=== PATIENT | female | born 1940 | race Caucasian/White ===

== ENCOUNTER → 2018-05-08 07:11 | Outpatient (REF) | payer OTHER, SELFPAY ==
[2018-05-08 08:31] LABS: Add Manual Diff / Slide Review NO; Basophils Percent Auto 0.1 % (0-2); Eosinophils Percent Auto 1.7 % (2-4); Hematocrit 35.4 % (36-46); Hemoglobin 11.7 g/dL (12.0-16.0); Lymphocytes Percent Auto 8.6 % (25-40); Mean Corpuscular HGB Conc 32.9 % (30-36); Mean Corpuscular Hemoglobin 29.4 PG (26-34); Mean Corpuscular Volume 89.3 fL (80-100); Monocytes Percent Auto 15.6 % (3-14); Neutrophils Absolute Auto 1500 /uL (1500-7000); Platelet Count 52 X10^3/uL (150-400); Red Blood Cell Count 3.97 X10^6/uL (4.0-5.2); Red Cell Distribution Width 18.2 % (11.6-14.8)
[2018-05-08 08:46] LABS: B Type Natriuretic Peptide < 100.0 (<100)
[2018-05-08 08:53] LABS: Alanine Aminotransferase 31 IU/L (9-52); Albumin 3.8 g/dL (3.5-5.0); Albumin Globulin Ratio 1.5 (1.0-2.8); Alkaline Phosphatase 87 U/L (38-126); Aspartate Aminotransferase 51 IU/L (14-36); Bilirubin Total 0.8 mg/dL (0.2-1.3); Blood Urea Nitrogen 18 mg/dL (7-17); Calcium 9.1 mg/dL (8.4-10.2); Carbon Dioxide 29 mmol/L (22-32); Chloride 103 mmol/L (98-107); Estimated Glomerular Filt Rate > 60.0 mL/min (>60); Globulin 2.6 g/dL (1.7-4.1); Glucose 85 mg/dL (80-110); HEMOLYSIS < 15 (0-50); Potassium 4.3 mmol/L (3.4-5.1); Sodium 143 mmol/L (137-145); Total Protein 6.4 g/dL (6.3-8.2)
[2018-05-08 09:42] LABS: Vitamin B12 492 pg/mL (239-931)
[2018-05-08 10:22] LABS: Thyroid Stimulating Hormone 2.03 uIU/mL (0.47-4.68)
== END ==
LOC: LAB 07:11
PROVIDERS: PCP Internal Medicine; Visit Provider Nurse Practitioner Family
DX: D64.9 Anemia, unspecified (principal); E03.9 Hypothyroidism, unspecified; I50.9 Heart failure, unspecified
CPT/HCPCS: 36415; 80053; 82607; 83880; 84443; 85025

== ENCOUNTER → 2018-05-24 07:15 | Outpatient (REF) | payer OTHER, SELFPAY ==
[2018-05-24 07:58] LABS: Add Manual Diff / Slide Review NO; Basophils Percent Auto 0.1 % (0-2); Eosinophils Percent Auto 2.3 % (2-4); Hematocrit 34.9 % (36-46); Hemoglobin 11.6 g/dL (12.0-16.0); Lymphocytes Percent Auto 7.4 % (25-40); Mean Corpuscular HGB Conc 33.2 % (30-36); Mean Corpuscular Hemoglobin 29.8 PG (26-34); Mean Corpuscular Volume 89.8 fL (80-100); Monocytes Percent Auto 14.6 % (3-14); Neutrophils Absolute Auto 2300 /uL (1500-7000); Neutrophils Percent Auto 75.6 % (50-75); Platelet Count 53 X10^3/uL (150-400); Red Blood Cell Count 3.88 X10^6/uL (4.0-5.2); Red Cell Distribution Width 17.9 % (11.6-14.8); White Blood Cell Count 3.1 X10^3/uL (4.5-11.0)
== END ==
LOC: LAB 07:15
PROVIDERS: PCP Internal Medicine; Visit Provider Internal Medicine
DX: D72.819 Decreased white blood cell count, unspecified (principal)
CPT/HCPCS: 36415; 85025

== ENCOUNTER 2018-06-01 15:15 | Inpatient (IN) | payer MEDICARE, MEDICAID, SELFPAY ==
[2018-06-01] VITALS (8 sets, daily range): BP systolic 104–132; BP diastolic 57–79; PULSE 64–86; RESP 13–22; TEMP 36.6–37; O2SAT 92–99; BMI 27.5
--- NOTE | 2018-06-01 15:22 | DI.RAD.S_ITS ---
PROCEDURE: XR CHEST 1V INDICATIONS: fever confusion TECHNIQUE: One view of the chest was acquired. COMPARISON: [facility] [place], [place], ABD W/ERECT +/OR DECB, 03/04/2011, 15:10. FINDINGS: Surgical changes and devices: Monitoring wires project over the chest. Cholecystectomy clips are present in the right upper abdomen. Lungs and pleura: There is mild diffuse interstitial prominence without focal consolidation. No pleural effusions or pneumothorax. Minimal streaky opacities involving the medial left lung base likely related to atelectasis. Mediastinum: Mediastinal contours appear normal. Heart size is at the upper limits for normal and may be related to patient positioning Bones and chest wall: No suspicious bony lesions. Overlying soft tissues appear unremarkable. IMPRESSION: Diffuse interstitial prominence without focal consolidation. Findings may be seen with interstitial pneumonia versus chronic interstitial lung disease. Dictated by: Christiano Sullivan M.D. on 06/01/2018 at 16:20 Approved by: Christiano Sullivan M.D. on 06/01/2018 at 16:26
--- NOTE | 2018-06-01 15:24 | ED.FEVER ---
HPI - Fever General Chief Complaint: Fever Stated Complaint: Fever Time Seen by Provider: 06/01/18 15:20 Source: patient, family, EMS and old records reviewed Limitations: no limitations History of Present Illness HPI Narrative: Patient is a 77-year-old female presenting with increased confusion and fever. She has had upper respiratory like symptoms for about a week or 2 weeks. She has had cough. No shortness of breath, no chest pain, no abdominal pain, nausea or vomiting. Her son is at bedside. He states that she has had a headache encephalopathy in the past. She also gets confused with bladder infections. She does take Keflex on a daily basis to help prevent all UTIs. Related Data Home Medications Medication Instructions Recorded Confirmed acetaminophen 650 mg PO Q6H PRN MDD 36 06/01/18 06/01/18 acetaminophen-codeine 1 tab PO Q12H PRN 06/01/18 06/01/18 ascorbic acid (vitamin C) 500 mg PO DAILY 06/01/18 06/01/18 cephalexin 500 mg PO QPM 06/01/18 06/01/18 diclofenac sodium 1 applic TOPICAL Q6H PRN 06/01/18 06/01/18 fingolimod 0.5 mg PO DAILY 06/01/18 06/01/18 furosemide 40 mg PO DAILY 06/01/18 06/01/18 gabapentin 300 mg PO QPM 06/01/18 06/01/18 levothyroxine 50 mcg PO DAILY 06/01/18 06/01/18 lidocaine 1 applic TOPICAL Q12H PRN 06/01/18 06/01/18 loperamide 2 mg PO DAILY PRN 06/01/18 06/01/18 lorazepam 0.5 mg PO DAILY PRN 06/01/18 06/01/18 multivitamin with minerals 1 tab PO DAILY 06/01/18 06/01/18 nystatin [Nyamyc] 1 applic TOPICAL TID PRN 06/01/18 06/01/18 omeprazole 20 mg PO DAILY 06/01/18 06/01/18 ondansetron HCl 4 mg PO Q6H PRN 06/01/18 06/01/18 potassium chloride 10 meq PO DAILY 06/01/18 06/01/18 sertraline 75 mg PO DAILY 06/01/18 06/01/18 Allergies Allergy/AdvReac Type Severity Reaction Status Date / Time Sulfa (Sulfonamide Allergy Verified 06/01/18 18:18 Antibiotics) Review of Systems Review of Systems ROS Unobtainable: All systems reviewed & are unremarkable except as noted in HPI and below Constitutional Reports fever(s) Cardiovascular Denies chest pain, Denies irregular heart rhythm, Denies lightheadedness, Denies palpitations, Denies dyspnea and Denies orthopnea Respiratory Reports as per HPI, Reports cough, Denies dyspnea and Denies wheezing Gastrointestinal Gastrointestinal: Denies abdominal pain, Denies change in bowel habits, Denies diarrhea, Denies nausea and Denies vomiting Genitourinary Denies hematuria, Denies flank pain, Denies urinary incontinence and Denies urinary urgency Musculoskeletal Denies back pain, Denies muscle weakness, Denies numbness and Denies tingling Integumentary/Breasts Denies pruritus, Denies erythema, Denies rash and Denies wounds Neurologic Reports confusion, Reports memory loss, Denies numbness and Denies tingling Psychiatric Reports confusion and Reports memory loss Endocrine Denies palpitations Allergic/Immunologic Denies wheezing PFSH Medical History CVA (cerebral vascular accident) (Acute) Depression (Acute) Hepatic encephalopathy (Acute) Pancytopenia (Acute) TIA (transient ischemic attack) (Acute) Social History Smoking Status: Never smoker Exam Initial Vital Signs Initial Vital Signs: Vital Signs Temperature 98.6 F 06/01/18 15:15 Pulse Rate 80 06/01/18 15:15 Respiratory Rate 18 06/01/18 15:15 Blood Pressure 125/57 L 06/01/18 15:15 Pulse Oximetry 97 06/01/18 15:15 GENERAL: Alert pleasant elderly female has trouble remembering and is a poor historian HEENT: Head atraumatic,EOMI, pupils reactive, face symmetric CARDIOVASCULAR: Regular rate and rhythm without murmurs, rubs or gallops. RESPIRATORY: Breath sounds equal bilaterally, no wheezes rales or rhonchi. ABDOMEN: Soft, nontender. Normoactive bowel sounds all 4 quadrants. No guarding or rebound. : No CVA tenderness EXTREMITIES: Normal range of motion, no clubbing or edema. Neurovascularly intact NEUROLOGICAL: Moving all extremities clear speech no gross deficits SKIN: Warm, dry, no laceration, no petechiae, no rashes or lesions. Scores CURB-65 Confusion: Yes BUN >19mg/dL (>7mmol/L): No Respiratory rate greater or equal to 30: No SBP <90mmHg or DBP less or equal to 60mmHg: No Age 65 or Older: Yes CURB-65 Total: 2 Score 0-1 Outpatient care, Score 2 Inpt vs. Obs, Score 3 or over Inpt admit with ICU for score of 4-5 GCS [place] coma scale eye opening: Spontaneous [place] coma scale verbal response: Confused [place] coma scale motor response: Obey commands [place] coma scale total score: 14 Course Orders Ordered: ED Orders 06/01/18 15:22 XR chest 1V Stat 06/01/18 16:10 Blood Culture Stat Complete Blood Count AUTO DIFF Stat Comprehensive Metabolic Panel Stat Lactate (Lactic Acid) Stat Procalcitonin Stat UA Complete [Urinalysis and Microscopic] Stat Urine Culture Stat 06/01/18 17:26 Ammonia (NH3) Stat Sodium Chloride (Normal Saline 0.9%) 1,000 mls @ 200 mls/hr IV CONT PRUDENCE Last Admin: 06/01/18 16:28 Dose: 200 mls/hr Levofloxacin (Levaquin) 750 mg in 150 mls @ 100 mls/hr IV NOW ONE Stop: 06/01/18 19:31 Vital Signs - 8 hr 06/01/18 15:15 06/01/18 16:30 06/01/18 16:32 Temperature 98.6 F Pulse Rate 80 74 76 Respiratory Rate 18 18 18 Blood Pressure 125/57 L Blood Pressure [Left Arm] 104/76 127/78 Pulse Oximetry 97 98 98 06/01/18 17:25 Temperature Pulse Rate 76 Respiratory Rate 13 Blood Pressure Blood Pressure [Left Arm] 119/75 Pulse Oximetry 98 MDM - Fever Lab Data Attestation: I reviewed the patient's lab results. Result diagrams: 06/01/18 16:10 06/01/18 16:10 Lab Results 06/01/18 06/01/18 06/01/18 Range/Units 16:10 16:10 16:10 WBC 3.8 L (4.5-11.0) X10^3/uL RBC 4.15 (4.0-5.2) X10^6/uL Hgb 12.3 (12.0-16.0) g/dL Hct 36.6 (36-46) % MCV 88.2 (80-100) fL MCH 29.6 (26-34) PG MCHC 33.6 (30-36) % RDW 17.7 H (11.6-14.8) % Plt Count 75 L (150-400) X10^3/uL Neut % (Auto) 75.3 H (50-75) % Lymph % (Auto) 7.1 L (25-40) % [place] % (Auto) 16.3 H (3-14) % Eos % (Auto) 0.7 L (2-4) % Baso % (Auto) 0.6 (0-2) % Neut # (Auto) 2900 (3893-3327) /uL Lymph # (Auto) 300 L (8228-8562) /uL [place] # (Auto) 600 (0-900) /uL Eos # (Auto) 0 (0-450) /uL Baso # (Auto) 0 (0-100) /uL Sodium 139 (137-145) mmol/L Potassium 3.8 (3.4-5.1) mmol/L Chloride 99 (98-107) mmol/L Carbon Dioxide 30 (22-32) mmol/L BUN 13 (7-17) mg/dL Creatinine 0.60 (0.52-1.04) mg/dL Estimated GFR > 60.0 (>60) mL/min BUN/Creatinine Ratio 21.7 (6-22) Glucose 91 (80-110) mg/dL Lactate (0.7-2.1) mmol/L Calcium 9.4 (8.4-10.2) mg/dL Total Bilirubin 1.1 (0.2-1.3) mg/dL AST 54 H (14-36) IU/L ALT 31 (9-52) IU/L Alkaline Phosphatase 84 (38-126) U/L Ammonia (9-30) umol/L Total Protein 7.4 (6.3-8.2) g/dL Albumin 4.2 (3.5-5.0) g/dL Globulin 3.2 (1.7-4.1) g/dL Albumin/Globulin Ratio 1.3 (1.0-2.8) Procalcitonin < 0.05 (<0.5) ng/mL Urine Color Urine Appearance Urine pH (4.5-8.0) Ur Specific [place] (1.000-1.035) Urine Protein (Negative) Urine Glucose (UA) (Negative) g/dL Urine Ketones (NEGATIVE) Urine Occult Blood (Negative) Urine Nitrate (Negative) Urine Bilirubin (NEGATIVE) Urine Urobilinogen (0.2) E.U./dL Ur Leukocyte Esterase (NEGATIVE) Urine RBC (0-5/HPF) Urine WBC (0-5/HPF) Amorphous Sediment Urine Bacteria (None) Urine Mucus (Negative) Ur Culture Indicated? 06/01/18 06/01/18 06/01/18 Range/Units 16:10 16:10 17:26 WBC (4.5-11.0) X10^3/uL RBC (4.0-5.2) X10^6/uL Hgb (12.0-16.0) g/dL Hct (36-46) % MCV (80-100) fL MCH (26-34) PG MCHC (30-36) % RDW (11.6-14.8) % Plt Count (150-400) X10^3/uL Neut % (Auto) (50-75) % Lymph % (Auto) (25-40) % [place] % (Auto) (3-14) % Eos % (Auto) (2-4) % Baso % (Auto) (0-2) % Neut # (Auto) (2344-8959) /uL Lymph # (Auto) (7010-0568) /uL [place] # (Auto) (0-900) /uL Eos # (Auto) (0-450) /uL Baso # (Auto) (0-100) /uL Sodium (137-145) mmol/L Potassium (3.4-5.1) mmol/L Chloride (98-107) mmol/L Carbon Dioxide (22-32) mmol/L BUN (7-17) mg/dL Creatinine (0.52-1.04) mg/dL Estimated GFR (>60) mL/min BUN/Creatinine Ratio (6-22) Glucose (80-110) mg/dL Lactate 1.3 (0.7-2.1) mmol/L Calcium (8.4-10.2) mg/dL Total Bilirubin (0.2-1.3) mg/dL AST (14-36) IU/L ALT (9-52) IU/L Alkaline Phosphatase (38-126) U/L Ammonia 21.0 (9-30) umol/L Total Protein (6.3-8.2) g/dL Albumin (3.5-5.0) g/dL Globulin (1.7-4.1) g/dL Albumin/Globulin Ratio (1.0-2.8) Procalcitonin (<0.5) ng/mL Urine Color Yellow Urine Appearance Clear Urine pH 6.5 (4.5-8.0) Ur Specific [place] 1.020 (1.000-1.035) Urine Protein Trace H (Negative) Urine Glucose (UA) Negative (Negative) g/dL Urine Ketones Negative (NEGATIVE) Urine Occult Blood Trace-lysed (Negative) Urine Nitrate Negative (Negative) Urine Bilirubin Negative (NEGATIVE) Urine Urobilinogen 0.2 (0.2) E.U./dL Ur Leukocyte Esterase Trace H (NEGATIVE) Urine RBC 1-5/hpf (0-5/HPF) Urine WBC 5-10/hpf H (0-5/HPF) Amorphous Sediment 2+ Urine Bacteria None seen (None) Urine Mucus 2+ H (Negative) Ur Culture Indicated? Specimen cultured Imaging Data Chest x-ray: Radiologist's impression: PROCEDURE: XR CHEST 1V INDICATIONS: fever confusion TECHNIQUE: One view of the chest was acquired. COMPARISON: [facility], CR, ABD W/ERECT +/OR DECB, 03/04/2011, 15:10. FINDINGS: Surgical changes and devices: Monitoring wires project over the chest. Cholecystectomy clips are present in the right upper abdomen. Lungs and pleura: There is mild diffuse interstitial prominence without focal consolidation. No pleural effusions or pneumothorax. Minimal streaky opacities involving the medial left lung base likely related to atelectasis. Mediastinum: Mediastinal contours appear normal. Heart size is at the upper limits for normal and may be related to patient positioning Bones and chest wall: No suspicious bony lesions. Overlying soft tissues appear unremarkable. IMPRESSION: Diffuse interstitial prominence without focal consolidation. Findings may be seen with interstitial pneumonia versus chronic interstitial lung disease. Dictated by: Christiano Sullivan M.D. on 06/01/2018 at 16:20 MDM Narrative Medical decision making narrative: Patient was started on Augmentin May 26. She has failed outpatient treatment and has progressively gotten more confused. She is leukopenic but WBC count has actually improved. Normal lactic acid. X-ray does show diffuse interstitial pneumonia. She does have symptoms of cough consistent with pneumonia. Dr. Garrido, has been updated patient's symptoms test results and happily accepts patient Discharge Plan Departure Patient Disposition: Admitted As Inpatient Clinical Impression: Pneumonia, Acute metabolic encephalopathy Admit Date/Time: 06/01/18 18:24 Admit Provider: Andrez Garrido
[2018-06-01 16:18] LABS: Bacteria Urine None Seen
[2018-06-01 16:19] LABS: Appearance Urine UA CLEAR; Bilirubin Urine UA NEGATIVE (NEGATIVE); Color Urine UA YELLOW; Glucose Urine UA NEGATIVE (Negative); Ketones Urine UA NEGATIVE (NEGATIVE); Leukocyte Esterase Urine UA TRACE (NEGATIVE); Nitrite Urine UA NEGATIVE (Negative); Occult Blood Urine UA TRACE-LYSED (Negative); Protein Urine UA TRACE (Negative); Urobilinogen Urine UA 0.2 E.U./dL (0.2); pH Urine UA 6.5 (4.5-8.0)
[2018-06-01 16:20] LABS: Add Manual Diff / Slide Review NO; Basophils Absolute Auto 0 /uL (0-100); Basophils Percent Auto 0.6 % (0-2); Eosinophils Absolute Auto 0 /uL (0-450); Eosinophils Percent Auto 0.7 % (2-4); Hematocrit 36.6 % (36-46); Hemoglobin 12.3 g/dL (12.0-16.0); Lymphocytes Absolute Auto 300 /uL (1100-4500); Lymphocytes Percent Auto 7.1 % (25-40); Mean Corpuscular HGB Conc 33.6 % (30-36); Mean Corpuscular Hemoglobin 29.6 PG (26-34); Mean Corpuscular Volume 88.2 fL (80-100); Monocytes Absolute Auto 600 /uL (0-900); Monocytes Percent Auto 16.3 % (3-14); Neutrophils Absolute Auto 2900 /uL (1500-7000); Neutrophils Percent Auto 75.3 % (50-75); Red Blood Cell Count 4.15 X10^6/uL (4.0-5.2); Red Cell Distribution Width 17.7 % (11.6-14.8); White Blood Cell Count 3.8 X10^3/uL (4.5-11.0)
[2018-06-01 16:21] LABS: Platelet Count 75 X10^3/uL (150-400)
[2018-06-01] MEDS: SODIUM CHLORIDE 0.9% 1,000 ML 200 ML IV (16:28)
[2018-06-01 16:36] LABS: Amorphous Sediment Urine 2+; Mucus Urine 2+ (Negative); RBC Urine 1-5/HPF (0-5/HPF); WBC Urine 5-10/HPF (0-5/HPF)
[2018-06-01 16:37] LABS: Alanine Aminotransferase 31 IU/L (9-52); Albumin 4.2 g/dL (3.5-5.0); Albumin Globulin Ratio 1.3 (1.0-2.8); Alkaline Phosphatase 84 U/L (38-126); Aspartate Aminotransferase 54 IU/L (14-36); BUN Creatinine Ratio 21.7 (6-22); Bilirubin Total 1.1 mg/dL (0.2-1.3); Blood Urea Nitrogen 13 mg/dL (7-17); Calcium 9.4 mg/dL (8.4-10.2); Carbon Dioxide 30 mmol/L (22-32); Chloride 99 mmol/L (98-107); Culture Indicated Urine Specimen Cultured; Estimated Glomerular Filt Rate > 60.0 mL/min (>60); Globulin 3.2 g/dL (1.7-4.1); Glucose 91 mg/dL (80-110); HEMOLYSIS < 15 (0-50); Potassium 3.8 mmol/L (3.4-5.1); Sodium 139 mmol/L (137-145); Total Protein 7.4 g/dL (6.3-8.2)
[2018-06-01 16:39] LABS: Lactate (Lactic Acid) 1.3 mmol/L (0.7-2.1)
[2018-06-01 17:04] LABS: Procalcitonin < 0.05 ng/mL (<0.5)
[2018-06-01] MEDS: levoFLOXacin 750 MG/150 ML PIGGYBACK 100 MG IV (18:17)
--- NOTE | 2018-06-01 18:50 | PC.NURSE ---
Dr. Garrido requested to stop Levaquin infusion until they figure out her allergies. 44 cc infused without difficulty. no adverse reactions noted.
--- NOTE | 2018-06-01 19:07 | P.HP_ITS ---
History of Present Illness Date Patient Seen: 06/01/18 Time Patient Seen: 19:06 Chief complaint: Fever Narrative: This is a 77-year-old female presenting from the assisted living facility with altered mental status going on for approximately 1 week plus. She gives a substantially different history than her son and it is challenging to tease out the timing of the symptoms. Over the last few weeks her multiple sclerosis symptoms and altered mental status along with dysuria seemed to be progressing. She was treated with Augmentin at the facility. I do not have the full details. She has had a cough productive of yellow sputum and increased urinary frequency/incontinence above her chronic incontinence. She has had multiple sclerosis for 10 years, most recently hospitalized at [facility] in [place] and moving here within the last year or 2. There has also been mention of back pain, neck pain, instability. She has a history of recurrent urinary tract infections treated with prophylactic Keflex. The chest x-ray today is read as showing diffuse bilateral interstitial infiltrates. I am unable to obtain a personal view of the chest x-ray on the PACS system for unknown reasons. Her answers to questions are slow and tangential, also apparently not factual in comparison to her son's report. There is some question of a fluoroquinolone allergy. As this was being discussed and clarified she did receive several mL of a fluoroquinolone infusion before it was stopped. She has had no signs of reaction at this point. Patient History Medical History CVA (cerebral vascular accident) (Acute) Depression (Acute) Hepatic encephalopathy (Acute) Pancytopenia (Acute) TIA (transient ischemic attack) (Acute) Family & Social History Safety & Behavioral: Feels Safe in Current Yes Environment Been Physically Hurt or No Threatened By a Person Tobacco & Substance use: Smoking Status Never smoker alcohol intake frequency 0-2 drinks per day Substance Use Type does not use Meds Home Medications Medication Instructions Recorded Confirmed Type acetaminophen 650 mg PO Q6H PRN MDD 36 06/01/18 06/01/18 History acetaminophen-codeine 1 tab PO Q12H PRN 06/01/18 06/01/18 History ascorbic acid (vitamin C) 500 mg PO DAILY 06/01/18 06/01/18 History cephalexin 500 mg PO QPM 06/01/18 06/01/18 History diclofenac sodium 1 applic TOPICAL Q6H PRN 06/01/18 06/01/18 History fingolimod 0.5 mg PO DAILY 06/01/18 06/01/18 History furosemide 40 mg PO DAILY 06/01/18 06/01/18 History gabapentin 300 mg PO QPM 06/01/18 06/01/18 History levothyroxine 50 mcg PO DAILY 06/01/18 06/01/18 History lidocaine 1 applic TOPICAL Q12H PRN 06/01/18 06/01/18 History loperamide 2 mg PO DAILY PRN 06/01/18 06/01/18 History lorazepam 0.5 mg PO DAILY PRN 06/01/18 06/01/18 History multivitamin with minerals 1 tab PO DAILY 06/01/18 06/01/18 History nystatin [Nyamyc] 1 applic TOPICAL TID PRN 06/01/18 06/01/18 History omeprazole 20 mg PO DAILY 06/01/18 06/01/18 History ondansetron HCl 4 mg PO Q6H PRN 06/01/18 06/01/18 History potassium chloride 10 meq PO DAILY 06/01/18 06/01/18 History sertraline 75 mg PO DAILY 06/01/18 06/01/18 History Allergies Allergy/AdvReac Type Severity Reaction Status Date / Time adhesive Allergy Verified 06/01/18 18:55 crab Allergy Verified 06/01/18 18:55 epinephrine Allergy Verified 06/01/18 18:55 latex Allergy Verified 06/01/18 18:55 Quinolones Allergy Verified 06/01/18 18:55 Sulfa (Sulfonamide Allergy Verified 06/01/18 18:18 Antibiotics) Exam Vital Signs (past 8 hours): - 06/01/18 15:15 06/01/18 16:30 06/01/18 16:32 Temperature 98.6 F Pulse Rate 80 74 76 Respiratory Rate 18 18 18 Blood Pressure 125/57 L Blood Pressure [Left Arm] 104/76 127/78 Pulse Oximetry 97 98 98 06/01/18 17:25 06/01/18 18:00 06/01/18 19:00 Temperature Pulse Rate 76 79 79 Respiratory Rate 13 22 20 Blood Pressure Blood Pressure [Left Arm] 119/75 114/65 109/59 L Pulse Oximetry 98 98 92 Oxygen Delivery Method Room Air Objective Labs Result Diagrams: 06/01/18 16:10 06/01/18 16:10 Labs: Laboratory Results - last 24 hr 06/01/18 06/01/18 06/01/18 16:10 16:10 16:10 WBC 3.8 L RBC 4.15 Hgb 12.3 Hct 36.6 MCV 88.2 MCH 29.6 MCHC 33.6 RDW 17.7 H Plt Count 75 L Neut % (Auto) 75.3 H Lymph % (Auto) 7.1 L [place] % (Auto) 16.3 H Eos % (Auto) 0.7 L Baso % (Auto) 0.6 Neut # (Auto) 2900 Lymph # (Auto) 300 L [place] # (Auto) 600 Eos # (Auto) 0 Baso # (Auto) 0 Sodium 139 Potassium 3.8 Chloride 99 Carbon Dioxide 30 BUN 13 Creatinine 0.60 Estimated GFR > 60.0 BUN/Creatinine Ratio 21.7 Glucose 91 Lactate Calcium 9.4 Total Bilirubin 1.1 AST 54 H ALT 31 Alkaline Phosphatase 84 Ammonia Total Protein 7.4 Albumin 4.2 Globulin 3.2 Albumin/Globulin Ratio 1.3 Procalcitonin < 0.05 Urine Color Urine Appearance Urine pH Ur Specific [place] Urine Protein Urine Glucose (UA) Urine Ketones Urine Occult Blood Urine Nitrate Urine Bilirubin Urine Urobilinogen Ur Leukocyte Esterase Urine RBC Urine WBC Amorphous Sediment Urine Bacteria Urine Mucus Ur Culture Indicated? 06/01/18 06/01/18 06/01/18 16:10 16:10 17:26 WBC RBC Hgb Hct MCV MCH MCHC RDW Plt Count Neut % (Auto) Lymph % (Auto) [place] % (Auto) Eos % (Auto) Baso % (Auto) Neut # (Auto) Lymph # (Auto) [place] # (Auto) Eos # (Auto) Baso # (Auto) Sodium Potassium Chloride Carbon Dioxide BUN Creatinine Estimated GFR BUN/Creatinine Ratio Glucose Lactate 1.3 Calcium Total Bilirubin AST ALT Alkaline Phosphatase Ammonia 21.0 Total Protein Albumin Globulin Albumin/Globulin Ratio Procalcitonin Urine Color Yellow Urine Appearance Clear Urine pH 6.5 Ur Specific [place] 1.020 Urine Protein Trace H Urine Glucose (UA) Negative Urine Ketones Negative Urine Occult Blood Trace-lysed Urine Nitrate Negative Urine Bilirubin Negative Urine Urobilinogen 0.2 Ur Leukocyte Esterase Trace H Urine RBC 1-5/hpf Urine WBC 5-10/hpf H Amorphous Sediment 2+ Urine Bacteria None seen Urine Mucus 2+ H Ur Culture Indicated? Specimen cultured
--- NOTE | 2018-06-01 19:15 | PM.HP.1 ---
History of Present Illness Chief complaint: Fever Narrative: This is a 77-year-old female presenting from the assisted living facility with altered mental status going on for approximately 1 week plus. She gives a substantially different history than her son and it is challenging to tease out the timing of the symptoms. Over the last few weeks her multiple sclerosis symptoms and altered mental status along with dysuria seemed to be progressing. She was treated with Augmentin at the facility. I do not have the full details. She has had a cough productive of yellow sputum and increased urinary frequency/incontinence above her chronic incontinence. She has had multiple sclerosis for 10 years, most recently hospitalized at [facility] in [place] and moving here within the last year or 2. There has also been mention of back pain, neck pain, instability. She has a history of recurrent urinary tract infections treated with prophylactic Keflex. The chest x-ray today is read as showing diffuse bilateral interstitial infiltrates. I am unable to obtain a personal view of the chest x-ray on the PACS system for unknown reasons. Her answers to questions are slow and tangential, also apparently not factual in comparison to her son's report. There is some question of a fluoroquinolone allergy. As this was being discussed and clarified she did receive several mL of a fluoroquinolone infusion before it was stopped. She has had no signs of reaction at this point. Patient History Medical History CVA (cerebral vascular accident) (Acute) Depression (Acute) Hepatic encephalopathy (Acute) Multiple sclerosis (Acute) Pancytopenia (Acute) TIA (transient ischemic attack) (Acute) Comment: Pilonidal cyst excision L3-5 lumbar spine surgery Appendectomy UPJ surgery Family & Social History Family history unavailable: Yes (Unreliable, confabulating historical presentation) Safety & Behavioral: Feels Safe in Current Yes Environment Been Physically Hurt or No Threatened By a Person Tobacco & Substance use: Smoking Status Never smoker alcohol intake frequency 0-2 drinks per day Substance Use Type does not use Meds Home Medications Medication Instructions Recorded Confirmed Type acetaminophen 650 mg PO Q6H PRN MDD 36 06/01/18 06/01/18 History acetaminophen-codeine 1 tab PO Q12H PRN 06/01/18 06/01/18 History ascorbic acid (vitamin C) 500 mg PO DAILY 06/01/18 06/01/18 History cephalexin 500 mg PO QPM 06/01/18 06/01/18 History diclofenac sodium 1 applic TOPICAL Q6H PRN 06/01/18 06/01/18 History fingolimod 0.5 mg PO DAILY 06/01/18 06/01/18 History furosemide 40 mg PO DAILY 06/01/18 06/01/18 History gabapentin 300 mg PO QPM 06/01/18 06/01/18 History levothyroxine 50 mcg PO DAILY 06/01/18 06/01/18 History lidocaine 1 applic TOPICAL Q12H PRN 06/01/18 06/01/18 History loperamide 2 mg PO DAILY PRN 06/01/18 06/01/18 History lorazepam 0.5 mg PO DAILY PRN 06/01/18 06/01/18 History multivitamin with minerals 1 tab PO DAILY 06/01/18 06/01/18 History nystatin [Nyamyc] 1 applic TOPICAL TID PRN 06/01/18 06/01/18 History omeprazole 20 mg PO DAILY 06/01/18 06/01/18 History ondansetron HCl 4 mg PO Q6H PRN 06/01/18 06/01/18 History potassium chloride 10 meq PO DAILY 06/01/18 06/01/18 History sertraline 75 mg PO DAILY 06/01/18 06/01/18 History Allergies Allergy/AdvReac Type Severity Reaction Status Date / Time adhesive Allergy Verified 06/01/18 18:55 crab Allergy Verified 06/01/18 18:55 epinephrine Allergy Verified 06/01/18 18:55 latex Allergy Verified 06/01/18 18:55 Quinolones Allergy Verified 06/01/18 18:55 Sulfa (Sulfonamide Allergy Verified 06/01/18 18:18 Antibiotics) Review of Systems Review of Systems Positive for confusion, dysuria, coughing, productive sputum, urinary frequency, urinary incontinence, weakness, pancytopenia. Denies chest pain, nausea, vomiting, dysuria, hematuria, seizures, shortness of breath, rashes, difficulty talking, new allergies. All systems reviewed & are unremarkable except as noted in HPI and below Exam Vital Signs (past 8 hours): - 06/01/18 15:15 06/01/18 16:30 06/01/18 16:32 Temperature 98.6 F Pulse Rate 80 74 76 Respiratory Rate 18 18 18 Blood Pressure 125/57 L Blood Pressure [Left Arm] 104/76 127/78 Pulse Oximetry 97 98 98 06/01/18 17:25 06/01/18 18:00 06/01/18 19:00 Temperature Pulse Rate 76 79 79 Respiratory Rate 13 22 20 Blood Pressure Blood Pressure [Left Arm] 119/75 114/65 109/59 L Pulse Oximetry 98 98 92 Oxygen Delivery Method Room Air Narrative Exam Narrative: She is alert and oriented x3 but is very tangential, unreliable, and apparently confabulating in her answers to historical questions. Her son is able to clarify much of the history. Pupils are equally round and reactive to light and accommodation. Sclerae are pink and nonicteric. Throat looks normal. No lymph nodes are felt head, neck, supraclavicular area. No carotid bruits are heard. JVD is less than 6 cm. Heart is regular rate and rhythm with a 1/6 systolic ejection murmur. Lungs have wheezes bilaterally. Extremities have no ankle edema. Neurologic exam positive for photophobia and weakness. Cranial nerves 2-12 appeared test intact. There is no tremor. She is diffusely weak typical for multiple sclerosis. Skin no rash or jaundice. Objective Labs Result Diagrams: 06/02/18 04:51 06/02/18 04:51 Labs: Laboratory Results - last 24 hr 06/01/18 06/01/18 06/01/18 16:10 16:10 16:10 WBC 3.8 L RBC 4.15 Hgb 12.3 Hct 36.6 MCV 88.2 MCH 29.6 MCHC 33.6 RDW 17.7 H Plt Count 75 L Neut % (Auto) 75.3 H Lymph % (Auto) 7.1 L [place] % (Auto) 16.3 H Eos % (Auto) 0.7 L Baso % (Auto) 0.6 Neut # (Auto) 2900 Lymph # (Auto) 300 L [place] # (Auto) 600 Eos # (Auto) 0 Baso # (Auto) 0 Sodium 139 Potassium 3.8 Chloride 99 Carbon Dioxide 30 BUN 13 Creatinine 0.60 Estimated GFR > 60.0 BUN/Creatinine Ratio 21.7 Glucose 91 Lactate Calcium 9.4 Total Bilirubin 1.1 AST 54 H ALT 31 Alkaline Phosphatase 84 Ammonia Total Protein 7.4 Albumin 4.2 Globulin 3.2 Albumin/Globulin Ratio 1.3 Procalcitonin < 0.05 Urine Color Urine Appearance Urine pH Ur Specific [place] Urine Protein Urine Glucose (UA) Urine Ketones Urine Occult Blood Urine Nitrate Urine Bilirubin Urine Urobilinogen Ur Leukocyte Esterase Urine RBC Urine WBC Amorphous Sediment Urine Bacteria Urine Mucus Ur Culture Indicated? 06/01/18 06/01/18 06/01/18 16:10 16:10 17:26 WBC RBC Hgb Hct MCV MCH MCHC RDW Plt Count Neut % (Auto) Lymph % (Auto) [place] % (Auto) Eos % (Auto) Baso % (Auto) Neut # (Auto) Lymph # (Auto) [place] # (Auto) Eos # (Auto) Baso # (Auto) Sodium Potassium Chloride Carbon Dioxide BUN Creatinine Estimated GFR BUN/Creatinine Ratio Glucose Lactate 1.3 Calcium Total Bilirubin AST ALT Alkaline Phosphatase Ammonia 21.0 Total Protein Albumin Globulin Albumin/Globulin Ratio Procalcitonin Urine Color Yellow Urine Appearance Clear Urine pH 6.5 Ur Specific [place] 1.020 Urine Protein Trace H Urine Glucose (UA) Negative Urine Ketones Negative Urine Occult Blood Trace-lysed Urine Nitrate Negative Urine Bilirubin Negative Urine Urobilinogen 0.2 Ur Leukocyte Esterase Trace H Urine RBC 1-5/hpf Urine WBC 5-10/hpf H Amorphous Sediment 2+ Urine Bacteria None seen Urine Mucus 2+ H Ur Culture Indicated? Specimen cultured Assessment & Plan Plan: Assessment/Plan Narrative: 1 - Pneumonia - Begin on Cefepime IV for for coverage of the usual gram negatives and possible Pseudomonas causing CAP and UTI. - Will continue to look for the CXR films on PACS to confirm/clarify the pneumonia location/severity 2 - UTI - Urine Culture pending - Begin on Cefepime IV. Avoid Fluoroquinolones. 3 - Multiple Sclerosis - Continue Fingolimod (Gilenya) 4 - Non Alcoholic Liver Disease/Diffuse Pancytopenia - This is apparently stable with low WBC and low Platelets. - Repeat CBC tomorrow. 5 - CHF - Gentle hydration IV tonight. Stop when documented PO intake is adequate. 6 - Fluoroquinolone Allergy - Her son is unable to clarify with his sister what her reaction had been - The Levaquin infusion was stopped well before half the bag was infused. Will observe closely for any reaction tonight.
[2018-06-01] MEDS: DEXTROSE 5%-0.9% NS 1,000 ML 100 ML IV (19:24)
[2018-06-01] MEDS: CEFEPIME 1 GM in SODIUM CHLORIDE 0.9% 100 ML 200 ML IV (20:01)
[2018-06-01] MEDS: CODEINE/ACETAMINOPHEN 30/300 TABLET 1 TAB PO (20:01)
[2018-06-01] MEDS: HEPARIN 5,000 UNIT/ML VIAL 5000 UNIT SUBCUT (20:02)
[2018-06-01] MEDS: ACETAMINOPHEN 325 MG TABLET 650 MG PO (22:11)
[2018-06-01] MEDS: LORazepam 0.5 MG TABLET PO (22:11)
[2018-06-02] VITALS (12 sets, daily range): BP systolic 91–133; BP diastolic 51–77; PULSE 67–71; RESP 16–24; TEMP 36.6–37; O2SAT 90–99
[2018-06-02 05:09] LABS: Add Manual Diff / Slide Review NO; Basophils Absolute Auto 0 /uL (0-100); Basophils Percent Auto 0.2 % (0-2); Eosinophils Absolute Auto 0 /uL (0-450); Eosinophils Percent Auto 1.4 % (2-4); Hematocrit 33.4 % (36-46); Hemoglobin 11.2 g/dL (12.0-16.0); Lymphocytes Absolute Auto 100 /uL (1100-4500); Lymphocytes Percent Auto 7.1 % (25-40); Mean Corpuscular HGB Conc 33.6 % (30-36); Mean Corpuscular Hemoglobin 30.3 PG (26-34); Monocytes Absolute Auto 300 /uL (0-900); Neutrophils Absolute Auto 1500 /uL (1500-7000); Neutrophils Percent Auto 76.3 % (50-75); Platelet Count 48 X10^3/uL (150-400); Red Blood Cell Count 3.71 X10^6/uL (4.0-5.2); Red Cell Distribution Width 17.5 % (11.6-14.8)
[2018-06-02 05:18] LABS: Alanine Aminotransferase 30 IU/L (9-52); Albumin 3.3 g/dL (3.5-5.0); Albumin Globulin Ratio 1.2 (1.0-2.8); Alkaline Phosphatase 64 U/L (38-126); Aspartate Aminotransferase 41 IU/L (14-36); BUN Creatinine Ratio 18.3 (6-22); Bilirubin Total 0.8 mg/dL (0.2-1.3); Blood Urea Nitrogen 11 mg/dL (7-17); Calcium 8.3 mg/dL (8.4-10.2); Carbon Dioxide 28 mmol/L (22-32); Chloride 104 mmol/L (98-107); Estimated Glomerular Filt Rate > 60.0 mL/min (>60); Globulin 2.7 g/dL (1.7-4.1); Glucose 105 mg/dL (80-110); HEMOLYSIS < 15 (0-50); Potassium 3.5 mmol/L (3.4-5.1); Sodium 139 mmol/L (137-145)
[2018-06-02] MEDS: DEXTROSE 5%-0.9% NS 1,000 ML 100 ML IV ×2 (06:30→17:21)
[2018-06-02] MEDS: CEFEPIME 1 GM in SODIUM CHLORIDE 0.9% 100 ML 200 ML IV ×2 (06:30→18:59)
[2018-06-02] MEDS: PANTOPRAZOLE 20 MG TABLET PO (07:56)
[2018-06-02] MEDS: ACETAMINOPHEN 325 MG TABLET 650 MG PO ×2 (08:13→19:01)
[2018-06-02] MEDS: ASCORBIC ACID 500 MG TABLET PO (08:14)
[2018-06-02] MEDS: SERTRALINE 25 MG TABLET 75 MG PO (08:14)
[2018-06-02] MEDS: LEVOTHYROXINE 50 MCG TABLET PO (08:14)
[2018-06-02] MEDS: FUROSEMIDE 40 MG TABLET PO (08:14)
[2018-06-02] MEDS: POTASSIUM CHLORIDE 10 MEQ TAB PO (08:15)
[2018-06-02] MEDS: ONDANSETRON 4 MG ODT PO (08:15)
[2018-06-02] MEDS: HEPARIN 5,000 UNIT/ML VIAL 5000 UNIT SUBCUT (08:15)
[2018-06-02] MEDS: MULTIVIT,CALC,MINS/IRON/FOLIC 1 TABLET 1 TAB PO (08:15)
--- NOTE | 2018-06-02 11:05 | PT.IIE ---
Current Diagnoses Pneumonia, unspecified organism (06/01/18) Medical History (Last Updated 06/02/18 @ 03:46 by Sandy Quiroz RN) CVA (cerebral vascular accident) (Acute) Depression (Acute) Hepatic encephalopathy (Acute) Multiple sclerosis (Acute) Pancytopenia (Acute) TIA (transient ischemic attack) (Acute) Physical Therapy Inpatient Evaluation/Re-Eval M1 PT/OT-IP Prior Functional Status Start: 06/02/18 11:17 Freq: NEEDED Status: Active Protocol: Document 06/02/18 11:05 [facility] (Rec: 06/02/18 11:27 [facility] [id number]) Medical Review Prior Functional Status Medical History Reviewed Yes Mobility and Gait per son Petros- pt able to ambulate short distances (to bathroom and sink) with walker @ [facility], but not mobile the past 1-2 weeks d/t AMS. Activities of Daily Living and IADL's worsening over the past 1-2 weeks d/t AMS, but prior able to dress modified indep. and feed self (does not like the food @ [facility], son thinks she is not eating much and may be losing weight). Social History Living Arrangements Assisted Living Number of Floors (Floors) One Floor Home Equipment Four Wheel Walker Additional Social History Comment Pt resides @ [facility], she moved there ~6 weeks ago (living with son prior to [facility] in [place]). M2 PT-IP Current Condition Start: 06/02/18 11:17 Freq: NEEDED Status: Active Protocol: Document 06/02/18 11:05 [facility] (Rec: 06/02/18 11:27 [facility] [id number]) Physical Therapy Current Condition Current Condition Evaluation Date 06/02/18 Treatment Diagnosis AMS, fever, pneumonia, impaired activity tolerance and gait Precautions Other Precautions pt with MS M3 PT-IP Subjective Start: 06/02/18 11:17 Freq: NEEDED Status: Active Protocol: Document 06/02/18 11:05 [facility] (Rec: 06/02/18 11:27 [facility] [id number]) Subjective Physical Therapy Visit Type Type Initial Evaluation Visit Start Time 10:40 Visit Stop Time 11:05 Total Visit Minutes 25 Number of OTHER WOOD PROCESSING MACHINE OPERATOR Visits 0 Physical Therapy Visit Comments Patient Comments pt states that she feels like she is more confused this time of day. Patient Goals to get moving and stronger on her feet. Therapy Pain Assessment Pain Present Pain Present Denied Pain M4 PT-IP Mobility and Gait Start: 06/02/18 11:17 Freq: NEEDED Status: Active Protocol: Document 06/02/18 11:05 [facility] (Rec: 06/02/18 11:27 [facility] [id number]) PT-Transfer Assessment Sit to and From Stand Sit to and from Stand Contact Guard Assistance Equipment Transfer Assistive Device Gait Belt Front Wheeled Walker Transfers Transfer Destination Chair Transfer Technique Stand Step Pivot Transfer Ability Level of Assist Contact Guard Assistance Comments Mobility Comments 2 attempts to stand Gait Assessment Gait Gait Assistance Required: Contact Guard Assist Distance (Feet) 60 Assistive Devices Assistive Device Gait Belt Front Wheeled Walker Gait Deviations General Gait Pattern Ataxic Decreased Stride Length Decreased Feet Clearance Narrow Based Gait Factors Limiting Gait Function Factors Limiting Gait Function Decreased Activity Tolerance Decreased Strength Incoordination Poor Balance Poor Safety Awareness PT-Balance Assessment Sitting Balance and Reactions Static Sitting Balance Ability Good Dynamic Sitting Balance Ability Fair Standing Balance and Reactions Static Standing Balance Ability Fair Dynamic Standing Balance Ability Poor Device Used FWW M5 PT-IP Objective Assessments Start: 06/02/18 11:17 Freq: NEEDED Status: Active Protocol: Document 06/02/18 11:05 [facility] (Rec: 06/02/18 11:27 [facility] [id number]) Orientation Orientation/Cognition Level of Alertness Confusional State Gross Range of Motion Lower Extremity ROM Assessment Within Functional Limits Strength Lower Extremity Strength Hip flexion 3/5 R and 3+/5 L Knee flexion 3/5 B, extension 3+/5 B Coordination Assessment Gross Coordination Gross Coordination Impaired Sensation Assessment Comments Sensation Comments pt denied numbness/tingling, testing difficult d/t pt mentation M6 PT-IP Treatment Start: 06/02/18 11:17 Freq: NEEDED Status: Active Protocol: Document 06/02/18 11:05 [facility] (Rec: 06/02/18 11:27 [facility] [id number]) Physical Therapy Treatment Education Education Provided Safety Other Treatments Other Treatment Performed dynamic standing at sink to brush teeth- required assistance with placing toothpaste on brush and UE support at all times on sink M7 PT-IP Assessment and Plan Start: 06/02/18 11:17 Freq: NEEDED Status: Active Protocol: Document 06/02/18 11:05 [facility] (Rec: 06/02/18 11:27 [facility] [id number]) PT Summary Assessment and Plan Potential Rehabilitation Potential Good Status of Condition at Evaluation Evolving Summary Impairments Strength Balance Coordination Cognition Gait Activity Tolerance Assessment Summary Pt able to ambulate 60 ft with CGA, demonstrating imbalances and inconsistent foot placement along with narrow BAL. Pt with imbalances with static standing, tending to lean posteriorly, likely due to rigidity. Pt at this time is not safe to ambulate without assistance, which is below her prior level of function. Given that pt requires assistance with safety during mobility, she likely will require increased support and assistance than she was 3+ weeks ago, but likely be able to return to [facility] when medically stable provided that she has increased care with ADLs and all mobility. Goals Bed Mobility Goal Standby Assistance Transfer Goal Standby Assistance Gait Goal Standby Assistance Front Wheel Walker Gait Distance 150 Days to Meet Goals 5 Frequency of Treatment Frequency Of Treatment Once a Day Treatment Plan Physical Therapy Treatment Plan Bed Mobility Training Transfer Training Gait Training Therapeutic Exercise Balance Retraining Discharge Planning Neuromuscular Re-ed Other Recommendations and Next Treatment gait training- progress Focus distance, static and dynamic standing balance Recommendations To Nursing Amount of Assist Needed 1 Person Assist Discharge Recommendations PT Discharge Recommendations Home with 12/12 Assist
[2018-06-02] MEDS: FINGOLIMOD 0.5 MG 0.5 EACH PO (11:09)
[2018-06-02] MEDS: CODEINE/ACETAMINOPHEN 30/300 TABLET 1 TAB PO (12:13)
--- NOTE | 2018-06-02 12:41 | CM.DANOTE ---
Patient is a 77 year old female who was admitted on 06/01/18 for Fever. Pt has [facility] and [facility] for insurance and her PCP is Dr. Khalil. EMR was reviewed. Per MD, pt with possible pneumonia and UTI and MS at baseline and not medically stable for d/c yet. Per RN, pt somewhat confused but seems mostly alert and oriented and able to provide some hx. Per PT, currently recommending d/c back to [facility] with assist. SW met bedside with pt and family members and explained role and they confirm that the pt had been living with her son in [facility] until recently when [facility]. Pt is mostly Independent with ADL's at baseline and does not require much assist at [facility]. Pt's DPOA is her son Sebastián. SW called LARRY Miltno at [facility], and confirmed that the pt is a resident there and is mostly Independent and has not required any assist with ambulation. Pt has been [facility] and also [facility] for [facility] and relies on facility transport. Karine stated that she does not need any clinicals faxed yet to review and they will be following to confirm that they can accept pt back at d/c and will likely do a bedside assessment in the next couple days. Plan: SW to follow closely for further PT towards coordination with [facility] to confirm that they can accept the pt back at d/c vs SNF. SW to coordinate with pt's sons on d/c needs and plan. TAL Ruano Discharge Planning/Care Management Advanced directive, confirm from FAMILY Start: 06/01/18 19:50 Freq: Q24H Status: Active Protocol: Document 06/01/18 19:50 [facility] (Rec: 06/01/18 22:57 [facility] [id number]) Advance Directive, confirm on record Time 20:30 Person contacted calderon Copy received No CM Discharge Assessment Start: 06/02/18 12:30 Freq: Status: Active Protocol: Document 06/02/18 12:31 [facility] (Rec: 06/02/18 12:41 [facility] [id number]) Discharge Planning Assessment Assigned Rim Roller Operator TAL Hernandez DPOA/Assigned Designee Name son Sebastián Advance Directives? Yes Advance Directives on File No History Provided By Patient Family Member Medical Record Has Patient been admitted in last 30 No days? Prior Living Arrangements Assisted Living Comment [facility] Type of transporation used prior to Relies on Others admit Comment Family and/or [facility] provide transport Facility Name Admitted From: [facility] Willing to Return to Facility? Yes Independent with ADL's Yes: Mostly Independent at baseline Is patient alert and oriented? No: Somewhat confused, but easily redirected Needs Assistance With Managing Medications Home Chores / Shopping Caregiver for Another No Comment Likely return to [facility] if back to baseline at d/c. Barriers to Discharge No Discharge Plan Assisted Living Facility Transportation Arrangement Likely family or [facility] to provide transport at d/c. Referrals Initiated None needed Additional Comment Per PT, safe for return home to Assisted Living with assist . Review Status In Process Please Provide Date Initial DC 06/02/18 Assessment Was Performed Next Review Type Continued Stay Review
--- NOTE | 2018-06-02 13:25 | PM.PN.1 ---
Subjective Date Patient Seen: 06/02/18 Interval history: She is seen today to follow up her multiple sclerosis, pneumonia, urine tract infection. For unclear reasons her actual chest x-ray films are not visible in the PACS system. Her CMP is negative except for an AST of 41. The ammonia level is 21. The white blood count is 2.0 with a hemoglobin of 11.2 and platelets of 48. Exam Vital Signs (past 8 hours): - 06/02/18 05:45 06/02/18 06:30 06/02/18 07:30 Temperature 98.1 F Pulse Rate 67 Respiratory Rate 16 Blood Pressure 133/77 Pulse Oximetry 99 96 95 06/02/18 07:35 06/02/18 08:00 06/02/18 08:15 Temperature 97.8 F Pulse Rate 68 Respiratory Rate 16 Blood Pressure 130/75 Pulse Oximetry 97 96 95 Fraction of Inspired Oxygen 21 Oxygen Delivery Method Room Air Oxygen Flow Rate 0 Narrative Exam Narrative: She is alert and oriented to her name. Lungs are clear to auscultation bilaterally. Heart is regular rate and rhythm with a 1/6 systolic ejection murmurs heard best in the 2nd right intercostal space. Extremities have no ankle edema. Objective Labs Result Diagrams: 06/02/18 04:51 06/02/18 04:51 Labs: Laboratory Results - last 24 hr 06/01/18 06/01/18 06/01/18 16:10 16:10 16:10 WBC 3.8 L RBC 4.15 Hgb 12.3 Hct 36.6 MCV 88.2 MCH 29.6 MCHC 33.6 RDW 17.7 H Plt Count 75 L Neut % (Auto) 75.3 H Lymph % (Auto) 7.1 L [place] % (Auto) 16.3 H Eos % (Auto) 0.7 L Baso % (Auto) 0.6 Neut # (Auto) 2900 Lymph # (Auto) 300 L [place] # (Auto) 600 Eos # (Auto) 0 Baso # (Auto) 0 Sodium 139 Potassium 3.8 Chloride 99 Carbon Dioxide 30 BUN 13 Creatinine 0.60 Estimated GFR > 60.0 BUN/Creatinine Ratio 21.7 Glucose 91 Lactate Calcium 9.4 Total Bilirubin 1.1 AST 54 H ALT 31 Alkaline Phosphatase 84 Ammonia Total Protein 7.4 Albumin 4.2 Globulin 3.2 Albumin/Globulin Ratio 1.3 Procalcitonin < 0.05 Urine Color Urine Appearance Urine pH Ur Specific [place] Urine Protein Urine Glucose (UA) Urine Ketones Urine Occult Blood Urine Nitrate Urine Bilirubin Urine Urobilinogen Ur Leukocyte Esterase Urine RBC Urine WBC Amorphous Sediment Urine Bacteria Urine Mucus Ur Culture Indicated? 06/01/18 06/01/18 06/01/18 16:10 16:10 17:26 WBC RBC Hgb Hct MCV MCH MCHC RDW Plt Count Neut % (Auto) Lymph % (Auto) [place] % (Auto) Eos % (Auto) Baso % (Auto) Neut # (Auto) Lymph # (Auto) [place] # (Auto) Eos # (Auto) Baso # (Auto) Sodium Potassium Chloride Carbon Dioxide BUN Creatinine Estimated GFR BUN/Creatinine Ratio Glucose Lactate 1.3 Calcium Total Bilirubin AST ALT Alkaline Phosphatase Ammonia 21.0 Total Protein Albumin Globulin Albumin/Globulin Ratio Procalcitonin Urine Color Yellow Urine Appearance Clear Urine pH 6.5 Ur Specific [place] 1.020 Urine Protein Trace H Urine Glucose (UA) Negative Urine Ketones Negative Urine Occult Blood Trace-lysed Urine Nitrate Negative Urine Bilirubin Negative Urine Urobilinogen 0.2 Ur Leukocyte Esterase Trace H Urine RBC 1-5/hpf Urine WBC 5-10/hpf H Amorphous Sediment 2+ Urine Bacteria None seen Urine Mucus 2+ H Ur Culture Indicated? Specimen cultured 06/02/18 06/02/18 04:51 04:51 WBC 2.0 L RBC 3.71 L Hgb 11.2 L Hct 33.4 L MCV 90.0 MCH 30.3 MCHC 33.6 RDW 17.5 H Plt Count 48 L Neut % (Auto) 76.3 H Lymph % (Auto) 7.1 L [place] % (Auto) 15.0 H Eos % (Auto) 1.4 L Baso % (Auto) 0.2 Neut # (Auto) 1500 Lymph # (Auto) 100 L [place] # (Auto) 300 Eos # (Auto) 0 Baso # (Auto) 0 Sodium 139 Potassium 3.5 Chloride 104 Carbon Dioxide 28 BUN 11 Creatinine 0.60 Estimated GFR > 60.0 BUN/Creatinine Ratio 18.3 Glucose 105 Lactate Calcium 8.3 L Total Bilirubin 0.8 AST 41 H ALT 30 Alkaline Phosphatase 64 Ammonia Total Protein 6.0 L Albumin 3.3 L Globulin 2.7 Albumin/Globulin Ratio 1.2 Procalcitonin Urine Color Urine Appearance Urine pH Ur Specific [place] Urine Protein Urine Glucose (UA) Urine Ketones Urine Occult Blood Urine Nitrate Urine Bilirubin Urine Urobilinogen Ur Leukocyte Esterase Urine RBC Urine WBC Amorphous Sediment Urine Bacteria Urine Mucus Ur Culture Indicated? Assessment & Plan Plan: Assessment/Plan Narrative: 1 - Pneumonia - Improving symptoms on Cefepime IV for for coverage of the usual gram negatives and possible Pseudomonas causing pneumonia. Doubt aspiration pneumonia. 2 - UTI - Urine Culture pending - Continue Cefepime IV. Avoid Fluoroquinolones. 3 - Multiple Sclerosis - Continue Fingolimod (Gilenya) 4 - Non Alcoholic Liver Disease 5 - CHF - Continue gentle hydration IV. Stop when documented PO intake is adequate Quality VTE Deep Vein Thrombosis/Pulmonary Embolism Present on Admission: No
--- NOTE | 2018-06-02 14:52 | OT.IP.TRT ---
Current Diagnoses Pneumonia, unspecified organism (06/01/18) Occupational Therapy Treatment Note M3 OT- IP Subjective and Pain Start: 06/02/18 14:49 Freq: Status: Active Protocol: Document 06/02/18 14:50 [facility] (Rec: 06/02/18 14:52 [facility] [id number]) OT- Subjective Occupational Therapy Visit Type Type Patient Refusal Notes Pt just getting in bed per ARTISTS' BOOKING REPRESENTATIVE and wanting to sleep. Pt states at this time would rather hold for OT eval, in addition, nursing states to let pt rest.
[2018-06-02] MEDS: GABAPENTIN 300 MG CAPSULE PO (17:20)
[2018-06-03] VITALS (12 sets, daily range): BP systolic 96–133; BP diastolic 56–68; PULSE 62–72; RESP 15–22; TEMP 36.6–38.1; O2SAT 91–97
[2018-06-03] MEDS: CODEINE/ACETAMINOPHEN 30/300 TABLET 1 TAB PO (00:26)
[2018-06-03] MEDS: DEXTROSE 5%-0.9% NS 1,000 ML 100 ML IV ×2 (03:56→12:47)
--- NOTE | 2018-06-03 05:46 | PC.NURSE ---
Pt is A and O to self this shift. C/o [place] given one APAP with codeine which was helpful, pt able to sleep. Denies nausea. Appears to have tremors, restricted mobility in UE. LS diminished in bases with inspiratory wheezes. S1, S2, + BTs.
--- NOTE | 2018-06-03 06:53 | PC.NURSE ---
Pt did not void all noc shift. Brief dry. Bladder scan = 306 mL. MD aware.
[2018-06-03] MEDS: PANTOPRAZOLE 20 MG TABLET PO (07:28)
[2018-06-03] MEDS: CEFEPIME 1 GM in SODIUM CHLORIDE 0.9% 100 ML 200 ML IV ×2 (07:31→18:45)
[2018-06-03 08:08] LABS: Add Manual Diff / Slide Review NO; Basophils Absolute Auto 0 /uL (0-100); Basophils Percent Auto 0.4 % (0-2); Eosinophils Absolute Auto 0 /uL (0-450); Eosinophils Percent Auto 1.2 % (2-4); Hematocrit 33.4 % (36-46); Hemoglobin 11.1 g/dL (12.0-16.0); Lymphocytes Absolute Auto 200 /uL (1100-4500); Lymphocytes Percent Auto 8.4 % (25-40); Mean Corpuscular HGB Conc 33.3 % (30-36); Mean Corpuscular Hemoglobin 30.1 PG (26-34); Mean Corpuscular Volume 90.3 fL (80-100); Monocytes Absolute Auto 300 /uL (0-900); Monocytes Percent Auto 11.5 % (3-14); Neutrophils Absolute Auto 2300 /uL (1500-7000); Neutrophils Percent Auto 78.5 % (50-75); Platelet Count 59 X10^3/uL (150-400); Red Cell Distribution Width 17.5 % (11.6-14.8); White Blood Cell Count 2.9 X10^3/uL (4.5-11.0)
[2018-06-03 08:18] LABS: Alanine Aminotransferase 36 IU/L (9-52); Albumin 3.5 g/dL (3.5-5.0); Albumin Globulin Ratio 1.3 (1.0-2.8); Alkaline Phosphatase 65 U/L (38-126); Aspartate Aminotransferase 41 IU/L (14-36); BUN Creatinine Ratio 13.3 (6-22); Bilirubin Total 0.8 mg/dL (0.2-1.3); Blood Urea Nitrogen 8 mg/dL (7-17); Calcium 8.2 mg/dL (8.4-10.2); Carbon Dioxide 29 mmol/L (22-32); Chloride 103 mmol/L (98-107); Estimated Glomerular Filt Rate > 60.0 mL/min (>60); Globulin 2.7 g/dL (1.7-4.1); Glucose 88 mg/dL (80-110); HEMOLYSIS < 15 (0-50); Sodium 139 mmol/L (137-145); Total Protein 6.2 g/dL (6.3-8.2)
[2018-06-03] MEDS: FINGOLIMOD 0.5 MG 0.5 EACH PO (09:03)
[2018-06-03] MEDS: POTASSIUM CHLORIDE 10 MEQ TAB PO (09:04)
[2018-06-03] MEDS: ACETAMINOPHEN 325 MG TABLET 650 MG PO ×2 (09:04→15:29)
[2018-06-03] MEDS: LEVOTHYROXINE 50 MCG TABLET PO (09:04)
[2018-06-03] MEDS: FUROSEMIDE 40 MG TABLET PO (09:04)
[2018-06-03] MEDS: SERTRALINE 25 MG TABLET 75 MG PO (09:04)
[2018-06-03] MEDS: ASCORBIC ACID 500 MG TABLET PO (09:04)
[2018-06-03] MEDS: MULTIVIT,CALC,MINS/IRON/FOLIC 1 TABLET 1 TAB PO (09:04)
[2018-06-03 12:05] LABS: Adenovirus Not Detected (Not Detect); Bordetella pertussis Not Detected (Not Detect); Chlamydophila pneumoniae Not Detected (Not Detect); Coronavirus 229E Not Detected (Not Detect); Coronavirus HKU1 Not Detected (Not Detect); Coronavirus NL 63 Not Detected (Not Detect); Coronavirus OC43 Not Detected (Not Detect); Human Metapneumovirus Not Detected (Not Detect); Human Rhinovirus/Enterovirus Not Detected (Not Detect); Influenza A Not Detected (Not Detect); Influenza B Not Detected (Not Detect); Mycoplasma pneumoniae Not Detected (Not Detect); Parainfluenza Virus 1 Not Detected (Not Detect); Parainfluenza Virus 2 Not Detected (Not Detect); Parainfluenza Virus 3 Not Detected (Not Detect); Parainfluenza Virus 4 Not Detected (Not Detect); Respiratory Syncytial Virus Not Detected (Not Detect)
--- NOTE | 2018-06-03 13:11 | P.PN_ITS ---
Subjective Date Patient Seen: 06/03/18 Interval history: She is seen today to follow-up her pneumonia, fever, bladder distention, possible urinary tract infection and multiple sclerosis. This morning her bladder scan shows more than 300 mL retain. She is reluctant to have another catheter placed or drained. She is spiking a fever of 100.6 despite being on cefepime since the day before yesterday. The urine culture is negative as is the blood culture. The respiratory viral panel is negative, including being negative for influenza a. Exam Vital Signs (past 8 hours): - 06/03/18 07:00 06/03/18 08:00 06/03/18 10:35 Temperature 100.6 F H 99.2 F Pulse Rate 67 Respiratory Rate 16 Blood Pressure 125/60 Pulse Oximetry 96 94 06/03/18 11:20 Temperature 99.2 F Pulse Rate Respiratory Rate Blood Pressure Pulse Oximetry Fraction of Inspired Oxygen 21 Oxygen Delivery Method Room Air Oxygen Flow Rate 0 Narrative Exam Narrative: She is alert, oriented x3, no apparent distress. Heart is regular rate and rhythm without murmur. Lungs have bibasilar crackles. Extremities have no ankle edema. Objective Labs Result Diagrams: 06/03/18 08:00 06/03/18 08:00 Labs: Laboratory Results - last 24 hr 06/03/18 06/03/18 06/03/18 08:00 08:00 10:15 WBC 2.9 L RBC 3.70 L Hgb 11.1 L Hct 33.4 L MCV 90.3 MCH 30.1 MCHC 33.3 RDW 17.5 H Plt Count 59 L Neut % (Auto) 78.5 H Lymph % (Auto) 8.4 L Overton % (Auto) 11.5 Eos % (Auto) 1.2 L Baso % (Auto) 0.4 Neut # (Auto) 2300 Lymph # (Auto) 200 L Overton # (Auto) 300 Eos # (Auto) 0 Baso # (Auto) 0 Sodium 139 Potassium 4.0 Chloride 103 Carbon Dioxide 29 BUN 8 Creatinine 0.60 Estimated GFR > 60.0 BUN/Creatinine Ratio 13.3 Glucose 88 Calcium 8.2 L Total Bilirubin 0.8 AST 41 H ALT 36 Alkaline Phosphatase 65 Total Protein 6.2 L Albumin 3.5 Globulin 2.7 Albumin/Globulin Ratio 1.3 Chlamy pneumoniae PCR Not detected Adenovirus (PCR) Not detected B.parapertussis DNA PCR Not detected Coronavirus OC43 (PCR) Not detected Coronavirus HKU1 (PCR) Not detected Coronavirus 229E (PCR) Not detected Coronavirus NL63 (PCR) Not detected Human Metapneumovir PCR Not detected Influenza Type A (PCR) Not detected Influenza Type B (PCR) Not detected M. pneumoniae (PCR) Not detected Parainfluenza 1 (PCR) Not detected Parainfluenza 2 (PCR) Not detected Parainfluenza 3 (PCR) Not detected Parainfluenza 4 (PCR) Not detected RSV (PCR) Not detected Entero/Rhino (PCR) Not detected Assessment & Plan Plan: Assessment/Plan Narrative: Assessment & Plan Plan: Assessment/Plan Narrative: 1 - Pneumonia - Begin on Cefepime IV for for coverage of the usual gram negatives and possible Pseudomonas causing CAP and UTI. Add Azithromycin today. - Will continue to look for the CXR films on PACS to confirm/clarify the pneumonia location/severity - Respiratory Viral panel is negative. 2 - UTI ruled out - Urine Culture is negative. 3 - Multiple Sclerosis - Continue Fingolimod (Gilenya) 4 - Non Alcoholic Liver Disease/Diffuse Pancytopenia - This is apparently stable with low WBC and low Platelets. Both numbers have rebounded today, the white blood count back up to 2.9, the platelets back up to 89. - Repeat CBC as indicated 5 - CHF - Holding IVF 6 - Fluoroquinolone Allergy - Her son is unable to clarify with his sister what her reaction had been - The ED Levaquin infusion was stopped well before half the bag was infused. No reaction seen. She may be stable for discharge tomorrow. Continue PT and OT. Quality VTE Deep Vein Thrombosis/Pulmonary Embolism Present on Admission: No
[2018-06-03] MEDS: AZITHROMYCIN 500 MG in DEXTROSE 5% IN WATER 250 ML IV (14:12)
--- NOTE | 2018-06-03 14:47 | PT.IPTN ---
Current Diagnoses Pneumonia, unspecified organism (06/01/18) Physical Therapy Treatment Note M2 PT-IP Current Condition Start: 06/02/18 11:17 Freq: NEEDED Status: Active Protocol: Document 06/02/18 11:05 [facility] (Rec: 06/02/18 11:27 [facility] [id number]) Physical Therapy Current Condition Current Condition Evaluation Date 06/02/18 Treatment Diagnosis AMS, fever, pneumonia, impaired activity tolerance and gait Precautions Other Precautions pt with MS M3 PT-IP Subjective Start: 06/02/18 11:17 Freq: NEEDED Status: Active Protocol: Document 06/03/18 14:47 [facility] (Rec: 06/03/18 14:54 [facility] [id number]) Subjective Physical Therapy Visit Type Type Treatment Note Visit Start Time 14:36 Visit Stop Time 14:47 Total Visit Minutes 11 Number of PLANT PROTECTION OFFICER Visits 0 Physical Therapy Visit Comments Patient Comments Pt states she is having a difficult time remembering things. She does not recall walking with this PT yesterday . Therapy Pain Assessment Pain Present Pain Present Denied Pain M4 PT-IP Mobility and Gait Start: 06/02/18 11:17 Freq: NEEDED Status: Active Protocol: Document 06/03/18 14:47 [facility] (Rec: 06/03/18 14:54 [facility] [id number]) PT-Transfer Assessment Sit to and From Stand Sit to and from Stand Contact Guard Assistance Equipment Transfer Assistive Device Gait Belt Front Wheeled Walker Transfers Transfer Destination Chair Transfer Technique Stand Step Pivot Transfer Ability Level of Assist Contact Guard Assistance Gait Assessment Gait Gait Assistance Required: Contact Guard Assist Distance (Feet) 75 Assistive Devices Assistive Device Gait Belt Front Wheeled Walker Gait Deviations General Gait Pattern Ataxic Decreased Stride Length Decreased Feet Clearance Narrow Based Gait Factors Limiting Gait Function Factors Limiting Gait Function Decreased Activity Tolerance Decreased Strength Incoordination Poor Balance Poor Safety Awareness Comments Gait Comments improved gait speed once out of the room in more open space ; 1 standing rest break after ~50 ft of gait x30 sec then continued on M5 PT-IP Objective Assessments Start: 06/02/18 11:17 Freq: NEEDED Status: Active Protocol: Document 06/02/18 11:05 [facility] (Rec: 06/02/18 11:27 [facility] [id number]) Orientation Orientation/Cognition Level of Alertness Confusional State Gross Range of Motion Lower Extremity ROM Assessment Within Functional Limits Strength Lower Extremity Strength Hip flexion 3/5 R and 3+/5 L Knee flexion 3/5 B, extension 3+/5 B Coordination Assessment Gross Coordination Gross Coordination Impaired Sensation Assessment Comments Sensation Comments pt denied numbness/tingling, testing difficult d/t pt mentation M6 PT-IP Treatment Start: 06/02/18 11:17 Freq: NEEDED Status: Active Protocol: Document 06/02/18 11:05 [facility] (Rec: 06/02/18 11:27 [facility] [id number]) Physical Therapy Treatment Education Education Provided Safety Other Treatments Other Treatment Performed dynamic standing at sink to brush teeth- required assistance with placing toothpaste on brush and UE support at all times on sink M7 PT-IP Assessment and Plan Start: 06/02/18 11:17 Freq: NEEDED Status: Active Protocol: Document 06/03/18 14:47 [facility] (Rec: 06/03/18 14:54 [facility] [id number]) PT Summary Assessment and Plan Summary Assessment Summary Pt required CGA for ambulation and sit<->stand, but demonstrates unsteadiness throughout this session. Her gait speed is slow, which increases her fall risk, as well as impaired cognition which she does require occasional cuing for safety with mobility. If assisted living is able to assist with assistance when OOB, she likely would be able to return when medically stable. Goals Bed Mobility Goal Standby Assistance Transfer Goal Standby Assistance Gait Goal Standby Assistance Front Wheel Walker Gait Distance 150 Days to Meet Goals 5 Frequency of Treatment Frequency Of Treatment Once a Day Treatment Plan Other Recommendations and Next Treatment advance gait and sit<->stand, Focus standing balance Recommendations To Nursing Amount of Assist Needed 1 Person Assist Discharge Recommendations PT Discharge Recommendations Home with 12/12 Assist
[2018-06-03] MEDS: GABAPENTIN 300 MG CAPSULE PO (17:23)
--- NOTE | 2018-06-03 17:36 | PC.NURSE ---
Patient is A&O to self, place and president. Is unable to tell time by looking at clock and states these new round clocks are much different then I know clocks to be. Patient is sitting up to chair, alarm attached. Appetite has greatly improved this evening from evening prior. Patient c/o [place] pain 12/29 w/ sensitivity to light. Medication given and lights dimmed. Will cont. to encourage getting up to use BSC for urination. Patient was noted to have essential tremors and squinting of eyes and face during assessment, tremors may likely be r/t MS dx and facial expression due to [place] pain. Patient is able to make needs known to staff, is calm and cooperative at this time. Call light w/ in reach, chair alarm active. Curtain and door left open for close observations.
[2018-06-04] VITALS (11 sets, daily range): BP systolic 98–122; BP diastolic 41–70; PULSE 62–77; RESP 16–18; TEMP 36.6–37.5; O2SAT 93–99
[2018-06-04] MEDS: ACETAMINOPHEN 325 MG TABLET 650 MG PO ×3 (00:15→16:55)
[2018-06-04] MEDS: DEXTROSE 5%-0.9% NS 1,000 ML 100 ML IV (01:20)
[2018-06-04 05:18] LABS: Alanine Aminotransferase 30 IU/L (9-52); Albumin 3.1 g/dL (3.5-5.0); Albumin Globulin Ratio 1.2 (1.0-2.8); Alkaline Phosphatase 59 U/L (38-126); Aspartate Aminotransferase 38 IU/L (14-36); BUN Creatinine Ratio 8.3 (6-22); Bilirubin Total 0.7 mg/dL (0.2-1.3); Blood Urea Nitrogen 5 mg/dL (7-17); Calcium 8.2 mg/dL (8.4-10.2); Carbon Dioxide 32 mmol/L (22-32); Chloride 102 mmol/L (98-107); Estimated Glomerular Filt Rate > 60.0 mL/min (>60); Globulin 2.6 g/dL (1.7-4.1); Glucose 110 mg/dL (80-110); HEMOLYSIS < 15 (0-50); Magnesium 1.9 mg/dL (1.6-2.3); Potassium 3.5 mmol/L (3.4-5.1); Sodium 140 mmol/L (137-145); Total Protein 5.7 g/dL (6.3-8.2)
[2018-06-04 05:20] LABS: Hematocrit 32.2 % (36-46); Hemoglobin 10.7 g/dL (12.0-16.0); Mean Corpuscular HGB Conc 33.1 % (30-36); Mean Corpuscular Hemoglobin 29.9 PG (26-34); Mean Corpuscular Volume 90.3 fL (80-100); Platelet Count 43 X10^3/uL (150-400); Red Blood Cell Count 3.56 X10^6/uL (4.0-5.2); Red Cell Distribution Width 17.1 % (11.6-14.8)
[2018-06-04 05:23] LABS: Add Manual Diff / Slide Review YES; White Blood Cell Count 1.8 X10^3/uL (4.5-11.0)
--- NOTE | 2018-06-04 05:32 | PC.NURSE ---
Critical lab value: WBC = 1.8. Advised DOMINIC Hernandez.
[2018-06-04 05:49] LABS: Procalcitonin < 0.05 ng/mL (<0.5)
[2018-06-04 05:56] LABS: Neutrophils Absolute Manual 1386 /uL (3000-5900); RBC Morphology Normal Morphology; Total Cells Counted 100
[2018-06-04 05:57] LABS: Platelet Estimate Decreased on smear
[2018-06-04] MEDS: PANTOPRAZOLE 20 MG TABLET PO (06:03)
[2018-06-04] MEDS: CEFEPIME 1 GM in SODIUM CHLORIDE 0.9% 100 ML 200 ML IV (06:03)
--- NOTE | 2018-06-04 06:51 | PC.NURSE ---
Pt is A and O to self, somewhat to situation. She c/o on chronic [place], poor relief from 650 mg po APAP, did not give APAP with codeine as may increase confusion. Slight fever of 99.8F resolved with dose of APAP. Voiding qs clear yellow. LS = decreased in bases, S1, S2. + BTs. WBC = 1.8, MD aware.
--- NOTE | 2018-06-04 07:03 | PC.NURSE ---
Pt desats in noc to mid to high 80s. 2L NC given to stay > 92%.
[2018-06-04] MEDS: LEVOTHYROXINE 50 MCG TABLET PO (08:45)
[2018-06-04] MEDS: FINGOLIMOD 0.5 MG 0.5 EACH PO (08:45)
[2018-06-04] MEDS: MULTIVIT,CALC,MINS/IRON/FOLIC 1 TABLET 1 TAB PO (08:45)
[2018-06-04] MEDS: ASCORBIC ACID 500 MG TABLET PO (08:45)
[2018-06-04] MEDS: POTASSIUM CHLORIDE 10 MEQ TAB PO (08:45)
[2018-06-04] MEDS: SERTRALINE 25 MG TABLET 75 MG PO (08:46)
[2018-06-04] MEDS: FUROSEMIDE 40 MG TABLET PO (08:46)
--- NOTE | 2018-06-04 11:51 | OT.IP.EVAL ---
Current Diagnoses Pneumonia, unspecified organism (06/01/18) Past Medical History (Last Updated 06/02/18 @ 03:46 by Sandy Quiroz RN) CVA (cerebral vascular accident) (Acute) Depression (Acute) Hepatic encephalopathy (Acute) Multiple sclerosis (Acute) Pancytopenia (Acute) TIA (transient ischemic attack) (Acute) Occupational Therapy Inpatient Evaluation/Re-Eval M1 PT/OT-IP Prior Functional Status Start: 06/02/18 11:17 Freq: NEEDED Status: Active Protocol: Document 06/02/18 11:05 [facility] (Rec: 06/02/18 11:27 [facility] [id number]) Medical Review Prior Functional Status Medical History Reviewed Yes Mobility and Gait per son Petros- pt able to ambulate short distances (to bathroom and sink) with walker @ [facility], but not mobile the past 1-2 weeks d/t AMS. Activities of Daily Living and IADL's worsening over the past 1-2 weeks d/t AMS, but prior able to dress modified indep. and feed self (does not like the food @ [facility], son thinks she is not eating much and may be losing weight). Social History Living Arrangements Assisted Living Number of Floors (Floors) One Floor Home Equipment Four Wheel Walker Additional Social History Comment Pt resides @ [facility] [place], she moved there ~6 weeks ago (living with son prior to [facility] in [place]). M1 PT/OT-IP Prior Functional Status Start: 06/02/18 14:49 Freq: NEEDED Status: Active Protocol: Document 06/04/18 11:30 [facility] (Rec: 06/04/18 11:51 [facility] [id number]) Medical Review Prior Functional Status Medical History Reviewed Yes Mobility and Gait per son Petros- pt able to ambulate short distances (to bathroom and sink) with walker @ [facility], but not mobile the past 1-2 weeks d/t AMS. Activities of Daily Living and IADL's worsening over the past 1-2 weeks d/t AMS, but prior able to dress modified indep. and feed self (does not like the food @ [facility], son thinks she is not eating much and may be losing weight). Prior Functional Level (Other details) Pt satets staff at [facility] assists her with ADL needs. Social History Living Arrangements Assisted Living Number of Floors (Floors) One Floor Home Equipment Four Wheel Walker Additional Social History Comment Pt resides @ [facility] [place], she moved there ~6 weeks ago (living with son prior to [facility] in [place]). M3 OT- IP Subjective and Pain Start: 06/02/18 14:49 Freq: Status: Active Protocol: Document 06/04/18 11:30 [facility] (Rec: 06/04/18 11:51 [facility] [id number]) OT- Subjective Occupational Therapy Visit Type Type Initial Evaluation Visit Start Time 10:20 Visit Stop Time 11:20 Total Visit Minutes 60 Occupational Therapy Visit Comments Patient Comments Pt agreeable to shower. OT Pain Assessment Pain When Pain Assessed At Rest Pain Present Pain Present Denied Pain M4 OT- IP ADL's Start: 06/02/18 14:49 Freq: Status: Active Protocol: Document 06/04/18 11:30 [facility] (Rec: 06/04/18 11:51 [facility] [id number]) OT ADL-Grooming General Evaluation Grooming Ability Standby Assistance Areas Needing Assistance Retrieving/Set-up of Grooming Items Comments OT Grooming Comments SBA with FWW at sink to be able to do all grooming needs. VC for completeness and set- up. OT ADL-Dressing General Eval Upper Body Dressing Ability Moderate Assistance Lower Body Dressing Ability Maximum Assistance Areas Needing Assistance Pull-Over Shirt Pants/Shorts Socks Support Stockings Comments OT Dressing Comments Pt needing assist to pull down shirt over her chest, assist to roseanne stocking, socks, and brief initially over her feet. OT ADL-Toileting General Evaluation Toileting Ability Minimal Assistance Areas Needing Assistance Manage Clothing Perform Perineal Hygiene Comments OT Toileting Comments vc to wipe from front to back, assist for completeness. OT ADL-Bathing Bathing Type Bathing Type Shower General Evaluation Bathing Ability Moderate Assistance Areas Needing Assistance Retrieving/Setting Up Items Wash/Dry Back Wash/Dry Lower Extremities Devices Bathing Equipment Hand Held Shower Sprayer Shower Chair with Arms Grab Bars Comments OT Bathing Comments Pt needng vc to sequence through task, assist for back, BLE and GAGE to stand while pt able to do pericare needs. M5 OT- IP IADL's Start: 06/02/18 14:49 Freq: Status: Active Protocol: Document 06/04/18 11:30 [facility] (Rec: 06/04/18 11:51 [facility] [id number]) OT-Instrumental Activities of Daily Living Deficits IADL Deficits Identified Deficits Medication Management Medication Management Caregiver Administers Money Management Money Management Caregiver Provides Assistance Meal Preparation Meal Preparation Caregiver Provides Assist Manager Wind Manager Wind Caregiver Provides Assist M6 OT- IP Functional Cognition Start: 06/02/18 14:49 Freq: Status: Active Protocol: Document 06/04/18 11:30 [facility] (Rec: 06/04/18 11:51 [facility] [id number]) Cognitive Factors Limiting Selfcare Function Cognitive Ability Level of Alertness Alert Patient Orientation Name Situation Attention Span Ability Capable of Focused Attention Capable of Sustained Attention Unable to Sustain Attention Ability to Follow Commands Able to Follow One Step Commands with Increased Time Able to Follow One Step Commands with Repetition Memory Description Short Term Impaired Working Impaired Safety Awareness Underestimates Need for Assistance Problem Solving Ability Unable to Identify Errors Needs Assist to Identify Solutions Executive Function Ability Unable to Filter Distractions Unable to Make Plans Unable to Organize Plans Unable to Remember Details Cognitive Comments Cognitive Assessment Comments Pt gets anxious and needing step by step instructions in order to complete ADl tasks. OT- Vision and Hearing OT- Hearing Assessment OT- Hearing Assessment WFL M8 OT- IP Objective Assessments Start: 06/02/18 14:49 Freq: Status: Active Protocol: Document 06/04/18 11:30 [facility] (Rec: 06/04/18 11:51 [facility] [id number]) OT Gross Range of Motion Upper Extremity Range of Motion Assessment Left Impaired ROM Impairments RUE grossly WFL for ADLS needs . OT- Coordination Assessment Comments Coordination Comments Assist for set-up. M9 OT- IP Assessment and Plan Start: 06/02/18 14:49 Pt needing vc to hand placement and to push up form armrests before stnding, vc to help handles of FWW, vc to keep FWW in front of her. Pt CGA while walking with FWW , GAGE to step over threshold of shower as pt tends to lean backwards on her heel and has a poor sense of balance. Freq: Status: Active Protocol: Document 06/04/18 11:30 [facility] (Rec: 06/04/18 11:51 [facility] [id number]) OT Summary Assessment and Plan Potential Rehabilitation Potential Good Analytic Complexity at Evaluation Low Summary OT Impairments Range of Motion Strength Balance Coordination Functional Cognition Functional Mobility Grooming Dressing Toileting Bathing Toilet Transfers Shower Transfers Progress Towards Goals Progressing Toward Goals Slow Progress due to Cognition Assessment Summary Pt low complexity and main barrier is decreased functional cognition, balance, and endurance and needing one person assist for all needs. Pt states has difficulty with sensation in her feet and therefore tends to stand without placing weight throughout her foot and unsteady on her feet. Pt would benefit from to help improve her balance and independence with ADL's. Goals Grooming Goal Standby Assistance Dressing Goal Minimal Assistance Toileting Goal Standby Assistance Bathing Goal Minimal Assistance Toilet Transfer Goal Standby Assistance Shower Transfer Goal Standby Assistance Days to Meet Goals 5 Frequency of Treatment Frequency Of Treatment Once a Day Treatment Plan OT Treatment Plan ADL Training Functional Cognition Training Functional Mobility Patient/Family Education Discharge Planning Other Treatment Recommendations and Next Sit to stands from recliner to Treatment Focus help improve transfer function, ADL function for standing during grooming, up from toilet, and sense of weight through her feet when standing. Discharge Recommendations OT Discharge Recommendations Home with 12/12 Assist Home Health
--- NOTE | 2018-06-04 12:04 | CM.DPC ---
DCP Cont: Called Karine, admissions for [facility]. Stated that she would follow up with Karen, for she is unsure if she evaluated her yesterday. She stated, otherwise, can be here tomorrow to see patient. P: DCP to continue to follow closely. Antonina Guerrero RN/Group Fitness Instructor
--- NOTE | 2018-06-04 12:16 | PT.IPTN ---
Current Diagnoses Pneumonia, unspecified organism (06/01/18) Physical Therapy Treatment Note M2 PT-IP Current Condition Start: 06/02/18 11:17 Freq: NEEDED Status: Active Protocol: Document 06/02/18 11:05 [facility] (Rec: 06/02/18 11:27 [facility] [id number]) Physical Therapy Current Condition Current Condition Evaluation Date 06/02/18 Treatment Diagnosis AMS, fever, pneumonia, impaired activity tolerance and gait Precautions Other Precautions pt with MS M3 PT-IP Subjective Start: 06/02/18 11:17 Freq: NEEDED Status: Active Protocol: Document 06/04/18 12:00 [facility] (Rec: 06/04/18 12:16 [id number]) Subjective Physical Therapy Visit Type Type Patient Refusal Visit Start Time 12:00 Notes Pt requested to do PT this pm. Pt's son at bedside. M4 PT-IP Mobility and Gait Start: 06/02/18 11:17 Freq: NEEDED Status: Active Protocol: Document 06/03/18 14:47 [facility] (Rec: 06/03/18 14:54 [facility] [id number]) PT-Transfer Assessment Sit to and From Stand Sit to and from Stand Contact Guard Assistance Equipment Transfer Assistive Device Gait Belt Front Wheeled Walker Transfers Transfer Destination Chair Transfer Technique Stand Step Pivot Transfer Ability Level of Assist Contact Guard Assistance Gait Assessment Gait Gait Assistance Required: Contact Guard Assist Distance (Feet) 75 Assistive Devices Assistive Device Gait Belt Front Wheeled Walker Gait Deviations General Gait Pattern Ataxic Decreased Stride Length Decreased Feet Clearance Narrow Based Gait Factors Limiting Gait Function Factors Limiting Gait Function Decreased Activity Tolerance Decreased Strength Incoordination Poor Balance Poor Safety Awareness Comments Gait Comments improved gait speed once out of the room in more open space ; 1 standing rest break after ~50 ft of gait x30 sec then continued on M5 PT-IP Objective Assessments Start: 06/02/18 11:17 Freq: NEEDED Status: Active Protocol: Document 06/02/18 11:05 [facility] (Rec: 06/02/18 11:27 [facility] [id number]) Orientation Orientation/Cognition Level of Alertness Confusional State Gross Range of Motion Lower Extremity ROM Assessment Within Functional Limits Strength Lower Extremity Strength Hip flexion 3/5 R and 3+/5 L Knee flexion 3/5 B, extension 3+/5 B Coordination Assessment Gross Coordination Gross Coordination Impaired Sensation Assessment Comments Sensation Comments pt denied numbness/tingling, testing difficult d/t pt mentation M6 PT-IP Treatment Start: 06/02/18 11:17 Freq: NEEDED Status: Active Protocol: Document 06/02/18 11:05 [facility] (Rec: 06/02/18 11:27 [facility] [id number]) Physical Therapy Treatment Education Education Provided Safety Other Treatments Other Treatment Performed dynamic standing at sink to brush teeth- required assistance with placing toothpaste on brush and UE support at all times on sink M7 PT-IP Assessment and Plan Start: 06/02/18 11:17 Freq: NEEDED Status: Active Protocol: Document 06/03/18 14:47 [facility] (Rec: 06/03/18 14:54 [facility] [id number]) PT Summary Assessment and Plan Summary Assessment Summary Pt required CGA for ambulation and sit<->stand, but demonstrates unsteadiness throughout this session. Her gait speed is slow, which increases her fall risk, as well as impaired cognition which she does require occasional cuing for safety with mobility. If assisted living is able to assist with assistance when OOB, she likely would be able to return when medically stable. Goals Bed Mobility Goal Standby Assistance Transfer Goal Standby Assistance Gait Goal Standby Assistance Front Wheel Walker Gait Distance 150 Days to Meet Goals 5 Frequency of Treatment Frequency Of Treatment Once a Day Treatment Plan Other Recommendations and Next Treatment advance gait and sit<->stand, Focus standing balance Recommendations To Nursing Amount of Assist Needed 1 Person Assist Discharge Recommendations PT Discharge Recommendations Home with 12/12 Assist
--- NOTE | 2018-06-04 16:49 | PT.IPTN ---
Current Diagnoses Pneumonia, unspecified organism (06/01/18) Physical Therapy Treatment Note M2 PT-IP Current Condition Start: 06/02/18 11:17 Freq: NEEDED Status: Active Protocol: Document 06/02/18 11:05 RCC (Rec: 06/02/18 11:27 RCC [id number]) Physical Therapy Current Condition Current Condition Evaluation Date 06/02/18 Treatment Diagnosis AMS, fever, pneumonia, impaired activity tolerance and gait Precautions Other Precautions pt with MS M3 PT-IP Subjective Start: 06/02/18 11:17 Freq: NEEDED Status: Active Protocol: Document 06/04/18 14:30 HH (Rec: 06/04/18 16:49 HH [id number]) Subjective Physical Therapy Visit Type Type Treatment Note Visit Start Time 14:30 Visit Stop Time 15:00 Notes Agreeable to mobilize with PT Number of LATHING SUPERVISOR Visits 0 Physical Therapy Visit Comments Patient Comments Pt states she is going to be d /c back to [facility] tomorrow. Therapy Pain Assessment Pain Present Pain Present Denied Pain M4 PT-IP Mobility and Gait Start: 06/02/18 11:17 Freq: NEEDED Status: Active Protocol: Document 06/04/18 14:30 HH (Rec: 06/04/18 16:49 HH [id number]) PT-Transfer Assessment Sit to and From Stand Sit to and from Stand Standby Assistance Equipment Transfer Assistive Device Gait Belt 4 Wheeled Walker Transfers Transfer Destination Chair Transfer Technique Stand Step Pivot Transfer Ability Level of Assist Standby Assistance 1 Person Assistance Use of Upper Extremities Comments Mobility Comments Pt is able to perform sit to stand x 5 without assistance today and able to safely transfer back to chair with proper hand placements at armrest and walker after gait training. Gait Assessment Gait Gait Assistance Required: Standby Assistance Distance (Feet) 300 Assistive Devices Assistive Device Gait Belt 4 Wheeled Walker Gait Deviations General Gait Pattern Ataxic Decreased Stride Length Decreased Feet Clearance Factors Limiting Gait Function Factors Limiting Gait Function Decreased Activity Tolerance Decreased Strength Incoordination Poor Balance Poor Safety Awareness Comments Gait Comments Pt amb >300 feet with SBA x 1 pa today. Pt did not show signs of LOB and acute distress. Pt also did not request to rest during session and able to demonstrates increase in gait speed and feet clearance. RN reports pt is most likely going to be D/C back to [facility] by tomorrow. M5 PT-IP Objective Assessments Start: 06/02/18 11:17 Freq: NEEDED Status: Active Protocol: Document 06/02/18 11:05 RCC (Rec: 06/02/18 11:27 RCC [id number]) Orientation Orientation/Cognition Level of Alertness Confusional State Gross Range of Motion Lower Extremity ROM Assessment Within Functional Limits Strength Lower Extremity Strength Hip flexion 3/5 R and 3+/5 L Knee flexion 3/5 B, extension 3+/5 B Coordination Assessment Gross Coordination Gross Coordination Impaired Sensation Assessment Comments Sensation Comments pt denied numbness/tingling, testing difficult d/t pt mentation M6 PT-IP Treatment Start: 06/02/18 11:17 Freq: NEEDED Status: Active Protocol: Document 06/04/18 14:30 HH (Rec: 06/04/18 16:49 HH [id number]) Physical Therapy Treatment Education Education Provided Safety M7 PT-IP Assessment and Plan Start: 06/02/18 11:17 Freq: NEEDED Status: Active Protocol: Document 06/04/18 14:30 HH (Rec: 06/04/18 16:49 HH [email or web address]) PT Summary Assessment and Plan Potential Rehabilitation Potential Good Status of Condition at Evaluation Stable Summary Assessment Summary Pt amb >300 feet with SBA x 1 pa today. Pt did not show signs of LOB and acute distress. Pt also did not request to rest during session and able to demonstrates increase in gait speed and feet clearance. Pt is now safe for d/c back to [facility] due to PLOF has reached Goals Bed Mobility Goal Standby Assistance Transfer Goal Standby Assistance Four Wheeled Walker Gait Goal Standby Assistance Four Wheel Walker Frequency of Treatment Frequency Of Treatment Discharge Recommendations To Nursing Amount of Assist Needed 1 Person Assist Discharge Recommendations PT Discharge Recommendations Home with 12/12 Assist
[2018-06-04] MEDS: AZITHROMYCIN 500 MG in DEXTROSE 5% IN WATER 250 ML IV (16:54)
[2018-06-04] MEDS: GABAPENTIN 300 MG CAPSULE PO (16:55)
--- NOTE | 2018-06-04 17:54 | P.PN_ITS ---
Subjective Date Patient Seen: 06/04/18 Interval history: Nikkie Che is a 77-year-old female with a past medical history significant for multiple sclerosis, unspecified type of congestive heart failure, and PIEDRA who presented for altered mental status, cough, and urinary tract symptoms. Overnight: There were no acute events. Today the patient is lying in bed and in no acute distress. She continues to be mildly confused which per her son is close to baseline. She does endorse mild cough which is improving. She denies chest pain, shortness of breath, abdominal pain, nausea, vomiting, fever, chills, dysuria, diarrhea constipation. She is voiding and eliminating without difficulty. She is up ambulating with assistance/physical therapy. Exam Vital Signs (past 8 hours): - 06/04/18 12:00 06/04/18 15:54 06/04/18 17:22 Temperature 97.8 F 98.7 F Pulse Rate 64 66 Respiratory Rate 18 18 Blood Pressure 122/70 104/62 Pulse Oximetry 99 94 Fraction of Inspired Oxygen 21 Oxygen Delivery Method Room Air Oxygen Flow Rate 98 Narrative Exam Narrative: General: Elderly female lying in bed and in no acute distress, well-developed, well-nourished, appropriately interactive. HEENT: Normocephalic, atraumatic. External ears without defect. Pupils equal, round, and reactive to light. Anicteric sclerae, moist conjunctivae, and no lid lag. Oropharynx free of erythema and cobble stoning with moist mucosa. Neck: Supple with full range of motion. No lymphadenopathy or thyromegaly. Cardiovascular: Regular rate and rhythm without murmurs, rubs, or gallops appreciated Pulmonary: Clear to auscultation bilaterally without crackles, wheezes, or rhonchi. Normal respiratory effort with no use of accessory muscles. Abdomen: Bowel tones present. Soft, nontender, nondistended. No hepatosplenomegaly or masses appreciated. Extremities: No clubbing, cyanosis, or edema. Skin: Normal temperature, turgor, and texture; no rash, ulcers, or subcutaneous nodules appreciated. Neurological: Cranial nerves grossly intact. Generalized weakness. Psychiatric: Normal mood and affect. Alert and oriented to person, place, and time. Mild confusion which per son is close to baseline. Objective Labs Result Diagrams: 06/04/18 04:42 06/04/18 04:42 Labs: Laboratory Results - last 24 hr 06/04/18 06/04/18 06/04/18 04:42 04:42 04:42 WBC 1.8 L* RBC 3.56 L Hgb 10.7 L Hct 32.2 L MCV 90.3 MCH 29.9 MCHC 33.1 RDW 17.1 H Plt Count 43 L Neut % (Auto) Not Reportable Lymph % (Auto) Not Reportable [place] % (Auto) Not Reportable Eos % (Auto) Not Reportable Baso % (Auto) Not Reportable Lymph # (Auto) Not Reportable [place] # (Auto) Not Reportable Baso # (Auto) Not Reportable Total Counted 100 Seg Neutrophils % 77.0 H Lymphocytes % (Manual) 8.0 L Monocytes % (Manual) 13.0 H Eosinophils % (Manual) 2.0 Neutrophils # (Manual) 1386 L Platelet Estimate Decreased on smear RBC Morphology Normal morphology Sodium 140 Potassium 3.5 Chloride 102 Carbon Dioxide 32 BUN 5 L Creatinine 0.60 Estimated GFR > 60.0 BUN/Creatinine Ratio 8.3 Glucose 110 Calcium 8.2 L Magnesium 1.9 Total Bilirubin 0.7 AST 38 H ALT 30 Alkaline Phosphatase 59 Total Protein 5.7 L Albumin 3.1 L Globulin 2.6 Albumin/Globulin Ratio 1.2 Procalcitonin < 0.05 Assessment & Plan Plan: Assessment/Plan Narrative: Nikkie Che is a 77-year-old female with a past medical history significant for multiple sclerosis, unspecified type of congestive heart failure, and PIEDRA who presented for altered mental status, cough, and urinary tract symptoms. 1. Acute metabolic encephalopathy, present on admission. Resolving. -Likely secondary to community-acquired pneumonia. 2. Acute community-acquired pneumonia, present on admission. Active. -Switched cefepime to oral cefuroxime 500 mg twice daily to finish 5 day course. Continue azithromycin 500 mg daily x3 days. -Chest x-ray demonstrated interstitial pneumonia. -Respiratory viral PCR is negative. 3. Acute UTI ruled out. -Urine Culture is negative. 4. Multiple Sclerosis, present on admission. Presumed stable. -Continue Fingolimod (Gilenya). 5. Non Alcoholic Liver Disease with pancytopenia, present on admission. Presumed stable. -This is apparently stable with low WBC and low Platelets. -Apparently the patient is seen by curing finisher in [place], Dr. Simpson, who has recommended monthly iron infusions and has worked up her pancytopenia in the past. Will try to obtain records. Ordered SPEP and pathology smear, pending. -Repeat CBC as indicated. 6. CHF, unspecified type, present on admission. -Continue furosemide 40 mg and potassium chloride daily. IVF held. 7. Possible fluoroquinolone allergy. -Her son is unable to clarify with his sister what her reaction had been. -The ED Levaquin infusion was stopped well before half the bag was infused. No reaction seen. 8. GERD, chronic, present on admission. Stable. -Continue home PPI. 9. Depression, chronic, present on admission. -Continue sertraline. 10. Hypothyroidism, chronic, present on admission. Stable. -Continue home levothyroxine. Disposition: Likely to discharge back to assisted living facility. Continue PT and OT. Quality VTE Deep Vein Thrombosis/Pulmonary Embolism Present on Admission: No
[2018-06-04] MEDS: CODEINE/ACETAMINOPHEN 30/300 TABLET 1 TAB PO (22:11)
[2018-06-04] MEDS: cefUROXime 250 MG TABLET 500 MG PO (22:11)
[2018-06-05] VITALS: O2SAT 94; O2SAT 97
[2018-06-05] MEDS: ACETAMINOPHEN 325 MG TABLET 650 MG PO (01:17)
--- NOTE | 2018-06-05 02:32 | PC.NURSE ---
shift coordinator: 0000 Pt states that she is calm and does not want to move because she is feeling well at this time. Denies pain. 0100 Pt calls, is anxious and nearly crying. Pt reports having a headache that is made worse by the light, medicated with prn Tylenol and ice pack to forehead. pt also reports back discomfort, warm blanket applied.
[2018-06-05 05:30] VITALS: BP 113/64; PULSE 64; RESP 16; TEMP 36.8; O2SAT 94
[2018-06-05] MEDS: PANTOPRAZOLE 20 MG TABLET PO (05:31)
[2018-06-05 06:09] LABS: Alanine Aminotransferase 32 IU/L (9-52); Albumin 3.3 g/dL (3.5-5.0); Albumin Globulin Ratio 1.2 (1.0-2.8); Alkaline Phosphatase 68 U/L (38-126); Aspartate Aminotransferase 39 IU/L (14-36); Bilirubin Total 0.9 mg/dL (0.2-1.3); Blood Urea Nitrogen 8 mg/dL (7-17); Calcium 8.7 mg/dL (8.4-10.2); Carbon Dioxide 32 mmol/L (22-32); Chloride 101 mmol/L (98-107); Estimated Glomerular Filt Rate > 60.0 mL/min (>60); Globulin 2.7 g/dL (1.7-4.1); Glucose 95 mg/dL (80-110); HEMOLYSIS < 15 (0-50); Magnesium 1.9 mg/dL (1.6-2.3); Potassium 3.3 mmol/L (3.4-5.1); Sodium 139 mmol/L (137-145)
[2018-06-05 06:12] LABS: Mean Corpuscular HGB Conc 33.3 % (30-36); Platelet Count 48 X10^3/uL (150-400); Red Blood Cell Count 3.67 X10^6/uL (4.0-5.2); Red Cell Distribution Width 16.8 % (11.6-14.8)
[2018-06-05 06:22] LABS: Add Manual Diff / Slide Review YES; White Blood Cell Count 1.8 X10^3/uL (4.5-11.0)
[2018-06-05 07:01] LABS: Neutrophils Absolute Manual 1494 /uL (3000-5900); RBC Morphology Normal Morphology; Total Cells Counted 100
[2018-06-05 08:00] VITALS: BP 125/64; PULSE 61; RESP 18; TEMP 36.6; O2SAT 98
--- NOTE | 2018-06-05 09:23 | PM.DS.1 ---
History of Present Illness Date Patient Seen: 06/01/18 Chief complaint: Fever Narrative: Written by Dr. Wallace Garrido: This is a 77-year-old female presenting from the assisted living facility with altered mental status going on for approximately 1 week plus. She gives a substantially different history than her son and it is challenging to tease out the timing of the symptoms. Over the last few weeks her multiple sclerosis symptoms and altered mental status along with dysuria seemed to be progressing. She was treated with Augmentin at the facility. I do not have the full details. She has had a cough productive of yellow sputum and increased urinary frequency/incontinence above her chronic incontinence. She has had multiple sclerosis for 10 years, most recently hospitalized at [facility] in [place] and moving here within the last year or 2. There has also been mention of back pain, neck pain, instability. She has a history of recurrent urinary tract infections treated with prophylactic Keflex. The chest x-ray today is read as showing diffuse bilateral interstitial infiltrates. I am unable to obtain a personal view of the chest x-ray on the PACS system for unknown reasons. Her answers to questions are slow and tangential, also apparently not factual in comparison to her son's report. There is some question of a fluoroquinolone allergy. As this was being discussed and clarified she did receive several mL of a fluoroquinolone infusion before it was stopped. She has had no signs of reaction at this point. Discharge Providers Date of admission: 06/01/18 18:24 Primary care physician: Sonam Khalil MD Consults: 06/01/18 18:56 Consult to Occupational Therapy Evaluate & Treat Comment: Physician Instructions: Evaluate and treat Consult to Physical Therapy Evaluate & Treat Comment: Physician Instructions: Evaluate and Treat Discharge provider: Christiana Waters DO Discharge Date: 06/05/18 Summary Discharge Diagnosis: 1. Acute metabolic encephalopathy, present on admission. Resolved. 2. Acute community-acquired pneumonia, present on admission. Resolving. 3. Acute UTI ruled out. 4. Multiple Sclerosis, present on admission. Presumed stable. 5. Non Alcoholic Liver Disease with pancytopenia, present on admission. Presumed stable. 6. CHF, unspecified type, present on admission. Stable. 7. Possible fluoroquinolone allergy. 8. GERD, chronic, present on admission. Stable. 9. Depression, chronic, present on admission. Stable. 10. Hypothyroidism, chronic, present on admission. Stable. Hospital Course: Nikkie Chinedu is a 77-year-old female with a past medical history significant for multiple sclerosis, unspecified type of congestive heart failure, and PIEDRA who presented for altered mental status, cough, and urinary tract symptoms. 1. Acute metabolic encephalopathy, present on admission. Resolved. -Likely secondary to community-acquired pneumonia. 2. Acute community-acquired pneumonia, present on admission. Resolving. -Switched cefepime to oral cefuroxime 500 mg twice daily to finish 7 day course. Completed azithromycin 500 mg daily x3 days. -Chest x-ray demonstrated interstitial pneumonia. -Respiratory viral PCR is negative. 3. Acute UTI ruled out. -Urine culture is negative. -Instructed patient to resume prophylactic Keflex once she completes course of cefuroxime for pneumonia. 4. Multiple Sclerosis, present on admission. Presumed stable. -Continued Fingolimod (Gilenya). 5. Non Alcoholic Liver Disease with pancytopenia, present on admission. Presumed stable. -This is apparently stable with low WBC and low Platelets. -Apparently the patient is seen by director of digital platforms in [place], Dr. Simpson, who has recommended monthly iron infusions and has worked up her pancytopenia in the past. Unable to obtain records. Ordered SPEP and pathology smear, pending. -Monitored CBC daily. -The patient should follow up with her director of digital platforms oncologist Dr. Simpson as soon as available. 6. CHF, unspecified type, present on admission. -Continued furosemide 40 mg and potassium chloride daily. IVF held. 7. Possible fluoroquinolone allergy. -Her son is unable to clarify with his sister what her reaction had been. -The ED Levaquin infusion was stopped well before half the bag was infused. No reaction seen. 8. GERD, chronic, present on admission. Stable. -Continued home PPI. 9. Depression, chronic, present on admission. -Continued home sertraline. 10. Hypothyroidism, chronic, present on admission. Stable. -Continued home levothyroxine. Status at Discharge Functional status at discharge: uses cane/walker Overall status at discharge: patient is back to baseline Exam Vital Signs (past 8 hours): - 06/05/18 05:30 06/05/18 08:00 Temperature 98.2 F 97.9 F Pulse Rate 64 61 Respiratory Rate 16 18 Blood Pressure 113/64 125/64 Pulse Oximetry 94 98 Fraction of Inspired Oxygen 21 Oxygen Delivery Method Room Air Oxygen Flow Rate 0 Objective Labs Result Diagrams: 06/05/18 05:36 06/05/18 05:36 Labs: Laboratory Results - last 24 hr 06/05/18 06/05/18 05:36 05:36 WBC 1.8 L* RBC 3.67 L Hgb 11.0 L Hct 33.0 L MCV 90.0 MCH 30.0 MCHC 33.3 RDW 16.8 H Plt Count 48 L Neut % (Auto) Not Reportable Lymph % (Auto) Not Reportable [place] % (Auto) Not Reportable Eos % (Auto) Not Reportable Baso % (Auto) Not Reportable Lymph # (Auto) Not Reportable [place] # (Auto) Not Reportable Baso # (Auto) Not Reportable Total Counted 100 Seg Neutrophils % 81.0 H Band Neutrophils % 2.0 L Lymphocytes % (Manual) 8.0 L Monocytes % (Manual) 9.0 Neutrophils # (Manual) 1494 L RBC Morphology Normal morphology Sodium 139 Potassium 3.3 L Chloride 101 Carbon Dioxide 32 BUN 8 Creatinine 0.50 L Estimated GFR > 60.0 BUN/Creatinine Ratio 16.0 Glucose 95 Calcium 8.7 Magnesium 1.9 Total Bilirubin 0.9 AST 39 H ALT 32 Alkaline Phosphatase 68 Total Protein 6.0 L Albumin 3.3 L Globulin 2.7 Albumin/Globulin Ratio 1.2 Discharge Plan Discharge Plan Patient Disposition: Assisted Living Transfer to: [facility] Under care of provider: Dr. Khalil Transportation: Private vehicle Discharge comment: You are being discharged back to your assisted living facility. Finish course of cefuroxime 500 mg twice a day for 3 days. You may then restart your normal Keflex to prevent UTIs. Please follow-up with your PCP in 1 week and your director of digital platforms/oncologist as soon as available. The receiving facility has agreed to accept transfer and provide medical treatment.: Yes Discharge Med Rec/Prescriptions Prescriptions: New cefuroxime axetil 500 mg tablet 500 mg PO Q12H 3 Days Qty: 6 RF: 0 Continue furosemide 40 mg Tablet 40 mg PO DAILY RF: 0 acetaminophen 325 mg Tablet 650 mg PO Q6H MDD 36 PRN (Reason: pain) RF: 0 loperamide 2 mg capsule 2 mg PO DAILY PRN (Reason: Diarrhea) RF: 0 cephalexin 250 mg Capsule 500 mg PO QPM RF: 0 ondansetron HCl 4 mg tablet 4 mg PO Q6H PRN (Reason: Nausea) RF: 0 potassium chloride 10 mEq tablet extended release 10 meq PO DAILY RF: 0 acetaminophen-codeine 300-30 mg tablet 1 tab PO Q12H PRN (Reason: pain) RF: 0 lorazepam 0.5 mg tablet 0.5 mg PO DAILY PRN (Reason: Anxiety) RF: 0 levothyroxine 50 mcg Tablet 50 mcg PO DAILY RF: 0 ascorbic acid (vitamin C) 500 mg Tablet,Chewable 500 mg PO DAILY RF: 0 gabapentin 300 mg Capsule 300 mg PO QPM RF: 0 omeprazole 20 mg Capsule,Delayed Release(Dr/Ec) 20 mg PO DAILY RF: 0 nystatin 100,000 unit/gram powder 1 applic Topical TID PRN (Reason: yeast) RF: 0 multivitamin with minerals Tablet 1 tab PO DAILY RF: 0 sertraline 50 mg tablet 75 mg PO DAILY RF: 0 diclofenac sodium 1 % gel 1 applic Topical Q6H PRN (Reason: hand pain) RF: 0 fingolimod 0.5 mg Capsule 0.5 mg PO DAILY RF: 0 lidocaine 5 % ointment 1 applic Topical Q12H PRN (Reason: pain) RF: 0 Follow up/Referrals: Sonam Khalil MD [Primary Care Provider] - (follow up in 1-2 weeks or as needed) Discharge Orders: Discharge (Order); Ordered 06/05/18 Ordered By: Christiana Waters Discharge Health Status Brief summary of current health status: Patient is back to baseline mentation and motor function. Continue outpatient PT/OT. Multidrug resistant organism: No MDRO Precautions: [place] Provider Discharge Instructions Diet: Diet as Tolerated and Low-sodium Activity: Activity as tolerated with FWW and PT. Skin/Wound/Dressing Care Report to your healthcare provider any signs of infection, such as:: chills, fever, night sweats and increased pain Special Rehabilitation Services Rehab type: Outpatient therapists Visit Report/Discharge Packet Instructions: DI for Pneumonia -- Adult, How to Prevent Falls Discharge Data Primary Care Provider: Sonam Khalil Attending Provider: Andrez Garrido Admit Date/Time: 06/01/18 18:24 Quality VTE Deep Vein Thrombosis/Pulmonary Embolism Present on Admission: No
[2018-06-05 09:30] VITALS: O2SAT 97
[2018-06-05] MEDS: SERTRALINE 25 MG TABLET 75 MG PO (09:45)
[2018-06-05] MEDS: FINGOLIMOD 0.5 MG 0.5 EACH PO (09:45)
[2018-06-05] MEDS: CODEINE/ACETAMINOPHEN 30/300 TABLET 1 TAB PO (09:45)
[2018-06-05] MEDS: cefUROXime 250 MG TABLET 500 MG PO (09:45)
[2018-06-05] MEDS: LEVOTHYROXINE 50 MCG TABLET PO (09:46)
[2018-06-05] MEDS: POTASSIUM CHLORIDE 20 MEQ TAB PO (09:46)
[2018-06-05] MEDS: ASCORBIC ACID 500 MG TABLET PO (09:46)
[2018-06-05] MEDS: MULTIVIT,CALC,MINS/IRON/FOLIC 1 TABLET 1 TAB PO (09:46)
[2018-06-05] MEDS: FUROSEMIDE 40 MG TABLET PO (09:46)
--- NOTE | 2018-06-05 10:37 | CM.DPC ---
DCP Cont: Dr. Waters, hospitalist, is planning on discharging patient to [facility] today. At times, patient reluctant to go, wants to stay here. Called and updated Karine, admissions at [facility] and [place]. Stated, she was upset that she has had to share a private room there, and likes having her own room. Stated that she would send Karen over to assess patient, but still will plan on picking machine operator helper at 3:00 today. P: Patient will be returning to [facility] today. They have van available at approximately 3:00pm today. Antonina Guerrero RN/Clinical Education Specialist
[2018-06-05] MEDS: AZITHROMYCIN 250 MG TABLET 500 MG PO (12:22)
--- NOTE | 2018-06-05 16:36 | PC.NURSE ---
Day Shift- Report given to Karen, Director of administration at [facility] at 1150 on unit. Plan is for pt's son to drive pt to [facility] upon discharge, this fha underwriter updated CM with this plan. Discharge instructions given to pt and her son at bedside. Follow up with PCP in [address] Simpson-hematology in 1 week or PEDRO. Brief review of discharge summary. Pt left unit via wheelchair in no distress with her son and all belongings including POM bottle and walker.
[2018-06-06 22:09] LABS: Albumin 3.4 g/dL (3.8-4.8); Alpha 1 Globulin 0.3 g/dL (0.2-0.3); Alpha 2 Globulin 0.7 g/dL (0.5-0.9); Beta 1 Globulin 0.4 g/dL (0.4-0.6); Gamma Globulin 0.8 g/dL (0.8-1.7); Protein, Total 5.9 g/dL (6.1-8.1)
== END 2018-06-05 15:20 | DRG 196 ==
LOC: ED 18:03 → AC 18:25
PROVIDERS: Internal Medicine; Admitting Provider Family Medicine; Emergency Provider Emergency Medicine; PCP Internal Medicine; Visit Provider Family Medicine
DX: J84.114 Acute interstitial pneumonitis (principal); G93.41 Metabolic encephalopathy; D61.818 Other pancytopenia; I50.9 Heart failure, unspecified; G35 Multiple sclerosis; F32.9 Major depressive disorder, single episode, unspecified; E03.9 Hypothyroidism, unspecified
CPT/HCPCS: 36415; 71045; 80053; 81001; 82140; 83605; 83735; 84145; 84155; 84165; 85025; 87040; 87086; 87633; 94760; 94762; 96361; 96365; 97116; 97162; 97165; 97530; 97535; 99284; J0692; J1644; J1956

== ENCOUNTER → 2018-06-07 07:29 | Outpatient (REF) | payer MEDICARE, MEDICAID, SELFPAY ==
[2018-06-01 19:19] VITALS: BMI 27.5
[2018-06-07 08:06] LABS: Add Manual Diff / Slide Review NO; Basophils Absolute Auto 0 /uL (0-100); Basophils Percent Auto 0.1 % (0-2); Eosinophils Absolute Auto 100 /uL (0-450); Eosinophils Percent Auto 2.4 % (2-4); Hematocrit 35.7 % (36-46); Hemoglobin 11.7 g/dL (12.0-16.0); Lymphocytes Absolute Auto 200 /uL (1100-4500); Lymphocytes Percent Auto 6.9 % (25-40); Mean Corpuscular HGB Conc 32.8 % (30-36); Mean Corpuscular Hemoglobin 29.6 PG (26-34); Monocytes Absolute Auto 300 /uL (0-900); Neutrophils Absolute Auto 1800 /uL (1500-7000); Neutrophils Percent Auto 77.6 % (50-75); Platelet Count 67 X10^3/uL (150-400); Red Blood Cell Count 3.96 X10^6/uL (4.0-5.2); Red Cell Distribution Width 17.2 % (11.6-14.8); White Blood Cell Count 2.3 X10^3/uL (4.5-11.0)
[2018-06-07 08:08] LABS: Blood Urea Nitrogen 15 mg/dL (7-17); Calcium 9.1 mg/dL (8.4-10.2); Carbon Dioxide 31 mmol/L (22-32); Chloride 100 mmol/L (98-107); Estimated Glomerular Filt Rate > 60.0 mL/min (>60); Glucose 101 mg/dL (80-110); HEMOLYSIS < 15 (0-50); Lipase 93 U/L (23-300); Potassium 3.4 mmol/L (3.4-5.1); Sodium 140 mmol/L (137-145)
== END ==
LOC: LAB 07:29
PROVIDERS: PCP Internal Medicine; Visit Provider Internal Medicine
DX: R10.9 Unspecified abdominal pain (principal)
CPT/HCPCS: 36415; 80048; 83690; 85025

== ENCOUNTER → 2018-06-14 07:22 | Outpatient (REF) | payer MEDICARE, MEDICAID, SELFPAY ==
[2018-06-01 19:19] VITALS: BMI 27.5
[2018-06-14 08:06] LABS: Add Manual Diff / Slide Review NO; Basophils Absolute Auto 0 /uL (0-100); Basophils Percent Auto 0.1 % (0-2); Eosinophils Absolute Auto 100 /uL (0-450); Eosinophils Percent Auto 2.8 % (2-4); Hematocrit 34.7 % (36-46); Hemoglobin 11.7 g/dL (12.0-16.0); Lymphocytes Absolute Auto 200 /uL (1100-4500); Mean Corpuscular HGB Conc 33.7 % (30-36); Mean Corpuscular Hemoglobin 30.3 PG (26-34); Mean Corpuscular Volume 89.7 fL (80-100); Monocytes Absolute Auto 300 /uL (0-900); Neutrophils Absolute Auto 1700 /uL (1500-7000); Neutrophils Percent Auto 73.1 % (50-75); Platelet Count 68 X10^3/uL (150-400); Red Blood Cell Count 3.87 X10^6/uL (4.0-5.2); Red Cell Distribution Width 17.2 % (11.6-14.8); White Blood Cell Count 2.3 X10^3/uL (4.5-11.0)
[2018-06-14 08:15] LABS: BUN Creatinine Ratio 28.3 (6-22); Blood Urea Nitrogen 17 mg/dL (7-17); Calcium 9.2 mg/dL (8.4-10.2); Carbon Dioxide 32 mmol/L (22-32); Chloride 100 mmol/L (98-107); Estimated Glomerular Filt Rate > 60.0 mL/min (>60); Glucose 98 mg/dL (80-110); HEMOLYSIS < 15 (0-50); Potassium 3.9 mmol/L (3.4-5.1); Sodium 141 mmol/L (137-145)
== END ==
LOC: LAB 07:22
PROVIDERS: PCP Internal Medicine; Visit Provider Nurse Practitioner Family
DX: D64.9 Anemia, unspecified (principal); E87.6 Hypokalemia; D72.819 Decreased white blood cell count, unspecified
CPT/HCPCS: 36415; 80048; 85025

== ENCOUNTER → 2018-06-19 07:33 | Outpatient (REF) | payer MEDICARE, MEDICAID, SELFPAY ==
[2018-06-01 19:19] VITALS: BMI 27.5
[2018-06-19 08:53] LABS: HEMOLYSIS < 15 (0-50); Iron 70 ug/dL (37-170)
[2018-06-19 09:04] LABS: Percent Iron Saturation 20 % (15-50); Total Iron Binding Capacity 350 ug/dL (265-497); Transferrin 255 mg/dL (206-381)
[2018-06-19 09:28] LABS: Ferritin 59.1 ng/mL (11.1-264)
== END ==
LOC: LAB 07:33
PROVIDERS: PCP Internal Medicine; Visit Provider Nurse Practitioner Family
DX: D64.9 Anemia, unspecified (principal)
CPT/HCPCS: 36415; 82728; 83540; 83550

== ENCOUNTER → 2018-06-21 06:46 | Outpatient (REF) | payer MEDICARE, MEDICAID, SELFPAY ==
[2018-06-01 19:19] VITALS: BMI 27.5
[2018-06-21 08:18] LABS: Add Manual Diff / Slide Review NO; Basophils Absolute Auto 0 /uL (0-100); Basophils Percent Auto 0.1 % (0-2); Eosinophils Absolute Auto 100 /uL (0-450); Eosinophils Percent Auto 2.5 % (2-4); Hematocrit 33.8 % (36-46); Hemoglobin 11.2 g/dL (12.0-16.0); Lymphocytes Absolute Auto 200 /uL (1100-4500); Lymphocytes Percent Auto 9.7 % (25-40); Mean Corpuscular HGB Conc 33.1 % (30-36); Mean Corpuscular Volume 90.6 fL (80-100); Monocytes Absolute Auto 400 /uL (0-900); Monocytes Percent Auto 18.1 % (3-14); Neutrophils Absolute Auto 1500 /uL (1500-7000); Neutrophils Percent Auto 69.6 % (50-75); Platelet Count 44 X10^3/uL (150-400); Red Blood Cell Count 3.73 X10^6/uL (4.0-5.2); Red Cell Distribution Width 16.7 % (11.6-14.8); White Blood Cell Count 2.1 X10^3/uL (4.5-11.0)
[2018-06-21 08:58] LABS: Blood Urea Nitrogen 13 mg/dL (7-17); Calcium 8.9 mg/dL (8.4-10.2); Carbon Dioxide 30 mmol/L (22-32); Chloride 98 mmol/L (98-107); Estimated Glomerular Filt Rate > 60.0 mL/min (>60); Glucose 89 mg/dL (80-110); HEMOLYSIS < 15 (0-50); Potassium 3.6 mmol/L (3.4-5.1); Sodium 138 mmol/L (137-145)
== END ==
LOC: LAB 06:46
PROVIDERS: PCP Internal Medicine; Visit Provider Nurse Practitioner Family
DX: D64.9 Anemia, unspecified (principal)
CPT/HCPCS: 36415; 80048; 85025

== ENCOUNTER → 2018-06-23 18:41 | Outpatient (REF) | payer MEDICARE, MEDICAID, SELFPAY ==
[2018-06-01 19:19] VITALS: BMI 27.5
[2018-06-23 18:43] LABS: Bacteria Urine None Seen
[2018-06-23 18:56] LABS: Appearance Urine UA CLOUDY; Bilirubin Urine UA NEGATIVE (NEGATIVE); Color Urine UA YELLOW; Glucose Urine UA NEGATIVE (Negative); Ketones Urine UA NEGATIVE (NEGATIVE); Leukocyte Esterase Urine UA 3+ (NEGATIVE); Nitrite Urine UA POSITIVE (Negative); Occult Blood Urine UA 3+ (Negative); Protein Urine UA 2+ (Negative); Urobilinogen Urine UA 0.2 E.U./dL (0.2)
[2018-06-23 19:12] LABS: Culture Indicated Urine Specimen Cultured; RBC Urine 10-30/HPF (0-5/HPF); WBC Urine 30-100/HPF (0-5/HPF)
== END ==
LOC: LAB 18:41
PROVIDERS: PCP Internal Medicine; Visit Provider Internal Medicine
DX: N39.0 Urinary tract infection, site not specified (principal)
CPT/HCPCS: 81001; 87077; 87086; 87186

== ENCOUNTER → 2018-07-26 07:50 | Outpatient (REF) | payer OTHER, MEDICAID, SELFPAY ==
[2018-07-11 13:41] VITALS: BMI 27.5
[2018-07-26 08:28] LABS: Add Manual Diff / Slide Review NO; Basophils Absolute Auto 0 /uL (0-100); Eosinophils Absolute Auto 100 /uL (0-450); Eosinophils Percent Auto 2.6 % (2-4); Hematocrit 33.1 % (36-46); Hemoglobin 10.9 g/dL (12.0-16.0); Lymphocytes Absolute Auto 200 /uL (1100-4500); Lymphocytes Percent Auto 8.3 % (25-40); Mean Corpuscular Hemoglobin 30.1 PG (26-34); Mean Corpuscular Volume 91.3 fL (80-100); Monocytes Absolute Auto 400 /uL (0-900); Monocytes Percent Auto 17.6 % (3-14); Neutrophils Absolute Auto 1600 /uL (1500-7000); Neutrophils Percent Auto 71.5 % (50-75); Platelet Count 52 X10^3/uL (150-400); Red Blood Cell Count 3.63 X10^6/uL (4.0-5.2); Red Cell Distribution Width 16.6 % (11.6-14.8); White Blood Cell Count 2.3 X10^3/uL (4.5-11.0)
[2018-07-26 08:47] LABS: Blood Urea Nitrogen 16 mg/dL (7-17); Calcium 8.9 mg/dL (8.4-10.2); Carbon Dioxide 32 mmol/L (22-32); Chloride 100 mmol/L (98-107); Estimated Glomerular Filt Rate > 60.0 mL/min (>60); Glucose 87 mg/dL (80-110); HEMOLYSIS < 15 (0-50); Potassium 3.4 mmol/L (3.4-5.1); Sodium 138 mmol/L (137-145)
== END ==
LOC: LAB 07:50
PROVIDERS: PCP Internal Medicine; Visit Provider Nurse Practitioner Family
DX: D64.9 Anemia, unspecified (principal); Z79.899 Other long term (current) drug therapy
CPT/HCPCS: 36415; 80048; 85025

== ENCOUNTER → 2018-08-23 06:42 | Outpatient (REF) | payer MEDICARE, MEDICAID, SELFPAY ==
[2018-07-11 13:41] VITALS: BMI 27.5
[2018-08-23 07:47] LABS: Add Manual Diff / Slide Review NO; Basophils Absolute Auto 0 /uL (0-100); Basophils Percent Auto 0.3 % (0-2); Eosinophils Absolute Auto 100 /uL (0-450); Eosinophils Percent Auto 2.5 % (2-4); Hematocrit 33.4 % (36-46); Hemoglobin 11.1 g/dL (12.0-16.0); Lymphocytes Absolute Auto 200 /uL (1100-4500); Lymphocytes Percent Auto 6.6 % (25-40); Mean Corpuscular Hemoglobin 29.6 PG (26-34); Mean Corpuscular Volume 89.4 fL (80-100); Monocytes Absolute Auto 400 /uL (0-900); Monocytes Percent Auto 12.8 % (3-14); Neutrophils Absolute Auto 2200 /uL (1500-7000); Neutrophils Percent Auto 77.8 % (50-75); Platelet Count 60 X10^3/uL (150-400); Red Blood Cell Count 3.74 X10^6/uL (4.0-5.2); White Blood Cell Count 2.8 X10^3/uL (4.5-11.0)
== END ==
LOC: LAB 06:42
PROVIDERS: PCP Internal Medicine; Visit Provider Internal Medicine
DX: D64.9 Anemia, unspecified (principal); D61.818 Other pancytopenia
CPT/HCPCS: 36415; 85025

== ENCOUNTER → 2018-08-30 07:04 | Outpatient (REF) | payer OTHER, MEDICAID, SELFPAY ==
[2018-08-23 14:17] VITALS: BMI 27.5
[2018-08-30 07:29] LABS: INR 1.3 (0.9-1.3); Prothrombin Time 15.1 SECONDS (10.1-12.7)
== END ==
LOC: LAB 07:04
PROVIDERS: PCP Internal Medicine; Visit Provider Nurse Practitioner Family
DX: K74.5 Biliary cirrhosis, unspecified (principal); R41.0 Disorientation, unspecified
CPT/HCPCS: 36415; 82140; 85610

== ENCOUNTER 2018-09-01 15:48 | Emergency (ER) | payer MEDICARE, MEDICAID, SELFPAY ==
[2018-08-23 14:17] VITALS: BMI 27.5
[2018-09-01 15:53] VITALS: BP 125/71; PULSE 73; RESP 17; O2SAT 99; BMI 28.9
--- NOTE | 2018-09-01 16:20 | DI.RAD.S_ITS ---
PROCEDURE: XR WRIST RT MIN 3V INDICATIONS: right wrist pain, swelling, hx of frequent falls TECHNIQUE: 4 views of the wrist were acquired. COMPARISON: LAKIA Cueva, XR HAND 3+ VIEWS RIGHT, 01/10/2018, 17:12. FINDINGS: Bones: No fractures or dislocations. No suspicious bony lesions. Old ulna styloid fracture. First CMC degenerative narrowing is present. Scaphoid view: No fracture Soft tissues: No suspicious soft tissue calcifications. 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 Dictated by: Abimbola Luong M.D. on 09/01/2018 at 16:46 Approved by: Abimbola Luong M.D. on 09/01/2018 at 16:47
--- NOTE | 2018-09-01 16:34 | ED.EXTPRO ---
HPI - Extremity Problem <Yolanda Hernandez PA-C - Last Filed: 09/01/18 21:57> General Chief complaint: Extremity Problem,Nontraumatic Stated complaint: right wrist pain Time Seen by Provider: 09/01/18 15:56 Source: patient and family Mode of arrival: wheelchair Limitations: physical limitation History of Present Illness HPI Narrative: This 78-year-old female comes to ED with her son due to the worsening right wrist pain. she has had chronic wrist pain for about a year and a half. She states that she fell with her wrist twisted under her body and has had pain since. She states that she does not remember any diagnosis of fracture at this time. Her son states that she has been reluctant to use the wrist or hand since then secondary to pain, has developed atrophy and contractures. For about a week and a half, therapy started working with her and trying to stretch the hand and she has been using a wrist brace. They have her wearing this at night as well for the last 2 nights, and she states that last night it was so painful she had have someone remove it. She states that pain has been worse for the last few days, even more today. She denies any new trauma aside from therapy. She denies any fever. She denies any new swelling. she has not noted any bites or wounds or redness, but states that her wrist felt warm last night. She denies any new symptoms such as chest pain or dyspnea or other complaints on systems review. Related Data Home Medications Medication Instructions Recorded Confirmed acetaminophen 650 mg PO Q6H PRN MDD 36 06/01/18 07/10/18 acetaminophen-codeine 1 tab PO Q12H PRN 06/01/18 07/10/18 ascorbic acid (vitamin C) 500 mg PO DAILY 06/01/18 07/10/18 cephalexin 500 mg PO QPM 06/01/18 07/10/18 diclofenac sodium 1 applic TOPICAL Q6H PRN 06/01/18 07/10/18 fingolimod 0.5 mg PO DAILY 06/01/18 07/10/18 furosemide 40 mg PO DAILY 06/01/18 07/10/18 gabapentin 300 mg PO QPM 06/01/18 07/10/18 levothyroxine 50 mcg PO DAILY 06/01/18 07/10/18 lidocaine 1 applic TOPICAL Q12H PRN 06/01/18 07/10/18 loperamide 2 mg PO DAILY PRN 06/01/18 07/10/18 lorazepam 0.5 mg PO DAILY PRN 06/01/18 07/10/18 multivitamin with minerals 1 tab PO DAILY 06/01/18 07/10/18 nystatin 1 applic TOPICAL TID PRN 06/01/18 07/10/18 omeprazole 20 mg PO DAILY 06/01/18 07/10/18 ondansetron HCl 4 mg PO Q6H PRN 06/01/18 07/10/18 potassium chloride 10 meq PO DAILY 06/01/18 07/10/18 sertraline 75 mg PO DAILY 06/01/18 07/10/18 Allergies Allergy/AdvReac Type Severity Reaction Status Date / Time adhesive Allergy Verified 07/10/18 13:28 crab Allergy Verified 07/10/18 13:28 epinephrine Allergy Verified 07/10/18 13:28 latex Allergy Verified 07/10/18 13:28 Quinolones Allergy Verified 07/10/18 13:28 Sulfa (Sulfonamide Allergy Verified 07/10/18 13:28 Antibiotics) Review of Systems <Yolanda Hernandez PA-C - Last Filed: 09/01/18 21:57> Review of Systems ROS Unobtainable: All systems reviewed & are unremarkable except as noted in HPI and below PFSH <Yolanda Hernandez PA-C - Last Filed: 09/01/18 21:57> Medical History (Updated 09/01/18 @ 18:18 by Yolanda Hernandez PA-C) Obstructive sleep apnea of adult (Chronic) Periodic limb movement disorder (PLMD) (Chronic) CAP (community acquired pneumonia) (Acute) CHF (congestive heart failure) (Acute) Hepatic encephalopathy (Acute) Chronic wrist pain (Chronic) Depression (Chronic) Hypothyroidism (acquired) (Chronic) Multiple sclerosis (Chronic) PIEDRA (nonalcoholic steatohepatitis) (Chronic) Pancytopenia (Chronic) Status post CVA (Chronic) CVA (cerebral vascular accident) (Inactive) TIA (transient ischemic attack) (Inactive) Surgical History (Updated 09/01/18 @ 17:03 by Yolanda Hernandez PA-C) Status post appendectomy (Resolved) Status post lumbar surgery (Resolved) Social History Smoking Status: Never smoker alcohol intake: never Social History Smoking Status: Never smoker alcohol intake: never Exam <Yolanda Hernandez PA-C - Last Filed: 09/01/18 21:57> Narrative Exam Narrative: GENERAL APPEARANCE: Patient sitting comfortably, in no distress. LUNGS: Clear to auscultation bilaterally. HEART: Rate and rhythm regular without murmur, normal S1 and S2, no S3 or S4. MUSCULOSKELETAL: Patient holds right wrist extended with the elbow flexed, fingers are contracted into a artificial limb fitter. She will not attempt movement of the hand or wrist. The wrist is exquisitely tender, a bit more on the radial side. She also has some tenderness over the hand especially proximal medial side. Unable to attempt any passive range of motion. NEUROVASCULAR: The right radial and ulnar pulses 2+, right hand is warm, sensation grossly intact DERMATOLOGIC: There is some faint erythema on the radial side of the right wrist, mildly warm to touch, no erythema up the hand or fingers Initial Vital Signs Initial Vital Signs: Vital Signs Pulse Rate 73 09/01/18 15:53 Respiratory Rate 17 09/01/18 15:53 Blood Pressure 125/71 09/01/18 15:53 Pulse Oximetry 99 09/01/18 15:53 <Gomez Jang DO - Last Filed: 09/11/18 02:06> Initial Vital Signs Initial Vital Signs: Vital Signs Pulse Rate 73 09/01/18 15:53 Respiratory Rate 17 09/01/18 15:53 Blood Pressure 125/71 09/01/18 15:53 Pulse Oximetry 99 09/01/18 15:53 Course <Yolanda Hernandez PA-C - Last Filed: 09/01/18 21:57> Course Narrative: Per patient and her son her pain and immobility in the right hand and wrist are chronic. She has contractures. Symptoms correlate with the onset of therapy and wearing the brace, however we discussed this could also be gout. She has history of old fracture and significant arthritis and this may be an exacerbation of that. Less likely cellulitis. She has some faint erythema, no skin breaks. Margins were inked. She was given prednisone to start over the weekend, and advised recheck with PCP on Monday. She is on cephalexin already for urinary infection prophylaxis so will increase the dose of that over the weekend as well. Advised return if any acutely worsening symptoms and she and her son are agreeable Orders Ordered: Discontinued Medications Cefazolin Sodium (Keflex) 1 bottle MISC SEEINSTR ONE Stop: 09/01/18 18:21 Last Admin: 09/01/18 18:26 Dose: 500 mg Prednisone (Deltasone 20 Mg Prepack) 1 bottle MISC SEEINSTR ONE Stop: 09/01/18 18:21 Last Admin: 09/01/18 18:27 Dose: 1 bottle Vital Signs - 8 hr 09/01/18 15:53 09/01/18 18:32 Pulse Rate 73 82 Respiratory Rate 17 16 Blood Pressure 125/71 Blood Pressure [Left Arm] 145/70 H Pulse Oximetry 99 99 <Gomez Jang DO - Last Filed: 09/11/18 02:06> Orders Ordered: Discontinued Medications Cefazolin Sodium (Keflex) 1 bottle MISC SEEINSTR ONE Stop: 09/01/18 18:21 Last Admin: 09/01/18 18:26 Dose: 500 mg Prednisone (Deltasone 20 Mg Prepack) 1 bottle MISC SEEINSTR ONE Stop: 09/01/18 18:21 Last Admin: 09/01/18 18:27 Dose: 1 bottle Vital Signs - 8 hr 09/01/18 15:53 09/01/18 18:32 Pulse Rate 73 82 Respiratory Rate 17 16 Blood Pressure 125/71 Blood Pressure [Left Arm] 145/70 H Pulse Oximetry 99 99 MDM - Extremity (Nontraumatic) <Yolanda Hernandez PA-C - Last Filed: 09/01/18 21:57> Lab Data Result diagrams: 09/01/18 17:05 09/01/18 17:05 Lab Results 09/01/18 09/01/18 Range/Units 17:05 17:05 WBC 4.4 L (4.5-11.0) X10^3/uL RBC 4.13 (4.0-5.2) X10^6/uL Hgb 12.2 (12.0-16.0) g/dL Hct 37.0 (36-46) % MCV 89.6 (80-100) fL MCH 29.5 (26-34) PG MCHC 32.9 (30-36) % RDW 15.8 H (11.6-14.8) % Plt Count 53 L (150-400) X10^3/uL Neut % (Auto) 76.5 H (50-75) % Lymph % (Auto) 6.2 L (25-40) % [place] % (Auto) 16.0 H (3-14) % Eos % (Auto) 1.1 L (2-4) % Baso % (Auto) 0.2 (0-2) % Neut # (Auto) 3400 (8521-4762) /uL Lymph # (Auto) 300 L (0331-3398) /uL [place] # (Auto) 700 (0-900) /uL Eos # (Auto) 0 (0-450) /uL Baso # (Auto) 0 (0-100) /uL ESR 37 H (0-20) MM/HR Sodium 139 (137-145) mmol/L Potassium 4.5 (3.4-5.1) mmol/L Chloride 99 (98-107) mmol/L Carbon Dioxide 32 (22-32) mmol/L BUN 13 (7-17) mg/dL Creatinine 0.60 (0.52-1.04) mg/dL Estimated GFR > 60.0 (>60) mL/min BUN/Creatinine Ratio 21.7 (6-22) Glucose 98 (80-110) mg/dL Uric Acid 4.3 (2.5-6.2) mg/dL Calcium 9.0 (8.4-10.2) mg/dL C-Reactive Protein 2.1 H (<1.0) mg/dL Imaging Data wrist: Radiologist's impression: Chart Viewer Diagnostics DATE TYPE STATUS AUTHOR Hx 09/01/18 16:20 Abimbola Luong 06/01/18 15:22 LaurieChristianoNikkie Maldonado 78, F0 1940 [facility] ER, ED.LOC - Main ED: R02 152.4cm 67.26kg BMI: 29.0kg/m? Extremity Problem,Nontraumatic Search Chart ONSET Today 15:53 Nikkie Che F [address] [address] XRay Report Signed Patient: Nikkie Che SMR#: [id number] : 2Acct:[id number] Age/Sex: 78 / FDate of Service: 09/01/18 Loc: ED Accession Number: [id number] Procedure: XR wrist RT min 3V Ordering Provider: Gomez Jang D.O. PROCEDURE: XR WRIST RT MIN 3V INDICATIONS: right wrist pain, swelling, hx of frequent falls TECHNIQUE: 4 views of the wrist were acquired. COMPARISON: [facility], XR HAND 3+ VIEWS RIGHT, 01/10/2018, 17:12. FINDINGS: Bones: No fractures or dislocations. No suspicious bony lesions. Old ulna styloid fracture. First CMC degenerative narrowing is present. Scaphoid view: No fracture Soft tissues: No suspicious soft tissue calcifications. 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 Dictated by: Abimbola Luong M.D. on 09/01/2018 at 16:46 Approved by: Abimbola Luong M.D. on 09/01/2018 at 16:47 <Gomez Jang DO - Last Filed: 09/11/18 02:06> Lab Data Lab Results 09/01/18 09/01/18 Range/Units 17:05 17:05 WBC 4.4 L (4.5-11.0) X10^3/uL RBC 4.13 (4.0-5.2) X10^6/uL Hgb 12.2 (12.0-16.0) g/dL Hct 37.0 (36-46) % MCV 89.6 (80-100) fL MCH 29.5 (26-34) PG MCHC 32.9 (30-36) % RDW 15.8 H (11.6-14.8) % Plt Count 53 L (150-400) X10^3/uL Neut % (Auto) 76.5 H (50-75) % Lymph % (Auto) 6.2 L (25-40) % [place] % (Auto) 16.0 H (3-14) % Eos % (Auto) 1.1 L (2-4) % Baso % (Auto) 0.2 (0-2) % Neut # (Auto) 3400 (5640-0251) /uL Lymph # (Auto) 300 L (6653-5457) /uL [place] # (Auto) 700 (0-900) /uL Eos # (Auto) 0 (0-450) /uL Baso # (Auto) 0 (0-100) /uL ESR 37 H (0-20) MM/HR Sodium 139 (137-145) mmol/L Potassium 4.5 (3.4-5.1) mmol/L Chloride 99 (98-107) mmol/L Carbon Dioxide 32 (22-32) mmol/L BUN 13 (7-17) mg/dL Creatinine 0.60 (0.52-1.04) mg/dL Estimated GFR > 60.0 (>60) mL/min BUN/Creatinine Ratio 21.7 (6-22) Glucose 98 (80-110) mg/dL Uric Acid 4.3 (2.5-6.2) mg/dL Calcium 9.0 (8.4-10.2) mg/dL C-Reactive Protein 2.1 H (<1.0) mg/dL Discharge Plan Departure Patient Disposition: Home Clinical Impression: Localized osteoarthritis of wrist Cellulitis Qualifiers: Site of cellulitis: extremity Site of cellulitis of extremity: upper extremity Laterality: right Qualified Code(s): L03.113 - Cellulitis of right upper limb Discharge Date/Time: 09/01/18 18:44 Interventions: ED Discharge Assessment Last Done: 09/01/18 18:43 Instructions: DI for Cellulitis -- Adult, DI for Arthritis Activity Restrictions/Additional Instructions: The source of your worsening pain is not clear today, but it may be an exacerbation of the arthritis and near your thumb caused by trying to use the wrist more recently. It is also possible that this is gout. I have given you prednisone to take once daily for the next few days as this would be a helpful treatment for both problems. Please take 20 mg once daily starting today. Please see Rebeca there at [place] on Monday or Monday to have her recheck this. I have also given cephalexin since you have a tiny bit of pink discoloration around the wrist, but no clear source of infection. This is a good antibiotic for skin infection, but needs to be taken more frequently than for your urinary symptoms. please take that 4 times daily for the next few days until you follow up with Geovanna. I have given you a prescription in case you need to have extra filled, and also given you some extra tablets to take for this evening if needed. Cephalexin--take 500mg 4x daily Prednisone--take 20mg once daily Prescriptions: No Action furosemide 40 mg Tablet 40 mg PO DAILY RF: 0 acetaminophen 325 mg Tablet 650 mg PO Q6H MDD 36 PRN (Reason: pain) RF: 0 loperamide 2 mg capsule 2 mg PO DAILY PRN (Reason: Diarrhea) RF: 0 cephalexin 250 mg Capsule 500 mg PO QPM RF: 0 ondansetron HCl 4 mg tablet 4 mg PO Q6H PRN (Reason: Nausea) RF: 0 potassium chloride 10 mEq tablet extended release 10 meq PO DAILY RF: 0 acetaminophen-codeine 300-30 mg tablet 1 tab PO Q12H PRN (Reason: pain) RF: 0 lorazepam 0.5 mg tablet 0.5 mg PO DAILY PRN (Reason: Anxiety) RF: 0 levothyroxine 50 mcg Tablet 50 mcg PO DAILY RF: 0 ascorbic acid (vitamin C) 500 mg Tablet,Chewable 500 mg PO DAILY RF: 0 gabapentin 300 mg Capsule 300 mg PO QPM RF: 0 omeprazole 20 mg Capsule,Delayed Release(Dr/Ec) 20 mg PO DAILY RF: 0 nystatin 100,000 unit/gram powder 1 applic Topical TID PRN (Reason: yeast) RF: 0 multivitamin with minerals Tablet 1 tab PO DAILY RF: 0 sertraline 50 mg tablet 75 mg PO DAILY RF: 0 diclofenac sodium 1 % gel 1 applic Topical Q6H PRN (Reason: hand pain) RF: 0 fingolimod 0.5 mg Capsule 0.5 mg PO DAILY RF: 0 lidocaine 5 % ointment 1 applic Topical Q12H PRN (Reason: pain) RF: 0 Referrals: Sonam Khalil MD [Primary Care Provider] - <Gomez Jang DO - Last Filed: 09/11/18 02:06> [facility] Att[facility]: I was immediately available in the department for consultation. Documentation has been reviewed. I agree with assessment and plan.
[2018-09-01 17:15] LABS: Add Manual Diff / Slide Review NO; Basophils Absolute Auto 0 /uL (0-100); Basophils Percent Auto 0.2 % (0-2); Eosinophils Absolute Auto 0 /uL (0-450); Eosinophils Percent Auto 1.1 % (2-4); Hemoglobin 12.2 g/dL (12.0-16.0); Lymphocytes Absolute Auto 300 /uL (1100-4500); Lymphocytes Percent Auto 6.2 % (25-40); Mean Corpuscular HGB Conc 32.9 % (30-36); Mean Corpuscular Hemoglobin 29.5 PG (26-34); Mean Corpuscular Volume 89.6 fL (80-100); Monocytes Absolute Auto 700 /uL (0-900); Neutrophils Absolute Auto 3400 /uL (1500-7000); Neutrophils Percent Auto 76.5 % (50-75); Platelet Count 53 X10^3/uL (150-400); Red Blood Cell Count 4.13 X10^6/uL (4.0-5.2); Red Cell Distribution Width 15.8 % (11.6-14.8); White Blood Cell Count 4.4 X10^3/uL (4.5-11.0)
[2018-09-01 17:26] LABS: BUN Creatinine Ratio 21.7 (6-22); Blood Urea Nitrogen 13 mg/dL (7-17); C-Reactive Protein Quant 2.1 mg/dL (<1.0); Carbon Dioxide 32 mmol/L (22-32); Chloride 99 mmol/L (98-107); Estimated Glomerular Filt Rate > 60.0 mL/min (>60); Glucose 98 mg/dL (80-110); HEMOLYSIS < 15 (0-50); Potassium 4.5 mmol/L (3.4-5.1); Sodium 139 mmol/L (137-145); Uric Acid 4.3 mg/dL (2.5-6.2)
[2018-09-01 17:59] LABS: Erythrocyte Sedimentation Rate 37 MM/HR (0-20)
[2018-09-01] MEDS: cephALEXin 250 MG PREPACK 1 BOTTLE MISC (18:26)
[2018-09-01] MEDS: predniSONE 20 MG PREPACK 1 BOTTLE MISC (18:27)
[2018-09-01 18:32] VITALS: BP 145/70; PULSE 82; RESP 16; O2SAT 99
== END 2018-09-01 18:44 | disposition home or self-care (01) ==
PROVIDERS: Emergency Provider Internal Medicine; PCP Internal Medicine
DX: M19.039 Primary osteoarthritis, unspecified wrist (principal); L03.113 Cellulitis of right upper limb; W19.XXXA Unspecified fall, initial encounter
CPT/HCPCS: 36415; 73110; 80048; 84550; 85025; 85651; 86140; 99282; 99284

== ENCOUNTER → 2018-09-05 18:42 | Outpatient (REF) | payer MEDICARE, MEDICAID, SELFPAY ==
[2018-08-23 14:17] VITALS: BMI 27.5
[2018-09-05 19:13] LABS: Appearance Urine UA CLOUDY; Bilirubin Urine UA NEGATIVE (NEGATIVE); Color Urine UA YELLOW; Glucose Urine UA NEGATIVE (Negative); Ketones Urine UA TRACE (NEGATIVE); Leukocyte Esterase Urine UA 1+ (NEGATIVE); Nitrite Urine UA POSITIVE (Negative); Occult Blood Urine UA 3+ (Negative); Protein Urine UA TRACE (Negative); Urobilinogen Urine UA 0.2 E.U./dL (0.2)
[2018-09-05 19:16] LABS: Bacteria Urine Few (2-10); Calcium Oxalate Crystals Urine Few; Culture Indicated Urine Specimen Cultured; RBC Urine 30-100/HPF (0-5/HPF); Squamous Epithelial Cell Urine 0-1 /HPF (0-5/HPF); WBC Urine 30-100/HPF (0-5/HPF)
== END ==
LOC: LAB 18:42
PROVIDERS: PCP Internal Medicine; Visit Provider Registered Nurse
DX: R39.81 Functional urinary incontinence (principal)
CPT/HCPCS: 81001; 87077; 87086; 87186

== ENCOUNTER → 2018-09-06 07:24 | Outpatient (REF) | payer MEDICARE, MEDICAID, SELFPAY ==
[2018-08-23 14:17] VITALS: BMI 27.5
== END ==
LOC: LAB 07:24
PROVIDERS: PCP Internal Medicine; Visit Provider Nurse Practitioner Family
DX: E72.20 Disorder of urea cycle metabolism, unspecified (principal)
CPT/HCPCS: 36415; 82140

== ENCOUNTER → 2018-09-28 15:41 | Outpatient (ROUT) | payer MEDICARE, MEDICAID, SELFPAY ==
[2018-08-23 14:17] VITALS: BMI 27.5
[2018-09-28 15:51] LABS: Add Manual Diff / Slide Review NO; Basophils Absolute Auto 0 /uL (0-100); Basophils Percent Auto 0.2 % (0-2); Eosinophils Absolute Auto 100 /uL (0-450); Eosinophils Percent Auto 2.7 % (2-4); Hematocrit 34.7 % (36-46); Lymphocytes Absolute Auto 100 /uL (1100-4500); Lymphocytes Percent Auto 6.3 % (25-40); Mean Corpuscular HGB Conc 31.8 % (30-36); Mean Corpuscular Hemoglobin 28.7 PG (26-34); Mean Corpuscular Volume 90.4 fL (80-100); Monocytes Absolute Auto 300 /uL (0-900); Monocytes Percent Auto 15.5 % (3-14); Neutrophils Absolute Auto 1700 /uL (1500-7000); Neutrophils Percent Auto 75.3 % (50-75); Platelet Count 59 X10^3/uL (150-400); Red Blood Cell Count 3.84 X10^6/uL (4.0-5.2); Red Cell Distribution Width 16.6 % (11.6-14.8); White Blood Cell Count 2.2 X10^3/uL (4.5-11.0)
[2018-09-28 15:58] LABS: BUN Creatinine Ratio 23.3 (6-22); Blood Urea Nitrogen 14 mg/dL (7-17); Calcium 8.8 mg/dL (8.4-10.2); Carbon Dioxide 31 mmol/L (22-32); Chloride 101 mmol/L (98-107); Estimated Glomerular Filt Rate > 60.0 mL/min (>60); Glucose 107 mg/dL (80-110); HEMOLYSIS 50 (0-50); Potassium 3.9 mmol/L (3.4-5.1); Sodium 140 mmol/L (137-145)
[2018-09-28 16:29] LABS: Thyroid Stimulating Hormone 2.26 uIU/mL (0.47-4.68)
== END ==
PROVIDERS: PCP Internal Medicine; Visit Provider Registered Nurse
DX: R19.7 Diarrhea, unspecified (principal); R42 Dizziness and giddiness
CPT/HCPCS: 80048; 82140; 84443; 85025

== ENCOUNTER → 2018-09-30 12:13 | Day surgery (SDC) | payer MEDICARE, MEDICAID, SELFPAY ==
[2018-08-23 14:17] VITALS: BMI 27.5
[2018-09-30 13:37] LABS: Adenovirus F 40/41 Not Detected (Not Detect); Astrovirus Not Detected (Not Detect); Campylobacter Not Detected (Not Detect); Clostridium difficile toxin AB Not Detected (Not Detect); Cryptosporidium Not Detected (Not Detect); Cyclospora cayetanensis Not Detected (Not Detect); Entamoeba histolytica Not Detected (Not Detect); Enteroaggregative E.coli Not Detected (Not Detect); Enteropathogenic E.coli Not Detected (Not Detect); Enterotoxigenic E.coli It/st Not Detected (Not Detect); Giardia lamblia Not Detected (Not Detect); Norovirus GI/GII Not Detected (Not Detect); Plesiomonsa shigelloides Not Detected (Not Detect); Rotavirus A Not Detected (Not Detect); Salmonella Not Detected (Not Detect); Sapovirus Not Detected (Not Detect); Shiga-like toxin-prod E.coli Not Detected (Not Detect); Shigella/Enteroinvasive E.coli Not Detected (Not Detect); Vibrio Not Detected (Not Detect); Vibrio cholerae Not Detected (Not Detect); Yersinia enterocolitica Not Detected (Not Detect)
== END | disposition home or self-care (01) ==
PROVIDERS: PCP Internal Medicine; Visit Provider Nurse Practitioner Family
DX: D83.8 Other common variable immunodeficiencies (principal)
CPT/HCPCS: 87507

== ENCOUNTER 2018-09-30 15:24 | Emergency (ER) | payer MEDICARE, MEDICAID, SELFPAY ==
[2018-08-23 14:17] VITALS: BMI 27.5
[2018-09-30 15:26] VITALS: BP 144/81; PULSE 79; RESP 16; TEMP 36.4; O2SAT 96; BMI 26.4
[2018-09-30 15:37] LABS: Appearance Urine UA CLEAR; Bilirubin Urine UA NEGATIVE (NEGATIVE); Color Urine UA YELLOW; Glucose Urine UA NEGATIVE (Negative); Ketones Urine UA NEGATIVE (NEGATIVE); Leukocyte Esterase Urine UA 2+ (NEGATIVE); Nitrite Urine UA NEGATIVE (Negative); Occult Blood Urine UA TRACE-LYSED (Negative); Protein Urine UA NEGATIVE (Negative); Specific Gravity Urine UA 1.015 (1.000-1.035); Urobilinogen Urine UA 0.2 E.U./dL (0.2)
--- NOTE | 2018-09-30 15:42 | PC.NURSE ---
Redness and swelling noted to Rt ankle. Son at bedside. Provider exam
[2018-09-30 15:45] LABS: Bacteria Urine Few (2-10); Culture Indicated Urine Specimen Cultured; RBC Urine 1-5/HPF (0-5/HPF); WBC Urine 1-5/HPF (0-5/HPF)
--- NOTE | 2018-09-30 15:46 | DI.CT.S_ITS ---
PROCEDURE: CT HEAD/BRAIN WO CON INDICATIONS: glf TECHNIQUE: Noncontrast 4.5 mm thick angled axial sections acquired from the foramen magnum to the vertex, with coronal and sagittal reformats. For radiation dose reduction, the following was used: automated exposure control, adjustment of mA and/or kV according to patient size. COMPARISON: [facility], CT, CT HEAD WITHOUT CONTRAST, 07/11/2017, 14:29. [facility], CT, BRAIN W/O CONTRAST, 02/20/2011, 17:17. [facility] , MR, BRAIN W&W/O CONTRAST, 04/28/2009, 11:10. FINDINGS: Image quality: Excellent. CSF spaces: Basal cisterns are patent. Brain: There is a high density subdural hemorrhage seen on the right, that measures 5.5 x 2 cm in greatest axial dimension, with a craniocaudal extent of 6 cm. There is associated mass effect upon the underlying brain, with narrowing of the right lateral ventricle. There is no significant midline shift seen. There is cerebral volume loss for age, with resultant ventricular and sulcal prominence. There are periventricular and deep white matter chronic small vessel ischemic changes. There is intracranial internal carotid artery atherosclerosis. Skull and face: There is a right parietal scalp hematoma seen. No underlying calvarial fractures are seen. Calvarium and visualized facial bones appear intact, without suspicious lesions. Sinuses: Visualized sinuses and mastoids are clear. IMPRESSION: Moderately sized, acute subdural hematoma, with associated mass effect on the underlying brain, with narrowing of the right lateral ventricle. No significant midline shift can be seen. Prominent right parietal scalp hematoma. Dictated by: Khoa Baptiste M.D. on 09/30/2018 at 15:57 Approved by: Khoa Baptiste M.D. on 09/30/2018 at 16:02
--- NOTE | 2018-09-30 15:53 | DI.US.S_ITS ---
PROCEDURE: US PERIPH VENOUS LOW EXTREM RT INDICATIONS: EDEMA, ERYTHEMA TECHNIQUE: Real-time imaging, as well as color and pulse Doppler interrogation, were performed of the lower extremity deep veins from the inguinal ligament to the popliteal fossa. COMPARISON: None. FINDINGS: The common femoral, femoral and popliteal veins are normally compressible, and free of intraluminal thrombus. Color and pulse Doppler demonstrate normal phasic intraluminal flow. There is normal augmentation response to distal compression maneuver. IMPRESSION: Negative for deep venous thrombosis. Dictated by: Khoa Baptiste M.D. on 09/30/2018 at 16:21 Approved by: Khoa Baptiste M.D. on 09/30/2018 at 16:21
--- NOTE | 2018-09-30 16:00 | ED.FALL ---
HPI - Fall <Isabell Thomason [employer] - Last Filed: 09/30/18 18:28> General Chief Complaint: Fall Stated Complaint: Ground Level Fall Time Seen by Provider: 09/30/18 15:34 Source: patient, family and EMS Mode of arrival: EMS Limitations: no limitations History of Present Illness HPI Narrative: The patient is a 78-year-old female nonsmoker with history of multiple sclerosis who had a ground level fall. She states she slipped. She is adamant this is a mechanical fall. She said her slipper slipped on the wet floor and she fell back and hit her head. She denies loss of consciousness. She denies any abnormal dizziness lightheadedness nausea or vomiting. She complains of head pain. She denies any fevers nausea vomiting or diarrhea. She states her foot and ankle have been red and swollen on the right side. She is not sure how long it has been this way. She denies any chest pain shortness of breath. She denies any neck pain or back pain. She presents to the emergency department by EMS, without a collar and without a backboard. Related Data Home Medications Medication Instructions Recorded Confirmed acetaminophen 650 mg PO Q6H PRN MDD 36 06/01/18 07/10/18 acetaminophen-codeine 1 tab PO Q12H PRN 06/01/18 07/10/18 ascorbic acid (vitamin C) 500 mg PO DAILY 06/01/18 07/10/18 cephalexin 500 mg PO QPM 06/01/18 07/10/18 diclofenac sodium 1 applic TOPICAL Q6H PRN 06/01/18 07/10/18 fingolimod 0.5 mg PO DAILY 06/01/18 07/10/18 furosemide 40 mg PO DAILY 06/01/18 07/10/18 gabapentin 300 mg PO QPM 06/01/18 07/10/18 levothyroxine 50 mcg PO DAILY 06/01/18 07/10/18 lidocaine 1 applic TOPICAL Q12H PRN 06/01/18 07/10/18 loperamide 2 mg PO DAILY PRN 06/01/18 07/10/18 lorazepam 0.5 mg PO DAILY PRN 06/01/18 07/10/18 multivitamin with minerals 1 tab PO DAILY 06/01/18 07/10/18 nystatin 1 applic TOPICAL TID PRN 06/01/18 07/10/18 omeprazole 20 mg PO DAILY 06/01/18 07/10/18 ondansetron HCl 4 mg PO Q6H PRN 06/01/18 07/10/18 potassium chloride 10 meq PO DAILY 06/01/18 07/10/18 sertraline 75 mg PO DAILY 06/01/18 07/10/18 Allergies Allergy/AdvReac Type Severity Reaction Status Date / Time adhesive Allergy Verified 09/30/18 15:26 crab Allergy Verified 09/30/18 15:26 epinephrine Allergy Verified 09/30/18 15:26 latex Allergy Verified 09/30/18 15:26 Quinolones Allergy Verified 09/30/18 15:26 Sulfa (Sulfonamide Allergy Verified 09/30/18 15:26 Antibiotics) Review of Systems <MELIZA Regan - Last Filed: 09/30/18 18:28> Review of Systems GENERAL: Denies chills, fatigue, malaise, fever, sweats. HEENT: See HPI RESPIRATORY: Denies dyspnea, cough, wheezing, hemoptysis, sputum. CARDIOVASCULAR: Denies chest pain, palpitations, orthopnea, edema, GASTROINTESTINAL: Denies nausea, vomiting, abdominal pain, diarrhea, constipation, melena. : Denies dysuria, frequency, incontinence, hematuria, urinary retention. MUSCULOSKELETAL: denies weakness, joint pain, or bony pain SKIN: Denies rash, skin lesions, or other NEUROLOGIC: Denies weakness, headache, numbness, change in speech, confusion, seizures, incoordination. PSYCHIATRIC: No concerning psychosocial issues. 12 point review of systems is negative except for those stated above Exam <MELIZA Regan - Last Filed: 09/30/18 18:28> Narrative Exam Narrative: GENERAL: Elderly female lying on stretcher no acute distress HEAD: Pain to palpation also bit of head. EYES: Pupils equal round and reactive. Extraocular motions intact. No scleral icterus. No injection or drainage. No nystagmus. ENT: Nose without bleeding, purulent drainage or septal hematoma. Throat without erythema, tonsillar hypertrophy or exudate. Uvula midline. Airway patent. NECK: Trachea midline. No JVD or lymphadenopathy. Supple, nontender, no meningeal signs. CARDIOVASCULAR: Regular rate and rhythm RESPIRATORY: Clear to auscultation. Breath sounds equal bilaterally. No wheezes, rales, or rhonchi. GASTROINTESTINAL: Abdomen soft, non-tender, nondistended. No hepato-splenomegaly, or palpable masses. No guarding. EXTREMITIES: No clubbing, cyanosis, or edema. No joint tenderness, effusion, or edema noted. BACK: Nontender without deformity or crepitance. No flank tenderness. No pain to C-spine palpation. NEURO: AOx3. Using all extremities equally. No gross cranial nerve deficit. Clear speech. Strength is equal and lower extremities bilaterally SKIN: No rash or erythema. Initial Vital Signs Initial Vital Signs: Vital Signs Temperature 97.6 F 09/30/18 15:26 Pulse Rate 79 09/30/18 15: Respiratory Rate 16 09/30/18 15: Blood Pressure 144/81 H 09/30/18 15:26 Pulse Oximetry 96 09/30/18 15:26 <Isabell Sanchez DO - Last Filed: 10/08/18 18:41> Narrative Exam Narrative: GENERAL: Alert and oriented x three, well-nourished, well-appearing elderly female in no acute distress. HEENT: Head normocephalic, atraumatic, EOMI, pupils reactive, face symmetric, moist mucous membranes NECK: Supple, full range of motion, C-collar placed in department. Patient nontender to palpation. CARDIOVASCULAR: Regular rate and rhythm without murmurs, rubs or gallops. RESPIRATORY: Breath sounds equal bilaterally, no wheezes rales or rhonchi. ABDOMEN: Soft, nontender. Normoactive bowel sounds all 4 quadrants. No guarding or rebound, rigidity, no mass EXTREMITIES: Normal range of motion, no clubbing or edema. Neurovascularly intact NEUROLOGICAL: Cranial nerves II through XII grossly intact. Moving all extremities SKIN: Warm, dry, no petechiae, no rashes or lesions. Initial Vital Signs Initial Vital Signs: Vital Signs Temperature 97.6 F 09/30/18 15:26 Pulse Rate 79 09/30/18 15: Respiratory Rate 16 09/30/18 15:26 Blood Pressure 144/81 H 09/30/18 15:26 Pulse Oximetry 96 09/30/18 15:26 [facility] <MELIZA ReganBC - Last Filed: 09/30/18 18:28> Medical History Obstructive sleep apnea of adult (Chronic) Periodic limb movement disorder (PLMD) (Chronic) CAP (community acquired pneumonia) (Acute) CHF (congestive heart failure) (Acute) Hepatic encephalopathy (Acute) Chronic wrist pain (Chronic) Depression (Chronic) Hypothyroidism (acquired) (Chronic) Multiple sclerosis (Chronic) PIEDRA (nonalcoholic steatohepatitis) (Chronic) Pancytopenia (Chronic) Status post CVA (Chronic) CVA (cerebral vascular accident) (Inactive) TIA (transient ischemic attack) (Inactive) Surgical History Status post appendectomy (Resolved) Status post lumbar surgery (Resolved) Social History Smoking Status: Never smoker alcohol intake: never Social History Smoking Status: Never smoker alcohol intake: never Scores <FREDDY Regan - Last Filed: 09/30/18 18:28> GCS [place] coma scale eye opening: Spontaneous [place] coma scale verbal response: Orientated [place] coma scale motor response: Obey commands Karina coma scale total score: 15 Nexus Score for C-Spine Focal Neurologic deficit present: No Midline spinal tenderness present: No Altered level of conciousness present: No Intoxication present: No Distracting Injury Present: No Nexus Criteria for C-spine: 0 Course <FREDDY Regan - Last Filed: 09/30/18 18:28> Orders Ordered: ED Orders 09/30/18 15:30 UA Complete [Urinalysis and Microscopic] Stat Urine Culture Stat 09/30/18 15:46 CT head/brain wo con Stat 09/30/18 15:53 US periph venous low extrem rt Stat 09/30/18 16:20 Complete Blood Count AUTO DIFF Stat Comprehensive Metabolic Panel Stat Partial Thromboplastin Time Stat Prothrombin Time INR Stat 09/30/18 16:49 CT cervical spine wo con Stat Vital Signs - 8 hr 09/30/18 15:26 09/30/18 17:15 09/30/18 17:35 Temperature 97.6 F Pulse Rate 79 85 89 Respiratory Rate 16 13 16 Blood Pressure 144/81 H Blood Pressure [Right Arm] 160/77 H 160/72 H Pulse Oximetry 96 95 98 09/30/18 17:55 Temperature Pulse Rate 87 Respiratory Rate 16 Blood Pressure 160/72 H Blood Pressure [Right Arm] Pulse Oximetry 95 <Isabell Sanchez DO - Last Filed: 10/08/18 18:41> Orders Ordered: ED Orders 09/30/18 15:30 UA Complete [Urinalysis and Microscopic] Stat Urine Culture Stat 09/30/18 15:46 CT head/brain wo con Stat 09/30/18 15:53 US periph venous low extrem rt Stat 09/30/18 16:20 Complete Blood Count AUTO DIFF Stat Comprehensive Metabolic Panel Stat Partial Thromboplastin Time Stat Prothrombin Time INR Stat 09/30/18 16:49 CT cervical spine wo con Stat Vital Signs - 8 hr 09/30/18 15:26 09/30/18 17:15 09/30/18 17:35 Temperature 97.6 F Pulse Rate 79 85 89 Respiratory Rate 16 13 16 Blood Pressure 144/81 H Blood Pressure [Right Arm] 160/77 H 160/72 H Pulse Oximetry 96 95 98 09/30/18 17:55 Temperature Pulse Rate 87 Respiratory Rate 16 Blood Pressure 160/72 H Blood Pressure [Right Arm] Pulse Oximetry 95 MDM - Fall <MELIZA ReganBC - Last Filed: 09/30/18 18:28> Lab Data Result diagrams: 09/30/18 16:20 09/30/18 16:20 Lab Results 09/30/18 09/30/18 09/30/18 Range/Units 15:30 16:20 16:20 WBC 2.4 L (4.5-11.0) X10^3/uL RBC 4.02 (4.0-5.2) X10^6/uL Hgb 11.6 L (12.0-16.0) g/dL Hct 36.0 (36-46) % MCV 89.6 (80-100) fL MCH 29.0 (26-34) PG MCHC 32.3 (30-36) % RDW 16.2 H (11.6-14.8) % Plt Count 55 L (150-400) X10^3/uL Neut % (Auto) 78.3 H (50-75) % Lymph % (Auto) 4.7 L (25-40) % [place] % (Auto) 14.3 H (3-14) % Eos % (Auto) 2.0 (2-4) % Baso % (Auto) 0.7 (0-2) % Neut # (Auto) 1900 (7994-1652) /uL Lymph # (Auto) 100 L (0696-5555) /uL [place] # (Auto) 300 (0-900) /uL Eos # (Auto) 0 (0-450) /uL Baso # (Auto) 0 (0-100) /uL PT 14.8 H (10.1-12.7) SECONDS INR 1.3 (0.9-1.3) APTT (26.4-36.2) SECONDS Sodium (137-145) mmol/L Potassium (3.4-5.1) mmol/L Chloride (98-107) mmol/L Carbon Dioxide (22-32) mmol/L BUN (7-17) mg/dL Creatinine (0.52-1.04) mg/dL Estimated GFR (>60) mL/min BUN/Creatinine Ratio (6-22) Glucose (80-110) mg/dL Calcium (8.4-10.2) mg/dL Total Bilirubin (0.2-1.3) mg/dL AST (14-36) IU/L ALT (9-52) IU/L Alkaline Phosphatase (38-126) U/L Total Protein (6.3-8.2) g/dL Albumin (3.5-5.0) g/dL Globulin (1.7-4.1) g/dL Albumin/Globulin Ratio (1.0-2.8) Urine Color Yellow Urine Appearance Clear Urine pH 7.0 (4.5-8.0) Ur Specific [place] 1.015 (1.000-1.035) Urine Protein Negative (Negative) Urine Glucose (UA) Negative (Negative) g/dL Urine Ketones Negative (NEGATIVE) Urine Occult Blood Trace-lysed (Negative) Urine Nitrate Negative (Negative) Urine Bilirubin Negative (NEGATIVE) Urine Urobilinogen 0.2 (0.2) E.U./dL Ur Leukocyte Esterase 2+ H (NEGATIVE) Urine RBC 1-5/hpf D (0-5/HPF) Urine WBC 1-5/hpf (0-5/HPF) Urine Bacteria Few (2-10) H (None) Ur Culture Indicated? Specimen cultured 09/30/18 09/30/18 Range/Units 16:20 16:20 WBC (4.5-11.0) X10^3/uL RBC (4.0-5.2) X10^6/uL Hgb (12.0-16.0) g/dL Hct (36-46) % MCV (80-100) fL MCH (26-34) PG MCHC (30-36) % RDW (11.6-14.8) % Plt Count (150-400) X10^3/uL Neut % (Auto) (50-75) % Lymph % (Auto) (25-40) % [place] % (Auto) (3-14) % Eos % (Auto) (2-4) % Baso % (Auto) (0-2) % Neut # (Auto) (1621-3276) /uL Lymph # (Auto) (2500-2007) /uL [place] # (Auto) (0-900) /uL Eos # (Auto) (0-450) /uL Baso # (Auto) (0-100) /uL PT Cancelled (10.1-12.7) SECONDS INR Cancelled (0.9-1.3) APTT 38 H (26.4-36.2) SECONDS Sodium 141 (137-145) mmol/L Potassium 4.2 (3.4-5.1) mmol/L Chloride 101 (98-107) mmol/L Carbon Dioxide 32 (22-32) mmol/L BUN 15 (7-17) mg/dL Creatinine 0.60 (0.52-1.04) mg/dL Estimated GFR > 60.0 (>60) mL/min BUN/Creatinine Ratio 25.0 H (6-22) Glucose 109 (80-110) mg/dL Calcium 9.1 (8.4-10.2) mg/dL Total Bilirubin 0.8 (0.2-1.3) mg/dL AST 48 H (14-36) IU/L ALT 24 (9-52) IU/L Alkaline Phosphatase 119 (38-126) U/L Total Protein 6.9 (6.3-8.2) g/dL Albumin 3.9 (3.5-5.0) g/dL Globulin 3.0 (1.7-4.1) g/dL Albumin/Globulin Ratio 1.3 (1.0-2.8) Urine Color Urine Appearance Urine pH (4.5-8.0) Ur Specific [place] (1.000-1.035) Urine Protein (Negative) Urine Glucose (UA) (Negative) g/dL Urine Ketones (NEGATIVE) Urine Occult Blood (Negative) Urine Nitrate (Negative) Urine Bilirubin (NEGATIVE) Urine Urobilinogen (0.2) E.U./dL Ur Leukocyte Esterase (NEGATIVE) Urine RBC (0-5/HPF) Urine WBC (0-5/HPF) Urine Bacteria (None) Ur Culture Indicated? Imaging Data C-spine CT: Radiologist's impression: Nikkie Che 78 F [address] [place] [address] CT Scan Report Signed Patient: Nikkie Che [facility]#: [id number] : 1940cct:[id number] Age/Sex: 78 / FDate of Service: 09/30/18 Loc: ED Accession Number: [id number] Procedure: CT cervical spine wo con Ordering [facility] PROCEDURE: CT CERVICAL SPINE WO CON INDICATIONS: glf TECHNIQUE: Noncontrast 3 mm thick sections acquired from the skull base to the T4 level. Sagittal and coronal reformats were then constructed. For radiation dose reduction, the following was used: automated exposure control, adjustment of mA and/or kV according to patient size. COMPARISON: [facility], CT, CT HEAD/BRAIN WO CON, 09/30/2018, 16:23. [facility] [place] , MR, CERVICAL SPINE W/O CONTRAST, 07/09/2009, 17:47. FINDINGS: Image quality: Excellent. Bones: No fractures or dislocations. Visualized superior ribs are intact. Relatively prominent cervical spine degenerative changes are seen, with moderate to severe disc space narrowing at C3-C4, C4-C5, C5-C6, and C6-C7. There is reversal of the normal cervical lordosis, with the apex at C3-C4. Soft tissues: Prevertebral soft tissues are normal in thickness. No paravertebral hematomas. No apical pneumothoraces. IMPRESSION: No acute fractures are seen. Relatively prominent cervical spine degenerative changes are seen. Dictated by: Khoa Baptiste M.D. on 09/30/2018 at 16:04 Approved by: Khoa Baptiste M.D. on 09/30/2018 at 16:06 CT scan - head: Radiologist's impression: [address] [address] [address] Scan Report Signed Patient: Nikkie Che [facility]#: [id number] : 2Acct:[id number] Age/Sex: 78 / FDate of Service: 09/30/18 Loc: ED Accession Number: [id number] Procedure: CT head/brain wo con Ordering Provider: Isabell Thomason PROCEDURE: CT HEAD/BRAIN WO CON INDICATIONS: glf TECHNIQUE: Noncontrast 4.5 mm thick angled axial sections acquired from the foramen magnum to the vertex, with coronal and sagittal reformats. For radiation dose reduction, the following was used: automated exposure control, adjustment of mA and/or kV according to patient size. COMPARISON: [facility], CT, CT HEAD WITHOUT CONTRAST, 07/11/2017, 14:29. [facility], CT, BRAIN W/O CONTRAST, 02/20/2011, 17:17. [facility] , MR, BRAIN W&W/O CONTRAST, 04/28/2009, 11:10. FINDINGS: Image quality: Excellent. CSF spaces: Basal cisterns are patent. Brain: There is a high density subdural hemorrhage seen on the right, that measures 5.5 x 2 cm in greatest axial dimension, with a craniocaudal extent of 6 cm. There is associated mass effect upon the underlying brain, with narrowing of the right lateral ventricle. There is no significant midline shift seen. There is cerebral volume loss for age, with resultant ventricular and sulcal prominence. There are periventricular and deep white matter chronic small vessel ischemic changes. There is intracranial internal carotid artery atherosclerosis. Skull and face: There is a right parietal scalp hematoma seen. No underlying calvarial fractures are seen. Calvarium and visualized facial bones appear intact, without suspicious lesions. Sinuses: Visualized sinuses and mastoids are clear. IMPRESSION: Moderately sized, acute subdural hematoma, with associated mass effect on the underlying brain, with narrowing of the right lateral ventricle. No significant midline shift can be seen. Prominent right parietal scalp hematoma. Dictated by: Khoa Baptiste M.D. on 09/30/2018 at 15:57 Approved by: Khoa Baptiste M.D. on 09/30/2018 at 16:02 vascular US: Radiologist's impression: [address] [address] Ultrasound Report Signed Patient: Nikkie Che [facility]#: [id number] : 2Acct:[id number] Age/Sex: 78 / FDate of Service: 09/30/18 Loc: ED Accession Number: [id number] Procedure: US periph venous low extrem rt Ordering Provider: Isabell Thomason PROCEDURE: US PERIPH VENOUS LOW EXTREM RT INDICATIONS: EDEMA, ERYTHEMA TECHNIQUE: Real-time imaging, as well as color and pulse Doppler interrogation, were performed of the lower extremity deep veins from the inguinal ligament to the popliteal fossa. COMPARISON: None. FINDINGS: The common femoral, femoral and popliteal veins are normally compressible, and free of intraluminal thrombus. Color and pulse Doppler demonstrate normal phasic intraluminal flow. There is normal augmentation response to distal compression maneuver. IMPRESSION: Negative for deep venous thrombosis. Dictated by: Khoa Baptiste M.D. on 09/30/2018 at 16:21 Approved by: Khoa Baptiste M.D. on 09/30/2018 at 16:21 [facility] Narrative Medical decision making narrative: The patient is a 78-year-old female who presents after a ground level fall with no blood thinners. She did not lose conscious and was alert and oriented and neurologically intact on exam. She an erythematous swollen foot, so an ultrasound was obtained to rule out DVT. She had no focal weakness. A CT was ordered, Which was unfortunately delayed due to a full trauma activation of another patient. She was found to have a large subdural hematoma. The transfer initiated to [facility]. Modified trauma activation after CT. A c spine CT was completed after the patient was placed in a C-collar. Patient remained GCS 15 and neurologically intact prior to transfer. Dr. Belle accepted the patient for transfer. Given the acute etiology of her subdural, airlift transportation was initiated. The patient expressed that she would like to have everything done at this point time if needed, but did not want to be kept alive in a prolonged state of deterioration. Patient was transferred to [facility] at 18:00. <Isabell Sanchez, - Last Filed: 10/08/18 18:41> Lab Data Lab Results 09/30/18 09/30/18 09/30/18 Range/Units 15:30 16:20 16:20 WBC 2.4 L (4.5-11.0) X10^3/uL RBC 4.02 (4.0-5.2) X10^6/uL Hgb 11.6 L (12.0-16.0) g/dL Hct 36.0 (36-46) % MCV 89.6 (80-100) fL MCH 29.0 (26-34) PG MCHC 32.3 (30-36) % RDW 16.2 H (11.6-14.8) % Plt Count 55 L (150-400) X10^3/uL Neut % (Auto) 78.3 H (50-75) % Lymph % (Auto) 4.7 L (25-40) % [place] % (Auto) 14.3 H (3-14) % Eos % (Auto) 2.0 (2-4) % Baso % (Auto) 0.7 (0-2) % Neut # (Auto) 1900 (3928-3396) /uL Lymph # (Auto) 100 L (4554-0165) /uL [place] # (Auto) 300 (0-900) /uL Eos # (Auto) 0 (0-450) /uL Baso # (Auto) 0 (0-100) /uL PT 14.8 H (10.1-12.7) SECONDS INR 1.3 (0.9-1.3) APTT (26.4-36.2) SECONDS Sodium (137-145) mmol/L Potassium (3.4-5.1) mmol/L Chloride (98-107) mmol/L Carbon Dioxide (22-32) mmol/L BUN (7-17) mg/dL Creatinine (0.52-1.04) mg/dL Estimated GFR (>60) mL/min BUN/Creatinine Ratio (6-22) Glucose (80-110) mg/dL Calcium (8.4-10.2) mg/dL Total Bilirubin (0.2-1.3) mg/dL AST (14-36) IU/L ALT (9-52) IU/L Alkaline Phosphatase (38-126) U/L Total Protein (6.3-8.2) g/dL Albumin (3.5-5.0) g/dL Globulin (1.7-4.1) g/dL Albumin/Globulin Ratio (1.0-2.8) Urine Color Yellow Urine Appearance Clear Urine pH 7.0 (4.5-8.0) Ur Specific [place] 1.015 (1.000-1.035) Urine Protein Negative (Negative) Urine Glucose (UA) Negative (Negative) g/dL Urine Ketones Negative (NEGATIVE) Urine Occult Blood Trace-lysed (Negative) Urine Nitrate Negative (Negative) Urine Bilirubin Negative (NEGATIVE) Urine Urobilinogen 0.2 (0.2) E.U./dL Ur Leukocyte Esterase 2+ H (NEGATIVE) Urine RBC 1-5/hpf D (0-5/HPF) Urine WBC 1-5/hpf (0-5/HPF) Urine Bacteria Few (2-10) H (None) Ur Culture Indicated? Specimen cultured 09/30/18 09/30/18 Range/Units 16:20 16:20 WBC (4.5-11.0) X10^3/uL RBC (4.0-5.2) X10^6/uL Hgb (12.0-16.0) g/dL Hct (36-46) % MCV (80-100) fL MCH (26-34) PG MCHC (30-36) % RDW (11.6-14.8) % Plt Count (150-400) X10^3/uL Neut % (Auto) (50-75) % Lymph % (Auto) (25-40) % [place] % (Auto) (3-14) % Eos % (Auto) (2-4) % Baso % (Auto) (0-2) % Neut # (Auto) (8195-0856) /uL Lymph # (Auto) (9508-5073) /uL [place] # (Auto) (0-900) /uL Eos # (Auto) (0-450) /uL Baso # (Auto) (0-100) /uL PT Cancelled (10.1-12.7) SECONDS INR Cancelled (0.9-1.3) APTT 38 H (26.4-36.2) SECONDS Sodium 141 (137-145) mmol/L Potassium 4.2 (3.4-5.1) mmol/L Chloride 101 (98-107) mmol/L Carbon Dioxide 32 (22-32) mmol/L BUN 15 (7-17) mg/dL Creatinine 0.60 (0.52-1.04) mg/dL Estimated GFR > 60.0 (>60) mL/min BUN/Creatinine Ratio 25.0 H (6-22) Glucose 109 (80-110) mg/dL Calcium 9.1 (8.4-10.2) mg/dL Total Bilirubin 0.8 (0.2-1.3) mg/dL AST 48 H (14-36) IU/L ALT 24 (9-52) IU/L Alkaline Phosphatase 119 (38-126) U/L Total Protein 6.9 (6.3-8.2) g/dL Albumin 3.9 (3.5-5.0) g/dL Globulin 3.0 (1.7-4.1) g/dL Albumin/Globulin Ratio 1.3 (1.0-2.8) Urine Color Urine Appearance Urine pH (4.5-8.0) Ur Specific [place] (1.000-1.035) Urine Protein (Negative) Urine Glucose (UA) (Negative) g/dL Urine Ketones (NEGATIVE) Urine Occult Blood (Negative) Urine Nitrate (Negative) Urine Bilirubin (NEGATIVE) Urine Urobilinogen (0.2) E.U./dL Ur Leukocyte Esterase (NEGATIVE) Urine RBC (0-5/HPF) Urine WBC (0-5/HPF) Urine Bacteria (None) Ur Culture Indicated? Critical Care Time <DOREEN Regan-BC - Last Filed: 09/30/18 18:28> Critical Care Time: Yes Total Critical Care Time: 40 Attestation: I spent 40 minutes with direct patient care and arranging for patient transfer to trauma center Discharge Plan Departure Patient Disposition: [facility] Clinical Impression: Subdural bleeding, Fall from ground level Discharge Date/Time: 09/30/18 17:55 Interventions: ED Discharge Assessment Last Done: 09/30/18 17:55 Prescriptions: No Action furosemide 40 mg Tablet 40 mg PO DAILY RF: 0 acetaminophen 325 mg Tablet 650 mg PO Q6H MDD 36 PRN (Reason: pain) RF: 0 loperamide 2 mg capsule 2 mg PO DAILY PRN (Reason: Diarrhea) RF: 0 cephalexin 250 mg Capsule 500 mg PO QPM RF: 0 ondansetron HCl 4 mg tablet 4 mg PO Q6H PRN (Reason: Nausea) RF: 0 potassium chloride 10 mEq tablet extended release 10 meq PO DAILY RF: 0 acetaminophen-codeine 300-30 mg tablet 1 tab PO Q12H PRN (Reason: pain) RF: 0 lorazepam 0.5 mg tablet 0.5 mg PO DAILY PRN (Reason: Anxiety) RF: 0 levothyroxine 50 mcg Tablet 50 mcg PO DAILY RF: 0 ascorbic acid (vitamin C) 500 mg Tablet,Chewable 500 mg PO DAILY RF: 0 gabapentin 300 mg Capsule 300 mg PO QPM RF: 0 omeprazole 20 mg Capsule,Delayed Release(Dr/Ec) 20 mg PO DAILY RF: 0 nystatin 100,000 unit/gram powder 1 applic Topical TID PRN (Reason: yeast) RF: 0 multivitamin with minerals Tablet 1 tab PO DAILY RF: 0 sertraline 50 mg tablet 75 mg PO DAILY RF: 0 diclofenac sodium 1 % gel 1 applic Topical Q6H PRN (Reason: hand pain) RF: 0 fingolimod 0.5 mg Capsule 0.5 mg PO DAILY RF: 0 lidocaine 5 % ointment 1 applic Topical Q12H PRN (Reason: pain) RF: 0 Referrals: Sonam Khalil MD [Primary Care Provider] - <Isabell Sanchez DO - Last Filed: 10/08/18 18:41> Cosign ED Attending Cosignature Attestation: I was immediately available in the department for consultation, patient's head CT shows subdural. Patient was evaluated and seen by myself, HPI was reviewed as well as ROS, patient transferred to [facility]. We discuss goals of care as well as DNR/POLST status and at this time patient is interested in potential intervention, patient's son is at bedside. This documentation has been reviewed and I agree with assessment and plan. Supervised by Isabell Sanchez DO
[2018-09-30 16:32] LABS: Add Manual Diff / Slide Review NO; Basophils Absolute Auto 0 /uL (0-100); Basophils Percent Auto 0.7 % (0-2); Eosinophils Absolute Auto 0 /uL (0-450); Hemoglobin 11.6 g/dL (12.0-16.0); Lymphocytes Absolute Auto 100 /uL (1100-4500); Lymphocytes Percent Auto 4.7 % (25-40); Mean Corpuscular HGB Conc 32.3 % (30-36); Mean Corpuscular Volume 89.6 fL (80-100); Monocytes Absolute Auto 300 /uL (0-900); Monocytes Percent Auto 14.3 % (3-14); Neutrophils Absolute Auto 1900 /uL (1500-7000); Neutrophils Percent Auto 78.3 % (50-75); Platelet Count 55 X10^3/uL (150-400); Red Blood Cell Count 4.02 X10^6/uL (4.0-5.2); Red Cell Distribution Width 16.2 % (11.6-14.8); White Blood Cell Count 2.4 X10^3/uL (4.5-11.0)
[2018-09-30 16:33] LABS: INR 1.3 (0.9-1.3); Prothrombin Time 14.8 SECONDS (10.1-12.7)
[2018-09-30 16:38] LABS: Alanine Aminotransferase 24 IU/L (9-52); Albumin 3.9 g/dL (3.5-5.0); Albumin Globulin Ratio 1.3 (1.0-2.8); Alkaline Phosphatase 119 U/L (38-126); Aspartate Aminotransferase 48 IU/L (14-36); Bilirubin Total 0.8 mg/dL (0.2-1.3); Blood Urea Nitrogen 15 mg/dL (7-17); Calcium 9.1 mg/dL (8.4-10.2); Carbon Dioxide 32 mmol/L (22-32); Chloride 101 mmol/L (98-107); Estimated Glomerular Filt Rate > 60.0 mL/min (>60); Glucose 109 mg/dL (80-110); HEMOLYSIS < 15 (0-50); Potassium 4.2 mmol/L (3.4-5.1); Sodium 141 mmol/L (137-145); Total Protein 6.9 g/dL (6.3-8.2)
--- NOTE | 2018-09-30 16:49 | DI.CT.S_ITS ---
PROCEDURE: CT CERVICAL SPINE WO CON INDICATIONS: glf TECHNIQUE: Noncontrast 3 mm thick sections acquired from the skull base to the T4 level. Sagittal and coronal reformats were then constructed. For radiation dose reduction, the following was used: automated exposure control, adjustment of mA and/or kV according to patient size. COMPARISON: [facility], CT, CT HEAD/BRAIN WO CON, 09/30/2018, 16:23. [facility] , MR, CERVICAL SPINE W/O CONTRAST, 07/09/2009, 17:47. FINDINGS: Image quality: Excellent. Bones: No fractures or dislocations. Visualized superior ribs are intact. Relatively prominent cervical spine degenerative changes are seen, with moderate to severe disc space narrowing at C3-C4, C4-C5, C5-C6, and C6-C7. There is reversal of the normal cervical lordosis, with the apex at C3-C4. Soft tissues: Prevertebral soft tissues are normal in thickness. No paravertebral hematomas. No apical pneumothoraces. IMPRESSION: No acute fractures are seen. Relatively prominent cervical spine degenerative changes are seen. Dictated by: Khoa Baptiste M.D. on 09/30/2018 at 16:04 Approved by: Khoa Baptiste M.D. on 09/30/2018 at 16:06
[2018-09-30 17:15] VITALS: BP 160/77; PULSE 85; RESP 13; O2SAT 95
[2018-09-30 17:19] LABS: PTT Partial Thromboplastin Tim 38 SECONDS (26.4-36.2)
--- NOTE | 2018-09-30 17:21 | PC.NURSE ---
Pt states felt faint with attempt to use commode at 1635. Provider notified and use of bedpan
[2018-09-30 17:35] VITALS: BP 160/72; PULSE 89; RESP 16; O2SAT 98
[2018-09-30 17:55] VITALS: BP 160/72; PULSE 87; RESP 16; O2SAT 95
== END 2018-09-30 17:55 | disposition short-term general hospital (02) ==
PROVIDERS: Emergency Provider Nurse Practitioner Family; PCP Internal Medicine
DX: I62.01 Nontraumatic acute subdural hemorrhage (principal); S00.03XA Contusion of scalp, initial encounter; W01.0XXA Fall on same level from slipping, tripping and stumbling without subsequent striking against object, initial encounter
CPT/HCPCS: 36415; 70450; 72125; 80053; 81001; 85025; 85610; 85730; 87077; 87086; 87186; 93971; 99284; 99291

== ENCOUNTER → 2018-11-09 15:14 | Outpatient (ROUT) | payer MEDICARE, MEDICAID, SELFPAY ==
[2018-08-23 14:17] VITALS: BMI 27.5
[2018-11-09 15:24] LABS: Add Manual Diff / Slide Review NO; Basophils Absolute Auto 0 /uL (0-100); Basophils Percent Auto 0.1 % (0-2); Eosinophils Absolute Auto 0 /uL (0-450); Eosinophils Percent Auto 1.7 % (2-4); Hematocrit 29.3 % (36-46); Hemoglobin 9.4 g/dL (12.0-16.0); Lymphocytes Absolute Auto 200 /uL (1100-4500); Lymphocytes Percent Auto 6.6 % (25-40); Mean Corpuscular HGB Conc 31.9 % (30-36); Mean Corpuscular Hemoglobin 27.9 PG (26-34); Mean Corpuscular Volume 87.5 fL (80-100); Monocytes Absolute Auto 300 /uL (0-900); Monocytes Percent Auto 10.1 % (3-14); Neutrophils Absolute Auto 2300 /uL (1500-7000); Neutrophils Percent Auto 81.5 % (50-75); Platelet Count 66 X10^3/uL (150-400); Red Blood Cell Count 3.35 X10^6/uL (4.0-5.2); Red Cell Distribution Width 18.6 % (11.6-14.8); White Blood Cell Count 2.8 X10^3/uL (4.5-11.0)
[2018-11-09 15:42] LABS: Alanine Aminotransferase 10 IU/L (9-52); Albumin 3.8 g/dL (3.5-5.0); Albumin Globulin Ratio 1.5 (1.0-2.8); Alkaline Phosphatase 112 U/L (38-126); Aspartate Aminotransferase 32 IU/L (14-36); BUN Creatinine Ratio 23.3 (6-22); Bilirubin Total 0.6 mg/dL (0.2-1.3); Blood Urea Nitrogen 14 mg/dL (7-17); Calcium 8.9 mg/dL (8.4-10.2); Carbon Dioxide 31 mmol/L (22-32); Chloride 103 mmol/L (98-107); Estimated Glomerular Filt Rate > 60.0 mL/min (>60); Globulin 2.5 g/dL (1.7-4.1); Glucose 138 mg/dL (80-110); HEMOLYSIS < 15 (0-50); Potassium 3.5 mmol/L (3.4-5.1); Sodium 142 mmol/L (137-145); Total Protein 6.3 g/dL (6.3-8.2)
== END ==
PROVIDERS: PCP Internal Medicine; Visit Provider Internal Medicine
DX: K74.60 Unspecified cirrhosis of liver (principal); R41.0 Disorientation, unspecified
CPT/HCPCS: 80053; 82140; 85025

== ENCOUNTER → 2018-11-20 08:29 | Outpatient (ROUT) | payer MEDICARE, MEDICAID, SELFPAY ==
[2018-08-23 14:17] VITALS: BMI 27.5
[2018-11-20 10:23] LABS: Hematocrit 30.5 % (36-46); Hemoglobin 9.7 g/dL (12.0-16.0); Mean Corpuscular HGB Conc 31.9 % (30-36); Mean Corpuscular Hemoglobin 28.3 PG (26-34); Mean Corpuscular Volume 88.7 fL (80-100); Platelet Count 59 X10^3/uL (150-400); Red Blood Cell Count 3.44 X10^6/uL (4.0-5.2); Red Cell Distribution Width 19.1 % (11.6-14.8)
[2018-11-20 10:30] LABS: Add Manual Diff / Slide Review YES; Blood Urea Nitrogen 12 mg/dL (7-17); Calcium 8.7 mg/dL (8.4-10.2); Carbon Dioxide 30 mmol/L (22-32); Chloride 104 mmol/L (98-107); Estimated Glomerular Filt Rate > 60.0 mL/min (>60); Glucose 88 mg/dL (80-110); HEMOLYSIS < 15 (0-50); Potassium 3.8 mmol/L (3.4-5.1); Sodium 142 mmol/L (137-145); White Blood Cell Count 1.8 X10^3/uL (4.5-11.0)
[2018-11-20 12:14] LABS: Neutrophils Absolute Manual 1332 /uL (3000-5900); Total Cells Counted 50
[2018-11-20 12:15] LABS: Anisocytosis 2+; Hypochromasia 1+; Tear Drop Cells 1+
== END ==
PROVIDERS: PCP Internal Medicine; Visit Provider Nurse Practitioner Family
DX: D64.9 Anemia, unspecified (principal); Z79.899 Other long term (current) drug therapy
CPT/HCPCS: 36415; 80048; 85025

== ENCOUNTER → 2018-11-27 07:20 | Outpatient (ROUT) | payer MEDICARE, MEDICAID, SELFPAY ==
[2018-08-23 14:17] VITALS: BMI 27.5
[2018-11-27 07:59] LABS: Hematocrit 27.7 % (36-46); Mean Corpuscular HGB Conc 32.5 % (30-36); Mean Corpuscular Hemoglobin 28.3 PG (26-34); Mean Corpuscular Volume 87.1 fL (80-100); Red Blood Cell Count 3.18 X10^6/uL (4.0-5.2); Red Cell Distribution Width 19.3 % (11.6-14.8)
[2018-11-27 08:40] LABS: Add Manual Diff / Slide Review YES
[2018-11-27 09:14] LABS: White Blood Cell Count 1.3 X10^3/uL (4.5-11.0)
[2018-11-27 09:15] LABS: Platelet Count 44 X10^3/uL (150-400)
[2018-11-27 09:54] LABS: Anisocytosis 1+; Neutrophils Absolute Manual 949 /uL (3000-5900); Polychromasia 1+; Total Cells Counted 100
== END ==
PROVIDERS: PCP Internal Medicine; Visit Provider Internal Medicine
DX: D72.819 Decreased white blood cell count, unspecified (principal); D64.9 Anemia, unspecified; D70.9 Neutropenia, unspecified; R19.7 Diarrhea, unspecified
CPT/HCPCS: 36415; 85025

== ENCOUNTER → 2018-11-29 06:53 | Outpatient (ROUT) | payer MEDICARE, MEDICAID, SELFPAY ==
[2018-08-23 14:17] VITALS: BMI 27.5
[2018-11-29 07:50] LABS: Hematocrit 27.8 % (36-46); Mean Corpuscular HGB Conc 32.4 % (30-36); Mean Corpuscular Hemoglobin 28.3 PG (26-34); Mean Corpuscular Volume 87.4 fL (80-100); Platelet Count 45 X10^3/uL (150-400); Red Blood Cell Count 3.18 X10^6/uL (4.0-5.2); Red Cell Distribution Width 19.1 % (11.6-14.8)
[2018-11-29 08:29] LABS: Add Manual Diff / Slide Review YES; White Blood Cell Count 1.1 X10^3/uL (4.5-11.0)
[2018-11-29 09:14] LABS: Anisocytosis 2+
[2018-11-29 09:15] LABS: Hypochromasia 1+; Poikilocytosis 1+; Tear Drop Cells 1+
== END ==
PROVIDERS: PCP Internal Medicine; Visit Provider Internal Medicine
DX: D70.9 Neutropenia, unspecified (principal); D69.6 Thrombocytopenia, unspecified
CPT/HCPCS: 36415; 82140; 85025

== ENCOUNTER → 2018-12-04 07:25 | Outpatient (ROUT) | payer MEDICARE, MEDICAID, SELFPAY ==
[2018-08-23 14:17] VITALS: BMI 27.5
[2018-12-04 08:29] LABS: Hematocrit 31.9 % (36-46); Hemoglobin 10.2 g/dL (12.0-16.0); Mean Corpuscular HGB Conc 31.9 % (30-36); Mean Corpuscular Hemoglobin 28.2 PG (26-34); Mean Corpuscular Volume 88.4 fL (80-100); Platelet Count 52 X10^3/uL (150-400); Red Blood Cell Count 3.61 X10^6/uL (4.0-5.2); Red Cell Distribution Width 19.3 % (11.6-14.8)
[2018-12-04 08:35] LABS: Add Manual Diff / Slide Review YES; White Blood Cell Count 1.8 X10^3/uL (4.5-11.0)
[2018-12-04 09:18] LABS: Hypochromasia 1+; Neutrophils Absolute Manual 1440 /uL (3000-5900); Total Cells Counted 50
== END ==
PROVIDERS: PCP Internal Medicine; Visit Provider Nurse Practitioner Family
DX: D70.9 Neutropenia, unspecified (principal); K74.60 Unspecified cirrhosis of liver
CPT/HCPCS: 36415; 82140; 85025

== ENCOUNTER → 2018-12-06 06:59 | Outpatient (ROUT) | payer MEDICARE, MEDICAID, SELFPAY ==
[2018-08-23 14:17] VITALS: BMI 27.5
[2018-12-06 08:09] LABS: Hemoglobin 9.6 g/dL (12.0-16.0); Mean Corpuscular HGB Conc 31.9 % (30-36); Mean Corpuscular Hemoglobin 28.3 PG (26-34); Mean Corpuscular Volume 88.5 fL (80-100); Platelet Count 48 X10^3/uL (150-400); Red Blood Cell Count 3.39 X10^6/uL (4.0-5.2); Red Cell Distribution Width 19.3 % (11.6-14.8)
[2018-12-06 08:24] LABS: Add Manual Diff / Slide Review YES; White Blood Cell Count 1.9 X10^3/uL (4.5-11.0)
[2018-12-06 09:15] LABS: Neutrophils Absolute Manual 1501 /uL (3000-5900); Platelet Estimate Decreased on smear; Total Cells Counted 100
[2018-12-06 09:16] LABS: Anisocytosis 1+; Poikilocytosis 1+
== END ==
PROVIDERS: PCP Internal Medicine
DX: D70.9 Neutropenia, unspecified (principal)
CPT/HCPCS: 36415; 85025

== ENCOUNTER → 2018-12-12 15:44 | Outpatient (ROUT) | payer MEDICARE, MEDICAID, SELFPAY ==
[2018-08-23 14:17] VITALS: BMI 27.5
[2018-12-12 16:20] LABS: Appearance Urine UA CLOUDY; Bilirubin Urine UA NEGATIVE (NEGATIVE); Color Urine UA YELLOW; Glucose Urine UA NEGATIVE (Negative); Ketones Urine UA NEGATIVE (NEGATIVE); Leukocyte Esterase Urine UA 3+ (NEGATIVE); Nitrite Urine UA POSITIVE (Negative); Occult Blood Urine UA 3+ (Negative); Protein Urine UA 1+ (Negative)
[2018-12-12 16:40] LABS: RBC Urine 30-100/HPF (0-5/HPF); Squamous Epithelial Cell Urine 1-5 /HPF (0-5/HPF); Transitional Epi Cells Urine 5-10/HPF (0-5/HPF); WBC Urine >100/HPF (0-5/HPF)
[2018-12-12 16:41] LABS: Bacteria Urine Many (>30); Calcium Oxalate Crystals Urine Few; Culture Indicated Urine Specimen Cultured
== END ==
PROVIDERS: PCP Internal Medicine
DX: R41.0 Disorientation, unspecified (principal)
CPT/HCPCS: 81001; 87077; 87086; 87186

== ENCOUNTER → 2018-12-18 07:44 | Outpatient (ROUT) | payer MEDICARE, MEDICAID, SELFPAY ==
[2018-08-23 14:17] VITALS: BMI 27.5
[2018-12-18 09:02] LABS: Hematocrit 31.9 % (36-46); Hemoglobin 10.3 g/dL (12.0-16.0); Mean Corpuscular HGB Conc 32.3 % (30-36); Mean Corpuscular Hemoglobin 28.1 PG (26-34); Mean Corpuscular Volume 86.8 fL (80-100); Platelet Count 46 X10^3/uL (150-400); Red Blood Cell Count 3.67 X10^6/uL (4.0-5.2)
[2018-12-18 09:10] LABS: BUN Creatinine Ratio 21.7 (6-22); Blood Urea Nitrogen 13 mg/dL (7-17); Carbon Dioxide 32 mmol/L (22-32); Chloride 104 mmol/L (98-107); Estimated Glomerular Filt Rate > 60.0 mL/min (>60); Glucose 85 mg/dL (80-110); HEMOLYSIS < 15 (0-50); Potassium 3.4 mmol/L (3.4-5.1); Sodium 143 mmol/L (137-145)
[2018-12-18 09:22] LABS: White Blood Cell Count 1.6 X10^3/uL (4.5-11.0)
[2018-12-18 09:23] LABS: Add Manual Diff / Slide Review YES
[2018-12-18 09:37] LABS: Thyroid Stimulating Hormone 2.93 uIU/mL (0.47-4.68)
[2018-12-18 09:54] LABS: Neutrophils Absolute Manual 1280 /uL (3000-5900); Total Cells Counted 50
[2018-12-18 09:56] LABS: Anisocytosis 1+; Platelet Estimate Decreased on smear
[2018-12-18 09:58] LABS: Vitamin B12 515 pg/mL (239-931)
== END ==
PROVIDERS: PCP Internal Medicine; Visit Provider Nurse Practitioner Family
DX: R41.0 Disorientation, unspecified (principal); E03.9 Hypothyroidism, unspecified
CPT/HCPCS: 36415; 80048; 82140; 82607; 84443; 85025

== ENCOUNTER → 2018-12-21 07:50 | Outpatient (CLI) | payer MEDICARE, MEDICAID, SELFPAY ==
[2018-08-23 14:17] VITALS: BMI 27.5
--- NOTE | 2018-12-21 | DI.US.S_ITS ---
PROCEDURE: US ABDOMEN LIMITED INDICATIONS: CIRRHOSIS TECHNIQUE: Real-time focused scanning was performed of the abdomen, with image documentation. COMPARISON: None. FINDINGS: The liver demonstrates a heterogeneous appearance, with a nodular border. 2 hypoechoic areas are seen within the liver, with the most defined measuring 7 x 6 x 4 mm. Calcification can be seen within the right lobe of the liver. The gallbladder is absent. There is no biliary dilatation, the common bile duct measures 6 mm. The visualized pancreas is within normal limits. The right kidney demonstrates a 3 cm cyst seen. IMPRESSION: Heterogeneous liver with a nodular contour, which is consistent with the given history of cirrhosis. 2 hypoechoic nodules are seen. Differential diagnosis includes regenerating nodules or early neoplasm. If clinically appropriate, please consider a dedicated liver protocol MRI (without and with contrast) for further evaluation (assuming that there is no contraindication). Dictated by: Khoa Baptiste M.D. on 12/21/2018 at 10:12 Approved by: Khoa Baptiste M.D. on 12/21/2018 at 10:15
== END ==
PROVIDERS: PCP Internal Medicine; Visit Provider Internal Medicine Gastroenterology
DX: K74.60 Unspecified cirrhosis of liver (principal); Z90.49 Acquired absence of other specified parts of digestive tract
CPT/HCPCS: 76705

== ENCOUNTER → 2018-12-31 10:45 | Outpatient (CLI) | payer MEDICARE, MEDICAID, SELFPAY ==
[2018-08-23 14:17] VITALS: BMI 27.5
--- NOTE | 2018-12-31 | DI.RAD.S_ITS ---
PROCEDURE: XR SHOULDER LT MIN 2V INDICATIONS: Recent fall, decreased range of motion TECHNIQUE: 3 views of the shoulder were acquired. COMPARISON: [facility], CR, XR CHEST 1V, 06/01/2018, 15:50. FINDINGS: Bones: No dislocations. No suspicious bony lesions. Visualized ribs appear intact. There is what appears to be a fracture fragment at the inferior aspect of the left acromium, in an area normal in appearance on comparison plain film from earlier this year. Superimposed mild to moderate a.c. joint osteoarthritis is present. Soft tissues: No suspicious soft tissue calcifications. IMPRESSION: Acute fracture fragment, minimally displaced, is present along the undersurface of the acromium and likely from impaction fracture at the a.c. joint. No additional trauma found. Moderate a.c. joint osteoarthritis superimposed. Dictated by: David Moran M.D. on 12/31/2018 at 12:05 Approved by: David Moran M.D. on 12/31/2018 at 12:06
== END ==
PROVIDERS: PCP Internal Medicine; Visit Provider Internal Medicine
DX: M25.512 Pain in left shoulder (principal); M19.012 Primary osteoarthritis, left shoulder; S42.122A Displaced fracture of acromial process, left shoulder, initial encounter for closed fracture; W19.XXXA Unspecified fall, initial encounter
CPT/HCPCS: 73030

== ENCOUNTER → 2019-01-02 10:29 | Outpatient (CLI) | payer MEDICARE, MEDICAID, SELFPAY ==
[2018-08-23 14:17] VITALS: BMI 27.5
--- NOTE | 2019-01-02 | DI.CT.S_ITS ---
PROCEDURE: CT HEAD/BRAIN WO CON INDICATIONS: Traumatic subdural hemorrhage with loss of conscious TECHNIQUE: Noncontrast 4.5 mm thick angled axial sections acquired from the foramen magnum to the vertex, with coronal and sagittal reformats. For radiation dose reduction, the following was used: automated exposure control, adjustment of mA and/or kV according to patient size. COMPARISON: [facility], CT, CT HEAD WITHOUT CONTRAST, 07/11/2017, 14:29. [facility], CT, CT HEAD/BRAIN WO CON, 09/30/2018, 16:23. FINDINGS: Image quality: Excellent. CSF spaces: Basal cisterns are patent. No extra-axial fluid collections. The ventricles are symmetric in size and shape. Brain: Previously noted right parietal subdural hemorrhage has decreased significantly in size with slip of residual hyperdense material in the subdural space measuring up to 5 mm. There are postoperative changes from interval right sided craniotomy with expected overlying soft tissue changes. There are a few small very dense foci posteriorly along the dura at the surgical site likely representing early calcification. No evidence for mass effect or midline shift of structures. There is cerebral volume loss for age, with resultant ventricular and sulcal prominence. There are periventricular and deep white matter chronic small vessel ischemic changes. There is intracranial internal carotid artery atherosclerosis. Dense dural calcifications are unchanged. Skull and face: No acute calvarial fractures. Osseous structures are without suspicious lesions. Sinuses: Visualized sinuses and mastoids are clear. IMPRESSION: 1. Status post interval right-sided craniotomy with expected soft tissue changes and significant interval decrease in size of subdural hemorrhagic products measuring approximately 5 mm in maximum thickness. No associated mass effect or midline shift of structures. Additional hyperdense foci of the adjacent dura favored to represent early soft tissue calcifications. 2. Otherwise, stable age-related senescent changes and sequela of chronic small vessel ischemic disease. Dictated by: Christiano Sullivan M.D. on 01/02/2019 at 18:22 Approved by: Christiano Sullivan M.D. on 01/02/2019 at 18:35
== END ==
PROVIDERS: PCP Internal Medicine; Visit Provider Physician Assistant
DX: S06.5X9A Traumatic subdural hemorrhage with loss of consciousness of unspecified duration, initial encounter (principal)
CPT/HCPCS: 70450

== ENCOUNTER → 2019-01-03 06:57 | Outpatient (ROUT) | payer MEDICARE, MEDICAID, SELFPAY ==
[2018-08-23 14:17] VITALS: BMI 27.5
[2019-01-03 08:22] LABS: Hematocrit 29.3 % (36-46); Hemoglobin 9.6 g/dL (12.0-16.0); Mean Corpuscular HGB Conc 32.8 % (30-36); Mean Corpuscular Hemoglobin 28.4 PG (26-34); Mean Corpuscular Volume 86.6 fL (80-100); Platelet Count 43 X10^3/uL (150-400); Red Blood Cell Count 3.39 X10^6/uL (4.0-5.2); Red Cell Distribution Width 19.3 % (11.6-14.8)
[2019-01-03 08:31] LABS: Add Manual Diff / Slide Review YES; White Blood Cell Count 1.8 X10^3/uL (4.5-11.0)
[2019-01-03 08:57] LABS: Neutrophils Absolute Manual 1188 /uL (3000-5900); Total Cells Counted 50
[2019-01-03 08:58] LABS: RBC Morphology Normal Morphology
== END ==
PROVIDERS: PCP Internal Medicine; Visit Provider Nurse Practitioner Family
DX: D61.818 Other pancytopenia (principal); K74.60 Unspecified cirrhosis of liver
CPT/HCPCS: 36415; 82140; 85025

== ENCOUNTER → 2019-01-04 11:29 | Outpatient (CLI) | payer MEDICARE, MEDICAID, SELFPAY ==
[2018-08-23 14:17] VITALS: BMI 27.5
--- NOTE | 2019-01-04 | DI.RAD.S_ITS ---
PROCEDURE: XR HIP W PEL IF DONE LT 2V INDICATIONS: HIP PAIN TECHNIQUE: A set of 2 views of the hip were acquired. COMPARISON: None. FINDINGS: Bones: No fractures or dislocations. No suspicious bony lesions. The visualized pelvic ring appears intact. Soft tissues: No suspicious soft tissue calcifications or masses. IMPRESSION: Minimal degenerative hip joint osteoarthritis, no trauma found. Dictated by: David Moran M.D. on 01/04/2019 at 12:21 Approved by: David Moran M.D. on 01/04/2019 at 12:21
== END ==
PROVIDERS: Family Provider Internal Medicine; PCP Internal Medicine; Visit Provider Nurse Practitioner Family
DX: M25.552 Pain in left hip (principal); R32 Unspecified urinary incontinence; R35.0 Frequency of micturition
CPT/HCPCS: 73502; 81001; 87077; 87086; 87186

== ENCOUNTER → 2019-01-04 22:39 | Outpatient (ROUT) | payer MEDICARE, MEDICAID, SELFPAY ==
[2018-08-23 14:17] VITALS: BMI 27.5
[2019-01-04 22:44] LABS: Appearance Urine UA CLEAR; Bilirubin Urine UA NEGATIVE (NEGATIVE); Color Urine UA YELLOW; Glucose Urine UA NEGATIVE (Negative); Ketones Urine UA NEGATIVE (NEGATIVE); Leukocyte Esterase Urine UA 1+ (NEGATIVE); Nitrite Urine UA POSITIVE (Negative); Occult Blood Urine UA 3+ (Negative); Protein Urine UA 1+ (Negative); Specific Gravity Urine UA 1.025 (1.000-1.035); Urobilinogen Urine UA 0.2 E.U./dL (0.2)
[2019-01-04 22:55] LABS: Amorphous Sediment Urine 1+; Bacteria Urine Many (>30); Calcium Oxalate Crystals Urine Moderate; Culture Indicated Urine Specimen Cultured; RBC Urine >100/HPF (0-5/HPF); Squamous Epithelial Cell Urine 0-1 /HPF (0-5/HPF); Transitional Epi Cells Urine 0-1/HPF (0-5/HPF); WBC Urine 30-100/HPF (0-5/HPF)
== END ==
PROVIDERS: Family Provider Internal Medicine; PCP Internal Medicine; Visit Provider Nurse Practitioner Family
DX: R32 Unspecified urinary incontinence (principal); R35.0 Frequency of micturition
CPT/HCPCS: 81001; 87077; 87086

== ENCOUNTER → 2019-01-17 07:36 | Outpatient (ROUT) | payer MEDICARE, MEDICAID, SELFPAY ==
[2018-08-23 14:17] VITALS: BMI 27.5
[2019-01-17 10:51] LABS: Add Manual Diff / Slide Review NO; Basophils Absolute Auto 0 /uL (0-100); Basophils Percent Auto 0.6 % (0-2); Eosinophils Absolute Auto 0 /uL (0-450); Eosinophils Percent Auto 1.7 % (2-4); Hematocrit 33.7 % (36-46); Hemoglobin 11.1 g/dL (12.0-16.0); Lymphocytes Absolute Auto 500 /uL (1100-4500); Mean Corpuscular HGB Conc 32.9 % (30-36); Mean Corpuscular Hemoglobin 28.6 PG (26-34); Mean Corpuscular Volume 86.8 fL (80-100); Monocytes Absolute Auto 300 /uL (0-900); Neutrophils Absolute Auto 1400 /uL (1500-7000); Neutrophils Percent Auto 62.7 % (50-75); Red Blood Cell Count 3.88 X10^6/uL (4.0-5.2); Red Cell Distribution Width 19.1 % (11.6-14.8); White Blood Cell Count 2.2 X10^3/uL (4.5-11.0)
[2019-01-17 10:53] LABS: Platelet Count 49 X10^3/uL (150-400)
[2019-01-17 11:02] LABS: Alanine Aminotransferase 17 IU/L (9-52); Albumin 3.8 g/dL (3.5-5.0); Albumin Globulin Ratio 1.4 (1.0-2.8); Alkaline Phosphatase 124 U/L (38-126); Aspartate Aminotransferase 38 IU/L (14-36); Bilirubin Total 0.9 mg/dL (0.2-1.3); Blood Urea Nitrogen 16 mg/dL (7-17); Calcium 9.2 mg/dL (8.4-10.2); Carbon Dioxide 29 mmol/L (22-32); Chloride 103 mmol/L (98-107); Estimated Glomerular Filt Rate > 60.0 mL/min (>60); Globulin 2.7 g/dL (1.7-4.1); Glucose 81 mg/dL (80-110); HEMOLYSIS < 15 (0-50); Sodium 140 mmol/L (137-145); Total Protein 6.5 g/dL (6.3-8.2)
[2019-01-17 11:22] LABS: Anisocytosis 1+
[2019-01-17 11:23] LABS: Tear Drop Cells 1+
[2019-01-17 11:25] LABS: Platelet Estimate Decreased on smear
== END ==
PROVIDERS: Family Provider Internal Medicine; PCP Internal Medicine; Visit Provider Nurse Practitioner Family
DX: D64.9 Anemia, unspecified (principal)
CPT/HCPCS: 36415; 80053; 82140; 85025

== ENCOUNTER → 2019-01-24 07:23 | Outpatient (ROUT) | payer MEDICARE, MEDICAID, SELFPAY ==
[2018-08-23 14:17] VITALS: BMI 27.5
== END ==
PROVIDERS: Family Provider Internal Medicine; PCP Internal Medicine; Visit Provider Nurse Practitioner Family
DX: R79.89 Other specified abnormal findings of blood chemistry (principal)
CPT/HCPCS: 36415; 82140

== ENCOUNTER 2019-02-23 01:15 | Inpatient (IN) | payer MEDICARE, MEDICAID, SELFPAY ==
[2018-08-23 14:17] VITALS: BMI 27.5
[2019-02-23] VITALS (31 sets, daily range): BP systolic 69–124; BP diastolic 34–77; PULSE 66–108; RESP 12–24; TEMP 36.4–38.8; O2SAT 90–97; BMI 26.4
--- NOTE | 2019-02-23 01:30 | DI.RAD.S_ITS ---
PROCEDURE: XR CHEST 1V INDICATIONS: SEPSIS TECHNIQUE: One view of the chest was acquired. COMPARISON: [facility], CR, XR CHEST 1V, 06/01/2018, 15:50. FINDINGS: Surgical changes and devices: None. Lungs and pleura: Prominent perihilar interstitial markings have increased in the interim. No large area of pulmonary consolidation is evident. A definite pneumothorax or large effusion is appreciated. Mediastinum: Prominence of the cardiomediastinal silhouette probably is exaggerated by portable technique and oblique positioning. Bones and chest wall: No suspicious bony lesions. Overlying soft tissues appear unremarkable. IMPRESSION: Prominent interstitial markings may represent pulmonary edema. Interstitial pneumonia is difficult to exclude. Dictated by: Pavan Chris M.D. on 02/23/2019 at 8:10 Approved by: Pavan Chris M.D. on 02/23/2019 at 8:10
--- NOTE | 2019-02-23 01:35 | ED_ITS ---
HPI - Fever General Chief Complaint: Fever Stated Complaint: Shaking with a fever Time Seen by Provider: 02/23/19 01:32 Source: patient Mode of arrival: EMS Limitations: altered mental status History of Present Illness HPI Narrative: 78-year-old female. Brought in by EMS. They were called by the patient's nursing facility when it was noticed that the patient had full body shaking and decreased level of consciousness. Patient is a full code however is a DNI. She is not on anticoagulation. When EMS arrived they found the patient with a fever. IV was started. She is brought in the emergency department for evaluation. Patient has limited input to her presenting symptoms. Overall she states she does not feel well. She has pain in her left shoulder which her son who is at bedside states is not new. She sustained a fall in the past with a broken shoulder. Patient denies any chest pain or shortness of breath or headache. Denies any abdominal pain however when you push on her abdomen she seems to grimace especially on the right side. Patient's son who is at bedside states that he feels she is at her baseline mental status for being this early in the morning and not being in her familiar areas. Related Data Home Medications Medication Instructions Recorded Confirmed acetaminophen 650 mg PO Q6H PRN MDD 36 06/01/18 02/23/19 acetaminophen-codeine 1 tab PO Q12H PRN 06/01/18 07/10/18 ascorbic acid (vitamin C) 500 mg PO DAILY 06/01/18 07/10/18 cephalexin 500 mg PO QPM 06/01/18 07/10/18 diclofenac sodium 1 applic TOPICAL Q6H PRN 06/01/18 07/10/18 fingolimod 0.5 mg PO DAILY 06/01/18 07/10/18 furosemide 40 mg PO DAILY 06/01/18 07/10/18 gabapentin 300 mg PO QPM 06/01/18 02/23/19 levothyroxine 50 mcg PO DAILY 06/01/18 02/23/19 lidocaine 1 applic TOPICAL Q12H PRN 06/01/18 07/10/18 loperamide 2 mg PO DAILY PRN 06/01/18 07/10/18 lorazepam 0.5 mg PO DAILY PRN 06/01/18 07/10/18 multivitamin with minerals 1 tab PO DAILY 06/01/18 07/10/18 nystatin 1 applic TOPICAL TID PRN 06/01/18 02/23/19 omeprazole 20 mg PO DAILY 06/01/18 02/23/19 ondansetron HCl 4 mg PO Q6H PRN 06/01/18 07/10/18 potassium chloride 10 meq PO DAILY 06/01/18 07/10/18 sertraline 75 mg PO DAILY 06/01/18 02/23/19 Allergies Allergy/AdvReac Type Severity Reaction Status Date / Time adhesive Allergy Verified 02/23/19:26 crab Allergy Verified 02/23/19:26 epinephrine Allergy Verified 02/23/19: latex Allergy Verified 02/23/19:26 Quinolones Allergy Verified 02/23/19: Sulfa (Sulfonamide Allergy Verified 02/23/19: Antibiotics) Review of Systems Constitutional Constitutional: Denies headache(s) ENT Ears, Nose, Mouth, and Throat: Denies vertigo, Denies dizziness and Denies headache(s) Cardiovascular Cardiovascular: Denies chest pain and Denies dyspnea Respiratory Respiratory: Denies dyspnea Gastrointestinal Gastrointestinal: Denies abdominal pain, Denies nausea and Denies vomiting Genitourinary Genitourinary: Denies dysuria Musculoskeletal Comments: Left shoulder pain Integumentary/Breasts Skin/Breast: Denies lesions and Denies rash Neurologic Neurologic: Denies vertigo, Denies dizziness and Denies headache(s) Psychiatric Comments: More altered than normal according to the nursing staff at her care facility however son thinks that she is at baseline Hematologic/Lymphatic Hematologic/Lymphatic: Denies easy bleeding and Denies easy bruising [facility] Medical History CAP (community acquired pneumonia) (Acute) CHF (congestive heart failure) (Acute) Chronic wrist pain (Chronic) CVA (cerebral vascular accident) (Inactive) Depression (Chronic) Hepatic encephalopathy (Acute) Hypothyroidism (acquired) (Chronic) Multiple sclerosis (Chronic) PIEDRA (nonalcoholic steatohepatitis) (Chronic) Obstructive sleep apnea of adult (Chronic) Pancytopenia (Chronic) Periodic limb movement disorder (PLMD) (Chronic) Status post CVA (Chronic) TIA (transient ischemic attack) (Inactive) Surgical History Status post appendectomy (Resolved) Status post lumbar surgery (Resolved) Social History Smoking Status: Never smoker alcohol intake: never Social History Smoking Status: Never smoker alcohol intake: never Exam Initial Vital Signs Initial Vital Signs: Vital Signs Temperature 101.2 F H 02/23/19 01:26 Pulse Rate 108 H 02/23/19 01:26 Respiratory Rate 19 02/23/19 01:26 Blood Pressure 122/62 02/23/19 01:26 Pulse Oximetry 93 02/23/19 01:26 Const General: comfortable and well groomed Orientation: alert, awake, oriented to person, not oriented to place, not oriented to time and confused HENMT Head: normal to inspection, normocephalic and atraumatic Resp Effort & Inspection: normal respiratory effort Auscultation: clear to auscultation bilaterally Cardio Rate: tachycardic Rhythm: regular rhythm Heart Sounds: murmur GI Inspection: non-distended Palpation: soft, No firm and tender (Seems to be tender with right-sided palpation) Skin Other: Bruising over the left hip Neuro General: alert and awake Speech: speech normal Extrem General: normal to inspection, capillary refill normal and No edema Psych Appearance: grossly normal and well kempt Scores GCS [place] coma scale eye opening: Spontaneous Karina coma scale verbal response: Confused [place] coma scale motor response: Obey commands [place] coma scale total score: 14 Course Orders Ordered: ED Orders 02/23/19 01:22 EKG-12 Lead Stat 02/23/19 01:30 XR chest 1V Stat RT Consult Eval and Treat Now 02/23/19 01:37 Complete Blood Count AUTO DIFF Stat Comprehensive Metabolic Panel Stat Lactate (Lactic Acid) Stat Lipase Stat Partial Thromboplastin Time Stat Procalcitonin Stat Prothrombin Time INR Stat 02/23/19 01:40 CT head/brain wo con Stat 02/23/19 01:42 Blood Culture Stat 02/23/19 02:00 CT abdomen pelvis w con Stat 02/23/19 03:50 Urine Culture Stat 02/23/19 03:53 UA Complete [Urinalysis and Microscopic] Stat 02/23/19 04:36 Ammonia (NH3) Stat Sodium Chloride (Normal Saline 0.9%) 1,000 mls @ 1,000 mls/hr IV BOLUS ONE Stop: 02/23/19 05:18 Last Admin: 02/23/19 04:26 Dose: 1,000 mls/hr Documented by: GLENNY Discontinued Medications Acetaminophen (Tylenol) 650 mg AK NOW ONE Stop: 02/23/19 01:37 Last Admin: 02/23/19 01:51 Dose: 650 mg Documented by: GLENNY Sodium Chloride (Normal Saline 0.9%) 1,000 mls @ 1,000 mls/hr IV BOLUS ONE Stop: 02/23/19 02:29 Last Infusion: 02/23/19 04:26 Dose: 0 mls/hr Documented by: Admin: 02/23/19 01:51 Dose: 1,000 mls/hr Documented by: GLENNY Ceftriaxone Sodium/Dextrose (Rocephin) 1 gm in 50 mls @ 100 mls/hr IV NOW ONE Stop: 02/23/19 02:18 Last Infusion: 02/23/19 03:03 Dose: 0 mls/hr Documented by: Admin: 02/23/19 02:16 Dose: 100 mls/hr Documented by: GLENNY Lidocaine (Lidoderm) 1 each TOP NOW ONE Stop: 02/23/19 04:15 Last Admin: 02/23/19 04:26 Dose: 1 each Documented by: GLENNY Vital Signs Vital signs: Vital Signs - 8 hr 02/23/19 01:26 02/23/19 01:51 02/23/19 02:54 Temperature 101.2 F H 101.8 F H Pulse Rate 108 H 102 H Respiratory Rate 19 24 Blood Pressure 122/62 Blood Pressure [Left Arm] 92/41 L Pulse Oximetry 93 91 02/23/19 03:01 02/23/19 03:54 02/23/19 04:35 Temperature 101.7 F H Pulse Rate 102 H 97 H Respiratory Rate Blood Pressure Blood Pressure [Left Arm] 92/40 L 83/43 L Pulse Oximetry 90 L MDM - Fever Lab Data Attestation: I reviewed the patient's lab results. Result diagrams: 02/23/19 01:37 02/23/19 01:37 Labs: Lab Results 02/23/19 02/23/19 02/23/19 Range/Units 01:37 01:37 01:37 WBC 4.0 L (4.5-11.0) X10^3/uL RBC 4.19 (4.0-5.2) X10^6/uL Hgb 12.3 (12.0-16.0) g/dL Hct 36.6 (36-46) % MCV 87.2 (80-100) fL MCH 29.3 (26-34) PG MCHC 33.6 (30-36) % RDW 17.0 H (11.6-14.8) % Plt Count 39 L (150-400) X10^3/uL Neut % (Auto) Not Reportable Lymph % (Auto) Not Reportable [place] % (Auto) Not Reportable Eos % (Auto) Not Reportable Baso % (Auto) Not Reportable Lymph # (Auto) Not Reportable [place] # (Auto) Not Reportable Baso # (Auto) Not Reportable Total Counted 100 Seg Neutrophils % 87.0 H (38-70) % Band Neutrophils % 5.0 (3-7) % Lymphocytes % (Manual) 5.0 L (25-45) % Monocytes % (Manual) 2.0 (2-11) % Eosinophils % (Manual) 1.0 L (2-4) % Neutrophils # (Manual) 3680 (7559-1052) /uL Platelet Estimate Decreased on smear RBC Morphology See below Anisocytosis 1+ H PT 15.1 H (10.1-12.7) SECONDS INR 1.3 (0.9-1.3) APTT 33 D (26.4-36.2) SECONDS Sodium (137-145) mmol/L Potassium (3.4-5.1) mmol/L Chloride (98-107) mmol/L Carbon Dioxide (22-32) mmol/L BUN (7-17) mg/dL Creatinine (0.52-1.04) mg/dL Estimated GFR (>60) mL/min BUN/Creatinine Ratio (6-22) Glucose (80-110) mg/dL Lactate (0.7-2.1) mmol/L Calcium (8.4-10.2) mg/dL Total Bilirubin (0.2-1.3) mg/dL AST (14-36) IU/L ALT (9-52) IU/L Alkaline Phosphatase (38-126) U/L Ammonia (9-30) umol/L Total Protein (6.3-8.2) g/dL Albumin (3.5-5.0) g/dL Globulin (1.7-4.1) g/dL Albumin/Globulin Ratio (1.0-2.8) Lipase (23-300) U/L Procalcitonin 0.05 (<0.5) ng/mL Urine Color Urine Appearance Urine pH (4.5-8.0) Ur Specific [place] (1.000-1.035) Urine Protein (Negative) Urine Glucose (UA) (Negative) g/dL Urine Ketones (NEGATIVE) Urine Occult Blood (Negative) Urine Nitrate (Negative) Urine Bilirubin (NEGATIVE) Urine Urobilinogen (0.2) E.U./dL Ur Leukocyte Esterase (NEGATIVE) Urine RBC (0-5/HPF) Urine WBC (0-5/HPF) Urine Bacteria (None) 02/23/19 02/23/19 02/23/19 Range/Units 01:37 01:37 03:53 WBC (4.5-11.0) X10^3/uL RBC (4.0-5.2) X10^6/uL Hgb (12.0-16.0) g/dL Hct (36-46) % MCV (80-100) fL MCH (26-34) PG MCHC (30-36) % RDW (11.6-14.8) % Plt Count (150-400) X10^3/uL Neut % (Auto) Lymph % (Auto) [place] % (Auto) Eos % (Auto) Baso % (Auto) Lymph # (Auto) [place] # (Auto) Baso # (Auto) Total Counted Seg Neutrophils % (38-70) % Band Neutrophils % (3-7) % Lymphocytes % (Manual) (25-45) % Monocytes % (Manual) (2-11) % Eosinophils % (Manual) (2-4) % Neutrophils # (Manual) (8546-0997) /uL Platelet Estimate RBC Morphology Anisocytosis PT (10.1-12.7) SECONDS INR (0.9-1.3) APTT (26.4-36.2) SECONDS Sodium 141 (137-145) mmol/L Potassium 3.8 (3.4-5.1) mmol/L Chloride 101 (98-107) mmol/L Carbon Dioxide 29 (22-32) mmol/L BUN 15 (7-17) mg/dL Creatinine 0.60 (0.52-1.04) mg/dL Estimated GFR > 60.0 (>60) mL/min BUN/Creatinine Ratio 25.0 H (6-22) Glucose 95 (80-110) mg/dL Lactate 1.1 (0.7-2.1) mmol/L Calcium 9.7 (8.4-10.2) mg/dL Total Bilirubin 1.4 H (0.2-1.3) mg/dL AST 40 H (14-36) IU/L ALT 17 (9-52) IU/L Alkaline Phosphatase 114 (38-126) U/L Ammonia (9-30) umol/L Total Protein 7.0 (6.3-8.2) g/dL Albumin 4.1 (3.5-5.0) g/dL Globulin 2.9 (1.7-4.1) g/dL Albumin/Globulin Ratio 1.4 (1.0-2.8) Lipase 68 (23-300) U/L Procalcitonin (<0.5) ng/mL Urine Color Yellow Urine Appearance Clear Urine pH 7.5 (4.5-8.0) Ur Specific [place] 1.010 (1.000-1.035) Urine Protein 1+ H (Negative) Urine Glucose (UA) Negative (Negative) g/dL Urine Ketones Negative (NEGATIVE) Urine Occult Blood 1+ H (Negative) Urine Nitrate Positive (Negative) Urine Bilirubin Negative (NEGATIVE) Urine Urobilinogen 1.0 (0.2) E.U./dL Ur Leukocyte Esterase Trace H (NEGATIVE) Urine RBC 10-30/hpf H (0-5/HPF) Urine WBC 10-30/hpf H (0-5/HPF) Urine Bacteria Many (>30) H (None) 02/23/19 Range/Units 04:36 WBC (4.5-11.0) X10^3/uL RBC (4.0-5.2) X10^6/uL Hgb (12.0-16.0) g/dL Hct (36-46) % MCV (80-100) fL MCH (26-34) PG MCHC (30-36) % RDW (11.6-14.8) % Plt Count (150-400) X10^3/uL Neut % (Auto) Lymph % (Auto) [place] % (Auto) Eos % (Auto) Baso % (Auto) Lymph # (Auto) [place] # (Auto) Baso # (Auto) Total Counted Seg Neutrophils % (38-70) % Band Neutrophils % (3-7) % Lymphocytes % (Manual) (25-45) % Monocytes % (Manual) (2-11) % Eosinophils % (Manual) (2-4) % Neutrophils # (Manual) (2061-6909) /uL Platelet Estimate RBC Morphology Anisocytosis PT (10.1-12.7) SECONDS INR (0.9-1.3) APTT (26.4-36.2) SECONDS Sodium (137-145) mmol/L Potassium (3.4-5.1) mmol/L Chloride (98-107) mmol/L Carbon Dioxide (22-32) mmol/L BUN (7-17) mg/dL Creatinine (0.52-1.04) mg/dL Estimated GFR (>60) mL/min BUN/Creatinine Ratio (6-22) Glucose (80-110) mg/dL Lactate (0.7-2.1) mmol/L Calcium (8.4-10.2) mg/dL Total Bilirubin (0.2-1.3) mg/dL AST (14-36) IU/L ALT (9-52) IU/L Alkaline Phosphatase (38-126) U/L Ammonia 12.0 (9-30) umol/L Total Protein (6.3-8.2) g/dL Albumin (3.5-5.0) g/dL Globulin (1.7-4.1) g/dL Albumin/Globulin Ratio (1.0-2.8) Lipase (23-300) U/L Procalcitonin (<0.5) ng/mL Urine Color Urine Appearance Urine pH (4.5-8.0) Ur Specific [place] (1.000-1.035) Urine Protein (Negative) Urine Glucose (UA) (Negative) g/dL Urine Ketones (NEGATIVE) Urine Occult Blood (Negative) Urine Nitrate (Negative) Urine Bilirubin (NEGATIVE) Urine Urobilinogen (0.2) E.U./dL Ur Leukocyte Esterase (NEGATIVE) Urine RBC (0-5/HPF) Urine WBC (0-5/HPF) Urine Bacteria (None) Imaging Data CT scan - abdomen: Radiologist's impression: Few small bowel loops in distension upper normal diameter were few air-fluid levels nonspecific without margaret distention CT scan - head: Radiologist's impression: Negative for acute intracranial CT abnormality. Chest x-ray: Attestation: I personally reviewed and interpreted this imaging study as follows: My impression: Enlarged heart No focal consolidations ECG Data Attestation: I personally reviewed and interpreted this ECG as follows: Prior ECG tracings: not available for review Interpretation: Sinus tachycardia Ventricular rate of 109 Left axis deviation Normal QRS Normal QTC MDM Narrative Medical decision making narrative: Patient arrived febrile and tachycardic. Was given Tylenol and fluids. Her lactate and procalcitonin unremarkable. Urinalysis is nitrite positive. Review of her prior urinalysis does show a Rocephin sensitive bacteria. She was given Rocephin here in the ER. CT scan ordered secondary to what appeared to be abdominal pain with palpation. This showed no acute pathology. Her head CT was ordered secondary to the reported altered mental status and this was unremarkable for acute pathology as well. The patient's son reports that she is at her baseline mental status. Patient's left shoulder pain is not new. She was given a lidocaine patch for this per her son's request. Apparently she uses this as needed. Patient given fluids here in the ER. Continued to have blood pressures that were trending down. I do feel that this is secondary to lack of fluid resuscitation. Will hold on blood pressure medications for now. Patient does have a PLOST form which states that she is a full code however does have a do not intubate box checked on this form. I did discuss the case with night CRAYON SAWYER who accepts the patient. Was sent to the ICU secondary to the labile blood pressures. Did discuss the admission with both the patient and her son. They both expressed understanding. Discharge Plan Departure Patient Disposition: Admitted As Inpatient Clinical Impression: Sepsis Qualifiers: Sepsis type: sepsis due to unspecified organism Sepsis acute organ dysfunction status: unspecified Qualified Code(s): A41.9 - Sepsis, unspecified organism Urinary tract infection Qualifiers: Urinary tract infection type: acute cystitis Hematuria presence: without hematuria Qualified Code(s): N30.00 - Acute cystitis without hematuria Admit Date/Time: 02/23/19 04:39 Admit Provider: Moncho Bolton
--- NOTE | 2019-02-23 01:40 | DI.CT.S_ITS ---
PROCEDURE: CT HEAD/BRAIN WO CON INDICATIONS: ALTERED MENTAL STATUS TECHNIQUE: Noncontrast 4.5 mm thick angled axial sections acquired from the foramen magnum to the vertex, with coronal and sagittal reformats. For radiation dose reduction, the following was used: automated exposure control, adjustment of mA and/or kV according to patient size. COMPARISON: [facility], CT, CT HEAD/BRAIN WO CON, 01/02/2019, 10:43. FINDINGS: Image quality: Diagnostic. CSF spaces: Basal cisterns are patent. Linear areas of increased density overlying the right frontal region are less conspicuous on the current examination and likely represents a small chronic hemorrhage or thickening of the dura mater. This appearance has not significantly increased in the interim and is smaller on the current study. The ventricles are symmetric in size and shape. Prominent calcifications along the midline falx are present. Brain: Subtle areas of low attenuation are seen within the periventricular and deep white matter of the supratentorial brain. No parenchymal masses or intraparenchymal hemorrhage is appreciated. Skull and face: Postoperative changes are again evident related to a right frontotemporal craniotomy. The bone flap is in appropriate position. Sinuses: Visualized sinuses and mastoids are clear. IMPRESSION: 1. No acute intracranial hemorrhage. 2. Postsurgical changes related to a right sided craniotomy. 3. Linear areas of increased density overlying the right frontal region probably represents postoperative thickening of the dura and/or an associated chronic subdural hematoma. This is less pronounced on the current study compared to the exam from 01/02/19. Note: The preliminary report provided by [employer] [facility] is concordant with the final report. Dictated by: Pavan Chris M.D. on 02/23/2019 at 8:15 Approved by: Pavan Chris M.D. on 02/23/2019 at 8:19
[2019-02-23] MEDS: ACETAMINOPHEN 650 MG SUPP PR (01:51)
[2019-02-23] MEDS: SODIUM CHLORIDE 0.9% 1,000 ML 1000 ML IV ×3 (01:51→10:05)
[2019-02-23 01:56] LABS: Hematocrit 36.6 % (36-46); Hemoglobin 12.3 g/dL (12.0-16.0); Mean Corpuscular HGB Conc 33.6 % (30-36); Mean Corpuscular Hemoglobin 29.3 PG (26-34); Mean Corpuscular Volume 87.2 fL (80-100); Red Blood Cell Count 4.19 X10^6/uL (4.0-5.2)
[2019-02-23 01:57] LABS: INR 1.3 (0.9-1.3); Prothrombin Time 15.1 SECONDS (10.1-12.7)
[2019-02-23 01:58] LABS: Add Manual Diff / Slide Review YES; Platelet Count 39 X10^3/uL (150-400)
[2019-02-23 02:00] LABS: PTT Partial Thromboplastin Tim 33 SECONDS (26.4-36.2)
--- NOTE | 2019-02-23 02:00 | DI.CT.S_ITS ---
PROCEDURE: CT ABDOMEN PELVIS W CON INDICATIONS: GENERALIZED ABDOMINAL PAIN TECHNIQUE: After the administration of oral and intravenous contrast, 5 mm thick sections acquired from the diaphragms to the symphysis. 5 mm thick coronal and sagittal reformats were performed. For radiation dose reduction, the following was used: automated exposure control, adjustment of mA and/or kV according to patient size. COMPARISON: [facility], CT, ABD/PELVIS W/CON (PNL), 06/06/2008, 15:27. FINDINGS: Image quality: Diagnostic. ABDOMEN: Lung bases: Interstitial thickening is identified within the subpleural regions of the bilateral lung bases, which may represent chronic interstitial changes. No large area of pulmonary consolidation within the lung bases is evident. Coronary artery atherosclerosis is noted. Heart size is normal. Solid organs: Calcifications are scattered throughout the liver, similar to the previous examination. There also are scattered splenic calcifications. No cystic or solid lesions of the liver or spleen are evident. The spleen is noted to be enlarged and measures up to 15.3 cm in craniocaudal dimension. The liver does not appear to be significantly enlarged. Mild nodular appearance to the surface of the liver is present. There is mild periportal edema. The portal vein appears to be grossly patent. The gallbladder is surgically absent. No intrahepatic or definite extrahepatic biliary dilatation is evident. There continues to be a hypodense lesion involving the left adrenal gland, which measures up to 2.5 cm in length (previously measuring 2.1 cm in length). The density of this nodule is approximately 90 Hounsfield units, suggesting a adrenal adenoma. Both kidneys are normal in size. There is a moderate-sized 8 mm calculus evident involving the inferior aspect of the right kidney. No hydronephrosis is evident. Next renal pelvis on the right is similar to the previous exam. Surgical clips are seen at the ureteropelvic junction on the right. Bilateral renal cysts are noted. No definite hydroureter or ureteral calculi are appreciated. Peritoneum and bowel: There is a small hiatal hernia. Multiple enlarged varicose veins about the distal esophagus are present. Otherwise, the stomach is unremarkable. Small bowel loops are nondilated. The colon appears to be within normal limits. No free fluid, loculated fluid collection or free air is identified. Nodes and vessels: No retroperitoneal or mesenteric adenopathy. Aorta and inferior vena cava are normal in caliber. There is aortic atherosclerosis. Bones: No acute fracture or suspicious osseous lesions identified. Postsurgical changes are evident related to an L4-5 fusion. Moderate to severe degenerative changes of the lumbar spine are present. PELVIS: Genitourinary: Bladder wall thickness is normal. The uterus and ovaries are not enlarged. Miscellaneous: No inguinal hernias or adenopathy. No free fluid or loculated fluid collection is identified. There is no free air. Bones: No suspicious bony lesions. No acute pelvic fractures are identified. Mild to moderate degenerative changes of the pelvic joints are evident. IMPRESSION: 1. No definite acute abnormality within the abdomen or pelvis. 2. Nonobstructing inferior right renal calculus. No definite hydronephrosis or ureteral calculi. 3. No bowel obstruction. 4. Granulomas changes to the liver and spleen. 5. Nodular appearance to the liver is concerning for hepatic cirrhosis, particularly given multiple enlarged esophageal varices and splenomegaly. Clinical correlation is recommended. 6. Apparent mild chronic interstitial changes of the lungs. Note: The preliminary report provided by [email or web address] is concordant with the final report. Dictated by: Pavan Chris M.D. on 02/23/2019 at 8:27 Approved by: Pavan Chris M.D. on 02/23/2019 at 8:33
[2019-02-23 02:02] LABS: Lactate (Lactic Acid) 1.1 mmol/L (0.7-2.1)
[2019-02-23 02:03] LABS: Alanine Aminotransferase 17 IU/L (9-52); Albumin 4.1 g/dL (3.5-5.0); Albumin Globulin Ratio 1.4 (1.0-2.8); Alkaline Phosphatase 114 U/L (38-126); Aspartate Aminotransferase 40 IU/L (14-36); Bilirubin Total 1.4 mg/dL (0.2-1.3); Blood Urea Nitrogen 15 mg/dL (7-17); Calcium 9.7 mg/dL (8.4-10.2); Carbon Dioxide 29 mmol/L (22-32); Chloride 101 mmol/L (98-107); Estimated Glomerular Filt Rate > 60.0 mL/min (>60); Globulin 2.9 g/dL (1.7-4.1); Glucose 95 mg/dL (80-110); HEMOLYSIS < 15 (0-50); Lipase 68 U/L (23-300); Potassium 3.8 mmol/L (3.4-5.1); Sodium 141 mmol/L (137-145)
[2019-02-23 02:15] LABS: Anisocytosis 1+; Neutrophils Absolute Manual 3680 /uL (3000-5900); Total Cells Counted 100
[2019-02-23 02:16] LABS: Platelet Estimate Decreased on smear
[2019-02-23] MEDS: CEFTRIAXONE 1 GM/50 ML FROZ.PIGGY IV (02:16)
[2019-02-23 02:19] LABS: Procalcitonin 0.05 ng/mL (<0.5)
--- NOTE | 2019-02-23 03:04 | PC.NURSE ---
Provider aware of trending down vital signs. Fluids wide open.
[2019-02-23 04:01] LABS: Appearance Urine UA CLEAR; Bilirubin Urine UA NEGATIVE (NEGATIVE); Color Urine UA YELLOW; Glucose Urine UA NEGATIVE (Negative); Ketones Urine UA NEGATIVE (NEGATIVE); Leukocyte Esterase Urine UA TRACE (NEGATIVE); Nitrite Urine UA POSITIVE (Negative); Occult Blood Urine UA 1+ (Negative); Protein Urine UA 1+ (Negative)
[2019-02-23 04:02] LABS: pH Urine UA 7.5 (4.5-8.0)
[2019-02-23 04:03] LABS: Bacteria Urine Many (>30); RBC Urine 10-30/HPF (0-5/HPF); WBC Urine 10-30/HPF (0-5/HPF)
[2019-02-23] MEDS: LIDOCAINE PATCH 1 EACH ADH..PATCH TOP (04:26)
--- NOTE | 2019-02-23 04:36 | PC.NURSE ---
provider aware of low BP
[2019-02-23] MEDS: SODIUM CHLORIDE 0.9% 1,000 ML 150 ML IV (05:18)
--- NOTE | 2019-02-23 05:37 | PC.NURSE ---
normal saline continued in ICU
[2019-02-23] MEDS: SODIUM CHLORIDE 0.9% 250 ML IV (06:00)
[2019-02-23] MEDS: NOREPINEPHRINE 4 MG in DEXTROSE 5% IN WATER 250 ML 7.62 ML IV (06:50)
[2019-02-23 07:03] LABS: Magnesium 1.7 mg/dL (1.6-2.3)
--- NOTE | 2019-02-23 07:08 | P.HP_ITS ---
History of Present Illness History of Present Illness Date Patient Seen: 02/23/19 Time Patient Seen: 07:10 Chief complaint: Shaking with a fever Narrative: The patient is 78-year-old female with PMH of subdural hemorrhage, PIEDRA, chronic pancytopenia, SUSANNE, limb movement disorder, chronic wrist pain. Patient presents to the ED via EMS after being found by care staff at her residence facility ([facility]) in a state of regard. At that time dario castaneda was noted to be afebrile. Patient herself has no recollection of the events. She reports a two-day history of diarrhea. Also reports intermittent GI distress. Does not endorse abdominal. Reports urinary incontinence. Denies recent illness, chest pain, palpitations, dizziness, lightheadedness, and syncopal events. Reports pain in the left shoulder. Denies palpitations, chest pain, and shortness of breath. Patient has some underlying degree of cognitive impairment. According to the ED physician, after communication with the patient's son, the patient has not exhibited overt mental status changes from her baseline. ED presentation & work-up On arrival to ED patient slow to respond. GCS 14, per ED documentation VS, 02/23 @ 0126 T 101.2 BP 122/62 HR 108 RR 19 SpO2 93% on room air. Another Temp of 104 documented at 0132. Labs, 02/23 @ 0137 WBC 4.0 RBC 4.19 HGB 12.3 PLT 39 PT 15.1 INR 1.3 aPTT 33 Lactate 1.1 Na 141 K 3.8 Cl 101 Ca 9.7 CO2 29 BUN 15 Cr 0.6 BUN:Cr 25 Glu 95 T.BILI 1.7 AST 40 ALT 17 Alk Phos 117 Lipase 68 Ammonia 12 UA. + protein, + occult blood, + LE, + RBC (10-30), + WBC (10-30), bacteria (many) Patient History Medical History CAP (community acquired pneumonia) (Acute) CHF (congestive heart failure) (Acute) Chronic wrist pain (Chronic) CVA (cerebral vascular accident) (Inactive) Depression (Chronic) Hepatic encephalopathy (Acute) Hypothyroidism (acquired) (Chronic) Multiple sclerosis (Chronic) PIEDRA (nonalcoholic steatohepatitis) (Chronic) Obstructive sleep apnea of adult (Chronic) Pancytopenia (Chronic) Periodic limb movement disorder (PLMD) (Chronic) Status post CVA (Chronic) TIA (transient ischemic attack) (Inactive) Surgical History Status post appendectomy (Resolved) Status post lumbar surgery (Resolved) Social History Smoking Status: Never smoker alcohol intake: never Family & Social History Social History: Prior Living Arrangements Skilled Nurse Facility Safety & Behavioral: Feels Safe in Current Yes Environment Been Physically Hurt or No Threatened By a Person Suicidal Ideation Description None Tobacco & Substance use: Smoking Status Never smoker alcohol intake never alcohol intake frequency other Substance Use Type does not use Meds Home Medications and Allergies Home Medications Medication Instructions Recorded Confirmed Type acetaminophen 650 mg PO Q6H PRN MDD 36 06/01/18 02/23/19 History acetaminophen-codeine 1 tab PO Q12H PRN 06/01/18 07/10/18 History ascorbic acid (vitamin C) 500 mg PO DAILY 06/01/18 07/10/18 History cephalexin 500 mg PO QPM 06/01/18 07/10/18 History diclofenac sodium 1 applic TOPICAL Q6H PRN 06/01/18 07/10/18 History fingolimod 0.5 mg PO DAILY 06/01/18 07/10/18 History furosemide 40 mg PO DAILY 06/01/18 07/10/18 History gabapentin 300 mg PO QPM 06/01/18 02/23/19 History levothyroxine 50 mcg PO DAILY 06/01/18 02/23/19 History lidocaine 1 applic TOPICAL Q12H PRN 06/01/18 07/10/18 History loperamide 2 mg PO DAILY PRN 06/01/18 07/10/18 History lorazepam 0.5 mg PO DAILY PRN 06/01/18 07/10/18 History multivitamin with minerals 1 tab PO DAILY 06/01/18 07/10/18 History nystatin 1 applic TOPICAL TID PRN 06/01/18 02/23/19 History omeprazole 20 mg PO DAILY 06/01/18 02/23/19 History ondansetron HCl 4 mg PO Q6H PRN 06/01/18 07/10/18 History potassium chloride 10 meq PO DAILY 06/01/18 07/10/18 History sertraline 75 mg PO DAILY 06/01/18 02/23/19 History Allergies Allergy/AdvReac Type Severity Reaction Status Date / Time adhesive Allergy Verified 02/23/19 01:26 crab Allergy Verified 02/23/19 01:26 epinephrine Allergy Verified 02/23/19 01:26 latex Allergy Verified 02/23/19 01:26 Quinolones Allergy Verified 02/23/19 01:26 Sulfa (Sulfonamide Allergy Verified 02/23/19 01:26 Antibiotics) Review of Systems Review of Systems ROS Unobtainable: All systems reviewed & are unremarkable except as noted in HPI and below Exam Vital Signs (past 8 hours): - 02/23/19 01:26 02/23/19 01:51 02/23/19 02:54 Temperature 101.2 F H 101.8 F H Pulse Rate 108 H 102 H Respiratory Rate 19 24 Blood Pressure 122/62 Blood Pressure [Left Arm] 92/41 L Pulse Oximetry 93 91 02/23/19 03:01 02/23/19 03:54 02/23/19 04:35 Temperature 101.7 F H Pulse Rate 102 H 97 H Respiratory Rate Blood Pressure Blood Pressure [Left Arm] 92/40 L 83/43 L Pulse Oximetry 90 L 02/23/19 05:36 02/23/19 05:42 02/23/19 06:08 Temperature 99.4 F Pulse Rate 92 H 93 H 101 H Respiratory Rate 22 19 20 Blood Pressure 87/57 L 74/40 L 69/34 L Blood Pressure [Left Arm] Pulse Oximetry 96 96 95 02/23/19 06:18 Temperature Pulse Rate 94 H Respiratory Rate 18 Blood Pressure 82/48 L Blood Pressure [Left Arm] Pulse Oximetry 96 Oxygen Delivery Method Room Air Oxygen Flow Rate 2 Narrative Exam Narrative: Constitutional: NAD Neurologic: AOx3, no focal neurological deficits Head: NC, AT Eyes: PERRL, EOMI, no scleral icterus, gaze conjugate Ears: external ears normal, no otorrhea Nose: external nose normal, no rhinorrhea or epistaxis Throat: MMM, oropharynx w/o exudate Neck: no masses, lymphadenopathy, or JVD Chest / Respiratory: equal chest rise, unlabored respiratory effort no dyspnea or tachypnea, CTAB Heart / CV: S1S2, no murmur Abdomen / GI: round, RLQ tenderness > LLQ tenderness, mildly distended, + BS : no suprapubic tenderness, right CVA Peripheral / Vascular: warm to touch, DP and PT pulses palpable, no edema Musc: full ROM of upper and lower extremities, adequate muscle tone and bulk Skin: Left hip ecchymosis in different stages of healing Objective Labs Result Diagrams: 02/23/19 01:37 02/23/19 01:37 Labs: Laboratory Results - last 24 hr 02/23/19 02/23/19 02/23/19 01:37 01:37 01:37 WBC 4.0 L RBC 4.19 Hgb 12.3 Hct 36.6 MCV 87.2 MCH 29.3 MCHC 33.6 RDW 17.0 H Plt Count 39 L Neut % (Auto) Not Reportable Lymph % (Auto) Not Reportable Garden % (Auto) Not Reportable Eos % (Auto) Not Reportable Baso % (Auto) Not Reportable Lymph # (Auto) Not Reportable Garden # (Auto) Not Reportable Baso # (Auto) Not Reportable Total Counted 100 Seg Neutrophils % 87.0 H Band Neutrophils % 5.0 Lymphocytes % (Manual) 5.0 L Monocytes % (Manual) 2.0 Eosinophils % (Manual) 1.0 L Neutrophils # (Manual) 3680 Platelet Estimate Decreased on smear RBC Morphology See below Anisocytosis 1+ H PT 15.1 H INR 1.3 APTT 33 D Sodium Potassium Chloride Carbon Dioxide BUN Creatinine Estimated GFR BUN/Creatinine Ratio Glucose Lactate Calcium Magnesium Total Bilirubin AST ALT Alkaline Phosphatase Ammonia Total Protein Albumin Globulin Albumin/Globulin Ratio Lipase Procalcitonin 0.05 Urine Color Urine Appearance Urine pH Ur Specific [place] Urine Protein Urine Glucose (UA) Urine Ketones Urine Occult Blood Urine Nitrate Urine Bilirubin Urine Urobilinogen Ur Leukocyte Esterase Urine RBC Urine WBC Urine Bacteria 02/23/19 02/23/19 02/23/19 01:37 01:37 01:37 WBC RBC Hgb Hct MCV MCH MCHC RDW Plt Count Neut % (Auto) Lymph % (Auto) Garden % (Auto) Eos % (Auto) Baso % (Auto) Lymph # (Auto) Garden # (Auto) Baso # (Auto) Total Counted Seg Neutrophils % Band Neutrophils % Lymphocytes % (Manual) Monocytes % (Manual) Eosinophils % (Manual) Neutrophils # (Manual) Platelet Estimate RBC Morphology Anisocytosis PT INR APTT Sodium 141 Potassium 3.8 Chloride 101 Carbon Dioxide 29 BUN 15 Creatinine 0.60 Estimated GFR > 60.0 BUN/Creatinine Ratio 25.0 H Glucose 95 Lactate 1.1 Calcium 9.7 Magnesium 1.7 Total Bilirubin 1.4 H AST 40 H ALT 17 Alkaline Phosphatase 114 Ammonia Total Protein 7.0 Albumin 4.1 Globulin 2.9 Albumin/Globulin Ratio 1.4 Lipase 68 Procalcitonin Urine Color Urine Appearance Urine pH Ur Specific [place] Urine Protein Urine Glucose (UA) Urine Ketones Urine Occult Blood Urine Nitrate Urine Bilirubin Urine Urobilinogen Ur Leukocyte Esterase Urine RBC Urine WBC Urine Bacteria 02/23/19 02/23/19 03:53 04:36 WBC RBC Hgb Hct MCV MCH MCHC RDW Plt Count Neut % (Auto) Lymph % (Auto) Garden % (Auto) Eos % (Auto) Baso % (Auto) Lymph # (Auto) Garden # (Auto) Baso # (Auto) Total Counted Seg Neutrophils % Band Neutrophils % Lymphocytes % (Manual) Monocytes % (Manual) Eosinophils % (Manual) Neutrophils # (Manual) Platelet Estimate RBC Morphology Anisocytosis PT INR APTT Sodium Potassium Chloride Carbon Dioxide BUN Creatinine Estimated GFR BUN/Creatinine Ratio Glucose Lactate Calcium Magnesium Total Bilirubin AST ALT Alkaline Phosphatase Ammonia 12.0 Total Protein Albumin Globulin Albumin/Globulin Ratio Lipase Procalcitonin Urine Color Yellow Urine Appearance Clear Urine pH 7.5 Ur Specific [place] 1.010 Urine Protein 1+ H Urine Glucose (UA) Negative Urine Ketones Negative Urine Occult Blood 1+ H Urine Nitrate Positive Urine Bilirubin Negative Urine Urobilinogen 1.0 Ur Leukocyte Esterase Trace H Urine RBC 10-30/hpf H Urine WBC 10-30/hpf H Urine Bacteria Many (>30) H Assessment & Plan Assessment & Plan narrative: Patient is being admitted to the ICU under inpatient status. Admitting diagnosis severe sepsis and urinary tract infection. Severe sepsis, present on admission, stable, active Suspected to be in the setting of acute urinary tract infection Temp, tachypnea, tachycardia, encephalopathy, hypotension - Respiratory Viral, CRP, GI pathogen panel - Blood and urine cx pending - on Zosyn - IVF resuscitation Hypotension, acute, present on admission, active Hypotension in the setting of severe sepsis. Suspected UTI. - Responding to IV fluids but not able to maintain BP in the normotensive state, already received 3 L - will start on Levophed, titrate to keep MAP > 65 - this patient may likely need another vascular access Cystitis (complicated) w/o hematuria, acute, present on admission, active - urine culture pending - received 1 g of Rocephin in the ED Acute abdominal pain, present on admission, active - CT A/P with no acute bothersome findings - Urine culture pending - Rocephin Chronic Thrombocytopenia, chronic, present on admission, stable Likely in the setting of underlying PIEDRA -WBC daily, continue trending Hgb and Plt count Limited code. Patient is a DNI. Her son is her surrogate decision maker. Quality VTE Deep Vein Thrombosis/Pulmonary Embolism Present on Admission: Yes
--- NOTE | 2019-02-23 07:38 | PM.PN.1 ---
Subjective Subjective Date Patient Seen: 02/23/19 Exam Vital Signs (past 8 hours): - 02/24/19 00:00 02/24/19 01:00 02/24/19 02:00 Temperature 99.0 F Pulse Rate 72 73 75 Respiratory Rate 10 L 22 24 Blood Pressure 115/59 L 119/61 119/49 L Pulse Oximetry 91 90 L 98 02/24/19 03:00 02/24/19 04:00 02/24/19 05:00 Temperature 98.5 F Pulse Rate 72 72 70 Respiratory Rate 18 20 18 Blood Pressure 120/55 L 94/43 L 101/54 L Pulse Oximetry 98 94 93 02/24/19 06:00 Temperature Pulse Rate 68 Respiratory Rate 14 Blood Pressure 104/45 L Pulse Oximetry 93 Oxygen Delivery Method Nasal Cannula Oxygen Flow Rate 0 Objective Labs Result Diagrams: 02/23/19 01:37 02/23/19 01:37 Labs: Laboratory Results - last 24 hr 02/23/19 02/23/19 02/23/19 05:25 07:50 14:30 Total Creatine Kinase 63 CK-MB (CK-2) TNP CK-MB (CK-2) Rel Index TNP Troponin I < 0.012 Nasal Screen MRSA (PCR) Negative for mrsa Chlamy pneumoniae PCR Not detected Adenovirus (PCR) Not detected B.parapertussis DNA PCR Not detected Coronavirus OC43 (PCR) Not detected Coronavirus HKU1 (PCR) Not detected Coronavirus 229E (PCR) Not detected Coronavirus NL63 (PCR) Not detected Human Metapneumovir PCR Not detected Influenza Type A (PCR) Not detected Influenza Type B (PCR) Not detected M. pneumoniae (PCR) Not detected Parainfluenza 1 (PCR) Not detected Parainfluenza 2 (PCR) Not detected Parainfluenza 3 (PCR) Not detected Parainfluenza 4 (PCR) Not detected RSV (PCR) Not detected Entero/Rhino (PCR) Not detected Assessment & Plan Assessment & Plan narrative: Brief progress note: Patient seen and examined. Physical exam unchanged. Agree with admitting providers assessment and plan. Plan to give 1-2 more L NS boluses and titrate off Levophed if possible. Will play close attention to fluid balance as patient has history of PIEDRA with cirrhosis and prone to 3rd spacing. Quality VTE Deep Vein Thrombosis/Pulmonary Embolism Present on Admission: Yes
[2019-02-23 08:20] LABS: Creatine Kinase 63 U/L (30-135)
[2019-02-23] MEDS: SODIUM CHLORIDE 0.9% 1,000 ML 999 ML IV (08:45)
[2019-02-23 09:21] LABS: Troponin I < 0.012 ng/mL (0.01-0.034)
[2019-02-23] MEDS: PIPERACILLIN-TAZO 4.5 GM/100 ML FROZ.PIGGY IV ×3 (10:35→21:38)
[2019-02-23] MEDS: ACETAMINOPHEN 325 MG TABLET 650 MG PO (15:55)
--- NOTE | 2019-02-23 16:21 | CM.DANOTE ---
DCP/Brief Assessment: Reviewed chart. Patient is a 78yr old female admitted to [facility] from [facility] with sepsis. PCP listed is Dr. Khalil. Primary payor is 1) [facility] 2)Medicaid. Attempted to meet with patient this afternoon. Patient undergoing nursing assessment at time of visit. Patient alert and oriented to place. VICE PRESIDENT PROCESS asked patient where she came from/lived. Patient reports [facility]. Patient currently DNR/DNI. Per Dr. Waters patient's status has been guarded. No family at bedside during short visit but have been at [facility] most of the day. P: Re-attempt visit with patient/family when medically appropriate to do so. Anticipate return to [facility] vs. SNF pending needs. TAL Calderon Discharge Planning/Care Management CM Discharge Assessment Start: 02/23/19 16:17 Freq: Status: Active Protocol: Document 02/23/19 16:17 KJS (Rec: 02/23/19 16:20 [id number]) Discharge Planning Assessment Assigned Rn Mds Coordinator TAL Calderon Contact Information Petros Che (son) [phone] Advance Directives? Yes: POLST Advance Directives on File No History Provided By Patient,Medical Record Prior Living Arrangements Skilled Nurse Facility Type of transporation used prior to Relies on Others admit Facility Name Admitted From: [facility] Willing to Return to Facility? Yes Is patient alert and oriented? Yes Caregiver for Another No Comment Pending outcome of hospitalization Discharge Plan Assisted Living Facility Transportation Arrangement Likely family or [facility] to provide transport at d/c. Whiteboard Updated in Patient Room with Yes name and ext. # of Rn Mds Coordinator Review Status In Process Next Review Type Continued Stay Review
[2019-02-23 17:38] LABS: Adenovirus Not Detected (Not Detect); Bordetella pertussis Not Detected (Not Detect); Chlamydophila pneumoniae Not Detected (Not Detect); Coronavirus 229E Not Detected (Not Detect); Coronavirus HKU1 Not Detected (Not Detect); Coronavirus NL 63 Not Detected (Not Detect); Coronavirus OC43 Not Detected (Not Detect); Human Metapneumovirus Not Detected (Not Detect); Human Rhinovirus/Enterovirus Not Detected (Not Detect); Influenza A Not Detected (Not Detect); Influenza B Not Detected (Not Detect); Mycoplasma pneumoniae Not Detected (Not Detect); Parainfluenza Virus 1 Not Detected (Not Detect); Parainfluenza Virus 2 Not Detected (Not Detect); Parainfluenza Virus 3 Not Detected (Not Detect); Parainfluenza Virus 4 Not Detected (Not Detect); Respiratory Syncytial Virus Not Detected (Not Detect)
--- NOTE | 2019-02-23 18:01 | PC.NURSE ---
Addendum entered by Jesusita Arriola R.N. 02/23/19 19:01: 1900 - BP remains soft. notified of MAP 71 while awake and active, MAP 53 with sleep. Reviewed mentation, oriented to self, occasional word finding difficulties and loss of train of thought. Reinforced safety and call light use. Call light in reach. Original Note: 1545 - Levophed gtt off. Monitor. 1600 - Pt c/o left shoulder pain. Lidocaine patch in place. Pt reports as chronic. APAP given. 1630 - Pt reports need to use the bathroom. Asked pt if she was going to have a BM. Pt states I won't know until I get there. Up to BSC, Pt voided 450cc of cloudy urine. notified. Order obtained to [facility]. Monitor. Pt reports feeling fatigued. Reinforced safety and call light use. Bed alarm on.
[2019-02-24] VITALS (16 sets, daily range): BP systolic 91–140; BP diastolic 35–68; PULSE 66–91; RESP 10–24; TEMP 36.9–38.2; O2SAT 90–98
[2019-02-24] MEDS: ACETAMINOPHEN 325 MG TABLET 650 MG PO ×3 (01:41→21:36)
[2019-02-24] MEDS: PIPERACILLIN-TAZO 4.5 GM/100 ML FROZ.PIGGY IV ×4 (04:17→21:34)
[2019-02-24] MEDS: SODIUM CHLORIDE 0.9% 1,000 ML 75 ML IV ×2 (04:29→06:30)
--- NOTE | 2019-02-24 07:41 | P.PN_ITS ---
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 The patient is resting in bedside chair comfortably. She is oriented to person only. She is much more awake and alert today. Two of the patient's sons are present at bedside. Discussed recent subdural hemorrhage and new cognitive def icits in setting of MS and mild to moderate dementia. She has mild shoulder pain that is chronic after a previous fall. She also endorses dysuria and mild indigestion earlier this morning. She has no other complaints. She denies headache, shortness of breath, chest pain, abdominal pain, nausea, vomiting, fever, chills, dysuria, diarrhea or constipation. She is voiding and eliminating without difficulty. Plan for PT and OT today. Exam Vital Signs (past 8 hours): - 02/24/19 00:00 02/24/19 01:00 02/24/19 02:00 Temperature 99.0 F Pulse Rate 72 73 75 Respiratory Rate 10 L 22 24 Blood Pressure 115/59 L 119/61 119/49 L Pulse Oximetry 91 90 L 98 02/24/19 03:00 02/24/19 04:00 02/24/19 05:00 Temperature 98.5 F Pulse Rate 72 72 70 Respiratory Rate 18 20 18 Blood Pressure 120/55 L 94/43 L 101/54 L Pulse Oximetry 98 94 93 02/24/19 06:00 Temperature Pulse Rate 68 Respiratory Rate 14 Blood Pressure 104/45 L Pulse Oximetry 93 Oxygen Delivery Method Nasal Cannula Oxygen Flow Rate 0 Narrative Exam Narrative: General: Elderly female sitting in bedside chair and in no acute distress, appears chronically ill, moderate dementia with short and long-term memory recall deficits, appropriately interactive. HEENT: Normocephalic, atraumatic. External ears without defect. Pupils equal, round, and reactive to light. Anicteric sclerae, moist conjunctivae, and no lid lag. Neck: Supple with full range of motion. No jugular venous distension. No lymphadenopathy or thyromegaly. Cardiovascular: Regular rate and rhythm without murmurs, rubs, or gallops appreciated. Pulmonary: Clear to auscultation bilaterally without crackles, wheezes, or rho nchi. Normal respiratory effort with no use of accessory muscles. Abdomen: Soft, bowel sounds present, mild suprapubic tenderness otherwise nontender, nondistended. No hepatosplenomegaly or masses appreciated. Extremities: No clubbing, cyanosis, or edema. Skin: Normal temperature, turgor, and texture; no rash, ulcers, or subcutaneous nodules appreciated. Neurological: Cranial nerves grossly intact. Psychiatric: Normal mood and flat affect. Alert and oriented to person only. Qkdm-yp-[id number] dementia with short and long-term memory recall deficits. Objective Labs Result Diagrams: 02/24/19 08:11 02/24/19 08:11 Labs: Laboratory Results - last 24 hr 02/23/19 02/23/19 02/23/19 05:25 07:50 14:30 Total Creatine Kinase 63 CK-MB (CK-2) TNP CK-MB (CK-2) Rel Index TNP Troponin I < 0.012 Nasal Screen MRSA (PCR) Negative for mrsa Chlamy pneumoniae PCR Not detected Adenovirus (PCR) Not detected B.parapertussis DNA PCR Not detected Coronavirus OC43 (PCR) Not detected Coronavirus HKU1 (PCR) Not detected Coronavirus 229E (PCR) Not detected Coronavirus NL63 (PCR) Not detected Human Metapneumovir PCR Not detected Influenza Type A (PCR) Not detected Influenza Type B (PCR) Not detected M. 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 1. Acute septic shock, present on admission. Resolved. -Febrile, tachypnea, tachycardia, encephalopathic with organ dysfunction of hypotension fluid responsive but requiring vasopressor at minimal amount due to cirrohsis and third spacing with source UTI. -Early goal-directed therapy med including: IV fluid resuscitation and broad- spectrum antibiotics. 2. Acute urinary tract infection, present on admission. Resolving. -Urinalysis grossly infected with urine culture preliminarily growing gram- negative bacilli. -Initial WBC 4.0 (usually leukopenic). Initial procalcitonin 0.05 and peaked today at 3.61. Continue to trend WBC and procalcitonin daily. -Received ceftriaxone 1 g x1 in the ED. Broaden antibiotics to Zosyn 4.5 g every 6 hours to cover Pseudomonas and Citrobacter that she has had in the past. 3. Non-Alcoholic Liver Disease with pancytopenia, present on admission. Presumed stable. -The patient has been followed by a laundry machine mechanic in [place], Dr. Simpson, who previously recommended monthly iron infusions and has worked up her pancytopenia in the past. -SPEP performed previously demonstrated hypoalbuminemia otherwise negative for malignancy. -Recommend patient be evaluated by Gastroenterology or hepatology for treatment of PIEDRA and surveillance of varices and HCC. -Continue to monitor CBC daily. Goal transfusion hemoglobin < 8.0 and platelets < 20. 4. Sahg-je-smgzxoxb dementia secondary to MS and recent subdural hemorrhage status post craniotomy, chronic, present on admission. Stable. -No longer on medical therapy for MS. -Ordered physical and occupational therapy evaluation treatment and plan to have a occupational therapy perform SLUMS to establish baseline cognitive function. 5. GERD, chronic, present on admission. Stable. -Continued home Protonix 20 mg daily. 6. Depression, chronic, present on admission. -Continued home sertraline 75 mg daily. 7. Hypothyroidism, chronic, present on admission. Stable. -Continued home levothyroxine 50 mcg daily. Disposition: Patient likely to discharge tomorrow either to [place] assisted living facility or [facility] for rehabilitation prior to returning to assisted living facility. Quality VTE Deep Vein Thrombosis/Pulmonary Embolism Present on Admission: Yes
[2019-02-24] MEDS: LIDOCAINE PATCH 1 EACH ADH..PATCH TOP (08:25)
[2019-02-24 08:28] LABS: Add Manual Diff / Slide Review NO; Basophils Absolute Auto 0 /uL (0-100); Basophils Percent Auto 0.1 % (0-2); Eosinophils Absolute Auto 0 /uL (0-450); Eosinophils Percent Auto 0.5 % (2-4); Hematocrit 32.5 % (36-46); Hemoglobin 10.7 g/dL (12.0-16.0); Lymphocytes Absolute Auto 300 /uL (1100-4500); Lymphocytes Percent Auto 11.8 % (25-40); Mean Corpuscular HGB Conc 32.8 % (30-36); Mean Corpuscular Hemoglobin 29.3 PG (26-34); Mean Corpuscular Volume 89.4 fL (80-100); Monocytes Absolute Auto 200 /uL (0-900); Monocytes Percent Auto 9.5 % (3-14); Neutrophils Absolute Auto 2000 /uL (1500-7000); Neutrophils Percent Auto 78.1 % (50-75); Red Blood Cell Count 3.63 X10^6/uL (4.0-5.2); Red Cell Distribution Width 17.7 % (11.6-14.8); White Blood Cell Count 2.5 X10^3/uL (4.5-11.0)
[2019-02-24 08:34] LABS: Platelet Count 28 X10^3/uL (150-400)
[2019-02-24 08:38] LABS: Alanine Aminotransferase 18 IU/L (9-52); Albumin 3.1 g/dL (3.5-5.0); Albumin Globulin Ratio 1.1 (1.0-2.8); Alkaline Phosphatase 81 U/L (38-126); Aspartate Aminotransferase 32 IU/L (14-36); Bilirubin Total 1.3 mg/dL (0.2-1.3); Blood Urea Nitrogen 12 mg/dL (7-17); Calcium 8.5 mg/dL (8.4-10.2); Carbon Dioxide 29 mmol/L (22-32); Chloride 105 mmol/L (98-107); Estimated Glomerular Filt Rate > 60.0 mL/min (>60); Globulin 2.8 g/dL (1.7-4.1); Glucose 134 mg/dL (80-110); HEMOLYSIS < 15 (0-50); Magnesium 1.8 mg/dL (1.6-2.3); Potassium 3.3 mmol/L (3.4-5.1); Sodium 141 mmol/L (137-145); Total Protein 5.9 g/dL (6.3-8.2)
[2019-02-24 08:53] LABS: Procalcitonin 3.61 ng/mL (<0.5)
[2019-02-24 09:17] LABS: Anisocytosis 1+; Platelet Estimate Decreased on smear
[2019-02-24] MEDS: SODIUM CHLORIDE 0.9% FLUSH 10 ML IV ×2 (09:39→23:19)
--- NOTE | 2019-02-24 10:08 | PC.NURSE ---
Addendum entered by Marge Carpenter R.N. 02/24/19 14:11: Tramadol given for pain, Pt is planning PT this afternoon. Continues with limited ROM to LUE. Gait belt 2PA FWW for transfers. Addendum entered by Marge Carpenter R.N. 02/24/19 11:39: Pt upgraded to floor care status. Up to chair and BSC with 1-2PA FWW. Limited ROM with LUE d/t pain. The pain patch helps, but it hurts FLACC 3 at times, but With less ROM, little to no pain. Mentation continues to improve, More alert as shift progresses. Dr Waters into Update sons. Continue IV ABX. Call light in reach. BA active. Original Note: Am shift Pt is A/o 1-2. Forgetful, per son at bedside, this is slightly worse than normal, but improved since this RN's assessment 24 hrs prior. Able to make needs known, reoriented to place and POC. NULATO. IVF D/c'd per order. Continue to monitor pressures closely, with goal of MAP > 55. May need fluid bolus per Dr. Waters, monitor for now. Pt resting after application of lidocaine patch and APAP for discomfort. PIV x2, SL, Spo2 96% RA. PT eval in.
[2019-02-24] MEDS: LEVOTHYROXINE 50 MCG TABLET PO (11:06)
[2019-02-24] MEDS: PANTOPRAZOLE 20 MG TABLET PO (11:06)
[2019-02-24] MEDS: SERTRALINE 25 MG TABLET 75 MG PO (11:09)
[2019-02-24] MEDS: MAGNESIUM CHLORIDE 64 MG TABLET 128 MG PO (13:22)
[2019-02-24] MEDS: TRAMADOL 50 MG TABLET PO (13:22)
--- NOTE | 2019-02-24 13:40 | CM.DPC ---
DCP Cont: Per MD, pt likely still needing to be here in the hospital for another couple of days and pt had a recent brain bleed and son feels pt is not at her previous baseline before that. PT/OT have been ordered and pending. SW called [facility] [place] (who states she is out this weekend and will be back Monday) and left ms to update her on pt status, especially after PT/OT eval and closer to discharge to determine if pt can return to [facility] vs possible need for SNF. Plan: [facility] to follow closely for PT/OT eval and recommendations and coordination with [facility] to determine if pt can return vs SNF at d/c. TAL Ruano
[2019-02-24] MEDS: POTASSIUM CHLORIDE 20 MEQ TAB 40 MEQ PO (14:18)
[2019-02-24] MEDS: GABAPENTIN 300 MG CAPSULE PO (16:28)
--- NOTE | 2019-02-24 17:11 | PT.IIE ---
Current Diagnoses Sepsis, unspecified organism (02/23/19) Surgical History (Last Reviewed 02/23/19 @ 11:06 by RUSSEL Salinas) Status post appendectomy (Resolved) Status post lumbar surgery (Resolved) Medical History (Last Reviewed 02/23/19 @ 11:06 by RUSSEL Salinas) CAP (community acquired pneumonia) (Acute) CHF (congestive heart failure) (Acute) Chronic wrist pain (Chronic) CVA (cerebral vascular accident) (Inactive) Depression (Chronic) Hepatic encephalopathy (Acute) Hypothyroidism (acquired) (Chronic) Multiple sclerosis (Chronic) PIEDRA (nonalcoholic steatohepatitis) (Chronic) Obstructive sleep apnea of adult (Chronic) Pancytopenia (Chronic) Periodic limb movement disorder (PLMD) (Chronic) Status post CVA (Chronic) TIA (transient ischemic attack) (Inactive) Physical Therapy Inpatient Evaluation/Re-Eval M1 PT/OT-IP Prior Functional Status Start: 02/24/19 15:17 Freq: NEEDED Status: Active Protocol: Document 02/24/19 16:43 AW (Rec: 02/24/19 17:10 AW [id number]) Medical Review Prior Functional Status Medical History Reviewed Yes Communication Pt with dementia at baseline Mobility and Gait Pt has had frequent falls. She has limited use of her LUE but endorses use of 4WW for facility distances at [facility] ( [facility]). Activities of Daily Living and IADL's Unable to ascertain PLOF Social History Household Members none Living Arrangements Assisted Living Additional Social History Comment Pt resides at [facility] M2 PT-IP Current Condition Start: 02/24/19 15:17 Freq: NEEDED Status: Active Protocol: Document 02/24/19 16:43 AW (Rec: 02/24/19 17:10 AW [id number]) Physical Therapy Current Condition Current Condition Evaluation Date 02/24/19 Treatment Diagnosis sepsis, UTI, difficulty in walking Onset Date 02/23/19 Weight Bearing Status Weight Bearing Status Full Weight Bearing M3 PT-IP Subjective Start: 02/24/19 15:17 Freq: NEEDED Status: Active Protocol: Document 02/24/19 16:43 AW (Rec: 02/24/19 17:10 AW [id number]) Subjective Physical Therapy Visit Type Type Initial Evaluation Visit Start Time 15:54 Visit Stop Time 16:23 Total Visit Minutes 29 Number of APARTMENT MAINTENANCE WORKER Visits 0 Physical Therapy Visit Comments Patient Comments Pt resting comfortably in bed, but willing to participate with PT Therapy Pain Assessment Pain When Pain Assessed During Mobility FLACC Pain Scale Face Occasional grimace/frown Legs Normal position; relaxed Activity Squirming,shifting Cry Moans/whimpers/complains Consolability Reassurable with touch FLACC Total 4 M4 PT-IP Mobility and Gait Start: 02/24/19 15:17 Freq: NEEDED Status: Active Protocol: Document 02/24/19 16:43 AW (Rec: 02/24/19 17:10 AW [id number]) PT-Bed Mobility Assessment Supine to Sit Supine to Sit Minimal Assistance Scooting Scooting to Edge of Bed Minimal Assistance PT-Transfer Assessment Sit to and From Stand Sit to and from Stand Minimal Assistance Equipment Transfer Assistive Device Gait Belt,Front Wheeled Walker Transfers Transfer Destination Chair Transfer Technique pt ambulated with FWW Transfer Ability Level of Assist Minimal Assistance Comments Mobility Comments Pt required min assist for all mobility. From supine, she needed help to move her legs out of bed and hand hold assist to pull up to sitting. Once she had her feet on the ground, she was able to stand to a FWW min assist. Transfer to a chair required min assist and verbal/tactile cues for hand placement. She demonstrated poor eccentric control on descent. Gait Assessment Gait Gait Assistance Required: Minimum Assistance Distance (Feet) 15 Able to Maintain Weight Bearing Status Yes During Gait Assistive Devices Assistive Device Gait Belt,Front Wheeled Walker Orthotic/Prosthetic Devices or Brace: No Gait Deviations General Gait Pattern Decreased Stride Length, Decreased Feet Clearance, Flexed Trunk,Narrow Based Gait Factors Limiting Gait Function Factors Limiting Gait Function Decreased Activity Tolerance, Decreased Strength,Difficulty Following Directions,Pain,Poor Balance,Poor Safety Awareness Comments Gait Comments Pt ambulated 15 feet in room using FWW CGA. She held her LUE at her side due to hemiparesis and therefore required min assist to direct the walker. Nursing noted that she had earlier been able to place her left hand on the walker with assistance. PT-Balance Assessment Sitting Balance and Reactions Static Sitting Balance Ability Good Dynamic Sitting Balance Ability Fair Standing Balance and Reactions Static Standing Balance Ability Fair Dynamic Standing Balance Ability Fair Device Used fww M5 PT-IP Objective Assessments Start: 02/24/19 15:17 Freq: NEEDED Status: Active Protocol: Document 02/24/19 16:43 AW (Rec: 02/24/19 17:10 AW [id number]) Orientation Orientation/Cognition Level of Alertness Confusional State Orientation Name Language Function Ability Word Finding Difficulties Safety Awareness Decreased Safety Awareness Memory Description Short Term Impaired,Long-Term Impaired Comments Pt required extra time for communication and struggled to find words. She is aware of and frustrated by her word- finding difficulty. Though she was confused and oriented only to self, she did state that her son had taken her outside earlier in the day to get some fresh air. Nursing verified that this was correct . Gross Range of Motion Upper Extremity ROM Assessment Left Impaired Impairments Pt winced with attempts at left shoulder and elbow flexion. AROM <60 degrees Lower Extremity ROM Assessment Within Functional Limits Strength Upper Extremity Strength Assessment Bilaterally Impaired Lower Extremity Strength Assessment Bilaterally Impaired Comments Strength Comments LUE 3-/5 RUE 4-/5 BLE 4-/5 Coordination Assessment Assessment Coordination Comments unable to assess Sensation Assessment Comments Sensation Comments unable to assess M6 PT-IP Treatment Start: 02/24/19 15:17 Freq: NEEDED Status: Active Protocol: Document 02/24/19 16:43 AW (Rec: 02/24/19 17:10 AW [id number]) Physical Therapy Treatment Education Education Provided Safety Other Treatments Other Treatment Performed Pt educated to use call light for all mobility M7 PT-IP Assessment and Plan Start: 02/24/19 15:17 Freq: NEEDED Status: Active Protocol: Document 02/24/19 16:43 AW (Rec: 02/24/19 17:10 AW [id number]) PT Summary Assessment and Plan Potential Rehabilitation Potential Fair Status of Condition at Evaluation Evolving Summary Impairments Pain,ROM,Strength,Balance, Cognition,Bed Mobility, Transfers,Gait,Activity Tolerance Assessment Summary Pt is a 78 yo woman admitted with sepsis secondary to UTI. She has a recent history of subdural hematoma s/p craniotomy, MS, dementia, and frequent falls. PLOF: Per nursing, her son notes that her mentation is improving but still not at her baseline. Pt states she was able to walk facility distances at [facility] using 4WW. CLOF: Pt required min assist for all mobility which appears to represent debility compared with her baseline. She presents with decreased strength and activity tolerance, impaired transfer, gait, and balance. She will likely require SNF rehab prior to anticipated return to [facility]. Goals Bed Mobility Goal Standby Assistance Transfer Goal Standby Assistance Gait Goal Standby Assistance,Front Wheel Walker Gait Distance 75 feet Days to Meet Goals 10 Frequency of Treatment Frequency Of Treatment Once a Day Treatment Plan Physical Therapy Treatment Plan Bed Mobility Training,Transfer Training,Gait Training, Therapeutic Exercise,Balance Retraining,Discharge Planning, Hot or Cold Pack,Neuromuscular Re-ed,Coordination Retraining ,Manual Therapy Other Recommendations and Next Treatment progress gait distance with Focus FWW Recommendations To Nursing Amount of Assist Needed 1 Person Assist,2 Person Assist Discharge Recommendations PT Discharge Recommendations SNF Rehab Equipment Needed for Home Before defer to SNF rehab Discharge
--- NOTE | 2019-02-24 18:56 | PC.NURSE ---
1845 - Pt oriented to self. Reoriented to place and situation. Assist from chair to BSC and then into bed. Pt guarding LUE. Reports chronic discomfort. Positioned for comfort. Reinforced safety and call light use. Call light in reach. Bed alarm on.
[2019-02-25 00:09] VITALS: BP 99/46; PULSE 64; RESP 12; TEMP 37.3; O2SAT 96
[2019-02-25] MEDS: TRAMADOL 50 MG TABLET PO (03:30)
[2019-02-25] MEDS: PIPERACILLIN-TAZO 4.5 GM/100 ML FROZ.PIGGY IV ×2 (04:00→10:24)
[2019-02-25 04:52] VITALS: BP 107/52; PULSE 59; RESP 12; TEMP 37
[2019-02-25 05:02] LABS: Basophils Absolute Auto 0 /uL (0-100); Eosinophils Absolute Auto 0 /uL (0-450); Eosinophils Percent Auto 1.2 % (2-4); Lymphocytes Absolute Auto 400 /uL (1100-4500); Mean Corpuscular HGB Conc 33.2 % (30-36); Monocytes Absolute Auto 300 /uL (0-900); Neutrophils Absolute Auto 1300 /uL (1500-7000)
[2019-02-25 05:06] LABS: Blood Urea Nitrogen 8 mg/dL (7-17); Calcium 8.4 mg/dL (8.4-10.2); Carbon Dioxide 29 mmol/L (22-32); Chloride 105 mmol/L (98-107); Estimated Glomerular Filt Rate > 60.0 mL/min (>60); Glucose 108 mg/dL (80-110); HEMOLYSIS < 15 (0-50); Magnesium 1.8 mg/dL (1.6-2.3); Potassium 3.6 mmol/L (3.4-5.1); Sodium 139 mmol/L (137-145)
[2019-02-25 05:11] LABS: Add Manual Diff / Slide Review NO; Basophils Percent Auto 0.4 % (0-2); Hematocrit 32.4 % (36-46); Hemoglobin 10.8 g/dL (12.0-16.0); Lymphocytes Percent Auto 20.6 % (25-40); Mean Corpuscular Hemoglobin 29.5 PG (26-34); Mean Corpuscular Volume 88.6 fL (80-100); Monocytes Percent Auto 14.8 % (3-14); Red Blood Cell Count 3.65 X10^6/uL (4.0-5.2); Red Cell Distribution Width 17.6 % (11.6-14.8); White Blood Cell Count 2.1 X10^3/uL (4.5-11.0)
[2019-02-25 05:16] LABS: Platelet Count 30 X10^3/uL (150-400)
[2019-02-25 05:34] LABS: Procalcitonin 2.12 ng/mL (<0.5)
[2019-02-25 05:54] LABS: Anisocytosis 1+; Platelet Estimate Decreased on smear
[2019-02-25] MEDS: PANTOPRAZOLE 20 MG TABLET PO (06:46)
[2019-02-25] MEDS: LEVOTHYROXINE 50 MCG TABLET PO (06:46)
[2019-02-25 07:40] VITALS: BP 143/76; PULSE 58; RESP 24; TEMP 36.9; O2SAT 96
[2019-02-25] MEDS: SERTRALINE 25 MG TABLET 75 MG PO (08:44)
[2019-02-25] MEDS: LIDOCAINE PATCH 1 EACH ADH..PATCH TOP (08:56)
--- NOTE | 2019-02-25 09:19 | CM.DPC ---
DCP continued: CM spoke with Dr. Waters who is considering dc patient today pending PT/OT evaluations and believes patient may need SNF for Rehab prior to going back to [facility]. Called and spoke to Loulou at [facility] [phone] and they are reviewing patient for acceptance. CM will discuss possible SNF with patient and Family today 02/25/2019 to verify patient is okay with d/c plan. Kalyani Sawyer RN
--- NOTE | 2019-02-25 10:04 | PT.IPTN ---
Current Diagnoses Sepsis, unspecified organism (02/23/19) Physical Therapy Treatment Note M2 PT-IP Current Condition Start: 02/24/19 15:17 Freq: NEEDED Status: Active Protocol: Document 02/24/19 16:43 AW (Rec: 02/24/19 17:10 AW [id number]) Physical Therapy Current Condition Current Condition Evaluation Date 02/24/19 Treatment Diagnosis sepsis, UTI, difficulty in walking Onset Date 02/23/19 Weight Bearing Status Weight Bearing Status Full Weight Bearing M3 PT-IP Subjective Start: 02/24/19 15:17 Freq: NEEDED Status: Active Protocol: Document 02/25/19 09:38 CLB (Rec: 02/25/19 12:37 CLB [id number]) Subjective Physical Therapy Visit Type Type Treatment Note Visit Start Time 09:38 Visit Stop Time 10:04 Total Visit Minutes 26 Number of DIRECTOR OF BANDS Visits 1 Physical Therapy Visit Comments Patient Comments Pt willing to participate with therapy. M4 PT-IP Mobility and Gait Start: 02/24/19 15:17 Freq: NEEDED Status: Active Protocol: Document 02/25/19 09:38 CLB (Rec: 02/25/19 12:37 CLB [id number]) PT-Transfer Assessment Sit to and From Stand Sit to and from Stand Minimal Assistance Equipment Transfer Assistive Device Gait Belt,Large Based Quad Cane Transfers Transfer Destination Chair Transfer Technique ambulate Transfer Ability Level of Assist Minimal Assistance Comments Mobility Comments Pt required Max A for scooting to edge of chair due to left shoulder pain. Pt required Min A sit-stand. Gait Assessment Gait Gait Assistance Required: Minimum Assistance,1 Person Assist Distance (Feet) 15 Able to Maintain Weight Bearing Status Yes During Gait Assistive Devices Assistive Device Gait Belt,Large Based Quad Cane Orthotic/Prosthetic Devices or Brace: No Gait Deviations General Gait Pattern Decreased Stride Length, Decreased Feet Clearance, Flexed Trunk,Narrow Based Gait Factors Limiting Gait Function Factors Limiting Gait Function Decreased Activity Tolerance, Decreased Strength,Difficulty Following Directions,Pain,Poor Balance,Poor Safety Awareness Comments Gait Comments Pt trialed quad cane as pt has increased pain when putting hand on walker. Pt was able to use quad cane in right hand with cues for sequencing but once she caught on she was Min A with cues for turns. M5 PT-IP Objective Assessments Start: 02/24/19 15:17 Freq: NEEDED Status: Active Protocol: Document 02/24/19 16:43 AW (Rec: 02/24/19 17:10 AW [id number]) Orientation Orientation/Cognition Level of Alertness Confusional State Orientation Name Language Function Ability Word Finding Difficulties Safety Awareness Decreased Safety Awareness Memory Description Short Term Impaired,Residential Impaired Comments Pt required extra time for communication and struggled to find words. She is aware of and frustrated by her word- finding difficulty. Though she was confused and oriented only to self, she did state that her son had taken her outside earlier in the day to get some fresh air. Nursing verified that this was correct . Gross Range of Motion Upper Extremity ROM Assessment Left Impaired Impairments Pt winced with attempts at left shoulder and elbow flexion. AROM <60 degrees Lower Extremity ROM Assessment Within Functional Limits Strength Upper Extremity Strength Assessment Bilaterally Impaired Lower Extremity Strength Assessment Bilaterally Impaired Comments Strength Comments LUE 3-/5 RUE 4-/5 BLE 4-/5 Coordination Assessment Assessment Coordination Comments unable to assess Sensation Assessment Comments Sensation Comments unable to assess M6 PT-IP Treatment Start: 02/24/19 15:17 Freq: NEEDED Status: Active Protocol: Document 02/24/19 16:43 AW (Rec: 02/24/19 17:10 AW [id number]) Physical Therapy Treatment Education Education Provided Safety Other Treatments Other Treatment Performed Pt educated to use call light for all mobility M7 PT-IP Assessment and Plan Start: 02/24/19 15:17 Freq: NEEDED Status: Active Protocol: Document 02/25/19 09:38 CLB (Rec: 02/25/19 12:37 CLB [id number]) PT Summary Assessment and Plan Summary Impairments Pain,ROM,Strength,Balance, Cognition,Bed Mobility, Transfers,Gait,Activity Tolerance Assessment Summary Due to pts left shoulder pain pt trialed quad cane and was able to use quad cane in right hand but will need one person Min assist with use of quad cane. Pt was able to ambulate ~15ft Min A using small narrow steps and requiring cues for turning around for safety. Goals Bed Mobility Goal Standby Assistance Transfer Goal Standby Assistance Gait Goal Standby Assistance,Front Wheel Walker Gait Distance 75 feet Days to Meet Goals 10 Frequency of Treatment Frequency Of Treatment Once a Day Treatment Plan Physical Therapy Treatment Plan Bed Mobility Training,Transfer Training,Gait Training, Therapeutic Exercise,Balance Retraining,Discharge Planning, Hot or Cold Pack,Neuromuscular Re-ed,Coordination Retraining ,Manual Therapy Recommendations To Nursing Amount of Assist Needed 1 Person Assist Discharge Recommendations PT Discharge Recommendations SNF Rehab Equipment Needed for Home Before defer to SNF rehab Discharge
[2019-02-25] MEDS: SODIUM CHLORIDE 0.9% FLUSH 10 ML IV ×2 (10:11→10:18)
--- NOTE | 2019-02-25 10:52 | OT.IP.EVAL ---
Current Diagnoses Sepsis, unspecified organism (02/23/19) Past Medical History (Last Reviewed 02/23/19 @ 11:06 by RUSSEL Salinas) CAP (community acquired pneumonia) (Acute) CHF (congestive heart failure) (Acute) Chronic wrist pain (Chronic) CVA (cerebral vascular accident) (Inactive) Depression (Chronic) Hepatic encephalopathy (Acute) Hypothyroidism (acquired) (Chronic) Multiple sclerosis (Chronic) PIEDRA (nonalcoholic steatohepatitis) (Chronic) Obstructive sleep apnea of adult (Chronic) Pancytopenia (Chronic) Periodic limb movement disorder (PLMD) (Chronic) Status post CVA (Chronic) TIA (transient ischemic attack) (Inactive) Surgical History (Last Reviewed 02/23/19 @ 11:06 by RUSSEL Salinas) Status post appendectomy (Resolved) Status post lumbar surgery (Resolved) Occupational Therapy Inpatient Evaluation/Re-Eval M1 PT/OT-IP Prior Functional Status Start: 02/25/19 09:54 Freq: NEEDED Status: Active Protocol: Document 02/25/19 08:55 [facility] (Rec: 02/25/19 10:16 [facility] [id number]) Medical Review Prior Functional Status Medical History Reviewed Yes Communication Pt with dementia at baseline Mobility and Gait Pt has had frequent falls. She has limited use of her LUE but endorses use of 4WW for facility distances at [facility] ( [facility]). Activities of Daily Living and IADL's Unable to ascertain PLOF Social History Household Members none Living Arrangements Assisted Living Additional Social History Comment Pt resides at [facility] M2 OT-IP Current Condition Start: 02/25/19 09:54 Freq: Status: Active Protocol: Document 02/25/19 08:55 [facility] (Rec: 02/25/19 10:16 [facility] [id number]) Occupational Therapy Current Condition Current Condition Evaluation Date 02/25/19 Treatment Diagnosis Sepsis, UTI Diagnosis Onset Date 02/23/19 Weight Bearing Status Weight Bearing Status Weight Bear as Tolerated M3 OT- IP Subjective and Pain Start: 02/25/19 09:54 Freq: Status: Active Protocol: Document 02/25/19 08:55 [facility] (Rec: 02/25/19 10:16 [facility] [id number]) OT- Subjective Occupational Therapy Visit Type Type Initial Evaluation Visit Start Time 08:55 Visit Stop Time 09:35 Total Visit Minutes 40 Occupational Therapy Visit Comments Patient Comments Pt agreeable to do OT eval . OT Pain Assessment Pain When Pain Assessed At Rest Pain Present Pain Present Denied Pain M4 OT- IP ADL's Start: 02/25/19 09:54 Freq: Status: Active Protocol: Document 02/25/19 08:55 [facility] (Rec: 02/25/19 10:16 [facility] [id number]) OT NLP-Paql-Vhjwszu Comments OT Self-Feeding Comments Pt completed her meal eariler. OT ADL-Grooming General Evaluation Grooming Ability Minimal Assistance Areas Needing Assistance Retrieving/Set-up of Grooming Items Comments OT Grooming Comments Assist for set-up as pt not able to use LUE to assist with needs. OT ADL-Oral Care General Eval Oral Care Ability Independent OT ADL-Dressing General Eval Lower Body Dressing Ability Maximum Assistance Areas Needing Assistance Socks OT ADL-Toileting Comments OT Toileting Comments Pt not having to use the toilet. M5 OT- IP IADL's Start: 02/25/19 09:54 Freq: Status: Active Protocol: Document 02/25/19 08:55 [facility] (Rec: 02/25/19 10:16 [facility] [id number]) OT-Instrumental Activities of Daily Living Medication Management Medication Management Caregiver Administers Money Management Money Management Caregiver Provides Assistance Meal Preparation Meal Preparation Caregiver Provides Assist M6 OT- IP Functional Cognition Start: 02/25/19 09:54 Freq: Status: Active Protocol: Document 02/25/19 08:55 [facility] (Rec: 02/25/19 10:16 [facility] [id number]) Cognitive Factors Limiting Selfcare Function Cognitive Ability Level of Alertness Alert Patient Orientation Name Attention Span Ability Capable of Focused Attention, Capable of Sustained Attention Ability to Follow Commands Able to Follow One Step Commands Memory Description Short Term Impaired,Working Impaired Safety Awareness Underestimates Need for Assistance Problem Solving Ability Unable to Identify Errors, Needs Assist to Identify Solutions Executive Function Ability Unable to Filter Distractions, Unable to Make Plans,Unable to Organize Plans,Unable to Remember Details Cognitive Tests SLUMS Pt scored 7/30 which normal score for pt per eduation ia at least 27/30. Pt score implies dementia. Throughout the task, pt would was, I just do not know. I have no idea. I can't remember, I have had my head broken. Cognitive Comments Cognitive Assessment Comments Pt having difficulty to remember directions of the assessment. Pt only able to get recall states we are in, are to place x on the triangle, point to the largest states and answer 2/4 questions after paragraph read to the pt. M7 OT- IP Mobility and Balance Start: 02/25/19 09:54 Freq: Status: Active Protocol: Document 02/25/19 08:55 [facility] (Rec: 02/25/19 10:16 [facility] [id number]) OT-Transfer Assessment Sit to and From Stand Sit to and from Stand Minimal Assistance Transfers Transfer Ability Moderate Assistance Technique Transfer Destination Chair Transfer Technique Stand Step Pivot Devices Transfer Assistive Devices Gait Belt Comments Mobility Comments Pt needing GAGE to come to stand from the recliner and MOD to help with balance and weight shifting to take side steps to the sink for grooming needs. OT- Balance Assessment Sitting Balance and Reactions Static Sitting Balance Ability Fair Standing Balance and Reactions Static Standing Balance Ability Poor Dynamic Standing Balance Ability Poor M8 OT- IP Objective Assessments Start: 02/25/19 09:54 Freq: Status: Active Protocol: Document 02/25/19 08:55 [facility] (Rec: 02/25/19 10:16 [facility] [id number]) OT Gross Range of Motion Upper Extremity Range of Motion Assessment Left Impaired OT Strength Upper Extremity Strength Assessment Left Impaired Comments Strength Comments Pt left shoulder mild internally rotate with elbow slight bent with wrist and fingers flexed. Pt left arm painful to touch at this time. Spoke to Dr Waters and to have LUE sling on per comfort per pt. Pt states pain level better after sling on, but also states not sure if sling helps or not. Per pt's son who was in the room states pt fell 2 week also and had her arm wedged between the wall and bed and note decreased use since then, as prior able to use LUE to hold to 4WW. OT-Muscle Tone Assessment Comments Muscle Tone Comments Decreased tone in left shoulder distally. M9 OT- IP Assessment and Plan Start: 02/25/19 09:54 Freq: Status: Active Protocol: Document 02/25/19 08:55 [facility] (Rec: 02/25/19 10:16 [facility] [id number]) OT Summary Assessment and Plan Potential Rehabilitation Potential Good Analytic Complexity at Evaluation Low Summary OT Impairments Pain,Balance,Coordination,Tone ,Functional Cognition, Functional Mobility,Grooming, Dressing,Toileting,Bathing, Toilet Transfers,Shower Transfers Progress Towards Goals Slow Progress due to Pain,Slow Progress due to Activity Tolerance,Slow Progress due to Cognition Assessment Summary Pt low complexity and now having increased pain and decreased functional movement with LUE and not able to use LUE to desktop support engineer FWW. Pt needing more assist for all ADl and functional mobility needs and would benefit from skilled rehab prior to going home. Goals Self-Feeding Goal Standby Assistance Grooming Goal Standby Assistance Dressing Goal Moderate Assistance Toileting Goal Minimal Assistance Bathing Goal Moderate Assistance Toilet Transfer Goal Contact Guard Assistance Shower Transfer Goal Minimal Assistance Days to Meet Goals 7 Frequency of Treatment Frequency Of Treatment Once a Day Treatment Plan OT Treatment Plan ADL Training,Functional Cognition Training,Functional Mobility,Patient/Family Education,Discharge Planning Discharge Recommendations OT Discharge Recommendations SNF Rehab
--- NOTE | 2019-02-25 11:39 | PM.DS.1 ---
History of Present Illness History of Present Illness Date Patient Seen: 02/23/19 Chief complaint: Shaking with a fever Narrative: Written by Moncho GOODE: The patient is 78-year-old female with PMH of subdural hemorrhage, PIEDRA, chronic pancytopenia, SUSANNE, limb movement disorder, chronic wrist pain. Patient presents to the ED via EMS after being found by care staff at her residence facility ([facility]) in a state of regard. At that time she was noted to be afebrile. Patient herself has no recollection of the events. She reports a two-day history of diarrhea. Also reports intermittent GI distress. Does not endorse abdominal. Reports urinary incontinence. Denies recent illness, chest pain, palpitations, dizziness, lightheadedness, and syncopal events. Reports pain in the left shoulder. Denies palpitations, chest pain, and shortness of breath. Patient has some underlying degree of cognitive impairment. According to the ED physician, after communication with the patient's son, the patient has not exhibited overt mental status changes from her baseline. ED presentation & work-up On arrival to ED patient slow to respond. GCS 14, per ED documentation VS, 02/23 @ 0126 T 101.2 BP 122/62 HR 108 RR 19 SpO2 93% on room air. Another Temp of 104 documented at 0132. Labs, 02/23 @ 0137 WBC 4.0 RBC 4.19 HGB 12.3 PLT 39 PT 15.1 INR 1.3 aPTT 33 Lactate 1.1 Na 141 K 3.8 Cl 101 Ca 9.7 CO2 29 BUN 15 Cr 0.6 BUN:Cr 25 Glu 95 T.BILI 1.7 AST 40 ALT 17 Alk Phos 117 Lipase 68 Ammonia 12 UA. + protein, + occult blood, + LE, + RBC (10-30), + WBC (10-30), bacteria (many) Discharge Providers Provider Date of admission: 02/23/19 04:39 Discharge Date: 02/25/19 Primary care physician: Sonam Khalil MD Consults: 02/24/19 09:53 Consult to Occupational Therapy Evaluate & Treat Comment: Recent subdural hemorrhage and SLUMS Physician Instructions: Evaluate and treat Consult to Physical Therapy Evaluate & Treat Comment: Physician Instructions: Evaluate and Treat 02/25/19 10:45 Consult to Occupational Therapy Evaluate & Treat Comment: LUE sling on per comfort as needed. Physician Instructions: Evaluate and treat Discharge provider: Christiana Waters DO Summary Hospital Course Discharge Diagnosis: 1. Acute septic shock, present on admission. Resolved. 2. Acute urinary tract infection, present on admission. Resolving. 3. Non-Alcoholic Liver Disease with pancytopenia, present on admission. Presumed stable. 4. 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 Stable. 5. GERD, chronic, present on admission. Stable. 6. Depression, chronic, present on admission. 7. Hypothyroidism, chronic, present on admission. Stable. 8. Recent left AC impaction fracture, present on admission. Stable. 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 1. Acute septic shock, present on admission. Resolved. -Febrile, tachypnea, tachycardia, encephalopathic with organ dysfunction of hypotension fluid responsive but requiring vasopressor at minimal amount due to cirrohsis and third spacing with source UTI. -Early goal-directed therapy med including: IV fluid resuscitation and broad-spectrum antibiotics. 2. Acute urinary tract infection, present on admission. Resolving. -Urine culture grew E coli resistant to fluoroquinolones. -Initial WBC 4.0 (usually leukopenic). Initial procalcitonin 0.05 and peaked today at 3.61. Continue to trend WBC and procalcitonin daily. -Received ceftriaxone 1 g x 1 in the ED. Continued Zosyn 4.5 g every 6 hours to cover Pseudomonas and Citrobacter that she has had in the past. Discharged on cefdinir 300 mg twice daily for 5 additional days to complete total 7 day course of antibiotics. 3. Non-Alcoholic Liver Disease with pancytopenia, present on admission. Presumed stable. -The patient was previously followed by a marketing designer in [place], Dr. Simpson, who recommended monthly iron infusions and has worked up her pancytopenia in the past which is due to PIEDRA. -SPEP performed previously demonstrated hypoalbuminemia otherwise negative for malignancy. -Recommend patient be evaluated by Gastroenterology or hepatology for treatment of PIEDRA and surveillance of varices and HCC. -Continued to monitor CBC daily. Goal transfusion hemoglobin < 8.0 and platelets < 20. Of note, patient recently had a subdural hemorrhage after GLF and is high risk of bleeding (even with minimal trauma/injury) due to severe thrombocytopenia. 4. Advanced dementia without behavioral disturbance secondary to MS and recent subdural hemorrhage status post craniotomy, chronic, present on admission. Stable. -No longer on medical therapy for MS. -Continued physical and occupational therapy evaluation treatment. Occupational therapy performed SLUMS to establish baseline cognitive function which the patient scored a +7/10 consistent with advanced dementia. 5. GERD, chronic, present on admission. Stable. -Continued home Protonix 20 mg daily. 6. Depression, chronic, present on admission. -Continued home sertraline 75 mg daily. 7. Hypothyroidism, chronic, present on admission. Stable. -Continued home levothyroxine 50 mcg daily. 8. Recent left AC impaction fracture, present on admission. Stable. -Continued lidocaine patch daily. Restarted hydrocodone 5-325 mg every 6 hours as needed for moderate pain once blood pressure amenable. -Ordered and continue tramadol 50 mg 3 times daily as needed for muscle spasm as patient has significant left-sided trapezius and rhomboid muscle tension. -Discussed fracture with orthopedic surgery, Dr. Oconnor, who recommended continued rehabilitation and range of motion exercises with sling on left arm as needed for comfort. Exam Vital Signs (past 8 hours): - 02/25/19 04:52 02/25/19 07:40 Temperature 98.6 F 98.4 F Pulse Rate 59 L 58 L Respiratory Rate 12 24 Blood Pressure 107/52 L 143/76 H Pulse Oximetry 96 Oxygen Delivery Method Room Air Oxygen Flow Rate 0 Narrative Exam Narrative: General: Elderly female sitting in bedside chair and in no acute distress, appears chronically ill, advanced dementia with short and long-term memory recall deficits otherwise appropriately interactive. HEENT: Normocephalic, atraumatic. External ears without defect. Pupils equal, round, and reactive to light. Anicteric sclerae, moist conjunctivae, and no lid lag. Neck: Supple with full range of motion. No jugular venous distension. No lymphadenopathy or thyromegaly. Cardiovascular: Regular rate and rhythm without murmurs, rubs, or gallops appreciated. Pulmonary: Clear to auscultation bilaterally without crackles, wheezes, or rhonchi. Normal respiratory effort with no use of accessory muscles. Abdomen: Soft, bowel sounds present, nontender, nondistended. No hepatosplenomegaly or masses appreciated. Extremities: No clubbing, cyanosis, or edema. Skin: Normal temperature, turgor, and texture; no rash, ulcers, or subcutaneous nodules appreciated. Neurological: Cranial nerves grossly intact. Psychiatric: Normal mood and flat affect. Alert and oriented to person only. Advanced dementia with short and long-term memory recall deficits. Objective Labs Result Diagrams: 02/25/19 04:43 02/25/19 04:43 Labs: Laboratory Results - last 24 hr 02/25/19 02/25/19 02/25/19 04:43 04:43 04:43 WBC 2.1 L RBC 3.65 L Hgb 10.8 L Hct 32.4 L MCV 88.6 MCH 29.5 MCHC 33.2 RDW 17.6 H Plt Count 30 L* Neut % (Auto) 63.0 Lymph % (Auto) 20.6 L [place] % (Auto) 14.8 H Eos % (Auto) 1.2 L Baso % (Auto) 0.4 Neut # (Auto) 1300 L Lymph # (Auto) 400 L [place] # (Auto) 300 Eos # (Auto) 0 Baso # (Auto) 0 Platelet Estimate Decreased on smear RBC Morphology See below Anisocytosis 1+ H Sodium 139 Potassium 3.6 Chloride 105 Carbon Dioxide 29 BUN 8 Creatinine 0.50 L Estimated GFR > 60.0 BUN/Creatinine Ratio 16.0 Glucose 108 Calcium 8.4 Magnesium 1.8 Procalcitonin 2.12 H Discharge Plan Discharge Plan Patient Disposition: SNF Transfer to: [facility] Discharge Med Rec/Prescriptions Prescriptions: New tramadol 50 mg Tablet 50 mg PO TID PRN (Reason: Muscle Spasm) Qty: 30 RF: 0 cefdinir 300 mg capsule 300 mg PO BID Qty: 10 RF: 0 hydrocodone-acetaminophen 5-325 mg Tablet 1 tab PO Q6H PRN (Reason: Pain (Scale Score 4-6)) Qty: 20 RF: 0 Continued lidocaine 5 % Adhesive Patch,Medicated 1 patch TOPICAL DAILY RF: 0 ferrous gluconate 324 mg (37.5 mg iron) Tablet 324 mg PO DAILY RF: 0 melatonin 3 mg Capsule 6 mg PO BEDTIME PRN (Reason: Sleep) RF: 0 polyethylene glycol 3350 17 gram/dose Powder 17 g PO BID PRN (Reason: Constipation) RF: 0 acetaminophen 325 mg Tablet 650 mg PO Q6H MDD 36 PRN (Reason: pain) RF: 0 levothyroxine 50 mcg Tablet 50 mcg PO DAILY RF: 0 ascorbic acid (vitamin C) 500 mg Tablet,Chewable 500 mg PO DAILY RF: 0 gabapentin 300 mg Capsule 300 mg PO QPM RF: 0 omeprazole 20 mg Capsule,Delayed Release(Dr/Ec) 20 mg PO DAILY RF: 0 nystatin 100,000 unit/gram powder 1 applic Topical TID PRN (Reason: yeast) RF: 0 sertraline 50 mg tablet 75 mg PO DAILY RF: 0 Follow up/Referrals: Sonam Khalil MD [Primary Care Provider] - Discharge Health Status Brief summary of current health status: Nikkie Che is a 78-year-old female with a past medical history significant for recent 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 Patient needs continued rehabilitation for generalized weakness and left non operable shoulder fracture. Provider Discharge Instructions Diet: Low-fat, Low-sodium and Low-cholesterol Activity: Activity as tolerated with FWW and PT/OT. Left arm sling for comfort. Continue to perform range of motion on left arm/shoulder. If fails rehabilitation of left arm/shoulder from AC fracture will need to follow up with Orthopedic surgery outpatient. [facility] Rehab type: Physical therapy and Occupational therapy Discharge Data Primary Care Provider: Sonam Khalil Quality VTE Deep Vein Thrombosis/Pulmonary Embolism Present on Admission: Yes
--- NOTE | 2019-02-25 13:03 | PC.NURSE ---
PT DENIES PAIN BUT DOES WINCE WITH PAIN WHEN SHE USES LUE. CMS INTACT AND LIDOCAIN PATCH PLACED TO LEFT SHOULDER- COMPLETELY CONTINENT AND MOVED BOWELS - TAKING SMALL AMOUNT OF LUNCH PROVIDED AND TOLERATES THIN LIQUIDS-PLANNING FOR D/C TO [facility]-
[2019-02-25 14:00] VITALS: BP 122/69; PULSE 71; RESP 24; TEMP 37.2; O2SAT 94
--- NOTE | 2019-02-25 14:23 | PC.NURSE ---
Report called to [facility] nurse Kalie. Pt to go to [facility] at 1430 today. Pt and family aware of plan.
--- NOTE | 2019-02-25 14:40 | CM.DPC ---
DCP Cont: Faxed [facility], signed meds and discharge summary to [facility], Attn: October at fax # [phone]. Fax confirmation scanned in. Bisi Lynn, [facility]
--- NOTE | 2019-02-25 15:08 | CM.DPC ---
DCP Continues: CM/RN met with patient and patients son at bedside to discuses discharge plan. Spoke with Loulou at [facility] [phone], [facility] will accept patient. Patient agreed that going to [facility] was where she wanted to go. Dr. Waters placed d/c orders. PASRR completed. BART/RN asked Bisi to send clinical and set up warp picker time for patient to d/c today 02/25/2019. Kalyani Sawyer RN
--- NOTE | 2019-02-25 15:19 | PC.NURSE ---
2pa to w/c. [facility] transporter here to pick pt up for d/c. All belongings gathered and sent with pt. Report called as previously charted. Pt left at 1450, awake/alert and in no acute distress.
== END 2019-02-25 14:50 | DRG 871 ==
LOC: ED 03:55 → AC 04:46 → ICU 05:09
PROVIDERS: Internal Medicine; Admitting Provider Nurse Practitioner Gerontology; Emergency Provider Emergency Medicine; Family Provider Internal Medicine; PCP Internal Medicine; Visit Provider Nurse Practitioner Gerontology
DX: A41.9 Sepsis, unspecified organism (principal); R65.21 Severe sepsis with septic shock; N39.0 Urinary tract infection, site not specified; D61.818 Other pancytopenia; G93.40 Encephalopathy, unspecified; Z16.23 Resistance to quinolones and fluoroquinolones; F02.80 Dementia in other diseases classified elsewhere, unspecified severity, without behavioral disturbance, psychotic disturbance, mood disturbance, and anxiety; K75.81 Nonalcoholic steatohepatitis (NASH); G47.33 Obstructive sleep apnea (adult) (pediatric); G35 Multiple sclerosis; K21.9 Gastro-esophageal reflux disease without esophagitis; F32.9 Major depressive disorder, single episode, unspecified; E03.9 Hypothyroidism, unspecified; B96.20 Unspecified Escherichia coli [E. coli] as the cause of diseases classified elsewhere
CPT/HCPCS: 36415; 70450; 71045; 74177; 80048; 80053; 81001; 82140; 82550; 82962; 83605; 83690; 83735; 84145; 84484; 85025; 85610; 85730; 86140; 87040; 87077; 87086; 87186; 87633; 87797; 93005; 94762; 96361; 96365; 97116; 97162; 97165; 97530; 99285; J2543; Q9967

== ENCOUNTER 2019-03-01 12:05 | Emergency (ER) | payer MEDICARE, MEDICAID, SELFPAY ==
[2019-02-23 05:42] VITALS: BMI 26.4
[2019-03-01 12:10] VITALS: BP 127/79; PULSE 67; RESP 14; TEMP 36.6; O2SAT 97; BMI 25.4
--- NOTE | 2019-03-01 12:40 | DI.RAD.S_ITS ---
PROCEDURE: XR SHOULDER LT MIN 2V INDICATIONS: pain TECHNIQUE: 2 views of the shoulder were acquired. COMPARISON: [facility], CR, XR SHOULDER LT MIN 2V, 12/31/2018, 10:50. FINDINGS: Bones: No fractures or dislocations. No suspicious bony lesions. Visualized ribs appear intact. Soft tissues: Calcifications over the humeral head suggesting rotator cuff calcific tendinitis. IMPRESSION: No definitive fracture. Suspect rotator cuff calcification tendinitis. If clinically indicated, MRI is suggested for further evaluation. Dictated by: Tejinder Bennett M.D. on 03/01/2019 at 13:57 Approved by: Tejinder Bennett M.D. on 03/01/2019 at 14:01
--- NOTE | 2019-03-01 12:40 | DI.RAD.S_ITS ---
PROCEDURE: XR ELBOW LT 2V INDICATIONS: pain TECHNIQUE: lateral view of the elbow were acquired. COMPARISON: [facility], CR, XR SHOULDER LT MIN 2V, 03/01/2019, 12:42. FINDINGS: Bones: No fractures or dislocations. No suspicious bony lesions. Soft tissues: No elbow joint effusion. No suspicious soft tissue calcifications. IMPRESSION: Lateral view of the elbow demonstrates no definitive fracture. If clinical symptoms persist or clinical suspicion for pathology is high, a repeat examination in 7-10 days, or advanced imaging such as CT or MRI is suggested for further evaluation. Dictated by: Tejinder Bennett M.D. on 03/01/2019 at 13:56 Approved by: Tejinder Bennett M.D. on 03/01/2019 at 13:57
--- NOTE | 2019-03-01 13:30 | ED.EXTPRO ---
HPI - Extremity Problem <Isabell MotaDOREEN roy-BC - Last Filed: 03/01/19 17:47> General Chief complaint: Extremity Problem,Nontraumatic Stated complaint: Shoulder Injury Time Seen by Provider: 03/01/19 12:15 Source: patient and EMS Mode of arrival: EMS Limitations: no limitations History of Present Illness HPI Narrative: The patient is a 78-year-old female nonsmoker with history of brain bleed, recent UTI with subsequent sepsis and limb movement disorder who presents with a chief complaint of left shoulder and arm pain. Per [facility], the patient has been treated for a humeral fracture on that side this summer. They state that this pain is different. They states that the patient will not allow them to evaluate her arm. They deny any falls or trauma. Nurse practitioner as concerned about nursemaid's elbow. Patient has not been given anything for pain. Patient declines pain medications upon arrival to the emergency department. Related Data Home Medications Medication Instructions Recorded Confirmed acetaminophen 650 mg PO Q6H PRN MDD 36 06/01/18 03/01/19 ascorbic acid (vitamin C) 500 mg PO DAILY 06/01/18 03/01/19 gabapentin 300 mg PO QPM 06/01/18 03/01/19 levothyroxine 50 mcg PO DAILY 06/01/18 03/01/19 nystatin 1 applic TOPICAL TID PRN 06/01/18 03/01/19 omeprazole 20 mg PO DAILY 06/01/18 03/01/19 sertraline 75 mg PO DAILY 06/01/18 03/01/19 ferrous gluconate 324 mg PO DAILY 02/23/19 03/01/19 lidocaine 1 patch TOPICAL DAILY 02/23/19 03/01/19 melatonin 6 mg PO BEDTIME PRN 02/23/19 03/01/19 polyethylene glycol 3350 17 g PO BID PRN 02/23/19 03/01/19 Lactobacillus acidophilus 1 cap PO DAILY 03/01/19 03/01/19 [Acidophilus] bisacodyl 5 - 10 mg PO PRN PRN 03/01/19 03/01/19 bisacodyl 10 mg WY PRN PRN 03/01/19 03/01/19 magnesium hydroxide [Milk of 30 ml PO PRN PRN 03/01/19 03/01/19 Magnesia] sodium phosphates [Fleet Enema] 118 ml WY PRN PRN 03/01/19 03/01/19 tramadol 50 mg PO Q8H PRN 03/01/19 03/01/19 Previous Rx's Medication Instructions Recorded cefdinir 300 mg PO BID #10 cap 02/25/19 hydrocodone-acetaminophen 1 tab PO Q6H PRN #20 tab 02/25/19 meloxicam [Mobic] 7.5 mg PO DAILY #20 tab 03/01/19 Allergies Allergy/AdvReac Type Severity Reaction Status Date / Time adhesive Allergy Verified 02/23/19 01:26 crab Allergy Verified 02/23/19 01:26 epinephrine Allergy Verified 02/23/19 01:26 latex Allergy Verified 02/23/19 01:26 Quinolones Allergy Verified 02/23/19 01:26 Sulfa (Sulfonamide Allergy Verified 02/23/19 01:26 Antibiotics) Review of Systems <FREDDY Regan - Last Filed: 03/01/19 17:47> Review of Systems ROS Unobtainable: Unobtainable due to medical condition Patient History <FREDDY Regan - Last Filed: 03/01/19 17:47> Medical History Medical History CAP (community acquired pneumonia) (Acute) CHF (congestive heart failure) (Acute) Chronic wrist pain (Chronic) CVA (cerebral vascular accident) (Inactive) Depression (Chronic) Hepatic encephalopathy (Acute) Hypothyroidism (acquired) (Chronic) Multiple sclerosis (Chronic) PIEDRA (nonalcoholic steatohepatitis) (Chronic) Obstructive sleep apnea of adult (Chronic) Pancytopenia (Chronic) Periodic limb movement disorder (PLMD) (Chronic) Status post CVA (Chronic) TIA (transient ischemic attack) (Inactive) Surgical History Surgical History Status post appendectomy (Resolved) Status post lumbar surgery (Resolved) Social History household members: none Smoking Status: Never smoker alcohol intake: never Social History Social History household members: none Smoking Status: Never smoker alcohol intake: never alcohol intake frequency: other Substance Use Type: does not use Exam <DOREEN Regan-MAINOR - Last Filed: 03/01/19 17:47> Narrative Exam Narrative: GENERAL: Pleasantly confused elderly female in no acute distress HEAD: Atraumatic. Normocephalic. No temporal or scalp tenderness. EYES: Pupils equal round and reactive. Extraocular motions intact. No scleral icterus. No injection or drainage. ENT: Nose without bleeding, purulent drainage or septal hematoma. Throat without erythema, tonsillar hypertrophy or exudate. Uvula midline. Airway patent. NECK: Trachea midline. No JVD or lymphadenopathy. Supple, nontender, no meningeal signs. CARDIOVASCULAR: Regular rate and rhythm RESPIRATORY: Clear to auscultation. Breath sounds equal bilaterally. No wheezes, rales, or rhonchi. No cough. No increased respiratory effort. No accessory muscle use. GASTROINTESTINAL: Abdomen soft, non-tender, nondistended. No hepato-splenomegaly, or palpable masses. No guarding. Active bowel sounds all 4 quadrants. EXTREMITIES: General pain to palpation left shoulder, running down center upper arm. 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 Is flexing left elbow. Pain to palpation generalized left elbow. Positive radial pulse left hand. BACK: Nontender without deformity or crepitance. No flank tenderness. NEURO: Alert. Interactive. SKIN: No rash or erythema on visible skin. Initial Vital Signs Initial Vital Signs: Vital Signs Temperature 97.9 F 03/01/19 12:10 Pulse Rate 67 03/01/19 12:10 Respiratory Rate 14 03/01/19 12:10 Blood Pressure 127/79 03/01/19 12:10 Pulse Oximetry 97 03/01/19 12:10 <Gomez Jang DO - Last Filed: 03/01/19 20:46> Initial Vital Signs Initial Vital Signs: Vital Signs Temperature 97.9 F 03/01/19 12:10 Pulse Rate 67 03/01/19 12:10 Respiratory Rate 14 03/01/19 12:10 Blood Pressure 127/79 03/01/19 12:10 Pulse Oximetry 97 03/01/19 12:10 Course <DOREEN Regan-BC - Last Filed: 03/01/19 17:47> Orders Ordered: ED Orders 03/01/19 12:40 XR elbow LT 2V Stat XR shoulder LT min 2V Stat Discontinued Medications Acetaminophen (Tylenol) 650 mg PO NOW ONE Stop: 03/01/19 12:41 Last Admin: 03/01/19 13:35 Dose: Not Given Documented by: SHVAON Vital Signs Vital signs: Vital Signs - 8 hr 03/01/19 14:51 Pulse Rate 67 Respiratory Rate 16 Blood Pressure 130/80 Pulse Oximetry 97 <Gomez Jang DO - Last Filed: 03/01/19 20:46> Orders Ordered: ED Orders 03/01/19 12:40 XR elbow LT 2V Stat XR shoulder LT min 2V Stat Discontinued Medications Acetaminophen (Tylenol) 650 mg PO NOW ONE Stop: 03/01/19 12:41 Last Admin: 03/01/19 13:35 Dose: Not Given Documented by: SHAVON Vital Signs Vital signs: Vital Signs - 8 hr 03/01/19 14:51 Pulse Rate 67 Respiratory Rate 16 Blood Pressure 130/80 Pulse Oximetry 97 MDM - Extremity (Nontraumatic) <FREDDY Regan - Last Filed: 03/01/19 17:47> Imaging Data Shoulder x-ray: Radiologist's impression: [address] [address] XRay Report Signed Patient: Nikkie Che [facility]#: [id number] : 2Acct:[id number] Age/Sex: 78 / FDate of Service: 03/01/19 Loc: ED Accession Number: [id number] Procedure: XR shoulder LT min 2V Ordering Provider: Isabell Thomason PROCEDURE: XR SHOULDER LT MIN 2V INDICATIONS: pain TECHNIQUE: 2 views of the shoulder were acquired. COMPARISON: [facility], CR, XR SHOULDER LT MIN 2V, 12/31/2018, 10:50. FINDINGS: Bones: No fractures or dislocations. No suspicious bony lesions. Visualized ribs appear intact. Soft tissues: Calcifications over the humeral head suggesting rotator cuff calcific tendinitis. IMPRESSION: No definitive fracture. Suspect rotator cuff calcification tendinitis. If clinically indicated, MRI is suggested for further evaluation. Dictated by: Tejinder Bennett M.D. on 03/01/2019 at 13:57 Approved by: Tejinder Bennett M.D. on 03/01/2019 at 14:01 Elbow x-ray: Radiologist's impression: [address] [address] XRay Report Signed Patient: Nikkie Che [facility]#: [id number] : 2Acct:[id number] Age/Sex: 78 / FDate of Service: 03/01/19 Loc: ED Accession Number: [id number] Procedure: XR elbow LT 2V Ordering Provider: Isabell Thomason PROCEDURE: XR ELBOW LT 2V INDICATIONS: pain TECHNIQUE: lateral view of the elbow were acquired. COMPARISON: [facility], CR, XR SHOULDER LT MIN 2V, 03/01/2019, 12:42. FINDINGS: Bones: No fractures or dislocations. No suspicious bony lesions. Soft tissues: No elbow joint effusion. No suspicious soft tissue calcifications. IMPRESSION: Lateral view of the elbow demonstrates no definitive fracture. If clinical symptoms persist or clinical suspicion for pathology is high, a repeat examination in 7-10 days, or advanced imaging such as CT or MRI is suggested for further evaluation. Dictated by: Tejinder Bennett M.D. on 03/01/2019 at 13:56 Approved by: Tejinder Bennett M.D. on 03/01/2019 at 13:57 [facility] Narrative Medical decision making narrative: The patient is a 78-year-old female who presents with a chief complaint of shoulder pain. It is difficult to understand what happened is the patient has a history of dementia, is pleasantly confused. She is accompanied by her son. The patient is neurovascularly intact. X-rays were obtained to rule any fracture. It is noted that she has history of calcific tendinitis of her left rotator cuff, which could definitely be contributing to the pain. I discussed at length a course of anti-inflammatories, possibility with Ortho referral. Discussed negative elbow x-ray. Patient declined any further exam stating that she wanted to go home. Discussed with son course of anti-inflammatories. Given prescription of Mobic per [place] [employer]GR[employer]. Encourage PCP and orthopedic follow-up. Discussed coming back to emergency department for any acute concerns. Patient's son states understanding. Discharge Plan Departure Patient Disposition: Home Clinical Impression: Calcific tendonitis Discharge Date/Time: 03/01/19 14:53 Instructions: Calcific Tendonitis of the Shoulder, DI for Calcific Tendonitis of the Shoulder Activity Restrictions/Additional Instructions: Today we did x-rays of your shoulder and elbow. Your elbow x-ray shows no fracture or dislocation. Your shoulder x-ray is concerning for calcific tendinitis. Please start the prescription of NSAID. Do not take any other NSAIDs and combination. There is room for this 1 to be increased if needed. As discussed, you may benefit from seeing orthopedics as well as your primary care provider. Prescriptions: New meloxicam [Mobic] 7.5 mg tablet 7.5 mg PO DAILY Qty: 20 RF: 0 No Action lidocaine 5 % Adhesive Patch,Medicated 1 patch TOPICAL DAILY RF: 0 ferrous gluconate 324 mg (37.5 mg iron) Tablet 324 mg PO DAILY RF: 0 melatonin 3 mg Capsule 6 mg PO BEDTIME PRN (Reason: Sleep) RF: 0 polyethylene glycol 3350 17 gram/dose Powder 17 g PO BID PRN (Reason: Constipation) RF: 0 cefdinir 300 mg capsule 300 mg PO BID Qty: 10 RF: 0 hydrocodone-acetaminophen 5-325 mg Tablet 1 tab PO Q6H PRN (Reason: Pain (Scale Score 4-6)) Qty: 20 RF: 0 acetaminophen 325 mg Tablet 650 mg PO Q6H MDD 36 PRN (Reason: pain) RF: 0 levothyroxine 50 mcg Tablet 50 mcg PO DAILY RF: 0 ascorbic acid (vitamin C) 500 mg Tablet,Chewable 500 mg PO DAILY RF: 0 gabapentin 300 mg Capsule 300 mg PO QPM RF: 0 omeprazole 20 mg Capsule,Delayed Release(Dr/Ec) 20 mg PO DAILY RF: 0 nystatin 100,000 unit/gram powder 1 applic Topical TID PRN (Reason: yeast) RF: 0 sertraline 50 mg tablet 75 mg PO DAILY RF: 0 magnesium hydroxide [Milk of Magnesia] 400 mg/5 mL Suspension 30 ml PO PRN PRN (Reason: Constipation) RF: 0 bisacodyl 10 mg Suppository 10 mg WY PRN PRN (Reason: Constipation) RF: 0 Fleet Enema 19-7 gram/118 mL Enema 118 ml WY PRN PRN (Reason: Constipation) RF: 0 Lactobacillus acidophilus [Acidophilus] Capsule 1 cap PO DAILY RF: 0 bisacodyl 5 mg Tablet 5 - 10 mg PO PRN PRN (Reason: Constipation) RF: 0 tramadol 50 mg tablet 50 mg PO Q8H PRN (Reason: Muscle Spasm) RF: 0 Referrals: Sonam Khalil MD [Primary Care Provider] -
[2019-03-01 14:51] VITALS: BP 130/80; PULSE 67; RESP 16; O2SAT 97
== END 2019-03-01 14:53 | disposition home or self-care (01) ==
PROVIDERS: Emergency Provider Nurse Practitioner Family; Family Provider Internal Medicine; PCP Internal Medicine
DX: M75.32 Calcific tendinitis of left shoulder (principal)
CPT/HCPCS: 73030; 73070; 99282; 99283

== ENCOUNTER → 2019-03-26 07:45 | Outpatient (ROUT) | payer MEDICARE, MEDICAID, SELFPAY ==
[2019-02-23 05:42] VITALS: BMI 26.4
[2019-03-26 09:09] LABS: BUN Creatinine Ratio 21.7 (6-22); Blood Urea Nitrogen 13 mg/dL (7-17); Calcium 9.1 mg/dL (8.4-10.2); Carbon Dioxide 32 mmol/L (22-32); Chloride 104 mmol/L (98-107); Estimated Glomerular Filt Rate > 60.0 mL/min (>60); Glucose 86 mg/dL (80-110); HEMOLYSIS < 15 (0-50); Potassium 3.9 mmol/L (3.4-5.1); Sodium 142 mmol/L (137-145)
== END ==
PROVIDERS: Family Provider Internal Medicine; PCP Internal Medicine; Visit Provider Internal Medicine
DX: E87.6 Hypokalemia (principal)
CPT/HCPCS: 36415; 80048

== ENCOUNTER → 2019-04-04 10:56 | Outpatient (ROUT) | payer MEDICARE, MEDICAID, SELFPAY ==
[2019-02-23 05:42] VITALS: BMI 26.4
[2019-04-04 11:18] LABS: Appearance Urine UA CLOUDY; Bilirubin Urine UA NEGATIVE (NEGATIVE); Color Urine UA YELLOW; Glucose Urine UA NEGATIVE (Negative); Ketones Urine UA NEGATIVE (NEGATIVE); Leukocyte Esterase Urine UA 3+ (NEGATIVE); Nitrite Urine UA POSITIVE (Negative); Occult Blood Urine UA 3+ (Negative); Protein Urine UA 1+ (Negative); Urobilinogen Urine UA 0.2 E.U./dL (0.2)
[2019-04-04 11:29] LABS: pH Urine UA 6.5 (4.5-8.0)
[2019-04-04 11:30] LABS: Bacteria Urine Many (>30); Culture Indicated Urine Specimen Cultured; RBC Urine 30-100/HPF (0-5/HPF); WBC Urine >100/HPF (0-5/HPF)
== END ==
PROVIDERS: Family Provider Internal Medicine; PCP Internal Medicine; Visit Provider Internal Medicine
DX: R31.9 Hematuria, unspecified (principal)
CPT/HCPCS: 81001; 87077; 87086; 87186

== ENCOUNTER → 2019-04-05 18:49 | Outpatient (ROUT) | payer MEDICARE, MEDICAID, SELFPAY ==
[2019-02-23 05:42] VITALS: BMI 26.4
[2019-04-05 18:58] LABS: Add Manual Diff / Slide Review NO; Basophils Absolute Auto 0 /uL (0-100); Basophils Percent Auto 0.3 % (0-2); Eosinophils Absolute Auto 100 /uL (0-450); Eosinophils Percent Auto 1.5 % (2-4); Hematocrit 36.4 % (36-46); Lymphocytes Absolute Auto 800 /uL (1100-4500); Lymphocytes Percent Auto 21.7 % (25-40); Mean Corpuscular Hemoglobin 29.7 PG (26-34); Mean Corpuscular Volume 89.8 fL (80-100); Monocytes Absolute Auto 400 /uL (0-900); Monocytes Percent Auto 9.7 % (3-14); Neutrophils Absolute Auto 2500 /uL (1500-7000); Neutrophils Percent Auto 66.8 % (50-75); Platelet Count 50 X10^3/uL (150-400); Red Blood Cell Count 4.05 X10^6/uL (4.0-5.2); White Blood Cell Count 3.7 X10^3/uL (4.5-11.0)
== END ==
PROVIDERS: Family Provider Internal Medicine; PCP Internal Medicine; Visit Provider Internal Medicine
DX: R31.9 Hematuria, unspecified (principal)
CPT/HCPCS: 85025

== ENCOUNTER → 2019-07-02 07:51 | Outpatient (ROUT) | payer MEDICARE, MEDICAID, SELFPAY ==
[2019-02-23 05:42] VITALS: BMI 26.4
[2019-07-02 09:55] LABS: Add Manual Diff / Slide Review NO; Basophils Absolute Auto 0 /uL (0-100); Basophils Percent Auto 0.4 % (0-2); Eosinophils Absolute Auto 100 /uL (0-450); Eosinophils Percent Auto 2.5 % (2-4); Hematocrit 35.6 % (36-46); Hemoglobin 11.7 g/dL (12.0-16.0); Lymphocytes Absolute Auto 700 /uL (1100-4500); Lymphocytes Percent Auto 27.8 % (25-40); Mean Corpuscular HGB Conc 32.9 % (30-36); Mean Corpuscular Hemoglobin 30.1 PG (26-34); Mean Corpuscular Volume 91.5 fL (80-100); Monocytes Absolute Auto 300 /uL (0-900); Monocytes Percent Auto 9.9 % (3-14); Neutrophils Absolute Auto 1500 /uL (1500-7000); Neutrophils Percent Auto 59.4 % (50-75); Platelet Count 52 X10^3/uL (150-400); Red Blood Cell Count 3.89 X10^6/uL (4.0-5.2); Red Cell Distribution Width 16.4 % (11.6-14.8); White Blood Cell Count 2.6 X10^3/uL (4.5-11.0)
[2019-07-02 10:06] LABS: INR 1.4 (0.9-1.3); Prothrombin Time 15.6 SECONDS (10.1-12.7)
[2019-07-02 10:20] LABS: Alanine Aminotransferase 19 IU/L (<35); Albumin 3.7 g/dL (3.5-5.0); Albumin Globulin Ratio 1.2 (1.0-2.8); Alkaline Phosphatase 119 U/L (38-126); Aspartate Aminotransferase 53 IU/L (14-36); Blood Urea Nitrogen 17 mg/dL (7-17); Carbon Dioxide 29 mmol/L (22-32); Chloride 104 mmol/L (98-107); Estimated Glomerular Filt Rate > 60.0 mL/min (>60); Globulin 3.2 g/dL (1.7-4.1); Glucose 77 mg/dL (80-110); Potassium 4.2 mmol/L (3.4-5.1); Sodium 139 mmol/L (137-145); Total Protein 6.9 g/dL (6.3-8.2)
[2019-07-02 10:22] LABS: HEMOLYSIS 62 (0-50)
== END ==
PROVIDERS: Family Provider Internal Medicine; PCP Internal Medicine; Visit Provider Internal Medicine
DX: D69.6 Thrombocytopenia, unspecified (principal); I63.30 Cerebral infarction due to thrombosis of unspecified cerebral artery; G63 Polyneuropathy in diseases classified elsewhere
CPT/HCPCS: 36415; 80053; 85025; 85610

== ENCOUNTER → 2019-07-08 11:00 | Outpatient (ROUT) | payer MEDICARE, MEDICAID, SELFPAY ==
[2019-02-23 05:42] VITALS: BMI 26.4
[2019-07-08 13:05] LABS: Appearance Urine UA CLOUDY; Bilirubin Urine UA NEGATIVE (NEGATIVE); Color Urine UA YELLOW; Glucose Urine UA NEGATIVE (Negative); Ketones Urine UA NEGATIVE (NEGATIVE); Leukocyte Esterase Urine UA 2+ (NEGATIVE); Nitrite Urine UA POSITIVE (Negative); Occult Blood Urine UA 3+ (Negative); Protein Urine UA 1+ (Negative); Urobilinogen Urine UA 0.2 E.U./dL (0.2)
[2019-07-08 13:13] LABS: RBC Urine >100/HPF (0-5/HPF); WBC Urine 30-100/HPF (0-5/HPF)
[2019-07-08 13:14] LABS: Amorphous Sediment Urine 1+; Bacteria Urine Many (>30); Culture Indicated Urine Specimen Cultured; Mucus Urine 1+ (Negative); Squamous Epithelial Cell Urine 0-1 /HPF (0-5/HPF)
== END ==
PROVIDERS: Family Provider Internal Medicine; PCP Internal Medicine; Visit Provider Registered Nurse
DX: R31.9 Hematuria, unspecified (principal)
CPT/HCPCS: 81001; 87077; 87086; 87186

== ENCOUNTER → 2019-09-05 01:00 | Outpatient (ROUT) | payer MEDICARE, MEDICAID, SELFPAY ==
[2019-02-23 05:42] VITALS: BMI 26.4
[2019-09-05 01:06] LABS: Appearance Urine UA CLEAR; Bilirubin Urine UA NEGATIVE (NEGATIVE); Color Urine UA YELLOW; Glucose Urine UA NEGATIVE (Negative); Ketones Urine UA NEGATIVE (NEGATIVE); Leukocyte Esterase Urine UA 2+ (NEGATIVE); Nitrite Urine UA POSITIVE (Negative); Occult Blood Urine UA 3+ (Negative); Protein Urine UA 2+ (Negative); Specific Gravity Urine UA 1.025 (1.000-1.035); Urobilinogen Urine UA 0.2 E.U./dL (0.2)
[2019-09-05 01:11] LABS: Bacteria Urine Many (>30); RBC Urine >100/HPF (0-5/HPF); WBC Urine >100/HPF (0-5/HPF)
== END ==
PROVIDERS: Family Provider Internal Medicine; PCP Internal Medicine; Visit Provider Nurse Practitioner Family
DX: R31.9 Hematuria, unspecified (principal)
CPT/HCPCS: 81001; 87077; 87086; 87186

== ENCOUNTER → 2019-09-09 07:25 | Outpatient (ROUT) | payer MEDICARE, MEDICAID, SELFPAY ==
[2019-02-23 05:42] VITALS: BMI 26.4
[2019-09-09 07:43] LABS: Add Manual Diff / Slide Review NO; Basophils Absolute Auto 0 /uL (0-100); Basophils Percent Auto 0.4 % (0-2); Eosinophils Absolute Auto 100 /uL (0-450); Eosinophils Percent Auto 2.2 % (2-4); Hematocrit 38.1 % (36-46); Hemoglobin 12.5 g/dL (12.0-16.0); Lymphocytes Absolute Auto 900 /uL (1100-4500); Lymphocytes Percent Auto 24.6 % (25-40); Mean Corpuscular HGB Conc 32.8 % (30-36); Mean Corpuscular Hemoglobin 29.9 PG (26-34); Mean Corpuscular Volume 91.2 fL (80-100); Monocytes Absolute Auto 400 /uL (0-900); Monocytes Percent Auto 12.8 % (3-14); Neutrophils Absolute Auto 2100 /uL (1500-7000); Platelet Count 51 X10^3/uL (150-400); Red Blood Cell Count 4.18 X10^6/uL (4.0-5.2); Red Cell Distribution Width 16.5 % (11.6-14.8); White Blood Cell Count 3.5 X10^3/uL (4.5-11.0)
[2019-09-09 08:00] LABS: BUN Creatinine Ratio 32.8 (6-22); Blood Urea Nitrogen 19 mg/dL (7-17); Calcium 9.7 mg/dL (8.4-10.2); Carbon Dioxide 31 mmol/L (22-32); Chloride 103 mmol/L (98-107); Estimated Glomerular Filt Rate > 60.0 mL/min (>60); Glucose 78 mg/dL (80-110); HEMOLYSIS < 15 (0-50); Potassium 4.3 mmol/L (3.4-5.1); Sodium 141 mmol/L (137-145)
== END ==
PROVIDERS: Family Provider Internal Medicine; PCP Internal Medicine; Visit Provider Registered Nurse
DX: R31.9 Hematuria, unspecified (principal)
CPT/HCPCS: 36415; 80048; 85025

== ENCOUNTER → 2019-11-05 15:21 | Outpatient (CLI) | payer MEDICARE, MEDICAID, SELFPAY ==
[2019-02-23 05:42] VITALS: BMI 26.4
--- NOTE | 2019-11-05 | DI.RAD.S_ITS ---
PROCEDURE: XR PELVIS 1-2V INDICATIONS: pain, s/p fall TECHNIQUE: Single view(s) of the pelvis acquired. COMPARISON: [facility], CR, XR HIP W PEL IF DONE LT 2V, 01/04/2019, 11:42. FINDINGS: Bones: No fractures or dislocations. No suspicious bony lesions. Lumbar spondylosis and posterior spinal fixation hardware. Mild bilateral hip joint degeneration. Soft tissues: Visualized bowel gas pattern is normal. No suspicious soft tissue calcifications. IMPRESSION: No fracture radiographically identified. Dictated by: Clay Rudd M.D. on 11/05/2019 at 16:44 Approved by: Clay Rudd M.D. on 11/05/2019 at 16:53
--- NOTE | 2019-11-05 | DI.RAD.S_ITS ---
PROCEDURE: XR LUMBAR SPINE 2-3V INDICATIONS: pain, s/p fall TECHNIQUE: 3 views of the lumbar spine were acquired. COMPARISON: [facility], , SPINE LUMB BENDING MIN 4VW, 01/01/2010, 19:41. FINDINGS: Bones: No fracture or focal osseous destruction. Paraspinal radha and pedicle screw fixation of L4-L5. Hardware appears intact Trace residual anterolisthesis of L4 on L5. Grade 1 retrolisthesis of L2 on L3 Multilevel degenerative endplate sclerosis and spurring. Diffuse facet arthropathy. Moderate narrowing of the L4-L5 and L5-S1 disc spaces. Mild narrowing of the remaining lumbar disc spaces. Soft tissues: Scattered vascular calcifications seen in the aorta. IMPRESSION: Grade 1 retrolisthesis of L2 on L3, new since prior study Interval postsurgical changes at L4-L5 as above Progressive multilevel lumbar spondylosis Dictated by: Clay Rudd M.D. on 11/05/2019 at 16:41 Approved by: Clay Rudd M.D. on 11/05/2019 at 16:44
== END ==
PROVIDERS: Family Provider Internal Medicine; PCP Nurse Practitioner Family; Referring Provider Nurse Practitioner Family; Visit Provider Nurse Practitioner Family
DX: S30.0XXA Contusion of lower back and pelvis, initial encounter (principal); R52 Pain, unspecified; M43.16 Spondylolisthesis, lumbar region; M47.816 Spondylosis without myelopathy or radiculopathy, lumbar region; M16.0 Bilateral primary osteoarthritis of hip; W06.XXXA Fall from bed, initial encounter
CPT/HCPCS: 72100; 72170

== ENCOUNTER → 2019-11-30 13:30 | Outpatient (ROUT) | payer MEDICARE, MEDICAID, SELFPAY ==
[2019-02-23 05:42] VITALS: BMI 26.4
[2019-11-30 13:52] LABS: Appearance Urine UA CLOUDY; Bilirubin Urine UA NEGATIVE (NEGATIVE); Color Urine UA ORANGE; Glucose Urine UA NEGATIVE (Negative); Ketones Urine UA TRACE (NEGATIVE); Leukocyte Esterase Urine UA 2+ (NEGATIVE); Nitrite Urine UA POSITIVE (Negative); Occult Blood Urine UA 3+ (Negative); Protein Urine UA 2+ (Negative); Specific Gravity Urine UA 1.025 (1.000-1.035); Urobilinogen Urine UA 0.2 E.U./dL (0.2)
[2019-11-30 14:10] LABS: RBC Urine 10-30/HPF (0-5/HPF); WBC Urine 10-30/HPF (0-5/HPF)
[2019-11-30 14:11] LABS: Bacteria Urine Many (>30); Culture Indicated Urine Specimen Cultured
== END ==
PROVIDERS: Family Provider Internal Medicine; PCP Nurse Practitioner Family; Visit Provider Nurse Practitioner Family
DX: R31.9 Hematuria, unspecified (principal)
CPT/HCPCS: 81001; 87077; 87086; 87186

== ENCOUNTER → 2019-12-02 07:18 | Outpatient (ROUT) | payer MEDICARE, MEDICAID, SELFPAY ==
[2019-02-23 05:42] VITALS: BMI 26.4
[2019-12-02 07:43] LABS: Basophils Absolute Auto 0 /uL (0-100); Basophils Percent Auto 0.4 % (0-2); Eosinophils Absolute Auto 0 /uL (0-450); Eosinophils Percent Auto 1.6 % (2-4); Hematocrit 34.6 % (36-46); Hemoglobin 11.5 g/dL (12.0-16.0); Lymphocytes Absolute Auto 800 /uL (1100-4500); Lymphocytes Percent Auto 32.6 % (25-40); Mean Corpuscular HGB Conc 33.2 % (30-36); Mean Corpuscular Hemoglobin 30.8 PG (26-34); Mean Corpuscular Volume 92.9 fL (80-100); Monocytes Absolute Auto 300 /uL (0-900); Monocytes Percent Auto 10.5 % (3-14); Neutrophils Absolute Auto 1400 /uL (1500-7000); Neutrophils Percent Auto 54.9 % (50-75); Red Blood Cell Count 3.72 X10^6/uL (4.0-5.2); Red Cell Distribution Width 16.2 % (11.6-14.8); White Blood Cell Count 2.5 X10^3/uL (4.5-11.0)
[2019-12-02 07:45] LABS: Add Manual Diff / Slide Review SLIDE REVIEW
[2019-12-02 08:01] LABS: Alanine Aminotransferase 16 IU/L (<35); Albumin 3.4 g/dL (3.5-5.0); Albumin Globulin Ratio 1.3 (1.0-2.8); Alkaline Phosphatase 141 U/L (38-126); Aspartate Aminotransferase 41 IU/L (14-36); BUN Creatinine Ratio 34.6 (6-22); Bilirubin Total 0.6 mg/dL (0.2-1.3); Blood Urea Nitrogen 18 mg/dL (7-17); Calcium 8.8 mg/dL (8.4-10.2); Carbon Dioxide 29 mmol/L (22-32); Chloride 106 mmol/L (98-107); Estimated Glomerular Filt Rate > 60.0 mL/min (>60); Globulin 2.7 g/dL (1.7-4.1); Glucose 89 mg/dL (80-110); HEMOLYSIS < 15 (0-50); Potassium 3.7 mmol/L (3.4-5.1); Sodium 139 mmol/L (137-145); Total Protein 6.1 g/dL (6.3-8.2)
[2019-12-02 08:09] LABS: Anisocytosis 1+
[2019-12-02 08:16] LABS: Platelet Count 40 X10^3/uL (150-400)
== END ==
PROVIDERS: Family Provider Internal Medicine; PCP Nurse Practitioner Family; Visit Provider Registered Nurse
DX: R31.9 Hematuria, unspecified (principal)
CPT/HCPCS: 36415; 80053; 85025

== ENCOUNTER → 2020-02-28 20:29 | Outpatient (ROUT) | payer MEDICARE, MEDICAID, SELFPAY ==
[2019-02-23 05:42] VITALS: BMI 26.4
[2020-02-28 20:35] LABS: Appearance Urine UA CLOUDY; Bilirubin Urine UA NEGATIVE (NEGATIVE); Color Urine UA BROWN; Glucose Urine UA NEGATIVE (Negative); Ketones Urine UA TRACE (NEGATIVE); Leukocyte Esterase Urine UA 2+ (NEGATIVE); Nitrite Urine UA POSITIVE (Negative); Occult Blood Urine UA 3+ (Negative); Protein Urine UA 2+ (Negative); Specific Gravity Urine UA 1.025 (1.000-1.035); Urobilinogen Urine UA 0.2 E.U./dL (0.2)
[2020-02-28 21:50] LABS: Bacteria Urine Many (>30); Culture Indicated Urine Specimen Cultured; RBC Urine >100/HPF (0-5/HPF); Squamous Epithelial Cell Urine 0-1 /HPF (0-5/HPF); WBC Urine >100/HPF (0-5/HPF)
== END ==
PROVIDERS: Family Provider Internal Medicine; PCP Nurse Practitioner Family; Visit Provider Internal Medicine
DX: R31.9 Hematuria, unspecified (principal)
CPT/HCPCS: 81001; 87077; 87086; 87186

== ENCOUNTER → 2020-03-09 07:39 | Outpatient (ROUT) | payer MEDICARE, MEDICAID, SELFPAY ==
[2019-02-23 05:42] VITALS: BMI 26.4
[2020-03-09 08:11] LABS: Add Manual Diff / Slide Review NO; Basophils Absolute Auto 0 /uL (0-100); Basophils Percent Auto 0.3 % (0-2); Eosinophils Absolute Auto 100 /uL (0-450); Eosinophils Percent Auto 1.8 % (2-4); Hematocrit 35.6 % (36-46); Hemoglobin 11.8 g/dL (12.0-16.0); Lymphocytes Absolute Auto 800 /uL (1100-4500); Lymphocytes Percent Auto 29.4 % (25-40); Mean Corpuscular HGB Conc 33.1 % (30-36); Mean Corpuscular Volume 93.6 fL (80-100); Monocytes Absolute Auto 300 /uL (0-900); Neutrophils Absolute Auto 1600 /uL (1500-7000); Neutrophils Percent Auto 56.5 % (50-75); Platelet Count 42 X10^3/uL (150-400); Red Blood Cell Count 3.81 X10^6/uL (4.0-5.2); Red Cell Distribution Width 15.6 % (11.6-14.8); White Blood Cell Count 2.8 X10^3/uL (4.5-11.0)
[2020-03-09 08:26] LABS: Alanine Aminotransferase 16 IU/L (<35); Albumin 3.4 g/dL (3.5-5.0); Albumin Globulin Ratio 1.1 (1.0-2.8); Alkaline Phosphatase 130 U/L (38-126); Aspartate Aminotransferase 47 IU/L (14-36); Bilirubin Total 0.8 mg/dL (0.2-1.3); Blood Urea Nitrogen 17 mg/dL (7-17); Carbon Dioxide 34 mmol/L (22-32); Chloride 105 mmol/L (98-107); Estimated Glomerular Filt Rate > 60.0 mL/min (>60); Globulin 3.2 g/dL (1.7-4.1); Glucose 92 mg/dL (80-110); HEMOLYSIS < 15 (0-50); Sodium 140 mmol/L (137-145); Total Protein 6.6 g/dL (6.3-8.2)
== END ==
PROVIDERS: Family Provider Internal Medicine; PCP Nurse Practitioner Family; Visit Provider Nurse Practitioner Family
DX: N39.0 Urinary tract infection, site not specified (principal)
CPT/HCPCS: 36415; 80053; 85025

== ENCOUNTER → 2020-03-16 07:02 | Outpatient (ROUT) | payer MEDICARE, MEDICAID, SELFPAY ==
[2019-02-23 05:42] VITALS: BMI 26.4
[2020-03-16 07:46] LABS: BUN Creatinine Ratio 36.2 (6-22); Blood Urea Nitrogen 21 mg/dL (7-17); Calcium 9.1 mg/dL (8.4-10.2); Carbon Dioxide 38 mmol/L (22-32); Chloride 101 mmol/L (98-107); Estimated Glomerular Filt Rate > 60.0 mL/min (>60); Glucose 122 mg/dL (80-110); HEMOLYSIS < 15 (0-50); Potassium 4.1 mmol/L (3.4-5.1); Sodium 141 mmol/L (137-145)
== END ==
PROVIDERS: Family Provider Internal Medicine; PCP Nurse Practitioner Family; Visit Provider Nurse Practitioner Family
DX: Z79.899 Other long term (current) drug therapy (principal)
CPT/HCPCS: 36415; 80048

== ENCOUNTER → 2020-04-16 07:45 | Outpatient (ROUT) | payer MEDICARE, MEDICAID, SELFPAY ==
[2019-02-23 05:42] VITALS: BMI 26.4
[2020-04-16 08:54] LABS: Appearance Urine UA CLOUDY; Bilirubin Urine UA NEGATIVE (NEGATIVE); Color Urine UA BROWN; Glucose Urine UA NEGATIVE (Negative); Ketones Urine UA NEGATIVE (NEGATIVE); Leukocyte Esterase Urine UA 1+ (NEGATIVE); Nitrite Urine UA POSITIVE (Negative); Occult Blood Urine UA 3+ (Negative); Protein Urine UA 2+ (Negative); Specific Gravity Urine UA 1.025 (1.000-1.035); Urobilinogen Urine UA 0.2 E.U./dL (0.2)
[2020-04-16 09:20] LABS: RBC Urine >100/HPF (0-5/HPF); WBC Urine 10-30/HPF (0-5/HPF)
[2020-04-16 09:21] LABS: Bacteria Urine Many (>30); Culture Indicated Urine Specimen Cultured
== END ==
PROVIDERS: Family Provider Internal Medicine; PCP Nurse Practitioner Family; Visit Provider Nurse Practitioner Family
DX: R41.0 Disorientation, unspecified (principal); W19.XXXA Unspecified fall, initial encounter; R10.9 Unspecified abdominal pain
CPT/HCPCS: 81001; 87077; 87086; 87186

== ENCOUNTER → 2020-05-18 17:28 | Outpatient (ROUT) | payer MEDICARE, MEDICAID, SELFPAY ==
[2019-02-23 05:42] VITALS: BMI 26.4
[2020-05-18 17:34] LABS: Appearance Urine UA CLOUDY; Bilirubin Urine UA NEGATIVE (NEGATIVE); Color Urine UA YELLOW; Glucose Urine UA NEGATIVE (Negative); Ketones Urine UA NEGATIVE (NEGATIVE); Leukocyte Esterase Urine UA 2+ (NEGATIVE); Nitrite Urine UA POSITIVE (Negative); Occult Blood Urine UA 3+ (Negative); Protein Urine UA 1+ (Negative); Urobilinogen Urine UA 0.2 E.U./dL (0.2)
[2020-05-18 17:42] LABS: Amorphous Sediment Urine 1+; Bacteria Urine Moderate (10-30); Culture Indicated Urine Specimen Cultured; RBC Urine 10-30/HPF (0-5/HPF); Squamous Epithelial Cell Urine 0-1 /HPF (0-5/HPF); WBC Urine 30-100/HPF (0-5/HPF)
== END ==
PROVIDERS: PCP Nurse Practitioner Family; Visit Provider Nurse Practitioner Family
DX: R30.0 Dysuria (principal)
CPT/HCPCS: 81001; 87086

== ENCOUNTER → 2020-05-20 08:09 | Outpatient (ROUT) | payer MEDICARE, MEDICAID, SELFPAY ==
[2019-02-23 05:42] VITALS: BMI 26.4
[2020-05-20 09:03] LABS: Add Manual Diff / Slide Review NO; Basophils Absolute Auto 0 /uL (0-100); Basophils Percent Auto 0.5 % (0-2); Eosinophils Absolute Auto 100 /uL (0-450); Eosinophils Percent Auto 2.2 % (2-4); Hematocrit 36.2 % (36-46); Hemoglobin 11.8 g/dL (12.0-16.0); Lymphocytes Absolute Auto 900 /uL (1100-4500); Mean Corpuscular HGB Conc 32.7 % (30-36); Mean Corpuscular Hemoglobin 30.9 PG (26-34); Mean Corpuscular Volume 94.7 fL (80-100); Monocytes Absolute Auto 300 /uL (0-900); Monocytes Percent Auto 10.5 % (3-14); Neutrophils Absolute Auto 1800 /uL (1500-7000); Neutrophils Percent Auto 57.8 % (50-75); Platelet Count 54 X10^3/uL (150-400); Red Blood Cell Count 3.83 X10^6/uL (4.0-5.2)
[2020-05-20 09:21] LABS: INR 1.4 (0.9-1.3); Prothrombin Time 16.5 SECONDS (10.1-12.7)
[2020-05-20 09:24] LABS: PTT Partial Thromboplastin Tim 36 SECONDS (26.4-36.2)
[2020-05-20 09:49] LABS: Alanine Aminotransferase 14 IU/L (<35); Albumin 3.4 g/dL (3.5-5.0); Albumin Globulin Ratio 1.1 (1.0-2.8); Alkaline Phosphatase 125 U/L (38-126); Aspartate Aminotransferase 40 IU/L (14-36); BUN Creatinine Ratio 32.3 (6-22); Bilirubin Total 0.7 mg/dL (0.2-1.3); Blood Urea Nitrogen 20 mg/dL (7-17); Calcium 8.9 mg/dL (8.4-10.2); Carbon Dioxide 36 mmol/L (22-32); Chloride 103 mmol/L (98-107); Estimated Glomerular Filt Rate > 60.0 mL/min (>60); Globulin 3.2 g/dL (1.7-4.1); Glucose 93 mg/dL (80-110); HEMOLYSIS < 15 (0-50); Potassium 3.9 mmol/L (3.4-5.1); Sodium 139 mmol/L (137-145); Total Protein 6.6 g/dL (6.3-8.2)
[2020-05-20 12:47] LABS: Ammonia (NH3) 22 umol/L (9-30)
== END ==
PROVIDERS: PCP Nurse Practitioner Family; Visit Provider Nurse Practitioner Family
DX: R41.82 Altered mental status, unspecified (principal); R31.9 Hematuria, unspecified
CPT/HCPCS: 36415; 80053; 82140; 85025; 85610; 85730

== ENCOUNTER 2020-06-13 12:14 | Emergency (ER) | payer MEDICARE, MEDICAID, SELFPAY ==
[2019-02-23 05:42] VITALS: BMI 26.4
[2020-06-13 12:20] VITALS: BP 109/55; PULSE 82; RESP 20; TEMP 36.7; O2SAT 95; BMI 32.1
--- NOTE | 2020-06-13 12:21 | DI.US.S_ITS ---
PROCEDURE: US [facility] VENOUS LOW EXTREM RT INDICATIONS: eval for DVT TECHNIQUE: Real-time imaging, as well as color and pulse Doppler interrogation, were performed of the lower extremity deep veins from the inguinal ligament to the popliteal fossa. COMPARISON: [facility], , [facility] VENOUS LOW EXTREM RT, 09/30/2018, 16:48. FINDINGS: The common femoral, femoral and popliteal veins are normally compressible, and free of intraluminal thrombus. Color and pulse Doppler demonstrate normal phasic intraluminal flow. There is normal augmentation response to distal compression maneuver. IMPRESSION: No evidence of right lower extremity deep venous thrombosis. Dictated by: Jb Tuttle D.O. on 06/13/2020 at 12:26 Approved by: Jb Tuttle D.O. on 06/13/2020 at 12:27
--- NOTE | 2020-06-13 12:28 | DI.RAD.S_ITS ---
PROCEDURE: XR HIP W PEL IF DONE RT 2V INDICATIONS: R hip pain TECHNIQUE: 2 views of the hip were acquired. COMPARISON: [facility], CR, XR HIP W PEL IF DONE LT 2V, 01/04/2019, 11:42. FINDINGS: Bones: No fractures or dislocations. No suspicious bony lesions. The visualized pelvic ring appears intact. There is osteophytosis and subchondral sclerosis. Adjacent calcification along the superolateral aspect of the acetabulum is also likely degenerative in nature. Small enthesophytes are noted along the greater trochanters as well as the iliac crest. Postsurgical changes of L5-S1 status post fusion. Soft tissues: Surgical clips are noted within the inferior abdomen. Pelvic phleboliths. IMPRESSION: Moderate degenerative changes of the hips without acute osseous abnormality. Dictated by: Jb Tuttle D.O. on 06/13/2020 at 12:21 Approved by: Jb Tuttle D.O. on 06/13/2020 at 12:23
--- NOTE | 2020-06-13 12:34 | ED_ITS ---
HPI - Extremity Injury (Lower) <Emerita RochaRUSSEL - Last Filed: 06/13/20 15:40> General Chief Complaint: Extremity Injury, Lower Stated Complaint: More Than Usual In Lower Back, Leg Swelling Time Seen by Provider: 06/13/20 12:17 History of Present Illness HPI Narrative: 79yo female with a history of dementia, sepsis, urinary limb movement disorder, currently living at [facility], presents emergency department with caregiver caring an order form for a lower extremity DVT ultrasound of right limb. Caregiver states she has had multiple falls falls in the past few weeks she does not like to use her walker. She has had bruising to her right hip and increased swelling to her right lower leg. They are unsure if recent x- rays were taken. She has been able to walk and transfer from wheelchair to bed without any difficulty. However, there was concerns about a DVT. She and caregiver denies fevers, chills, vomiting, abdominal pain, severe lower extremity pain, dizziness, or any other concerns. Related Data Home Medications Medication Instructions Recorded Confirmed acetaminophen 650 mg PO Q6H PRN MDD 36 06/01/18 03/01/19 ascorbic acid (vitamin C) 500 mg PO DAILY 06/01/18 03/01/19 gabapentin 300 mg PO QPM 06/01/18 03/01/19 levothyroxine 50 mcg PO DAILY 06/01/18 03/01/19 nystatin 1 applic TOPICAL TID PRN 06/01/18 03/01/19 omeprazole 20 mg PO DAILY 06/01/18 03/01/19 sertraline 75 mg PO DAILY 06/01/18 03/01/19 ferrous gluconate 324 mg PO DAILY 02/23/19 03/01/19 lidocaine 1 patch TOPICAL DAILY 02/23/19 03/01/19 melatonin 6 mg PO BEDTIME PRN 02/23/19 03/01/19 polyethylene glycol 3350 17 g PO BID PRN 02/23/19 03/01/19 Lactobacillus acidophilus 1 cap PO DAILY 03/01/19 03/01/19 [Acidophilus] bisacodyl 5 - 10 mg PO PRN PRN 03/01/19 03/01/19 bisacodyl 10 mg MA PRN PRN 03/01/19 03/01/19 magnesium hydroxide [Milk of 30 ml PO PRN PRN 03/01/19 03/01/19 Magnesia] sodium phosphates [Fleet Enema] 118 ml MA PRN PRN 03/01/19 03/01/19 tramadol 50 mg PO Q8H PRN 03/01/19 03/01/19 Previous Rx's Medication Instructions Recorded cefdinir 300 mg PO BID #10 cap 02/25/19 hydrocodone-acetaminophen 1 tab PO Q6H PRN #20 tab 02/25/19 meloxicam [Mobic] 7.5 mg PO DAILY #20 tab 03/01/19 Allergies Allergy/AdvReac Type Severity Reaction Status Date / Time adhesive Allergy Verified 02/23/19 01:26 crab Allergy Verified 02/23/19 01:26 epinephrine Allergy Verified 02/23/19 01:26 latex Allergy Verified 02/23/19 01:26 Quinolones Allergy Verified 02/23/19 01:26 Sulfa (Sulfonamide Allergy Verified 02/23/19 01:26 Antibiotics) Review of Systems <RUSSEL Matthews - Last Filed: 06/13/20 15:40> Review of Systems Narrative: REVIEW OF SYSTEMS: GENERAL: Denies fevers. HENT: No head trauma. CARDIOVASCULAR: No syncope. RESPIRATORY: No cough. GASTROINTESTINAL: No nausea or vomiting. MUSCULOSKELETAL: Complains of Right lower leg swelling, see HPI. INTEGUMENTARY: No rash. Patient History <RUSSEL Matthews - Last Filed: 06/13/20 15:40> Medical History (Updated 06/13/20 @ 13:39 by RUSSEL Matthews) CAP (community acquired pneumonia) CHF (congestive heart failure) Chronic wrist pain CVA (cerebral vascular accident) Depression Hepatic encephalopathy Hypothyroidism (acquired) Multiple sclerosis PIEDRA (nonalcoholic steatohepatitis) Obstructive sleep apnea of adult Pancytopenia Periodic limb movement disorder (PLMD) Status post CVA TIA (transient ischemic attack) Surgical History Status post appendectomy Status post lumbar surgery Social History household members: none Smoking Status: Never smoker alcohol intake: never Smoking Status: Never smoker alcohol intake frequency: other Substance Use Type: does not use Exam <RUSSEL Matthews - Last Filed: 06/13/20 15:40> Initial Vital Signs Initial Vital Signs: Vital Signs Temperature 98.0 F 06/13/20 12:20 Pulse Rate 82 06/13/20 12:20 Respiratory Rate 20 06/13/20 12:20 Blood Pressure 109/55 L 06/13/20 12:20 Pulse Oximetry 95 06/13/20 12:20 PHYSICAL EXAMINATION: GENERAL: Awake and alert. HENT: Normocephalic, atraumatic. EYES: Symmetrical, sclera white, no periorbital swelling. RESPIRATORY: Normal respiratory rate, trachea midline, airway patent. No stridor, nasal flaring or accessory muscle use. MUSCULOSKELETAL: An 8 cm x 6 cm area ecchymosis noted to right hip, no significant help pain with palpation of pelvis.. Increased swelling to right lower extremity. Normal gait and coordination. Equal tone and mass bilaterally. EXTREMITIES: CMS intact. Pedal pulses 2+ and intact bilaterally. SKIN: Warm, dry, soft, appropriate color for ethnicity. No lesions, rashes, or wounds. NEURO: Alert and alert, hard of hearing, responds to questions appropriately. PSYCH: Appropriate affect and mood. <Román Epps DO - Last Filed: 06/13/20 16:13> Initial Vital Signs Initial Vital Signs: Vital Signs Temperature 98.0 F 06/13/20 12:20 Pulse Rate 82 06/13/20 12:20 Respiratory Rate 20 06/13/20 12:20 Blood Pressure 109/55 L 06/13/20 12:20 Pulse Oximetry 95 06/13/20 12:20 Course <RUSSEL Matthews - Last Filed: 06/13/20 15:40> Orders Ordered: ED Orders 06/13/20 12:21 periph venous low extrem rt Stat 06/13/20 12:28 XR hip w pel if done RT 2V Stat Vital Signs Vital signs: Vital Signs - 8 hr 06/13/20 12:20 06/13/20 13:49 Temperature 98.0 F Pulse Rate 82 77 Respiratory Rate 20 18 Blood Pressure 109/55 L 126/59 L Pulse Oximetry 95 95 <Román Epps DO - Last Filed: 06/13/20 16:13> Orders Ordered: ED Orders 06/13/20 12:21 periph venous low extrem rt Stat 06/13/20 12:28 XR hip w pel if done RT 2V Stat Vital Signs Vital signs: Vital Signs - 8 hr 06/13/20 12:20 06/13/20 13:49 Temperature 98.0 F Pulse Rate 82 77 Respiratory Rate 20 18 Blood Pressure 109/55 L 126/59 L Pulse Oximetry 95 95 MDM - Extremity Injury (Lower) <RUSSEL Matthews - Last Filed: 06/13/20 15:40> Medical Records Attestation: I reviewed the patient's medical records. Lab Data Attestation: I reviewed the patient's lab results. Imaging Data Hip Xray: Radiologist's Impression: [address] [id number] ReportSigned Patient: Nikkie Che [facility]#: [id number]: 1940cct:[id number]/Sex: 79 / FDate of Service: 06/13/20Loc: EDAccession Number: [id number] Procedure: XR hip w pel if done RT 2V Ordering Provider: Emerita Rocha PROCEDURE: XR HIP W PEL IF DONE RT 2V INDICATIONS: R hip pain TECHNIQUE: 2 views of the hip were acquired. COMPARISON: [facility], [place], XR HIP W PEL IF DONE LT 2V, 01/04/2019, 11:42. FINDINGS: Bones: No fractures or dislocations. No suspicious bony lesions. The visualized pelvic ring appears intact. There is osteophytosis and subchondral sclerosis. Adjacent calcification along the superolateral aspect of the acetabulum is also likely degenerative in nature. Small enthesophytes are noted along the greater trochanters as well as the iliac crest. Postsurgical changes of L5-S1 status post fusion. Soft tissues: Surgical clips are noted within the inferior abdomen. Pelvic phleboliths. IMPRESSION: Moderate degenerative changes of the hips without acute osseous abnormality. Dictated by: Jb Tuttle D.O. on 06/13/2020 at 12:21 Approved by: Jb Tuttle D.O. on 06/13/2020 at 12:23 US - DVT: Radiologist's Impression: [address] [id number] ReportSigned Patient: Nikkie Che [facility]#: [id number]: 2Acct:[id number]/Sex: 79 / FDate of Service: 06/13/20Loc: EDAccession Number: [id number] Procedure: perip venous low extrem rt Ordering Provider: Román Epps D.O. PROCEDURE: [facility] VENOUS LOW EXTREM RT INDICATIONS: eval for DVT TECHNIQUE: Real-time imaging, as well as color and pulse Doppler interrogation, were performed of the lower extremity deep veins from the inguinal ligament to the popliteal fossa. COMPARISON: [facility], PERIP VENOUS LOW EXTREM RT, 09/30/2018, 16:48. FINDINGS: The common femoral, femoral and popliteal veins are normally comp ressible, and free of intraluminal thrombus. Color and pulse Doppler demonstrate normal phasic intraluminal flow. There is normal augmentation response to distal compression maneuver. IMPRESSION: No evidence of right lower extremity deep venous thrombosis. Dictated by: Jb Tuttle D.O. on 06/13/2020 at 12:26 Approved by: Jb Tuttle D.O. on 06/13/2020 at 12:27 MDM Narrative Medical decision making narrative: 79yo female presents to the ED with her caregiver with an order form from Dr. Khalil for a right lower extremity DVT ultrasound. Ultrasound was not available for outpatient procedures the patient was presents to the emergency department. Swelling noted right lower leg, bruising noted to right hip. This was reported to be from mechanical fall earlier. Unsure if x-rays were done. 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 No signs of cellulitis. Ultrasound negative for clots. I suspect swelling is most likely related to trauma. She was encouraged to follow with PCP next week for further evaluation. Return precautions given for new or worsening symptoms. Discharge Plan Departure Patient Disposition: Home Clinical Impression: Leg swelling Activity Restrictions/Additional Instructions: Thank you for entrusting me with your care today. As discussed, your hip x-rays negative for fractures and your lower leg ultrasound is negative for a DVT. I suggest wearing MURTAZA Hose/compression stockings to help with swelling. Elevate your leg as much as possible. Return emergency department for any new or worsening symptoms. Follow-up with your primary care provider in the next 1-2 weeks for further evaluation especially symptoms continue. Prescriptions: No Action lidocaine 5 % Adhesive Patch,Medicated 1 patch TOPICAL DAILY RF: 0 ferrous gluconate 324 mg (37.5 mg iron) Tablet 324 mg PO DAILY RF: 0 melatonin 3 mg Capsule 6 mg PO BEDTIME PRN (Reason: Sleep) RF: 0 polyethylene glycol 3350 17 gram/dose Powder 17 g PO BID PRN (Reason: Constipation) RF: 0 cefdinir 300 mg capsule 300 mg PO BID Qty: 10 RF: 0 hydrocodone-acetaminophen 5-325 mg Tablet 1 tab PO Q6H PRN (Reason: Pain (Scale Score 4-6)) Qty: 20 RF: 0 acetaminophen 325 mg Tablet 650 mg PO Q6H MDD 36 PRN (Reason: pain) RF: 0 levothyroxine 50 mcg Tablet 50 mcg PO DAILY RF: 0 ascorbic acid (vitamin C) 500 mg Tablet,Chewable 500 mg PO DAILY RF: 0 gabapentin 300 mg Capsule 300 mg PO QPM RF: 0 omeprazole 20 mg Capsule,Delayed Release(Dr/Ec) 20 mg PO DAILY RF: 0 nystatin 100,000 unit/gram powder 1 applic Topical TID PRN (Reason: yeast) RF: 0 sertraline 50 mg tablet 75 mg PO DAILY RF: 0 magnesium hydroxide [Milk of Magnesia] 400 mg/5 mL Suspension 30 ml PO PRN PRN (Reason: Constipation) RF: 0 bisacodyl 10 mg Suppository 10 mg MA PRN PRN (Reason: Constipation) RF: 0 Fleet Enema 19-7 gram/118 mL Enema 118 ml MA PRN PRN (Reason: Constipation) RF: 0 Lactobacillus acidophilus [Acidophilus] Capsule 1 cap PO DAILY RF: 0 bisacodyl 5 mg Tablet 5 - 10 mg PO PRN PRN (Reason: Constipation) RF: 0 tramadol 50 mg tablet 50 mg PO Q8H PRN (Reason: Muscle Spasm) RF: 0 meloxicam [Mobic] 7.5 mg tablet 7.5 mg PO DAILY Qty: 20 RF: 0 Referrals: Sonam Khalil MD [Primary Care Provider] - <Román Epps DO - Last Filed: 06/13/20 16:13> Cosign [facility]: Dr Epps Co-Sign Statement: I was available for consultation during this patient's emergency department visit. This chart is signed by myself for administrative purposes only. I did not have direct contact with this patient during this visit. They were seen independently by the APC.
[2020-06-13 13:49] VITALS: BP 126/59; PULSE 77; RESP 18; O2SAT 95
== END 2020-06-13 13:51 | disposition home or self-care (01) ==
PROVIDERS: Emergency Provider Nurse Practitioner; PCP Internal Medicine
DX: R22.41 Localized swelling, mass and lump, right lower limb (principal); R29.6 Repeated falls; I50.9 Heart failure, unspecified; D03.9 Melanoma in situ, unspecified; Z86.73 Personal history of transient ischemic attack (TIA), and cerebral infarction without residual deficits
CPT/HCPCS: 73502; 93971; 99283

== ENCOUNTER 2020-07-01 17:46 | Emergency (ER) | payer MEDICARE, MEDICAID, SELFPAY ==
[2019-02-23 05:42] VITALS: BMI 26.4
[2020-07-01 18:07] VITALS: BP 169/72; PULSE 78; RESP 22; TEMP 36.8; O2SAT 97
--- NOTE | 2020-07-01 18:09 | DI.CT.S_ITS ---
PROCEDURE: CT HEAD/BRAIN WO CON INDICATIONS: fall TECHNIQUE: Noncontrast 4.5 mm thick angled axial sections acquired from the foramen magnum to the vertex, with coronal and sagittal reformats. For radiation dose reduction, the following was used: automated exposure control, adjustment of mA and/or kV according to patient size. COMPARISON: [facility], CT, CT HEAD/BRAIN WO CON, 01/02/2019, 10:43. [facility], CT, CT HEAD/BRAIN WO CON, 09/30/2018, 16:23. [facility], CT, CT HEAD WITHOUT CONTRAST, 07/11/2017, 14:29. [facility], CT, CT CERVICAL SPINE WO CON, 07/01/2020, 18:09. [facility], CT, CT HEAD/BRAIN WO CON, 02/23/2019, 2:21. FINDINGS: Image quality: Excellent. CSF spaces: Basal cisterns are patent. No extra-axial fluid collections. Stable hyperdense material can be seen within the right subdural region, as before. The ventricles are symmetric in size and shape. Brain: No intracranial bleeds or masses. There is cerebral volume loss for age, with resultant ventricular and sulcal prominence. There are periventricular and deep white matter chronic small vessel ischemic changes. There is intracranial internal carotid artery atherosclerosis. Skull and face: Right-sided craniotomy changes are seen. Calvarium and visualized facial bones appear intact, without suspicious lesions. Sinuses: Visualized sinuses and mastoids are clear. IMPRESSION: No acute intracranial hemorrhage is seen. No acute intracranial process is seen. Right-sided craniotomy changes are seen. No displaced calvarial fracture can be seen in this patient with a given history of fall. Note is made of age-appropriate brain parenchymal volume loss and chronic small vessel ischemic changes. Dictated by: Khoa Baptiste M.D. on 07/01/2020 at 17:28 Approved by: Khoa Baptiste M.D. on 07/01/2020 at 17:30
--- NOTE | 2020-07-01 18:09 | DI.CT.S_ITS ---
PROCEDURE: CT CERVICAL SPINE WO CON INDICATIONS: neck pain fall TECHNIQUE: Noncontrast 3 mm thick sections acquired from the skull base to the T4 level. Sagittal and coronal reformats were then constructed. For radiation dose reduction, the following was used: automated exposure control, adjustment of mA and/or kV according to patient size. COMPARISON: [facility] [place] , MR, CERVICAL SPINE W/O CONTRAST, 07/09/2009, 17:47. [facility], CT, CT HEAD/BRAIN WO CON, 07/01/2020, 18:09. [facility], CT, CT CERVICAL SPINE WO CON, 09/30/2018, 16:52. FINDINGS: Image quality: Diagnostic. Bones: No fractures or dislocations. Visualized superior ribs are intact. There is severe disc space narrowing at C3-C4, with moderate to severe disc space narrowing at C4-C5, C5-C6, and C6-C7. There is minimal retrolisthesis seen at C3-C4 and C4-C5, with minimal anterolisthesis seen at C7-T1. Posteriorly directed endplate osteophytes are seen at several levels, including C3-C4, C4-C5, and C6-C7. Soft tissues: Prevertebral soft tissues are normal in thickness. No paravertebral hematomas. No apical pneumothoraces. The aortic arch is aneurysmal, measuring up to 4.3 cm proximally. This is similar to the prior examination. IMPRESSION: Prominent degenerative changes, without an acute fracture identified. Aneurysm of the aortic arch noted. Dictated by: Khoa Baptiste M.D. on 07/01/2020 at 17:30 Approved by: Khoa Baptiste M.D. on 07/01/2020 at 17:33
--- NOTE | 2020-07-01 18:47 | ED_ITS ---
HPI - Fall General Chief Complaint: Fall Stated Complaint: GLF yesterday Time Seen by Provider: 07/01/20 18:08 Source: patient and EMS Mode of arrival: EMS History of Present Illness HPI Narrative: Patient is a 79-year-old female with history of dementia, subdural hematoma and frequent falls presents 2 days after her most recent fall complaining of neck pain. She is difficult to get history out of but is tender along her cervical spine. According to reports from staff she possibly has worsening confusion. She is able to follow commands. He also apparently has history of hepatic encephalopathy, and CVA. Related Data Home Medications Medication Instructions Recorded Confirmed acetaminophen 650 mg PO Q6H PRN MDD 36 06/01/18 03/01/19 ascorbic acid (vitamin C) 500 mg PO DAILY 06/01/18 03/01/19 gabapentin 300 mg PO QPM 06/01/18 03/01/19 levothyroxine 50 mcg PO DAILY 06/01/18 03/01/19 nystatin 1 applic TOPICAL TID PRN 06/01/18 03/01/19 omeprazole 20 mg PO DAILY 06/01/18 03/01/19 sertraline 75 mg PO DAILY 06/01/18 03/01/19 ferrous gluconate 324 mg PO DAILY 02/23/19 03/01/19 lidocaine 1 patch TOPICAL DAILY 02/23/19 03/01/19 melatonin 6 mg PO BEDTIME PRN 02/23/19 03/01/19 polyethylene glycol 3350 17 g PO BID PRN 02/23/19 03/01/19 Lactobacillus acidophilus 1 cap PO DAILY 03/01/19 03/01/19 [Acidophilus] bisacodyl 5 - 10 mg PO PRN PRN 03/01/19 03/01/19 bisacodyl 10 mg NH PRN PRN 03/01/19 03/01/19 magnesium hydroxide [Milk of 30 ml PO PRN PRN 03/01/19 03/01/19 Magnesia] sodium phosphates [Fleet Enema] 118 ml NH PRN PRN 03/01/19 03/01/19 tramadol 50 mg PO Q8H PRN 03/01/19 03/01/19 Previous Rx's Medication Instructions Recorded cefdinir 300 mg PO BID #10 cap 02/25/19 hydrocodone-acetaminophen 1 tab PO Q6H PRN #20 tab 02/25/19 meloxicam [Mobic] 7.5 mg PO DAILY #20 tab 03/01/19 cefdinir 300 mg PO BID #20 cap 07/01/20 Allergies Allergy/AdvReac Type Severity Reaction Status Date / Time adhesive Allergy Verified 02/23/19 01:26 crab Allergy Verified 02/23/19 01:26 epinephrine Allergy Verified 02/23/19 01:26 latex Allergy Verified 02/23/19 01:26 Quinolones Allergy Verified 02/23/19 01:26 Sulfa (Sulfonamide Allergy Verified 02/23/19 01:26 Antibiotics) Review of Systems Review of Systems ROS Unobtainable: Unobtainable due to mental condition Patient History Medical History (Updated 07/01/20 @ 22:15 by Nilsa Sen DO) CAP (community acquired pneumonia) CHF (congestive heart failure) Chronic wrist pain CVA (cerebral vascular accident) Depression Hepatic encephalopathy Hypothyroidism (acquired) Multiple sclerosis PIEDRA (nonalcoholic steatohepatitis) Obstructive sleep apnea of adult Pancytopenia Periodic limb movement disorder (PLMD) Status post CVA TIA (transient ischemic attack) Surgical History Status post appendectomy Status post lumbar surgery Social History household members: none Smoking Status: Never smoker alcohol intake: never Smoking Status: Never smoker alcohol intake frequency: other Substance Use Type: does not use Exam Initial Vital Signs Initial Vital Signs: Vital Signs Temperature 98.2 F 07/01/20 18:07 Pulse Rate 78 07/01/20 18:07 Respiratory Rate 22 07/01/20 18:07 Blood Pressure 169/72 H 07/01/20 18:07 Pulse Oximetry 97 07/01/20 18:07 GENERAL: Alert 79-year-old female in C-collar HEENT: Head atraumatic,EOMI, pupils reactive, face symmetric, moist mucous membranes NECK: Midline tenderness, C-collar in place CARDIOVASCULAR: Regular rate and rhythm without murmurs, rubs or gallops. RESPIRATORY: Breath sounds equal bilaterally, no wheezes rales or rhonchi. ABDOMEN: Soft, nontender. Normoactive bowel sounds all 4 quadrants. No guarding or rebound. EXTREMITIES: Normal range of motion, no clubbing or edema. Neurovascularly intact. Slightly tender right hip NEUROLOGICAL: Alert oriented to person but not place or time. Drive In Waiter/Waitress strength equal bilaterally SKIN: Warm, dry, no laceration, no petechiae, no rashes or lesions. Course Orders Ordered: Discontinued Medications Cephalexin HCl (Cephalexin 250 Mg Capsule) 500 mg PO NOW ONE Stop: 07/01/20 22:16 Last Admin: 07/01/20 22:20 Dose: 500 mg Documented by: HAYLEY Vital Signs Vital signs: Vital Signs - 8 hr 07/01/20 22:21 Pulse Rate 62 Respiratory Rate 16 Blood Pressure 106/59 L Pulse Oximetry 96 - Fall Lab Data Attestation: I reviewed the patient's lab results. Result diagrams: 07/01/20 19:06 07/01/20 19:06 Labs: Lab Results 07/01/20 07/01/20 07/01/20 Range/Units 19:06 19:06 19:06 WBC 3.0 L (4.5-11.0) X10^3/uL RBC 4.01 (4.0-5.2) X10^6/uL Hgb 12.3 (12.0-16.0) g/dL Hct 37.6 (36-46) % MCV 93.9 (80-100) fL MCH 30.6 (26-34) PG MCHC 32.6 (30-36) % RDW 15.7 H (11.6-14.8) % Plt Count 49 L (150-400) X10^3/uL Neut % (Auto) 58.4 (50-75) % Lymph % (Auto) 28.9 (25-40) % Hitchcock % (Auto) 9.6 (3-14) % Eos % (Auto) 2.7 (2-4) % Baso % (Auto) 0.4 (0-2) % Neut # (Auto) 1700 (4096-8210) /uL Lymph # (Auto) 900 L (1240-6172) /uL Hitchcock # (Auto) 300 (0-900) /uL Eos # (Auto) 100 (0-450) /uL Baso # (Auto) 0 (0-100) /uL Sodium (137-145) mmol/L Potassium (3.4-5.1) mmol/L Chloride (98-107) mmol/L Carbon Dioxide (22-32) mmol/L BUN (7-17) mg/dL Creatinine (0.52-1.04) mg/dL Estimated GFR (>60) mL/min BUN/Creatinine Ratio (6-22) Glucose (80-110) mg/dL Calcium (8.4-10.2) mg/dL Total Bilirubin (0.2-1.3) mg/dL AST (14-36) IU/L ALT (<35) IU/L Alkaline Phosphatase (38-126) U/L Ammonia 17 (9-30) umol/L Total Creatine Kinase 55 (30-135) U/L CK-MB (CK-2) TNP CK-MB (CK-2) Rel Index TNP Troponin I < 0.012 (0.01-0.034) ng/mL Total Protein (6.3-8.2) g/dL Albumin (3.5-5.0) g/dL Globulin (1.7-4.1) g/dL Albumin/Globulin Ratio (1.0-2.8) Urine Color Urine Appearance Urine pH (4.5-8.0) Ur Specific [place] (1.000-1.035) Urine Protein (Negative) Urine Glucose (UA) (Negative) g/dL Urine Ketones (NEGATIVE) Urine Occult Blood (Negative) Urine Nitrate (Negative) Urine Bilirubin (NEGATIVE) Urine Urobilinogen (0.2) E.U./dL Ur Leukocyte Esterase (NEGATIVE) Urine RBC (0-5/HPF) Urine WBC (0-5/HPF) Ur Squamous Epith Cells (0-5/HPF) Urine Bacteria (None) Ur Culture Indicated? 07/01/20 07/01/20 Range/Units 19:06 20:40 WBC (4.5-11.0) X10^3/uL RBC (4.0-5.2) X10^6/uL Hgb (12.0-16.0) g/dL Hct (36-46) % MCV (80-100) fL MCH (26-34) PG MCHC (30-36) % RDW (11.6-14.8) % Plt Count (150-400) X10^3/uL Neut % (Auto) (50-75) % Lymph % (Auto) (25-40) % Hitchcock % (Auto) (3-14) % Eos % (Auto) (2-4) % Baso % (Auto) (0-2) % Neut # (Auto) (0279-9603) /uL Lymph # (Auto) (1496-5691) /uL Hitchcock # (Auto) (0-900) /uL Eos # (Auto) (0-450) /uL Baso # (Auto) (0-100) /uL Sodium 139 (137-145) mmol/L Potassium 3.8 (3.4-5.1) mmol/L Chloride 104 (98-107) mmol/L Carbon Dioxide 33 H (22-32) mmol/L BUN 17 (7-17) mg/dL Creatinine 0.55 (0.52-1.04) mg/dL Estimated GFR > 60.0 (>60) mL/min BUN/Creatinine Ratio 30.9 H (6-22) Glucose 92 (80-110) mg/dL Calcium 8.8 (8.4-10.2) mg/dL Total Bilirubin 0.8 (0.2-1.3) mg/dL AST 40 H (14-36) IU/L ALT 16 (<35) IU/L Alkaline Phosphatase 149 H (38-126) U/L Ammonia (9-30) umol/L Total Creatine Kinase (30-135) U/L CK-MB (CK-2) CK-MB (CK-2) Rel Index Troponin I (0.01-0.034) ng/mL Total Protein 6.6 (6.3-8.2) g/dL Albumin 3.6 (3.5-5.0) g/dL Globulin 3.0 (1.7-4.1) g/dL Albumin/Globulin Ratio 1.2 (1.0-2.8) Urine Color Red Urine Appearance Cloudy Urine pH 5.5 (4.5-8.0) Ur Specific [place] 1.025 (1.000-1.035) Urine Protein 3+ H (Negative) Urine Glucose (UA) Negative (Negative) g/dL Urine Ketones Negative (NEGATIVE) Urine Occult Blood 3+ H (Negative) Urine Nitrate Positive H (Negative) Urine Bilirubin Negative (NEGATIVE) Urine Urobilinogen 0.2 (0.2) E.U./dL Ur Leukocyte Esterase 1+ H (NEGATIVE) Urine RBC >100/hpf H (0-5/HPF) Urine WBC >100/hpf H (0-5/HPF) Ur Squamous Epith Cells None seen (0-5/HPF) Urine Bacteria Moderate (10-30) H (None) Ur Culture Indicated? Specimen cultured Imaging Data CT scan - head: Radiologist's Impression: PROCEDURE: CT HEAD/BRAIN WO CON INDICATIONS: fall TECHNIQUE: Noncontrast 4.5 mm thick angled axial sections acquired from the foramen magnum to the vertex, with coronal and sagittal reformats. For radiation dose reduction, the following was used: automated exposure control, adjustment of mA and/or kV according to patient size. COMPARISON: [facility], CT, CT HEAD/BRAIN WO CON, 01/02/2019, 10:43. [facility], CT, CT HEAD/BRAIN WO CON, 09/30/2018, 16:23. [facility], CT, CT HEAD WITHOUT CONTRAST, 07/11/2017, 14:29. [facility], CT, CT CERVICAL SPINE WO CON, 07/01/2020, 18:09. [facility], CT, CT HEAD/BRAIN WO CON, 02/23/2019, 2:21. FINDINGS: Image quality: Excellent. CSF spaces: Basal cisterns are patent. No extra-axial fluid collections. Stable hyperdense material can be seen within the right subdural region, as before. The ventricles are symmetric in size and shape. Brain: No intracranial bleeds or masses. There is cerebral volume loss for age, with resultant ventricular and sulcal prominence. There are periventricular and deep white matter chronic small vessel ischemic changes. There is intracranial internal carotid artery atherosclerosis. Skull and face: Right-sided craniotomy changes are seen. Calvarium and visualized facial bones appear intact, without suspicious lesions. Sinuses: Visualized sinuses and mastoids are clear. IMPRESSION: No acute intracranial hemorrhage is seen. No acute intracranial process is seen. Right-sided craniotomy changes are seen. No displaced calvarial fracture can be seen in this patient with a given history of fall. Note is made of age-appropriate brain parenchymal volume loss and chronic small vessel ischemic changes. Dictated by: Khoa Baptiste M.D. on 07/01/2020 at 17:28 CT - cervical spine: Radiologist's Impression: PROCEDURE: CT CERVICAL SPINE WO CON INDICATIONS: neck pain fall TECHNIQUE: Noncontrast 3 mm thick sections acquired from the skull base to the T4 level. Sagittal and coronal reformats were then constructed. For radiation dose reduction, the following was used: automated exposure control, adjustment of mA and/or kV according to patient size. COMPARISON: [facility] [place] , MR, CERVICAL SPINE W/O CONTRAST, , 17:47. [facility], CT, CT HEAD/BRAIN WO CON, 07/01/2020, 18:09. [facility], CT, CT CERVICAL SPINE WO CON, 09/30/2018, 16:52. FINDINGS: Image quality: Diagnostic. Bones: No fractures or dislocations. Visualized superior ribs are intact. There is severe disc space narrowing at C3-C4, with moderate to severe disc space narrowing at C4-C5, C5-C6, and C6-C7. There is minimal retrolisthesis seen at C3-C4 and C4-C5, with minimal anterolisthesis seen at C7-T1. Posteriorly directed endplate osteophytes are seen at several levels, including C3-C4, C4-C5, and C6-C7. Soft tissues: Prevertebral soft tissues are normal in thickness. No paravertebral hematomas. No apical pneumothoraces. The aortic arch is aneurysmal, measuring up to 4.3 cm proximally. This is similar to the prior examination. IMPRESSION: Prominent degenerative changes, without an acute fracture identified. Aneurysm of the aortic arch noted. Dictated by: Khoa Baptiste M.D. on 07/01/2020 at 17:30 Extremity x-ray #1: Radiologist's Impression: PROCEDURE: XR PELVIS 1-2V INDICATIONS: fall pain TECHNIQUE: 1 view(s) of the pelvis acquired. COMPARISON: [facility], CR, XR HIP W PEL IF DONE RT 2V, 06/13/2020, 12:29. [facility], CR, XR PELVIS 1-2V, 11/05/2019, 15:24. FINDINGS: Bones: No fractures or dislocations. No suspicious bony lesions. Right L4-L5 pedicle screws. [id number] bilateral hip DJD. Soft tissues: Visualized bowel gas pattern is normal. No suspicious soft tissue calcifications. Clips in the pelvis. IMPRESSION: No fracture identified on this single projection. Dictated by: Mohit Sanders M.D. on 07/01/2020 at 20:33 ECG Data Attestation: I personally reviewed and interpreted this ECG as follows: Prior ECG tracings: not available for review Interpretation: Sinus rhythm rate 70 p.r. interval 180 QRS [address] changes no T-wave inversions Q-wave noted in aVL similar to previous EKG MDM Narrative Medical decision making narrative: Patient is found to have gross brown urine which is positive for UTI. She overall does not appear septic no leukocytosis in fact she has has leukopenia which seems to be a little bit improved from her prior. She is afebrile. Reports from [facility] state that she is a little bit odd at baseline but seems to be a little bit more confused today than normal. She is known to have frequent falls. Will start her on cefdinir based on previous urine cultures. She is given 1 dose of Keflex in the ED. patient ambulated to the bathroom without any assistance. Discharge Plan Departure Patient Disposition: Home Clinical Impression: Acute UTI Instructions: DI for Urinary Tract Infection (UTI) Activity Restrictions/Additional Instructions: *You have been diagnosed with UTI *What to do: Antibiotic may need to be changed once culture comes back *Continue to take medications as directed Cefdinir 300 mg twice a day for 10 days *Follow up with your primary care provider in 2-3 days *Return to ER if you should have increased confusion, weakness or any new, worsening or concerning symptoms Prescriptions: New cefdinir 300 mg capsule 300 mg PO BID Qty: 20 RF: 0 No Action lidocaine 5 % Adhesive Patch,Medicated 1 patch TOPICAL DAILY RF: 0 ferrous gluconate 324 mg (37.5 mg iron) Tablet 324 mg PO DAILY RF: 0 melatonin 3 mg Capsule 6 mg PO BEDTIME PRN (Reason: Sleep) RF: 0 polyethylene glycol 3350 17 gram/dose Powder 17 g PO BID PRN (Reason: Constipation) RF: 0 cefdinir 300 mg capsule 300 mg PO BID Qty: 10 RF: 0 hydrocodone-acetaminophen 5-325 mg Tablet 1 tab PO Q6H PRN (Reason: Pain (Scale Score 4-6)) Qty: 20 RF: 0 acetaminophen 325 mg Tablet 650 mg PO Q6H MDD 36 PRN (Reason: pain) RF: 0 levothyroxine 50 mcg Tablet 50 mcg PO DAILY RF: 0 ascorbic acid (vitamin C) 500 mg Tablet,Chewable 500 mg PO DAILY RF: 0 gabapentin 300 mg Capsule 300 mg PO QPM RF: 0 omeprazole 20 mg Capsule,Delayed Release(Dr/Ec) 20 mg PO DAILY RF: 0 nystatin 100,000 unit/gram powder 1 applic Topical TID PRN (Reason: yeast) RF: 0 sertraline 50 mg tablet 75 mg PO DAILY RF: 0 magnesium hydroxide [Milk of Magnesia] 400 mg/5 mL Suspension 30 ml PO PRN PRN (Reason: Constipation) RF: 0 bisacodyl 10 mg Suppository 10 mg NH PRN PRN (Reason: Constipation) RF: 0 Fleet Enema 19-7 gram/118 mL Enema 118 ml NH PRN PRN (Reason: Constipation) RF: 0 Lactobacillus acidophilus [Acidophilus] Capsule 1 cap PO DAILY RF: 0 bisacodyl 5 mg Tablet 5 - 10 mg PO PRN PRN (Reason: Constipation) RF: 0 tramadol 50 mg tablet 50 mg PO Q8H PRN (Reason: Muscle Spasm) RF: 0 meloxicam [Mobic] 7.5 mg tablet 7.5 mg PO DAILY Qty: 20 RF: 0 Referrals: Snoam Khalil MD [Primary Care Provider] -
--- NOTE | 2020-07-01 18:47 | DI.RAD.S_ITS ---
PROCEDURE: XR PELVIS 1-2V INDICATIONS: fall pain TECHNIQUE: 1 view(s) of the pelvis acquired. COMPARISON: [facility], [place], XR HIP W PEL IF DONE RT 2V, 06/13/2020, 12:29. [facility], [place], XR PELVIS 1-2V, 11/05/2019, 15:24. FINDINGS: Bones: No fractures or dislocations. No suspicious bony lesions. Right L4-L5 pedicle screws. [id number] bilateral hip DJD. Soft tissues: Visualized bowel gas pattern is normal. No suspicious soft tissue calcifications. Clips in the pelvis. IMPRESSION: No fracture identified on this single projection. Dictated by: Mohit Sanders M.D. on 07/01/2020 at 20:33 Approved by: Mohit Sanders M.D. on 07/01/2020 at 20:34
[2020-07-01 19:25] LABS: Add Manual Diff / Slide Review NO; Basophils Absolute Auto 0 /uL (0-100); Basophils Percent Auto 0.4 % (0-2); Eosinophils Absolute Auto 100 /uL (0-450); Eosinophils Percent Auto 2.7 % (2-4); Hematocrit 37.6 % (36-46); Hemoglobin 12.3 g/dL (12.0-16.0); Lymphocytes Absolute Auto 900 /uL (1100-4500); Lymphocytes Percent Auto 28.9 % (25-40); Mean Corpuscular HGB Conc 32.6 % (30-36); Mean Corpuscular Hemoglobin 30.6 PG (26-34); Mean Corpuscular Volume 93.9 fL (80-100); Monocytes Absolute Auto 300 /uL (0-900); Monocytes Percent Auto 9.6 % (3-14); Neutrophils Absolute Auto 1700 /uL (1500-7000); Neutrophils Percent Auto 58.4 % (50-75); Platelet Count 49 X10^3/uL (150-400); Red Blood Cell Count 4.01 X10^6/uL (4.0-5.2); Red Cell Distribution Width 15.7 % (11.6-14.8)
[2020-07-01 19:33] LABS: Ammonia (NH3) 17 umol/L (9-30); Creatine Kinase 55 U/L (30-135)
[2020-07-01 19:45] LABS: Troponin I < 0.012 ng/mL (0.01-0.034)
[2020-07-01 19:46] LABS: Alanine Aminotransferase 16 IU/L (<35); Albumin 3.6 g/dL (3.5-5.0); Albumin Globulin Ratio 1.2 (1.0-2.8); Alkaline Phosphatase 149 U/L (38-126); Aspartate Aminotransferase 40 IU/L (14-36); BUN Creatinine Ratio 30.9 (6-22); Bilirubin Total 0.8 mg/dL (0.2-1.3); Blood Urea Nitrogen 17 mg/dL (7-17); Calcium 8.8 mg/dL (8.4-10.2); Carbon Dioxide 33 mmol/L (22-32); Chloride 104 mmol/L (98-107); Estimated Glomerular Filt Rate > 60.0 mL/min (>60); Glucose 92 mg/dL (80-110); HEMOLYSIS < 15 (0-50); Potassium 3.8 mmol/L (3.4-5.1); Sodium 139 mmol/L (137-145); Total Protein 6.6 g/dL (6.3-8.2)
[2020-07-01 21:02] LABS: Appearance Urine UA CLOUDY; Bilirubin Urine UA NEGATIVE (NEGATIVE); Color Urine UA RED; Glucose Urine UA NEGATIVE (Negative); Ketones Urine UA NEGATIVE (NEGATIVE); Leukocyte Esterase Urine UA 1+ (NEGATIVE); Nitrite Urine UA POSITIVE (Negative); Occult Blood Urine UA 3+ (Negative); Protein Urine UA 3+ (Negative); Specific Gravity Urine UA 1.025 (1.000-1.035); Urobilinogen Urine UA 0.2 E.U./dL (0.2)
[2020-07-01 21:10] LABS: pH Urine UA 5.5 (4.5-8.0)
[2020-07-01 21:22] VITALS: BP 134/65; PULSE 71; RESP 16; O2SAT 95
[2020-07-01 21:26] LABS: RBC Urine >100/HPF (0-5/HPF)
[2020-07-01 21:27] LABS: Bacteria Urine Moderate (10-30); Culture Indicated Urine Specimen Cultured; Squamous Epithelial Cell Urine None Seen (0-5/HPF); WBC Urine >100/HPF (0-5/HPF)
[2020-07-01] MEDS: cephALEXin 250 MG CAPSULE 500 MG PO (22:20)
[2020-07-01 22:21] VITALS: BP 106/59; PULSE 62; RESP 16; O2SAT 96
== END 2020-07-01 22:45 | disposition home or self-care (01) ==
PROVIDERS: Emergency Provider Emergency Medicine; PCP Internal Medicine
DX: N39.0 Urinary tract infection, site not specified (principal); R41.0 Disorientation, unspecified; F03.90 Unspecified dementia, unspecified severity, without behavioral disturbance, psychotic disturbance, mood disturbance, and anxiety; R29.6 Repeated falls; Z86.61 Personal history of infections of the central nervous system; I50.9 Heart failure, unspecified; E03.9 Hypothyroidism, unspecified; Z86.73 Personal history of transient ischemic attack (TIA), and cerebral infarction without residual deficits
CPT/HCPCS: 36415; 70450; 72125; 72170; 80053; 81001; 82140; 82550; 84484; 85025; 87086; 93005; 93010; 99284

== ENCOUNTER → 2020-08-13 01:19 | Outpatient (ROUT) | payer MEDICARE, MEDICAID, SELFPAY ==
[2019-02-23 05:42] VITALS: BMI 26.4
[2020-08-13 01:32] LABS: Appearance Urine UA TURBID; Bilirubin Urine UA NEGATIVE (NEGATIVE); Color Urine UA BROWN; Glucose Urine UA NEGATIVE (Negative); Ketones Urine UA TRACE (NEGATIVE); Leukocyte Esterase Urine UA 1+ (NEGATIVE); Nitrite Urine UA POSITIVE (Negative); Occult Blood Urine UA 3+ (Negative); Protein Urine UA 3+ (Negative); RBC Urine >100/HPF (0-5/HPF); Specific Gravity Urine UA 1.025 (1.000-1.035); Urobilinogen Urine UA 0.2 E.U./dL (0.2); pH Urine UA 5.5 (4.5-8.0)
[2020-08-13 01:33] LABS: Bacteria Urine Many (>30); Culture Indicated Urine Specimen Cultured; Squamous Epithelial Cell Urine 0-1 /HPF (0-5/HPF); WBC Urine 30-100/HPF (0-5/HPF)
== END ==
PROVIDERS: PCP Internal Medicine; Visit Provider Internal Medicine
DX: R31.9 Hematuria, unspecified (principal)
CPT/HCPCS: 81001; 87077; 87086; 87186

== ENCOUNTER → 2020-09-02 07:49 | Outpatient (ROUT) | payer MEDICARE, MEDICAID, SELFPAY ==
[2019-02-23 05:42] VITALS: BMI 26.4
[2020-09-02 08:03] LABS: Ammonia (NH3) < 9 umol/L (9-30)
[2020-09-02 08:48] LABS: INR 1.5 (0.9-1.3); Prothrombin Time 17.1 SECONDS (10.1-12.7)
[2020-09-02 08:51] LABS: Add Manual Diff / Slide Review NO; Basophils Absolute Auto 0 /uL (0-100); Basophils Percent Auto 0.4 % (0-2); Eosinophils Absolute Auto 100 /uL (0-450); Eosinophils Percent Auto 2.3 % (2-4); Hematocrit 36.2 % (36-46); Hemoglobin 11.8 g/dL (12.0-16.0); Lymphocytes Absolute Auto 1000 /uL (1100-4500); Lymphocytes Percent Auto 29.5 % (25-40); Mean Corpuscular HGB Conc 32.5 % (30-36); Mean Corpuscular Volume 95.6 fL (80-100); Monocytes Absolute Auto 400 /uL (0-900); Monocytes Percent Auto 10.3 % (3-14); Neutrophils Absolute Auto 2000 /uL (1500-7000); Neutrophils Percent Auto 57.5 % (50-75); Platelet Count 48 X10^3/uL (150-400); Red Blood Cell Count 3.79 X10^6/uL (4.0-5.2); Red Cell Distribution Width 16.1 % (11.6-14.8); White Blood Cell Count 3.5 X10^3/uL (4.5-11.0)
[2020-09-02 09:01] LABS: Alanine Aminotransferase 16 IU/L (<35); Albumin 3.5 g/dL (3.5-5.0); Albumin Globulin Ratio 1.1 (1.0-2.8); Alkaline Phosphatase 160 U/L (38-126); Aspartate Aminotransferase 47 IU/L (14-36); BUN Creatinine Ratio 29.1 (6-22); Bilirubin Total 0.9 mg/dL (0.2-1.3); Blood Urea Nitrogen 16 mg/dL (7-17); Carbon Dioxide 32 mmol/L (22-32); Chloride 103 mmol/L (98-107); Estimated Glomerular Filt Rate > 60.0 mL/min (>60); Globulin 3.3 g/dL (1.7-4.1); Glucose 96 mg/dL (80-110); HEMOLYSIS < 15 (0-50); Potassium 3.7 mmol/L (3.4-5.1); Sodium 140 mmol/L (137-145); Total Protein 6.8 g/dL (6.3-8.2)
[2020-09-02 09:28] LABS: Thyroid Stimulating Hormone 6.79 uIU/mL (0.47-4.68)
[2020-09-02 09:46] LABS: Vitamin B12 461 pg/mL (239-931)
== END ==
PROVIDERS: PCP Internal Medicine; Visit Provider Nurse Practitioner Family
DX: R31.9 Hematuria, unspecified (principal); R53.83 Other fatigue
CPT/HCPCS: 36415; 80053; 82140; 82607; 84443; 85025; 85610

== ENCOUNTER → 2020-09-23 09:31 | Outpatient (ROUT) | payer MEDICARE, MEDICAID, SELFPAY ==
[2019-02-23 05:42] VITALS: BMI 26.4
[2020-09-23 10:20] LABS: BUN Creatinine Ratio 26.4 (6-22); Blood Urea Nitrogen 14 mg/dL (7-17); Calcium 8.6 mg/dL (8.4-10.2); Carbon Dioxide 34 mmol/L (22-32); Chloride 103 mmol/L (98-107); Estimated Glomerular Filt Rate > 60.0 mL/min (>60); Glucose 86 mg/dL (80-110); HEMOLYSIS 26 (0-50); Potassium 3.8 mmol/L (3.4-5.1); Sodium 140 mmol/L (137-145)
== END ==
PROVIDERS: PCP Internal Medicine; Visit Provider Nurse Practitioner Family
DX: R60.9 Edema, unspecified (principal); Z79.899 Other long term (current) drug therapy
CPT/HCPCS: 36415; 80048

== ENCOUNTER 2020-10-22 08:31 | Emergency (ER) | payer MEDICARE, MEDICAID, SELFPAY ==
[2019-02-23 05:42] VITALS: BMI 26.4
[2020-10-22 08:32] VITALS: BP 127/71; PULSE 81; RESP 15; TEMP 37.2; O2SAT 91
--- NOTE | 2020-10-22 08:40 | DI.RAD.S_ITS ---
PROCEDURE: XR LUMBAR SPINE 2-3V INDICATIONS: LBP after fall TECHNIQUE: 3 views of the lumbar spine were acquired. COMPARISON: [facility], CR, XR SHOULDER LT MIN 2V, 03/01/2019, 12:42. [facility], CT, CT ABDOMEN PELVIS W CON, 02/23/2019, 2:21. LUMBAR SPINE 2-3V, 11/05/2019, 15:24. FINDINGS: Bones: 5 [id number] vertebrae are present. Remote right radha and pedicle screw fixation at L4-L5. No evidence of hardware failure or loosening. Trace degenerative anterolisthesis of L3 on L4 and retrolisthesis of L2 on L3. Multilevel prominent facet arthropathy. Calcified posterior disc protrusion at L3-L4. Suspect possible canal stenosis. No vertebral body compression fractures. No suspicious bony lesions. Soft tissues: Overlying bowel gas pattern is normal. There is a calcification at the level of upper L3 on the right measuring 1.9 cm, which may potentially be a right renal pelvic stone. IMPRESSION: 1. No evidence acute bony abnormality of the lumbar spine. 2. Question 1.9 cm right renal pelvic stone. 3. Lumbar degenerative change. Suspect canal stenosis. Dictated by: Stephan Garcia M.D. on 10/22/2020 at 9:45 Approved by: Stephan Garcia M.D. on 10/22/2020 at 9:50
--- NOTE | 2020-10-22 08:45 | ED_ITS ---
HPI - Fall General Chief Complaint: Fall Stated Complaint: GLF Time Seen by Provider: 10/22/20 08:40 Source: EMS Mode of arrival: EMS Limitations: other (Dementia) History of Present Illness HPI Narrative: Patient is a 80-year-old female. According to prior notes has a history of dementia. Patient knows she is in the hospital but does not seem to know why she is here what happened this evening. EMS stated that they were called for evaluation and transport the patient to the emergency department for further evaluation of lower back pain. Nursing staff was able to contact the care facility and it appears that last evening the patient fell. She does have a history of multiple falls. She is not on blood thinners. Apparently the patient used her call light after she fell and the staff at the facility was able to help the patient up. This morning the patient has been complaining of lower back pain. She has reported history of lower back pain but nothing seem to be worse this morning. Unsure if she received any medications prior to arrival. Related Data Home Medications Medication Instructions Recorded Confirmed acetaminophen 650 mg PO Q6H PRN MDD 36 06/01/18 03/01/19 ascorbic acid (vitamin C) 500 mg PO DAILY 06/01/18 03/01/19 gabapentin 300 mg PO QPM 06/01/18 03/01/19 levothyroxine 50 mcg PO DAILY 06/01/18 03/01/19 nystatin 1 applic TOPICAL TID PRN 06/01/18 03/01/19 omeprazole 20 mg PO DAILY 06/01/18 03/01/19 sertraline 75 mg PO DAILY 06/01/18 03/01/19 ferrous gluconate 324 mg PO DAILY 02/23/19 03/01/19 lidocaine 1 patch TOPICAL DAILY 02/23/19 03/01/19 melatonin 6 mg PO BEDTIME PRN 02/23/19 03/01/19 polyethylene glycol 3350 17 g PO BID PRN 02/23/19 03/01/19 Lactobacillus acidophilus 1 cap PO DAILY 03/01/19 03/01/19 [Acidophilus] bisacodyl 5 - 10 mg PO PRN PRN 03/01/19 03/01/19 bisacodyl 10 mg WA PRN PRN 03/01/19 03/01/19 magnesium hydroxide [Milk of 30 ml PO PRN PRN 03/01/19 03/01/19 Magnesia] sodium phosphates [Fleet Enema] 118 ml WA PRN PRN 03/01/19 03/01/19 tramadol 50 mg PO Q8H PRN 03/01/19 03/01/19 Previous Rx's Medication Instructions Recorded cefdinir 300 mg PO BID #10 cap 02/25/19 hydrocodone-acetaminophen 1 tab PO Q6H PRN #20 tab 02/25/19 meloxicam [Mobic] 7.5 mg PO DAILY #20 tab 03/01/19 cefdinir 300 mg PO BID #20 cap 07/01/20 Allergies Allergy/AdvReac Type Severity Reaction Status Date / Time adhesive Allergy Verified 10/22/20 08:37 crab Allergy Verified 10/22/20 08:37 epinephrine Allergy Verified 10/22/20 08:37 latex Allergy Verified 10/22/20 08:37 Quinolones Allergy Verified 10/22/20 08:37 Sulfa (Sulfonamide Allergy Verified 10/22/20 08:37 Antibiotics) Review of Systems Review of Systems Narrative: Is somewhat limited given the patient's dementia but results that were given are reported below Musculoskeletal Comments: Right leg pain, lower back pain Neurologic Comments: No reported change in mental status per nursing facility Hematologic/Lymphatic On Anticoagulants: No Patient History Medical History (Updated 10/22/20 @ 10:14 by Román Epps DO) CAP (community acquired pneumonia) CHF (congestive heart failure) Chronic wrist pain CVA (cerebral vascular accident) Depression Hepatic encephalopathy Hypothyroidism (acquired) Multiple sclerosis PIEDRA (nonalcoholic steatohepatitis) Obstructive sleep apnea of adult Pancytopenia Periodic limb movement disorder (PLMD) Status post CVA TIA (transient ischemic attack) Surgical History Status post appendectomy Status post lumbar surgery Social History household members: none Smoking Status: Never smoker alcohol intake: never Smoking Status: Never smoker alcohol intake frequency: other Substance Use Type: does not use Exam Initial Vital Signs Initial Vital Signs: Vital Signs Temperature 98.9 F 10/22/20 08:32 Pulse Rate 81 10/22/20 08:32 Respiratory Rate 15 10/22/20 08:32 Blood Pressure 127/71 10/22/20 08:32 Pulse Oximetry 91 10/22/20 08:32 Const General: comfortable Limitations: altered mental status HENMT Head: normal to inspection and normocephalic Resp Effort & Inspection: normal respiratory effort Auscultation: clear to auscultation bilaterally Cardio Rate: regular rate Rhythm: regular rhythm Back/Spine/Pelvis Thoracic/Lumbar Spine: lumbar spinal tenderness Skin Other: Patient has redness to her right lower extremity that is warm to the touch. Neuro General: patient alert, patient awake, oriented (Place) and moves all extremities Extrem Other: Does have tenderness with palpation of the right tib-fib region. Scores GCS Karina coma scale eye opening: Spontaneous Karina coma scale verbal response: Confused [place] coma scale motor response: Obey commands Karina coma scale total score: 14 Course Orders Ordered: ED Orders 10/22/20 08:40 XR lumbar spine 2-3V Stat 10/22/20 08:44 XR tibia fibula RT 2V Stat Vital Signs Vital signs: Vital Signs - 8 hr 10/22/20 08:32 10/22/20 09:25 Temperature 98.9 F Pulse Rate 81 74 Respiratory Rate 15 18 Blood Pressure 127/71 126/72 Pulse Oximetry 91 96 MDM - Fall Medical Records Attestation: I reviewed the patient's medical records. Imaging Data Extremity x-ray #1: Radiologist's Impression: [address] [id number] ReportSigned Patient: Nikkie Che SMR#: [id number]: 2Acct:[id number]/Sex: 80 / FDate of Service: 10/22/20Loc: EDAccession Number: [id number] Procedure: XR tibia fibula RT 2V Ordering Provider: Román Epps D.O. PROCEDURE: XR TIBIA FUBULA RT 2V INDICATIONS: pain after fall TECHNIQUE: 2 views of the tibia and fibula were acquired. COMPARISON: None. FINDINGS: Bones: No fractures or dislocations. No suspicious bony lesions. Degenerative change at the knee. Soft tissues: No suspicious soft tissue calcifications or masses. IMPRESSION: Degenerative change at the knee. No evidence acute bony abnormality of the tibia and fibula Dictated by: Stephan Garcia M.D. on 10/22/2020 at 9:42 Approved by: Stephan Garcia M.D. on 10/22/2020 at 9:45 Lumbar spine x-ray: Radiologist's Impression: [facility] [place] [id number] ReportSigned Patient: Nikkie Che [facility]#: [id number]: 2Acct:[id number]/Sex: 80 / FDate of Service: 10/22/20Loc: EDAccession Number: [id number] Procedure: XR lumbar spine 2-3V Ordering Provider: Román Epps D.O. PROCEDURE: XR LUMBAR SPINE 2-3V INDICATIONS: LBP after fall TECHNIQUE: 3 views of the lumbar spine were acquired. COMPARISON: [facility], CR, XR SHOULDER LT MIN 2V, 03/01/2019, 12:42. [facility], CT, CT ABDOMEN PELVIS W CON, 02/23/2019, 2:21. LUMBAR SPINE 2-3V, 11/05/2019, 15:24. FINDINGS: Bones: 5 [id number]-tlidyav vertebrae are present. Remote right radha and pedicle screw fixation at L4-L5. No evidence of hardware failure or loosening. Trace degenerative anterolisthesis of L3 on L4 and retrolisthesis of L2 on L3. Multilevel prominent facet arthropathy. Calcified posterior disc protrusion at L3-L4. Suspect possible canal stenosis. No vertebral body compression fractures. No suspicious bony lesions. Soft tissues: Overlying bowel gas pattern is normal. There is a calcification at the level of upper L3 on the right measuring 1.9 cm, which may potentially be a right renal pelvic stone. IMPRESSION: 1. No evidence acute bony abnormality of the lumbar spine. 2. Question 1.9 cm right renal pelvic stone. 3. Lumbar degenerative change. Suspect canal stenosis. Dictated by: Stephan Garcia M.D. on 10/22/2020 at 9:45 Approved by: Stephan Garcia M.D. on 10/22/2020 at 9:50 MDM Narrative Medical decision making narrative: Patient's x-rays of her lower back and right lower extremity are unremarkable. There is reported history of dementia and the patient is only oriented to where she is which apparently is baseline for her. She does have redness and swelling to her right lower extremity however a review of a note from a prior visit describes findings very similar to this so I do not suspect that this is new. She is afebrile. There is no other signs of trauma. Will discharge patient back to nursing facility. Discharge Plan Departure Patient Disposition: Home Clinical Impression: Lower back pain, Fall Instructions: How to Prevent Falls Activity Restrictions/Additional Instructions: There were no fractures noted with x-rays of her lower spine and right lower extremity. I do recommend that the providers at the nursing facility evaluate her red right lower extremity. There were prior notes from here in the emergency department that described similar findings however she should be evaluated for potential skin infection if this is new. She can return to the emergency department for any new or worsening symptoms Prescriptions: No Action lidocaine 5 % Adhesive Patch,Medicated 1 patch TOPICAL DAILY RF: 0 ferrous gluconate 324 mg (37.5 mg iron) Tablet 324 mg PO DAILY RF: 0 melatonin 3 mg Capsule 6 mg PO BEDTIME PRN (Reason: Sleep) RF: 0 polyethylene glycol 3350 17 gram/dose Powder 17 g PO BID PRN (Reason: Constipation) RF: 0 cefdinir 300 mg capsule 300 mg PO BID Qty: 10 RF: 0 hydrocodone-acetaminophen 5-325 mg Tablet 1 tab PO Q6H PRN (Reason: Pain (Scale Score 4-6)) Qty: 20 RF: 0 acetaminophen 325 mg Tablet 650 mg PO Q6H MDD 36 PRN (Reason: pain) RF: 0 levothyroxine 50 mcg Tablet 50 mcg PO DAILY RF: 0 ascorbic acid (vitamin C) 500 mg Tablet,Chewable 500 mg PO DAILY RF: 0 gabapentin 300 mg Capsule 300 mg PO QPM RF: 0 omeprazole 20 mg Capsule,Delayed Release(Dr/Ec) 20 mg PO DAILY RF: 0 nystatin 100,000 unit/gram powder 1 applic Topical TID PRN (Reason: yeast) RF: 0 sertraline 50 mg tablet 75 mg PO DAILY RF: 0 magnesium hydroxide [Milk of Magnesia] 400 mg/5 mL Suspension 30 ml PO PRN PRN (Reason: Constipation) RF: 0 bisacodyl 10 mg Suppository 10 mg WA PRN PRN (Reason: Constipation) RF: 0 Fleet Enema 19-7 gram/118 mL Enema 118 ml WA PRN PRN (Reason: Constipation) RF: 0 Lactobacillus acidophilus [Acidophilus] Capsule 1 cap PO DAILY RF: 0 bisacodyl 5 mg Tablet 5 - 10 mg PO PRN PRN (Reason: Constipation) RF: 0 tramadol 50 mg tablet 50 mg PO Q8H PRN (Reason: Muscle Spasm) RF: 0 meloxicam [Mobic] 7.5 mg tablet 7.5 mg PO DAILY Qty: 20 RF: 0 cefdinir 300 mg capsule 300 mg PO BID Qty: 20 RF: 0 Referrals: Sonam Khalil MD [Primary Care Provider] -
[2020-10-22 09:25] VITALS: BP 126/72; PULSE 74; RESP 18; O2SAT 96
== END 2020-10-22 10:59 | disposition home or self-care (01) ==
LOC: ED 10:21
PROVIDERS: Emergency Provider Emergency Medicine; PCP Internal Medicine
DX: M54.5 Low back pain (principal); M79.604 Pain in right leg; W19.XXXA Unspecified fall, initial encounter; F03.90 Unspecified dementia, unspecified severity, without behavioral disturbance, psychotic disturbance, mood disturbance, and anxiety
CPT/HCPCS: 72100; 73590; 99283